=== PATIENT | male | born 1945 | race Caucasian/White ===

== ENCOUNTER 2018-12-19 19:23 | Emergency (ER) | payer MEDICARE, SELFPAY ==
[2018-12-19 19:36] VITALS: BP 125/77; PULSE 83; RESP 18; TEMP 36.7; O2SAT 98; BMI 23.0
--- NOTE | 2018-12-19 19:48 | ED_ITS ---
HPI - Nausea/Vomiting/Diarrhea <MARISEL Baltazar - Last Filed: 12/19/18 21:21> General Chief complaint: GI Bleed Stated complaint: DIARRHEA Time Seen by Provider: 12/19/18 19:28 Source: patient Mode of arrival: ambulatory Limitations: no limitations History of Present Illness HPI Narrative: 73-year-old male with a history of alcohol use and smoking (quit 6 months ago), presents emergency department complaining of intermittent diarrhea for the past 6 months that has turned black in color the past 3 weeks. He is in [place] being evaluated for his back and his knees talked him into coming. Denies aggravating or alleviating symptoms of his diarrhea. He states he has not taken anything for it, he has not seen a provider for as but the time he thinks he should see someone the diarrhea resolves. He denies any abdominal pain, chest pain, shortness of breath, nausea, appetite changes, fevers, chills, dysuria, difficulty urinating, or flank pain. MD complaint: diarrhea Onset (ago): minute(s) Description of Diarrhea: other (black) Associated Abdominal Pain: No Related Data Home Medications Medication Instructions Recorded Confirmed ibuprofen 600 mg PO TID PRN #0 09/05/17 multivitamin [Multiple Vitamins] 1 tab PO QDAY #0 09/05/17 Previous Rx's Medication Instructions Recorded hydromorphone 2 mg PO Q4HP PRN #40 09/16/17 hydroxyzine pamoate 25 mg PO Q4HP PRN #20 cap 09/16/17 Allergies Allergy/AdvReac Type Severity Reaction Status Date / Time No Known Allergies Allergy Uncoded 09/14/17 12:51 Review of Systems <MARISEL Baltazar - Last Filed: 12/19/18 21:21> Review of Systems REVIEW OF SYSTEMS: GENERAL: Denies fever, chills, malaise, or wt. loss. HENT: No head trauma, sore throat, or dysphagia. EYES: No loss of vision, double vision, eye pain, or irritation. CARDIOVASCULAR: No chest pain, palpitations, or orthopnea. RESPIRATORY: No shortness of breath or cough. GASTROINTESTINAL: Complains of diarrhea, see HPI GENITOURINARY: No flank pain, urinary incontinence, hesitancy, frequency, or dysuria. [No vaginal discharge or dyspareunia. Denies concerns for STIs] MUSCULOSKELETAL: No pain, weakness, or trauma. INTEGUMENTARY: No rash, lesions, or pruritus. NEURO: No numbness, tingling, memory loss, confusion, or headaches. PSYCH: No behavior or mood changes. PFSH <MARISEL Baltazar - Last Filed: 12/19/18 21:21> Medical History Chronic back pain (Chronic Unknown) Hearing loss (Chronic Unknown) Family History (Updated 12/22/17 @ 16:24 by Farzana Jain LPN) Father Heart disease Mother Cancer Social History Smoking Status: Former smoker Family History Father Heart disease Mother Cancer Social History Smoking Status: Former smoker Exam <MARISEL Baltazar - Last Filed: 12/19/18 21:21> Initial Vital Signs Initial Vital Signs: Vital Signs Temperature 98.1 F 12/19/18 19:36 Pulse Rate 83 12/19/18 19:36 Respiratory Rate 18 12/19/18 19:36 Blood Pressure 125/77 12/19/18 19:36 Pulse Oximetry 98 12/19/18 19:36 PHYSICAL EXAMINATION: GENERAL: Well groomed, alert, and cooperative. Answers questions promptly and appropriately. Vital signs noted. HENT: Normocephalic, atraumatic. Hearing intact. Oral mucosa is pink and moist. Voice is hoarse due to smoking history. EYES: Conjunctiva pink, sclera white, no periorbital swelling. CARDIOVASCULAR: S1 and S2 sounds normal. Regular rate and rhythm, no murmurs. RESPIRATORY: Normal respiratory rate, trachea midline, airway patent. No stridor, nasal flaring or accessory muscle use. Lungs are clear in all gonzalez without wheeze, rhonchi, or crackles. GASTROINTESTINAL: Bowel sounds normoactive. Abdomen is soft and very slight tenderness to deep palpation to right upper quadrant. No organomegaly, no palpable masses. RECTAL: Guaiac was negative for occult blood. No hemorrhoids or masses palpated. Stool was visualized by nursing, they state was brown and black. GENITALURINARY: No flank tenderness. MUSCULOSKELETAL: Normal gait and coordination. Equal tone and mass bilaterally. Patient states he has chronic back pain, there is tenderness when his lower back is palpated. Patient able to ambulate without assistance. EXTREMITIES: CMS intact, no pedal edema. SKIN: Warm, dry, soft, appropriate color for ethnicity. No lesions, rashes, or wounds. NEURO: Alert and Oriented X 3. Good coordination. No ataxia, or sensory deficits, or cognitive issues. PSYCH: Appropriate affect and mood. <Darling Munoz DO - Last Filed: 12/20/18 01:30> Initial Vital Signs Initial Vital Signs: Vital Signs Temperature 98.1 F 12/19/18 19:36 Pulse Rate 83 12/19/18 19:36 Respiratory Rate 18 12/19/18 19:36 Blood Pressure 125/77 12/19/18 19:36 Pulse Oximetry 98 12/19/18 19:36 Course <MARISEL Baltazar - Last Filed: 12/19/18 21:21> Course Narrative: CT was ordered under elevated lipase due to slight right upper quadrant abdominal pain as well as chronic diarrhea, and significant risk factors for masses (age, strong history of smoking and history of alcohol abuse) Orders Ordered: ED Orders 12/19/18 20:00 Amylase Stat Complete Blood Count AUTO DIFF Stat Comprehensive Metabolic Panel Stat Lipase Stat 12/19/18 20:32 CT abdomen pelvis w con Stat 12/19/18 21:08 GI Panel (Film Array) Stat Discontinued Medications Sodium Chloride (Normal Saline 0.9%) 1,000 mls @ 150 mls/hr IV CONT GATO Last Infusion: 12/19/18 23:16 Dose: 0 mls/hr Admin: 12/19/18 20:16 Dose: 150 mls/hr Consultations Consultation #1: Patient staffed with Dr. Munoz. Vital Signs - 8 hr 12/19/18 19:36 12/19/18 21:00 12/19/18 21:25 Temperature 98.1 F Pulse Rate 83 78 84 Respiratory Rate 18 16 Blood Pressure 125/77 Blood Pressure [Left Arm] 141/71 H 162/73 H Pulse Oximetry 98 99 95 12/19/18 23:16 Temperature Pulse Rate 90 Respiratory Rate 16 Blood Pressure 132/68 Blood Pressure [Left Arm] Pulse Oximetry 98 <Darling Munoz DO - Last Filed: 12/20/18 01:30> Orders Ordered: ED Orders 12/19/18 20:00 Amylase Stat Complete Blood Count AUTO DIFF Stat Comprehensive Metabolic Panel Stat Lipase Stat 12/19/18 20:32 CT abdomen pelvis w con Stat 12/19/18 21:08 GI Panel (Film Array) Stat Discontinued Medications Sodium Chloride (Normal Saline 0.9%) 1,000 mls @ 150 mls/hr IV CONT GATO Last Infusion: 12/19/18 23:16 Dose: 0 mls/hr Admin: 12/19/18 20:16 Dose: 150 mls/hr Vital Signs - 8 hr 12/19/18 19:36 12/19/18 21:00 12/19/18 21:25 Temperature 98.1 F Pulse Rate 83 78 84 Respiratory Rate 18 16 Blood Pressure 125/77 Blood Pressure [Left Arm] 141/71 H 162/73 H Pulse Oximetry 98 99 95 12/19/18 23:16 Temperature Pulse Rate 90 Respiratory Rate 16 Blood Pressure 132/68 Blood Pressure [Left Arm] Pulse Oximetry 98 MDM - Nausea/Vomiting/Diarrhea <MARISEL Baltazar - Last Filed: 12/19/18 21:21> Medical Records Attestation: I reviewed the patient's medical records. Lab Data Attestation: I reviewed the patient's lab results. Result diagrams: 12/19/18 20:00 12/19/18 20:00 Lab Results 12/19/18 12/19/18 12/19/18 Range/Units 20:00 20:00 20:00 WBC 12.2 H (4.5-11.0) X10^3/uL RBC 4.08 L (4.5-5.9) X10^6/uL Hgb 12.6 L (13.5-17.5) g/dL Hct 37.6 L (41-53) % MCV 92.0 (80-100) fL MCH 30.8 (26-34) PG MCHC 33.5 (30-36) % RDW 13.3 (11.6-14.8) % Plt Count 326 (150-400) X10^3/uL Neut % (Auto) 58.9 (50-75) % Lymph % (Auto) 16.1 L (25-40) % [place] % (Auto) 7.6 (3-14) % Eos % (Auto) 16.6 H (2-4) % Baso % (Auto) 0.8 (0-2) % Neut # (Auto) 7200 H (2020-5937) /uL Lymph # (Auto) 2000 (6362-3336) /uL [place] # (Auto) 900 (0-900) /uL Eos # (Auto) 2000 H (0-450) /uL Baso # (Auto) 100 (0-100) /uL Sodium 137 (137-145) mmol/L Potassium 4.2 (3.4-5.1) mmol/L Chloride 100 (98-107) mmol/L Carbon Dioxide 26 (22-32) mmol/L BUN 7 L (9-20) mg/dL Creatinine 0.60 L (0.66-1.25) mg/dL Estimated GFR > 60.0 (>60) mL/min BUN/Creatinine Ratio 11.7 (6-22) Glucose 95 (80-110) mg/dL Calcium 9.2 (8.4-10.2) mg/dL Total Bilirubin 0.3 (0.2-1.3) mg/dL AST 19 (17-59) IU/L ALT 14 L (21-72) IU/L Alkaline Phosphatase 82 (38-126) U/L Total Protein 7.3 (6.3-8.2) g/dL Albumin 4.0 (3.5-5.0) g/dL Globulin 3.3 (1.7-4.1) g/dL Albumin/Globulin Ratio 1.2 (1.0-2.8) Amylase 137 H (30-110) U/L Lipase 548 H (23-300) U/L Stl C. cayetanensis PCR (Not Detect) Stool Rotavirus (PCR) (Not Detect) Stool Adenovirus (PCR) (Not Detect) Stool Astrovirus (PCR) (Not Detect) Stool Cryptosporidium PCR (Not Detect) Stl E.coli Shiga Tox PCR (Not Detect) St Sh/Enteroin Ecoli PCR (Not Detect) Stool E coli O157 PCR Stl Enterotoxigenic E PCR (Not Detect) Stool EPEC (PCR) (Not Detect) Stl E. histolytica PCR (Not Detect) Stool Giardia Lamblia PCR (Not Detect) Stl P. shigelloides PCR (Not Detect) St Y.enterocolitica PCR (Not Detect) Stool Vibrio (PCR) (Not Detect) Stl Vibrio cholerae PCR (Not Detect) Stl Enteroaggr Ecoli PCR (Not Detect) Stl Norovirus GI/GII PCR (Not Detect) Campylobacter (PCR) (Not Detect) C. difficile Tox (PCR) (Not Detect) Salmonella (PCR) (Not Detect) 12/19/18 Range/Units 21:08 WBC (4.5-11.0) X10^3/uL RBC (4.5-5.9) X10^6/uL Hgb (13.5-17.5) g/dL Hct (41-53) % MCV (80-100) fL MCH (26-34) PG MCHC (30-36) % RDW (11.6-14.8) % Plt Count (150-400) X10^3/uL Neut % (Auto) (50-75) % Lymph % (Auto) (25-40) % [place] % (Auto) (3-14) % Eos % (Auto) (2-4) % Baso % (Auto) (0-2) % Neut # (Auto) (2725-0466) /uL Lymph # (Auto) (8117-3457) /uL [place] # (Auto) (0-900) /uL Eos # (Auto) (0-450) /uL Baso # (Auto) (0-100) /uL Sodium (137-145) mmol/L Potassium (3.4-5.1) mmol/L Chloride (98-107) mmol/L Carbon Dioxide (22-32) mmol/L BUN (9-20) mg/dL Creatinine (0.66-1.25) mg/dL Estimated GFR (>60) mL/min BUN/Creatinine Ratio (6-22) Glucose (80-110) mg/dL Calcium (8.4-10.2) mg/dL Total Bilirubin (0.2-1.3) mg/dL AST (17-59) IU/L ALT (21-72) IU/L Alkaline Phosphatase (38-126) U/L Total Protein (6.3-8.2) g/dL Albumin (3.5-5.0) g/dL Globulin (1.7-4.1) g/dL Albumin/Globulin Ratio (1.0-2.8) Amylase (30-110) U/L Lipase (23-300) U/L Stl C. cayetanensis PCR Not detected (Not Detect) Stool Rotavirus (PCR) Not detected (Not Detect) Stool Adenovirus (PCR) Not detected (Not Detect) Stool Astrovirus (PCR) Not detected (Not Detect) Stool Cryptosporidium PCR Not detected (Not Detect) Stl E.coli Shiga Tox PCR Not detected (Not Detect) St Sh/Enteroin Ecoli PCR Not detected (Not Detect) Stool E coli O157 PCR Not Reportable Stl Enterotoxigenic E PCR Not detected (Not Detect) Stool EPEC (PCR) Not detected (Not Detect) Stl E. histolytica PCR Not detected (Not Detect) Stool Giardia Lamblia PCR Not detected (Not Detect) Stl P. shigelloides PCR Not detected (Not Detect) St Y.enterocolitica PCR Not detected (Not Detect) Stool Vibrio (PCR) Not detected (Not Detect) Stl Vibrio cholerae PCR Not detected (Not Detect) Stl Enteroaggr Ecoli PCR Not detected (Not Detect) Stl Norovirus GI/GII PCR Not detected (Not Detect) Campylobacter (PCR) Not detected (Not Detect) C. difficile Tox (PCR) Not detected (Not Detect) Salmonella (PCR) Not detected (Not Detect) Urine Dip Bedside Urine Glucose Negative Bedside Urine Bilirubin - Negative Bedside Urine Ketone - Negative Urine Specific [place] 1.015 Bedside Urine Occult Blood - Negative Bedside Urine pH 6.5 Bedside Urine Protein - Negative Bedside Urine Urobilinogen - Negative Bedside Urine Nitrite - Negative Bedside Urine Leukocytes - Negative Esterase MDM Narrative Medical decision making narrative: Concern for pancreatitis due to elevated lipase and elevated amylase. Low concern for GI bleed due to negative guaiac, visualized brown stool, no complaints of progressive worsening (however remains on the differential due to new onset anemia and complaints of darker stool). Bacterial such as C diff could also be contributing to diarrhea so stool studies were obtained. Additionally, patient will need further follow-up for colonoscopy as inflammatory bowel disease (less likely due lack of abdominal pain and cramping, lack of mucus and bright red blood in stool) and IBS may also be contributing or causing patient's symptoms. Patient is at high risk for malignancy due to past smoking and alcohol use, therefore CT was obtained. <Darling Munoz, DO - Last Filed: 12/20/18 01:30> Lab Data Attestation: I reviewed the patient's lab results. Lab Results 12/19/18 12/19/18 12/19/18 Range/Units 20:00 20:00 20:00 WBC 12.2 H (4.5-11.0) X10^3/uL RBC 4.08 L (4.5-5.9) X10^6/uL Hgb 12.6 L (13.5-17.5) g/dL Hct 37.6 L (41-53) % MCV 92.0 (80-100) fL MCH 30.8 (26-34) PG MCHC 33.5 (30-36) % RDW 13.3 (11.6-14.8) % Plt Count 326 (150-400) X10^3/uL Neut % (Auto) 58.9 (50-75) % Lymph % (Auto) 16.1 L (25-40) % [place] % (Auto) 7.6 (3-14) % Eos % (Auto) 16.6 H (2-4) % Baso % (Auto) 0.8 (0-2) % Neut # (Auto) 7200 H (8821-4386) /uL Lymph # (Auto) 2000 (2698-1428) /uL [place] # (Auto) 900 (0-900) /uL Eos # (Auto) 2000 H (0-450) /uL Baso # (Auto) 100 (0-100) /uL Sodium 137 (137-145) mmol/L Potassium 4.2 (3.4-5.1) mmol/L Chloride 100 (98-107) mmol/L Carbon Dioxide 26 (22-32) mmol/L BUN 7 L (9-20) mg/dL Creatinine 0.60 L (0.66-1.25) mg/dL Estimated GFR > 60.0 (>60) mL/min BUN/Creatinine Ratio 11.7 (6-22) Glucose 95 (80-110) mg/dL Calcium 9.2 (8.4-10.2) mg/dL Total Bilirubin 0.3 (0.2-1.3) mg/dL AST 19 (17-59) IU/L ALT 14 L (21-72) IU/L Alkaline Phosphatase 82 (38-126) U/L Total Protein 7.3 (6.3-8.2) g/dL Albumin 4.0 (3.5-5.0) g/dL Globulin 3.3 (1.7-4.1) g/dL Albumin/Globulin Ratio 1.2 (1.0-2.8) Amylase 137 H (30-110) U/L Lipase 548 H (23-300) U/L Stl C. cayetanensis PCR (Not Detect) Stool Rotavirus (PCR) (Not Detect) Stool Adenovirus (PCR) (Not Detect) Stool Astrovirus (PCR) (Not Detect) Stool Cryptosporidium PCR (Not Detect) Stl E.coli Shiga Tox PCR (Not Detect) St Sh/Enteroin Ecoli PCR (Not Detect) Stool E coli O157 PCR Stl Enterotoxigenic E PCR (Not Detect) Stool EPEC (PCR) (Not Detect) Stl E. histolytica PCR (Not Detect) Stool Giardia Lamblia PCR (Not Detect) Stl P. shigelloides PCR (Not Detect) St Y.enterocolitica PCR (Not Detect) Stool Vibrio (PCR) (Not Detect) Stl Vibrio cholerae PCR (Not Detect) Stl Enteroaggr Ecoli PCR (Not Detect) Stl Norovirus GI/GII PCR (Not Detect) Campylobacter (PCR) (Not Detect) C. difficile Tox (PCR) (Not Detect) Salmonella (PCR) (Not Detect) 12/19/18 Range/Units 21:08 WBC (4.5-11.0) X10^3/uL RBC (4.5-5.9) X10^6/uL Hgb (13.5-17.5) g/dL Hct (41-53) % MCV (80-100) fL MCH (26-34) PG MCHC (30-36) % RDW (11.6-14.8) % Plt Count (150-400) X10^3/uL Neut % (Auto) (50-75) % Lymph % (Auto) (25-40) % [place] % (Auto) (3-14) % Eos % (Auto) (2-4) % Baso % (Auto) (0-2) % Neut # (Auto) (1953-3624) /uL Lymph # (Auto) (2573-7711) /uL [place] # (Auto) (0-900) /uL Eos # (Auto) (0-450) /uL Baso # (Auto) (0-100) /uL Sodium (137-145) mmol/L Potassium (3.4-5.1) mmol/L Chloride (98-107) mmol/L Carbon Dioxide (22-32) mmol/L BUN (9-20) mg/dL Creatinine (0.66-1.25) mg/dL Estimated GFR (>60) mL/min BUN/Creatinine Ratio (6-22) Glucose (80-110) mg/dL Calcium (8.4-10.2) mg/dL Total Bilirubin (0.2-1.3) mg/dL AST (17-59) IU/L ALT (21-72) IU/L Alkaline Phosphatase (38-126) U/L Total Protein (6.3-8.2) g/dL Albumin (3.5-5.0) g/dL Globulin (1.7-4.1) g/dL Albumin/Globulin Ratio (1.0-2.8) Amylase (30-110) U/L Lipase (23-300) U/L Stl C. cayetanensis PCR Not detected (Not Detect) Stool Rotavirus (PCR) Not detected (Not Detect) Stool Adenovirus (PCR) Not detected (Not Detect) Stool Astrovirus (PCR) Not detected (Not Detect) Stool Cryptosporidium PCR Not detected (Not Detect) Stl E.coli Shiga Tox PCR Not detected (Not Detect) St Sh/Enteroin Ecoli PCR Not detected (Not Detect) Stool E coli O157 PCR Not Reportable Stl Enterotoxigenic E PCR Not detected (Not Detect) Stool EPEC (PCR) Not detected (Not Detect) Stl E. histolytica PCR Not detected (Not Detect) Stool Giardia Lamblia PCR Not detected (Not Detect) Stl P. shigelloides PCR Not detected (Not Detect) St Y.enterocolitica PCR Not detected (Not Detect) Stool Vibrio (PCR) Not detected (Not Detect) Stl Vibrio cholerae PCR Not detected (Not Detect) Stl Enteroaggr Ecoli PCR Not detected (Not Detect) Stl Norovirus GI/GII PCR Not detected (Not Detect) Campylobacter (PCR) Not detected (Not Detect) C. difficile Tox (PCR) Not detected (Not Detect) Salmonella (PCR) Not detected (Not Detect) Urine Dip Bedside Urine Glucose Negative Bedside Urine Bilirubin - Negative Bedside Urine Ketone - Negative Urine Specific [place] 1.015 Bedside Urine Occult Blood - Negative Bedside Urine pH 6.5 Bedside Urine Protein - Negative Bedside Urine Urobilinogen - Negative Bedside Urine Nitrite - Negative Bedside Urine Leukocytes - Negative Esterase Imaging Data CT scan - abdomen: Radiologist's impression: Talat Stevenson 73 M [address] [place] [address] CT Scan Report Signed Patient: Talat Stevenson MMR#: [id number] : 7Acct:[id number] Age/Sex: 73 / MDate of Service: 12/19/18 Loc: ED Accession Number: [id number] Procedure: CT abdomen pelvis w con Ordering Provider: Brittany Elder PROCEDURE: CT ABDOMEN PELVIS W CON INDICATIONS: R-sided abd px, anemia, stools changes, high risk for CA TECHNIQUE: After the administration of intravenous contrast, 5 mm thick sections acquired from the diaphragm to the symphysis. 5 mm coronal and sagittal reformats were acquired. For radiation dose reduction, the following was used: automated exposure control, adjustment of mA and/or kV according to patient size. COMPARISON: None. FINDINGS: Image quality: Excellent. ABDOMEN: Lung bases: Lung bases are clear. Heart size is normal. Solid organs: Liver is normal in size and enhancement. Gallbladder is unremarkable. Biliary system is non dilated. Pancreas enhances normally. Spleen is normal in size and enhancement. No adrenal nodules. Kidneys demonstrate normal size and enhancement, without hydronephrosis. Peritoneum and bowel: There is a heterogeneous, irregular mass eccentrically located within the mid sigmoid colon measuring approximately 6.3 x 4.6 cm in transverse dimension with a few surrounding prominent lymph nodes. No evidence for bowel obstruction proximally. Remainder of the visualized bowel loops demonstrate normal wall thickness and caliber. No free fluid or air. Nodes and vessels: There are numerous scattered prominent mesenteric and retroperitoneal lymph nodes, most pronounced in the right pericaval region. Periportal adenopathy is noted. The largest is seen on image 29, series 2 measuring up to 1.7 cm in maximum short axis dimension. Additional prominent lymph nodes surrounding the sigmoid colon as well as the upper right pelvis as noted by a prominent 1.0 cm node seen on image 45, series 2. Aorta and inferior vena cava are normal in size. Miscellaneous: No ventral hernias. PELVIS: Genitourinary: Bladder wall thickness is normal. Miscellaneous: No inguinal hernias or adenopathy. Bones: Status post posterior spinal fusion of L4-S1 and right hemilaminectomies L5. Age indeterminate but probably acute to subacute compression fracture deformity involving the L1 vertebral body with approximately 40% loss of the anterior vertebral body height. There is mild retropulsion of the posterior margin of the vertebral body resulting in minimal spinal canal stenosis. No definite vertebral body lesion identified at L1. No other suspicious findings identified in the osseous structures. IMPRESSION: 1. Large, heterogeneous mass in the mid sigmoid colon measuring approximately 6.3 x 4.6 cm in size without evidence for obstruction. Findings are worrisome for malignancy. There are adjacent prominent pericolonic lymph nodes as well as numerous prominent retroperitoneal, pericaval nodes. There is adenopathy in the periportal region. Findings are suspicious for metastatic disease. Recommend further evaluation by gastroenterology/surgical consultation. 2. Age indeterminate, but likely acute to subacute compression fracture of the L1 vertebral body. A pathologic fracture not excluded although no suspicious osseous lesion identified in the L1 vertebral body or elsewhere. 3. Other chronic findings as above. Findings were discussed with Dr. Munoz of the emergency department at 2200 hrs. Dictated by: Grant Cisneros M.D. on 12/19/2018 at 21:43 Approved by: Grant Cisneros M.D. on 12/19/2018 at 22:06 MDM Narrative Medical decision making narrative: Patient was signed out to myself by nurse practitioner Jael, CT shows a large mass concerning for colon cancer along with multiple lymph nodes. Guaiac of stool was negative but with patient's description of melanotic stools and slowly decreasing hemoglobin I suspect that he is having a very slow GI bleed secondary to mass. His other labs white count, hemoglobin is 12 down from 15 in September 2017 and 17 in August of 2017. Lipase is slightly elevated at 555 for an amylase of 137, appropriate. Patien t's stool studies are negative. Patient does not wish to spend the night in the hospital and prefers to follow up outpatient in the next week. We discussed the serious nature of his findings and prolonged delay will make his care and course likely more difficult. He is accompanied by his niece. I spoke with Dr. Crawford with General surgery he did offer overnight stay for colonoscopy and surgery but patient prefers not to. He will call in the morning to set up an appointment. Also given Oncology. Was encouraged to return if he has any worsening symptoms or has difficulty with follow-up, patient expressed understanding and given referal for both. Discharge Plan Departure Patient Disposition: Home Clinical Impression: Mass of colon, Diarrhea Discharge Date/Time: 12/19/18 23:17 Interventions: ED Discharge Assessment Last Done: 12/19/18 23:16 Instructions: DI for Colorectal Cancer Activity Restrictions/Additional Instructions: Your imaging is concerning for colon cancer. Call Dr. Crawford office tomorrow morning to set up follow-up for evaluation and surgery as needed. Call the oncology office for follow-up as well. Call tomorrow. Let them know you have a colon mass concerning for colon cancer found in the ER. Continue home medications as prescribed. Return to the emergency department for lightheadedness, passing out, new abdominal pain, persistent vomiting, worsening black or bloody stools, chest pain, shortness of breath or other new or concerning symptoms. Prescriptions: No Action multivitamin [Multiple Vitamins] 1 EACH tablet 1 tab PO QDAY Qty: 0 RF: 0 ibuprofen 200 MG tablet 600 mg PO TID PRNQty: 0 RF: 0 hydroxyzine pamoate 25 MG capsule 25 mg PO Q4HP PRNQty: 20 RF: 0 hydromorphone 2 MG tablet 2 mg PO Q4HP PRNQty: 40 RF: 0 Referrals: Efren Crawford MD [Physician] - Mumtaz Jacobsen MD [Physician] - ED Cosign/Signout <MARISEL Baltazar - Last Filed: 12/19/18 21:21> Cosign ED Attending Cosignature Attestation: Report was given and patient was signed out to Dr. Munoz. Sign Out Provider Sign Out Attestation: Report was given and patient was signed out to Dr. Munoz at [id number].
[2018-12-19 20:11] LABS: Add Manual Diff / Slide Review NO; Basophils Absolute Auto 100 /uL (0-100); Basophils Percent Auto 0.8 % (0-2); Eosinophils Absolute Auto 2000 /uL (0-450); Eosinophils Percent Auto 16.6 % (2-4); Hematocrit 37.6 % (41-53); Hemoglobin 12.6 g/dL (13.5-17.5); Lymphocytes Absolute Auto 2000 /uL (1100-4500); Lymphocytes Percent Auto 16.1 % (25-40); Mean Corpuscular HGB Conc 33.5 % (30-36); Mean Corpuscular Hemoglobin 30.8 PG (26-34); Monocytes Absolute Auto 900 /uL (0-900); Monocytes Percent Auto 7.6 % (3-14); Neutrophils Absolute Auto 7200 /uL (1500-7000); Neutrophils Percent Auto 58.9 % (50-75); Platelet Count 326 X10^3/uL (150-400); Red Blood Cell Count 4.08 X10^6/uL (4.5-5.9); Red Cell Distribution Width 13.3 % (11.6-14.8); White Blood Cell Count 12.2 X10^3/uL (4.5-11.0)
[2018-12-19] MEDS: SODIUM CHLORIDE 0.9% 1,000 ML 150 ML IV (20:16)
[2018-12-19 20:24] LABS: Alanine Aminotransferase 14 IU/L (21-72); Albumin Globulin Ratio 1.2 (1.0-2.8); Alkaline Phosphatase 82 U/L (38-126); Aspartate Aminotransferase 19 IU/L (17-59); BUN Creatinine Ratio 11.7 (6-22); Bilirubin Total 0.3 mg/dL (0.2-1.3); Blood Urea Nitrogen 7 mg/dL (9-20); Calcium 9.2 mg/dL (8.4-10.2); Carbon Dioxide 26 mmol/L (22-32); Chloride 100 mmol/L (98-107); Estimated Glomerular Filt Rate > 60.0 mL/min (>60); Globulin 3.3 g/dL (1.7-4.1); Glucose 95 mg/dL (80-110); HEMOLYSIS < 15 (0-50); Lipase 548 U/L (23-300); Potassium 4.2 mmol/L (3.4-5.1); Sodium 137 mmol/L (137-145); Total Protein 7.3 g/dL (6.3-8.2)
--- NOTE | 2018-12-19 20:32 | DI.CT.S_ITS ---
PROCEDURE: CT ABDOMEN PELVIS W CON INDICATIONS: R-sided abd px, anemia, stools changes, high risk for CA TECHNIQUE: After the administration of intravenous contrast, 5 mm thick sections acquired from the diaphragm to the symphysis. 5 mm coronal and sagittal reformats were acquired. For radiation dose reduction, the following was used: automated exposure control, adjustment of mA and/or kV according to patient size. COMPARISON: None. FINDINGS: Image quality: Excellent. ABDOMEN: Lung bases: Lung bases are clear. Heart size is normal. Solid organs: Liver is normal in size and enhancement. Gallbladder is unremarkable. Biliary system is non dilated. Pancreas enhances normally. Spleen is normal in size and enhancement. No adrenal nodules. Kidneys demonstrate normal size and enhancement, without hydronephrosis. Peritoneum and bowel: There is a heterogeneous, irregular mass eccentrically located within the mid sigmoid colon measuring approximately 6.3 x 4.6 cm in transverse dimension with a few surrounding prominent lymph nodes. No evidence for bowel obstruction proximally. Remainder of the visualized bowel loops demonstrate normal wall thickness and caliber. No free fluid or air. Nodes and vessels: There are numerous scattered prominent mesenteric and retroperitoneal lymph nodes, most pronounced in the right pericaval region. Periportal adenopathy is noted. The largest is seen on image 29, series 2 measuring up to 1.7 cm in maximum short axis dimension. Additional prominent lymph nodes surrounding the sigmoid colon as well as the upper right pelvis as noted by a prominent 1.0 cm node seen on image 45, series 2. Aorta and inferior vena cava are normal in size. Miscellaneous: No ventral hernias. PELVIS: Genitourinary: Bladder wall thickness is normal. Miscellaneous: No inguinal hernias or adenopathy. Bones: Status post posterior spinal fusion of L4-S1 and right hemilaminectomies L5. Age indeterminate but probably acute to subacute compression fracture deformity involving the L1 vertebral body with approximately 40% loss of the anterior vertebral body height. There is mild retropulsion of the posterior margin of the vertebral body resulting in minimal spinal canal stenosis. No definite vertebral body lesion identified at L1. No other suspicious findings identified in the osseous structures. IMPRESSION: 1. Large, heterogeneous mass in the mid sigmoid colon measuring approximately 6.3 x 4.6 cm in size without evidence for obstruction. Findings are worrisome for malignancy. There are adjacent prominent pericolonic lymph nodes as well as numerous prominent retroperitoneal, pericaval nodes. There is adenopathy in the periportal region. Findings are suspicious for metastatic disease. Recommend further evaluation by gastroenterology/surgical consultation. 2. Age indeterminate, but likely acute to subacute compression fracture of the L1 vertebral body. A pathologic fracture not excluded although no suspicious osseous lesion identified in the L1 vertebral body or elsewhere. 3. Other chronic findings as above. Findings were discussed with Dr. Munoz of the emergency department at 2200 hrs. Dictated by: Grant Cisneros M.D. on 12/19/2018 at 21:43 Approved by: Grant Cisneros M.D. on 12/19/2018 at 22:06
[2018-12-19 21:00] VITALS: BP 141/71; PULSE 78; O2SAT 99
[2018-12-19 21:16] LABS: Amylase 137 U/L (30-110)
[2018-12-19 21:25] VITALS: BP 162/73; PULSE 84; RESP 16; O2SAT 95
[2018-12-19 23:16] VITALS: BP 132/68; PULSE 90; RESP 16; O2SAT 98
[2018-12-19 23:24] LABS: Adenovirus F 40/41 Not Detected (Not Detect); Astrovirus Not Detected (Not Detect); Campylobacter Not Detected (Not Detect); Clostridium difficile toxin AB Not Detected (Not Detect); Cryptosporidium Not Detected (Not Detect); Cyclospora cayetanensis Not Detected (Not Detect); Entamoeba histolytica Not Detected (Not Detect); Enteroaggregative E.coli Not Detected (Not Detect); Enteropathogenic E.coli Not Detected (Not Detect); Enterotoxigenic E.coli It/st Not Detected (Not Detect); Giardia lamblia Not Detected (Not Detect); Norovirus GI/GII Not Detected (Not Detect); Plesiomonsa shigelloides Not Detected (Not Detect); Rotavirus A Not Detected (Not Detect); Salmonella Not Detected (Not Detect); Shiga-like toxin-prod E.coli Not Detected (Not Detect); Shigella/Enteroinvasive E.coli Not Detected (Not Detect); Vibrio Not Detected (Not Detect); Vibrio cholerae Not Detected (Not Detect); Yersinia enterocolitica Not Detected (Not Detect)
== END 2018-12-19 23:17 | disposition home or self-care (01) ==
PROVIDERS: Nurse Practitioner; Emergency Provider Emergency Medicine
DX: K63.89 Other specified diseases of intestine (principal); R19.7 Diarrhea, unspecified
CPT/HCPCS: 36591; 74177; 80053; 81003; 82150; 83690; 85025; 87507; 96360; 96361; 99283; 99284; Q9967

== ENCOUNTER 2018-12-26 06:48 | Day surgery (SDC) | payer MEDICARE, SELFPAY ==
[2018-12-26] VITALS (7 sets, daily range): BP systolic 119–142; BP diastolic 73–80; PULSE 74–84; RESP 12–16; TEMP 36.6–36.8; O2SAT 93–98; BMI 21.9
--- NOTE | 2018-12-26 | PATH_ITS ---
[facility] Accession Number: [id number] . 01 Material submitted: . body - MASS AT 35 CM BIOPSIES . 01 Diagnosis: Colon Mass at 35 cm, Biopsies: Invasive adenocarcinoma, moderately differentiated. . IMMUNOHISTOCHEMISTRY TESTING FOR MISMATCH REPAIR PROTEINS: . MLH1: Intact nuclear expression. MSH2: Intact nuclear expression. MSH6: Intact nuclear expression. PMS2: Intact nuclear expression. Background nonneoplastic tissue/internal control with intact nuclear expression. . INTERPRETATION: No loss of nuclear expression of MMR proteins: low probability of microsatellite instability-high (MSI-H)* . * There are exceptions to the above IHC interpretations. These results should not be considered in isolation, and clinical correlation with genetic counseling is recommended to assess the need for germline testing. MRV/12/29/2018 . 01 Comment: As part of routine quality and reliability engineer, Dr. Dhillon has reviewed this case and agrees with the diagnosis of invasive adenocarcinoma. The finding of invasive adenocarcinoma was reported to Dr. Scruggs via his RN Lynne by Dr. Danie Martinez on 12/28/2018 at 2:45 p.m. . 01 Electronically signed: . Danie Martinez MD, PhD, Pathologist NPI- [id number] . 01 Gross description: . MASS AT 35 CM BIOPSIES: Received in formalin are multiple fragment(s) of martinez, soft tissue measuring 0.1 x 0.1 x 0.1 cm to 0.3 x 0.2 x 0.2 cm which is entirely submitted and submitted entirely in 1 cassette(s) /DMC /[facility] . 01 Microscopic: . Immunohistochemical stains for DNA mismatch repair proteins are performed (each with an appropriately positive control). The carcinoma cells show intact nuclear expression of MLH1, PMS2, MSH2 and MSH6 proteins. . * This test was developed and its performance characteristics determined by [facility]. It has not been cleared or approved by the U.S. Food and Drug Administration. The FDA has determined that such clearance or approval is not necessary. This test is used for clinical purposes. It should not be regarded as investigational or for research. . 01 Pathologist provided ICD-10: C18.9 . 01 CPT . 241415, F91689, M47116 Performed at: 01 [facility] [address] [place] [address], [place], [place] [id number] MD Fran Dhillon MD Phone: [phone]
[2018-12-26] MEDS: SODIUM CHLORIDE 0.9% 1,000 ML 200 ML IV (07:30)
--- NOTE | 2018-12-26 07:48 | PM.PREOP ---
Pre-operative Note Interval Note History & Physical reviewed/Exam performed by Physician: Yes Changes to H&P: No ASA Class (for procedural sedation): I
[2018-12-26] MEDS: ONDANSETRON 4 MG/2 ML INJ IV (07:56)
[2018-12-26] MEDS: fentaNYL 250 MCG/5 ML INJ IV (07:57)
[2018-12-26] MEDS: MIDAZOLAM 5 MG/5 ML VIAL IV (07:58)
--- NOTE | 2018-12-26 08:24 | PM.OP.ENDO ---
Operative Date/Time/Diagnoses Date of procedure: 12/26/18 Time of procedure: 08:24 Pre-op diagnosis: Abnormal CT with mass in the sigmoid colon Post-op diagnosis: same (Near obstructing mass found at 35 cm from the anal verge) Procedure & Clinicians Study performed: Colonoscopy abandoned. Flexible sigmoidoscopy with biopsy and Berenice ink injection Same procedure as scheduled: No (Switched to flexible sigmoidoscopy) Indications: Abnormal CT scan Surgeon: Piyush Taylor Procedure Notes SCOAP/Timeout: Performed Procedure in detail: The patient was placed in left lateral decubitus position underwent IV sedation directed by the surgeon consisting of fentanyl and Versed. Anal cyst opening was tight and I applied topical anesthetic. Prostate is enlarged. No masses felt. The scope was inserted advanced through the rectum into the sigmoid colon. At about 35 cm I reached a mass which I could not get around due to the narrow opening adjacent to it. I tried multiple times and the same result occurred. Therefore I abandoned the procedure and took a deep biopsies of the mass. Coming distal I began to inject ink into the wall of the colon. After I made 2 injections I backed out a little further noted a polyp that would need To be included in any resection. Therefore I injected ink distal to it is well. the scope was then slowly withdrawn and retroflexed in the rectum. No other lesions were seen. I was unable to evaluate the colon proximal to the mass. Scope withdrawal time: Not applicable Sedation minutes: 21 Findings: possible cancer Specimen(s): other (Biopsies) Complications: none Recommendations: Other recommendation (CT scan chest abdomen and pelvis rule out metastatic disease) Follow up: weeks (1) Disposition: PACU
--- NOTE | 2018-12-26 08:37 | SUR.PHASEI ---
unable to edit time - 0800 vital sign are actually 0830
== END 2018-12-26 09:30 | disposition home or self-care (01) ==
PROVIDERS: Visit Provider Specialist
PROC: 0DJD8ZZ Inspection of Lower Intestinal Tract, Via Natural or Artificial Opening Endoscopic (ICD-10-PCS; CPT 45378; principal; 2018-12-26 07:45)
DX: C18.9 Malignant neoplasm of colon, unspecified (principal)
CPT/HCPCS: 45335; 88305; 88341; 88342; 99152; J2250; J2405; J3010

== ENCOUNTER → 2019-01-02 09:51 | Outpatient (CLI) | payer MEDICARE, SELFPAY ==
--- NOTE | 2019-01-02 09:55 | DI.CT.S_ITS ---
PROCEDURE: CT CHEST W CON INDICATIONS: Cancerous mass sigmoid colon. Rule out mets TECHNIQUE: After the administration of intravenous contrast, 5 mm thick sections acquired from the pulmonary apices to the posterior costophrenic angles. 1 mm axial lung, 5 mm thick coronal and sagittal reformats and 7 mm axial MIP were acquired. For radiation dose reduction, the following was used: automated exposure control, adjustment of mA and/or kV according to patient size. COMPARISON: [facility], CT, CT ABDOMEN PELVIS W CON, 12/19/2018, 21:13. [facility], CR, XR LUMBAR SPINE 2 OR 3 VIEWS, 09/27/2017, 15:23. [facility], CR, L-SPINE 2-3 VIEWS, 09/13/2017, 8:34. FINDINGS: Image quality: Excellent. Lungs and pleura: A 3 mm pulmonary nodule is present at the posterior right upper lobe (series 3, image 86). No other pulmonary nodules. No acute airspace opacities. No pleural effusion or pneumothorax. Mediastinum: Heart size is normal. No pericardial effusion. No mediastinal or hilar adenopathy by size criteria. Thoracic aorta and central pulmonary arteries are normal in size. Scattered atheromatous calcifications are present within the aortic arch. Esophagus is normal in caliber. No hiatal hernia. Bones and chest wall: A severe compression deformity is present at L1 with approximately 63% vertebral body height loss. Vertebral body height is otherwise preserved. No axillary or supraclavicular adenopathy by size criteria. Thyroid gland is unremarkable. Abdomen: Visualized upper abdominal solid organs appear normal. Upper abdominal bowel loops are normal in caliber. IMPRESSION: 1. 3 mm pulmonary nodule. In a high risk patient, [address] is recommended. 2. Severe L1 compression deformity, unchanged from the CT dated 12/19/18. This was not present on the study dated 09/27/17. Pathologic fracture cannot be excluded. If further characterization is warranted, MRI of this region with and without contrast is recommended. Fleischner Society criteria for SOLID lung nodule followup. Nodule size (mm)Low-risk patientHigh-risk patient?4No follow-up neededFollow-up at 12 mo; if no change, no further follow-up>2-7Bgzyxs-pg CT at 12 mo; if no change, no further follow-up needed.Initial follow-up CT at 6-12 mo, then 18-24 mo if no change. >6-8Initial follow-up CT at 6-12 mo, then 18-24 mo if no change. Initial follow-up CT at 3-6 mo, then 9-12 mo and 24 mo if no change. >8Follow-up CT at 3, 9, 24 mo. Or PET and/or biopsy.Same as for low-risk pts. Fleischner Society criteria for SUB-SOLID lung nodule followup. Solitary pure ground-glass nodules5 mm or lessNo followup needed. >5 mm3 mo follow-up CT to confirm persistence. Then annual CT for 3 years. Part-solid nodules3 mo follow-up CT to confirm persistence. If persistent with solid component <5 mm, annual CT for at least 3 years. If solid component is 5 mm or more, biopsy or surgical resection. Consider PET-CT for lesions > 10 mm. Multiple sub-solid nodulesPure ground glass nodules [address] at 2 and 4 years. Pure ground glass nodules >5 mm without dominant lesion. [address] to confirm persistence, then annual followup CT for at least 3 years. Dominant nodule(s) with part-solid or solid component. [address] to confirm persistence. If persistent, consider biopsy or surgical resection, rudolph if lesions have >5 mm solid component. Dictated by: Calli Pederson M.D. on 01/02/2019 at 13:33 Approved by: Calli Pederson M.D. on 01/02/2019 at 13:38
== END ==
PROVIDERS: Visit Provider Specialist
DX: C18.7 Malignant neoplasm of sigmoid colon (principal); M43.9 Deforming dorsopathy, unspecified
CPT/HCPCS: 71260; Q9967

== ENCOUNTER 2019-01-10 07:39 | Inpatient (IN) | payer MEDICARE, SELFPAY ==
[2019-01-08 14:44] VITALS: BMI 21.9
[2019-01-10] VITALS (21 sets, daily range): BP systolic 107–159; BP diastolic 59–92; PULSE 75–99; RESP 10–18; TEMP 35.8–37.5; O2SAT 94–100; BMI 21.9
--- NOTE | 2019-01-10 | PATH_ITS ---
[facility] Accession Number: [id number] . 01 Material submitted: . colon - SIGMOID COLON . 02 Diagnosis: Sigmoid Colon, Sigmoid Colectomy: Invasive adenocarcinoma. Please CAP Summary Cancer Data below. . SURGICAL PATHOLOGY CANCER CASE SUMMARY COLON AND RECTUM: . Procedure: Sigmoid colectomy. Tumor site: Sigmoid colon. Tumor size: Greatest dimension: 5.5 cm. Macroscopic tumor perforation: Present. Histologic type: Adenocarcinoma. Histologic grade: G2: moderately differentiated. Tumor extension: Tumor invades the visceral peritoneum, and is adherent to ureter, per operative report. Please see comment. . Margins: Margins are uninvolved by invasive carcinoma and dysplasia. Proximal margin: Uninvolved by invasive carcinoma. Distal margin: Uninvolved by invasive carcinoma. Treatment effect: No known presurgical therapy. Lymphovascular invasion: Not identified. Perineural invasion: Not identified. Tumor deposits: Present: Specified number of deposits: One. . Regional lymph nodes: Number of lymph nodes involved: Zero. Number of lymph nodes examined: 13. . Pathologic stage classification (AJCC 8th Edition) Primary tumor: pT4a (please see comment). Regional lymph nodes: pN0. . Ancillary studies: Performed on previous biopsy ([id number]): No loss of expression of mismatch repair proteins expression MLH1, MSH2, MSH6 or PMS2. MR/01/12/2019 . 02 Comment: The operative report indicates that a portion of tumor adherent to the ureter was left behind, consistent with R2 category (macroscopic residual tumor). . 02 Electronically signed: . Marla Corral MD, Pathologist NPI- [id number] . 01 Gross description: . Received in formalin, labeled with the patient's name and sigmoid colon, is a 23 cm in length segment of colon which is opened at one end and stapled at the opposite end with a diameter ranging from 3.0 to 5.5 cm. There is a moderate amount of pericolonic fat. A large mass is palpated within the colon approximately 6.5 cm from the stapled margin and 11.5 cm from the opened margin. The mass is eroded through and partially protruding from the wall. 3.0 cm from the open margin there is a firm nodule within the pericolonic fat which is red-brown and measures 2.8 x 2.5 x 0.9 cm. The resection margins are inked blue and the protruding mass and serosa surrounding the mass are inked black. The specimen is opened to reveal a 5.5 x 5.3 x 5.2 cm fungating ulcerated mass occupying the entire lumen. The mass is located 5.8 cm from the stapled margin and 10.5 cm from the opened margin. The borders of the mass are raised. On sectioning, the mass has a heterogeneous firm yellow lobulated to soft yellow fleshy cut surface. No other masses or lesions are identified. Also received separate in the container are three pieces of martinez-brown mucosa ranging from 1.2 x 1.1 x 0.8 cm to 4.0 x 0.8 x 0.5 cm. Eleven lymph node candidates are identified ranging from 0.3 x 0.2 x 0.2 cm to 1.3 x 0.8 x 0.7 cm. Bench Mover sections are submitted as follows: A1 - stapled resection margin; A2 - open resection margin; A3 - firm portion of mass with mucosa; A4 - superficial ulcerated portion of mass; A5 - soft fleshy portion of mass; A6-A7 - mass invading through serosa; A8 - mass with interface between firm and soft areas; A9 - mass with adjacent normal mucosa; A10 - normal mucosa; A11 - rental representative sections from separate pieces of mucosa; A12 - nodule within pericolonic fat; A13 - three intact lymph node candidates; A14 - one lymph node candidate trisected; A15 - three intact lymph node candidates; A16 - two bisected lymph node candidates, one differentially inked; A17 - two bisected lymph node candidates, one differentially inked; A18-A20 - additional sections of pericolonic fat. (GUERDA:[id number]) . /MRV . 02 Pathologist provided ICD-10: C18.9 . 02 CPT . 865760 Performed at: 01 [facility] [address] [place] [address], [place], [place] [id number] MD Fran Dhillon MD Phone: [phone] Performed at: [facility] [address] [place], [place] [id number] MD Marla Corral MD Phone: [phone]
[2019-01-10] MEDS: LACTATED RINGERS 1,000 ML 100 ML IV (08:25)
--- NOTE | 2019-01-10 08:25 | PM.PREOP ---
Pre-operative Note Interval Note History & Physical reviewed/Exam performed by Physician: Yes Changes to H&P: No H&P completed within 30 days and has changed as indicated here:: see recent office visit for history and physical
[2019-01-10] MEDS: PIPERACILLIN-TAZO 3.375 GM/50 ML FROZ.PIGGY IV ×3 (08:50→22:35)
[2019-01-10] MEDS: LACTATED RINGERS 1,000 ML 42 ML IV ×2 (09:15→12:53)
--- NOTE | 2019-01-10 09:39 | SUR.OPER ---
Lithotomy on padded OR bed. [place] Pad Positioner under torso. Head on pillow, arms padded and tucked at sides. Legs secured in padded yellow fins stirrups.
[2019-01-10] MEDS: BUPIVACAINE 0.5% (PF) VIAL 30 ML INJ (10:11)
--- NOTE | 2019-01-10 10:12 | SUR.OPER ---
DENTURES IN LABELED CONTAINER TO PACU WITH PATIENT
--- NOTE | 2019-01-10 14:05 | SUR.PHASEI ---
pt arrived with out oral airway then Dr. Carranza placed an oral airway in pt's mouth. pt able to breathe better. And O2 sat maintaining o2 sat at 100% . pt remains asleep vital signs stable . Lungs are clear .
--- NOTE | 2019-01-10 14:35 | PM.OP.1 ---
Operative Date/Time/Diagnoses Date of procedure: 01/10/19 Time of procedure: 13:29 Pre-op diagnosis: Colon cancer involving the sigmoid colon with a near obstructing lesion Post-op diagnosis: same (With growth through the wall of the colon and in the periureteral tissue left ureter.) Procedure & Clinicians Procedure: Sigmoid colectomy with EEA end-to-end anastomosis. Laparoscopic Same procedure as scheduled: Yes Indications: Near obstructing colon lesion Surgeon: Piyush Taylor Marine Engineering Teacher: Nader Norris Anesthesia Type: General Operative Notes Findings: Very large tumor which had grown through the wall of the colon in the region of the ureter. Closure Type: primary Specimen(s): other (Sigmoid colon) Applied: catheter (Issa) Estimated Blood Loss (mL): 200 Blood products transfused: none Procedure in detail: Patient is placed supine on the operating room table in it to went general endotracheal anesthesia. He was placed in low lithotomy and a Issa catheter was placed. This required placement of a coude 16 Gabonese in order to cannulate the bladder. He was prepped and draped in the usual fashion. Incision was made be beneath the umbilicus and carried down under direct vision into the peritoneal cavity. Stay sutures of 0 Vicryl were placed in the fascia. An Patty cannula was inserted in the abdomen is insufflated. Additional ports were placed in the upper abdomen the right abdomen and the left lower quadrant. The descending and sigmoid colon were mobilized to the level of the splenic flexure. The flexure was actually attached to the spleen proper by adhesions which had to be sharply divided. Once I had mobilized the descending colon the adhesions into the pelvis were difficult to evaluate in a decided open the patient. Vertical midline incision was made from below the umbilicus to the suprapubic area. The other ports were removed. Exposure was gained. The tumor was huge and occupied a large segment of sigmoid colon. Using sharp dissection I a mobilize the sigmoid medially but the mesentery was foreshortened by tumor. It appeared to have grown through the wall. We identified the ureter above the tumor and traced it and it was in close proximity to where the tumor had grown through the wall. Rather than injure the ureter I chose to divide the attachments leaving a small amount of tumor behind since clearly this operation was not going to be curative and sacrificing a ureter and thus the kidney did not seem appropriate. We then scored the mesentery divided the colon proximally and dissected distally along the mesentery taking great care to avoid the ureter on either side. We reached a point well distal to the tumor and brought the dissection up to the colon wall. Using a TA linear stapler we stapled across the distal portion of the colon and transected above it. The staple line appeared to be adequate. We then brought the proximal divided colon down and it easily reached into the pelvis without any tension whatsoever. A bowel clamp was placed across the proximal colon and the and removed. Using sizers we chose a 31 EEA. It fit without any problem whatsoever. The anvil was inserted into the cut end and a pursestring of 2 0 Prolene was used around the edge to snug the colon against the anvil stem. The EEA was then inserted into the rectum after dilating it. It came up to the suture line and the spike was brought through the colon wall and removed. The stem was attached to the distal portion of the EEA which was closed under direct visualization. A was then fired and the device removed per business operations consultant instructions. The donuts were complete. There was a large amount of gas and stool in the proximal colon and this actually leaked out into the floor. There had been a small amount of spillage just prior to firing the EEA where the spike had come up through the wall of the colon. This was not preventable. Because of this I copiously irrigated the pelvis and decided to keep the patient on antibiotics postoperatively. Air was blown into the area of the anastomosis with the bowel clamped above it. The anastomosis was under water and there was no evidence of air leak. After irrigating the pelvis and assuring there was no bleeding the fascia was closed with a running 0 PDS suture with occasional interrupted 0 Vicryl sutures. The subcu was irrigated the skin closed with chanell. Dressing was applied the patient tolerated the procedure well. He was awakened extubated and taken recovery area in good condition. Complications: none Condition: stable Disposition: PACU Plan for aftercare: Admission. Continue IV antibiotics.
--- NOTE | 2019-01-10 15:50 | PC.NURSE ---
Addendum entered by Livia Ba R.N. 01/10/19 22:49: Pt's bed alarm sounds and this advertising copywriter attends quickly. Pt sitting at side of bed at bottom of bed with gown off. Attempting to pull out IV. Pt is confused and states needs to go to bathroom. Reoriented to situation and care. Pt cooperative and returns independently to bed. Able to save iv and coban wrapped around site. FACILITY REHAB DIRECTOR now with pt assisting pt to commode. Addendum entered by Livia Ba R.N. 01/10/19 20:14: BL calf scd's in place. Addendum entered by Livia Ba R.N. 01/10/19 20:11: Pt requests assistance getting up to toilet. Bedside commode used. Pt up with assistance x 2. Pt is unsteady on feet. Denies dizziness. Requires verbal cueing to mobilize. Approximately one teaspoon johanna blood in commode upon pt's standing for return to bed. Cleansed pt's skin and applied mesh panty and pad for any further episodes. Encouraged abdominal splinting with pillow and elevation of knees was done for pt in bed to promote comfort. Trial of room air 95% with sleep. Pt's sister leaves for the evening. Bed alarm in place. Addendum entered by Livia Ba R.N. 01/10/19 19:24: Mostly sleeping with 02 sats on 2L per NC 100% per continuous monitor. Rouses easily to reposition in bed at staff's request. Pt requests assistance up to commode to have a bowel movement. Pt states pain, pretty high and was given toradol as ordered. Cautioned by PACKER DRIED BEEF re pt's response to narcotics. Pt was very somnulent per PACU and required oral airway following administration of dilaudid. Issa to gravity with dark yellow urine with sediment. Ice chips provided. Pillow to splint abdomen provided. Original Note: Pt to room 204 from PACU sleeping, but rouses to voice. 02 2L nc sats 98%. Pt denies pain. Bulky abdominal dressing to abdomen is dry and intact. Issa to gravity and is draining clear, yellow urine. Pt's sister now at the bedside.
[2019-01-10] MEDS: LACTATED RINGERS 1,000 ML 125 ML IV (16:50)
[2019-01-10] MEDS: KETOROLAC 30 MG/ML VIAL IV (19:14)
[2019-01-10] MEDS: GABAPENTIN 300 MG CAPSULE PO (19:20)
--- NOTE | 2019-01-10 23:53 | PC.NURSE ---
Addendum entered by Ava Laughlin R.N. 01/11/19 07:24: 0650 Dr Crawford contacted earlier and informed of 150cc UOP. Reviewed most recent lab and VS. Informed of 300cc + blood out earlier and this morning DEWATERING FILTERING SUPERVISOR just reported patient again covered in blood with blood/clots pooling on bed linens. Order received to transfuse 2 units of blood with recheck of h&h 1 hour after completed. Also order received to transfer to ICU. Patient transferred to ICU after report given to Carmen OVEREDGE SEWER. Addendum entered by Ava Laughlin R.N. 01/11/19 03:38: Found again lying in bloody incontinent pad/linens. Up to BSC and passed additional 300cc dark red blood with multiple clots noted. BP 106/63 with HR of 93. Very pale but skin is warm and dry. Denies dizziness, lightheadedness or headache. No SOB. Is weak/unsteady on feet. Addendum entered by Ava Laughlin R.N. 01/11/19 02:08: Dr Crawford informed of UOP of only 100cc in past 4 hours. Bolus currently infusing. Also informed that hgb was 9.9. No new orders. Addendum entered by Ava Laughlin R.N. 01/11/19 01:45: When patient checked on at 0100 was found sitting up in bed and basketball size pool of dark red liquid on pad beneath him. Gotten up to BSC and had additional 250cc dark red, gel like liquid. VS 98.4-95-16 92/46 with RA sat of 97%. Denies any increase in abdominal pain. No additional drainage noted on dressing. Dr Crawford informed and new orders received. Patient moved to room 207 for closer monitoring. Original Note: Patient is drowsy and mostly oriented; did not know month, day, day of week. Is [place] and does not have hearing aids. Breath sounds diminished but CTA with RA sat of 95%. HRR. Denies nausea. BT present; abdomen is soft. Is passing small amounts dark blood via rectum. Bulky dressing to abdomen is intact with shadow drainage noted and outlined. Indwelling catheter is patent; urine clear bethany. Able to turn self in bed and can be impulsive and not remembering to call staff for assistance. States pain is currently 3/10 but tolerable. Has bilateral SCD's on. Gotten up to BSC with walker and 1 assist and is weak in bilateral LE. Fall risk score is high and bed alarm is acctivated.
[2019-01-11] VITALS (31 sets, daily range): BP systolic 92–219; BP diastolic 46–74; PULSE 86–99; RESP 12–23; TEMP 36.6–37.5; O2SAT 94–97
[2019-01-11] MEDS: LACTATED RINGERS 1,000 ML 125 ML IV (01:19)
[2019-01-11] MEDS: SODIUM CHLORIDE 0.9% 500 ML 1000 ML IV (01:45)
[2019-01-11 01:55] LABS: Add Manual Diff / Slide Review NO; Basophils Absolute Auto 0 /uL (0-100); Eosinophils Absolute Auto 0 /uL (0-450); Hematocrit 29.9 % (41-53); Hemoglobin 9.9 g/dL (13.5-17.5); Lymphocytes Absolute Auto 700 /uL (1100-4500); Lymphocytes Percent Auto 3.3 % (25-40); Mean Corpuscular HGB Conc 33.2 % (30-36); Mean Corpuscular Hemoglobin 30.4 PG (26-34); Mean Corpuscular Volume 91.4 fL (80-100); Monocytes Absolute Auto 1100 /uL (0-900); Monocytes Percent Auto 4.8 % (3-14); Neutrophils Absolute Auto 20400 /uL (1500-7000); Neutrophils Percent Auto 91.9 % (50-75); Platelet Count 351 X10^3/uL (150-400); Red Blood Cell Count 3.26 X10^6/uL (4.5-5.9); White Blood Cell Count 22.2 X10^3/uL (4.5-11.0)
[2019-01-11] MEDS: PIPERACILLIN-TAZO 3.375 GM/50 ML FROZ.PIGGY IV ×4 (04:18→21:30)
[2019-01-11 05:50] LABS: Add Manual Diff / Slide Review NO; Basophils Absolute Auto 0 /uL (0-100); Basophils Percent Auto 0.1 % (0-2); Eosinophils Absolute Auto 0 /uL (0-450); Hemoglobin 8.1 g/dL (13.5-17.5); Lymphocytes Absolute Auto 1200 /uL (1100-4500); Lymphocytes Percent Auto 6.8 % (25-40); Mean Corpuscular HGB Conc 33.4 % (30-36); Mean Corpuscular Hemoglobin 30.2 PG (26-34); Mean Corpuscular Volume 90.4 fL (80-100); Monocytes Absolute Auto 1200 /uL (0-900); Monocytes Percent Auto 6.6 % (3-14); Neutrophils Absolute Auto 15300 /uL (1500-7000); Neutrophils Percent Auto 86.5 % (50-75); Platelet Count 320 X10^3/uL (150-400); Red Blood Cell Count 2.68 X10^6/uL (4.5-5.9); Red Cell Distribution Width 13.1 % (11.6-14.8); White Blood Cell Count 17.7 X10^3/uL (4.5-11.0)
[2019-01-11 05:57] LABS: Hematocrit 24.2 % (41-53)
[2019-01-11 05:59] LABS: Alanine Aminotransferase 15 IU/L (21-72); Albumin 2.5 g/dL (3.5-5.0); Alkaline Phosphatase 43 U/L (38-126); Aspartate Aminotransferase 15 IU/L (17-59); BUN Creatinine Ratio 24.3 (6-22); Bilirubin Total 0.4 mg/dL (0.2-1.3); Blood Urea Nitrogen 17 mg/dL (9-20); Calcium 8.1 mg/dL (8.4-10.2); Carbon Dioxide 28 mmol/L (22-32); Chloride 101 mmol/L (98-107); Estimated Glomerular Filt Rate > 60.0 mL/min (>60); Globulin 2.5 g/dL (1.7-4.1); Glucose 142 mg/dL (80-110); HEMOLYSIS < 15 (0-50); Sodium 136 mmol/L (137-145)
--- NOTE | 2019-01-11 07:59 | P.PN_ITS ---
Subjective Date Patient Seen: 01/11/19 Time Patient Seen: 07:56 Interval history: Patient is less than 1 day post low anterior resection of a colorectal carcinoma. Throughout the night he has been having red rectal bleeding at 1 point became hypotensive to systolic pressure of 90. His been oliguric. He has received fluid boluses through the night. His hemoglobin this morning is 8 and he is still passing red stools. Therefore I am transfusing the patient in transferring him to intensive care. I have explained to the patient that he may need exploration. He understands. I am also checking his coagulation studies because he does have a history of alcoholism and his prothrombin time may be elevated. Exam Vital Signs (past 8 hours): - 01/11/19 01:30 01/11/19 02:17 01/11/19 03:46 Temperature 98.4 F 98.1 F Pulse Rate 95 H 93 H 93 H Respiratory Rate 18 18 Blood Pressure 92/46 L 110/56 L 106/66 Pulse Oximetry 97 94 01/11/19 04:56 01/11/19 06:25 01/11/19 07:05 Temperature 98.7 F Pulse Rate 88 88 Respiratory Rate Blood Pressure 105/55 L 110/64 Pulse Oximetry 01/11/19 07:06 01/11/19 07:25 Temperature 98.7 F 98.4 F Pulse Rate 91 H 96 H Respiratory Rate 14 20 Blood Pressure 93/52 L 101/58 L Pulse Oximetry Oxygen Delivery Method Room Air Oxygen Flow Rate 0 Narrative Exam Narrative: Patient is alert and oriented with only moderate incisional pain. Lungs are clear. Heart regular rhythm. Abdomen mildly distended. Patient has a pad with fresh blood and clotted blood which he is passing per rectum. Objective Labs Result Diagrams: 01/11/19 05:35 01/11/19 05:35 Labs: Laboratory Results - last 24 hr 01/11/19 01/11/19 01/11/19 01:45 01:45 05:35 WBC 22.2 H 17.7 H RBC 3.26 L 2.68 L Hgb 9.9 L 8.1 L Hct 29.9 L 24.2 L MCV 91.4 90.4 MCH 30.4 30.2 MCHC 33.2 33.4 RDW 13.0 13.1 Plt Count 351 320 Neut % (Auto) 91.9 H 86.5 H Lymph % (Auto) 3.3 L 6.8 L [place] % (Auto) 4.8 6.6 Eos % (Auto) 0.0 L 0.0 L Baso % (Auto) 0.0 0.1 Neut # (Auto) 29160 H 39858 H Lymph # (Auto) 700 L 1200 [place] # (Auto) 1100 H 1200 H Eos # (Auto) 0 0 Baso # (Auto) 0 0 Sodium Potassium Chloride Carbon Dioxide BUN Creatinine Estimated GFR BUN/Creatinine Ratio Glucose Calcium Total Bilirubin AST ALT Alkaline Phosphatase Total Protein Albumin Globulin Albumin/Globulin Ratio Blood Type O Positive Antibody Screen Negative Crossmatch See Detail 01/11/19 05:35 WBC RBC Hgb Hct MCV MCH MCHC RDW Plt Count Neut % (Auto) Lymph % (Auto) [place] % (Auto) Eos % (Auto) Baso % (Auto) Neut # (Auto) Lymph # (Auto) [place] # (Auto) Eos # (Auto) Baso # (Auto) Sodium 136 L Potassium 5.0 Chloride 101 Carbon Dioxide 28 BUN 17 Creatinine 0.70 Estimated GFR > 60.0 BUN/Creatinine Ratio 24.3 H Glucose 142 H Calcium 8.1 L Total Bilirubin 0.4 AST 15 L ALT 15 L Alkaline Phosphatase 43 Total Protein 5.0 L Albumin 2.5 L Globulin 2.5 Albumin/Globulin Ratio 1.0 Blood Type Antibody Screen Crossmatch Assessment & Plan Assessment & Plan narrative: Patient very likely has bleeding from his colorectal anastomosis. This is been significant through the night. He is at [facility] I am awaiting his coagulation studies. If needed he will receive fresh frozen plasma. I have explained to the patient that he may need abdominal exploration take-down or re-suturing of the anastomosis. He understands. He is hemodynamically stable at this point. Quality VTE Deep Vein Thrombosis/Pulmonary Embolism Present on Admission: No
--- NOTE | 2019-01-11 08:13 | PC.NURSE ---
Addendum entered by Chen Engle R.N. 01/11/19 12:30: pt noted to have some confusion r/t situation - sister at bedside Addendum entered by Chen Engle R.N. 01/11/19 10:36: full bedbath completed and bed mcnulty changed out with 150 mls of blood from rectum- 2nd unit of pbc given and awaiting ffp to thaw in lab- pt intermittently confused about course of events Addendum entered by Chen Engle R.N. 01/11/19 08:44: another approx 500 cc blood loss from rectum- few clots noted coag labs pending Original Note: pt noted to be slightly confused although answered most questions approriately- he thought he has a poop bag- presently receiving 2 units PRBC for increased rectal bleeding- he is unaware of himself passing this - stat coags ordered and md x 2 visiting (paul BRAND/TRINA)
[2019-01-11 08:46] LABS: INR 1.2 (0.9-1.3); Prothrombin Time 14.2 SECONDS (10.1-12.7)
[2019-01-11 08:49] LABS: PTT Partial Thromboplastin Tim 30 SECONDS (26.4-36.2)
--- NOTE | 2019-01-11 09:24 | CM.DANOTE ---
DCP: Case received, EMR reviewed and met with patient. Introduced self and role. Was able to receive some baseline information regarding living situation from patient, as well as from sister, Nelly. DCP assessment completed with information currently availabe. Patient is a 73 year old male who admitted yesterday morning to the care of the hospitalist team. PCP: MARISEL Phillip. Payer: confirmed Medicare. Patient came to the hospital for a surgical procedure. He had a signoid colectomy laparoscopic procedure. Patient has history of colon cancer, and he had a tumor removed. Met briefly with patient, alert. He stated that he lives in apartment. He has two sisters, Nelly, and another sister named Jami. Nelly, his sister, stated that Fatimah is more involved in his affairs. Her phone number is: [phone]. Nelly stated that patient used to live at a facility in [place]. He also has a niece named Jie. Nelly stated, he has lived at [facility] for about a month. Left Susan a message to call this medical case manager back. P: DCP to follow closely. Will see how he progresses here in hospital. Gloria Rogers RN/Field Care Advocate
[2019-01-11] MEDS: PHYTONADIONE (VIT K1) 10 MG in DEXTROSE 5 % IN WATER 50 ML 102 ML IV (10:07)
[2019-01-11] MEDS: LACTATED RINGERS 1,000 ML 150 ML IV ×2 (10:17→20:09)
[2019-01-11] MEDS: MORPHINE 4 MG/ML INJ IV ×2 (10:17→17:36)
[2019-01-11 12:32] LABS: Hematocrit 24.8 % (41-53); Hemoglobin 8.5 g/dL (13.5-17.5)
--- NOTE | 2019-01-11 14:13 | P.PN_ITS ---
Subjective Date Patient Seen: 01/11/19 Time Patient Seen: 14:08 Interval history: Patient has been in the intensive care unit for the past 6 hours and his rectal bleeding seems to be subsiding. Since noon he has had 1 stool approximately 60 cc of blood. This is much reduced in volume now. After receiving 2 units of packed cells earlier this morning his hemoglobin did not significantly change. It went from 8.1-8.3. His vital signs have improved significantly with systolic blood pressure in the 130-150 range and normal diastolic pressures. Heart rate in the 90s. Patient is not complaining of significant pain other than incisional pain. Exam Vital Signs (past 8 hours): - 01/11/19 06:25 01/11/19 07:05 01/11/19 07:06 Temperature 98.7 F 98.7 F Pulse Rate 88 91 H Respiratory Rate 14 Blood Pressure 110/64 93/52 L 01/11/19 07:25 01/11/19 08:49 01/11/19 08:54 Temperature 98.4 F 98.2 F 98.2 F Pulse Rate 96 H 91 H 91 H Respiratory Rate 20 13 14 Blood Pressure 101/58 L 119/65 119/65 01/11/19 09:04 01/11/19 10:32 01/11/19 11:20 Temperature 98.2 F 98.5 F 99.5 F Pulse Rate 90 86 92 H Respiratory Rate 15 16 17 Blood Pressure 127/58 L 115/63 115/63 01/11/19 11:36 01/11/19 12:21 01/11/19 12:33 Temperature 97.8 F Pulse Rate 88 93 H 88 Respiratory Rate 17 23 21 Blood Pressure 161/74 H 161/74 H 134/66 01/11/19 12:41 01/11/19 12:58 01/11/19 13:13 Temperature 99.5 F 99.5 F 98.2 F Pulse Rate 90 90 89 Respiratory Rate 15 12 13 Blood Pressure 127/71 127/71 139/63 01/11/19 13:16 Temperature 98.2 F Pulse Rate 90 Respiratory Rate 14 Blood Pressure 139/63 Oxygen Delivery Method Room Air Oxygen Flow Rate 0 Narrative Exam Narrative: Patient is alert and oriented. Abdomen is not distended. Continuing maroon-colored stools. Objective Labs Result Diagrams: 01/11/19 12:22 01/11/19 05:35 Labs: Laboratory Results - last 24 hr 01/11/19 01/11/19 01/11/19 01:45 01:45 05:35 WBC 22.2 H 17.7 H RBC 3.26 L 2.68 L Hgb 9.9 L 8.1 L Hct 29.9 L 24.2 L MCV 91.4 90.4 MCH 30.4 30.2 MCHC 33.2 33.4 RDW 13.0 13.1 Plt Count 351 320 Neut % (Auto) 91.9 H 86.5 H Lymph % (Auto) 3.3 L 6.8 L [place] % (Auto) 4.8 6.6 Eos % (Auto) 0.0 L 0.0 L Baso % (Auto) 0.0 0.1 Neut # (Auto) 70266 H 48070 H Lymph # (Auto) 700 L 1200 [place] # (Auto) 1100 H 1200 H Eos # (Auto) 0 0 Baso # (Auto) 0 0 PT INR APTT Sodium Potassium Chloride Carbon Dioxide BUN Creatinine Estimated GFR BUN/Creatinine Ratio Glucose Calcium Total Bilirubin AST ALT Alkaline Phosphatase Total Protein Albumin Globulin Albumin/Globulin Ratio Nasal Screen MRSA (PCR) Blood Type O Positive Antibody Screen Negative Crossmatch See Detail 01/11/19 01/11/19 01/11/19 05:35 08:10 10:30 WBC RBC Hgb Hct MCV MCH MCHC RDW Plt Count Neut % (Auto) Lymph % (Auto) [place] % (Auto) Eos % (Auto) Baso % (Auto) Neut # (Auto) Lymph # (Auto) [place] # (Auto) Eos # (Auto) Baso # (Auto) PT 14.2 H INR 1.2 APTT 30 Sodium 136 L Potassium 5.0 Chloride 101 Carbon Dioxide 28 BUN 17 Creatinine 0.70 Estimated GFR > 60.0 BUN/Creatinine Ratio 24.3 H Glucose 142 H Calcium 8.1 L Total Bilirubin 0.4 AST 15 L ALT 15 L Alkaline Phosphatase 43 Total Protein 5.0 L Albumin 2.5 L Globulin 2.5 Albumin/Globulin Ratio 1.0 Nasal Screen MRSA (PCR) Negative for mrsa Blood Type Antibody Screen Crossmatch 01/11/19 12:22 WBC RBC Hgb 8.5 L Hct 24.8 L MCV MCH MCHC RDW Plt Count Neut % (Auto) Lymph % (Auto) [place] % (Auto) Eos % (Auto) Baso % (Auto) Neut # (Auto) Lymph # (Auto) [place] # (Auto) Eos # (Auto) Baso # (Auto) PT INR APTT Sodium Potassium Chloride Carbon Dioxide BUN Creatinine Estimated GFR BUN/Creatinine Ratio Glucose Calcium Total Bilirubin AST ALT Alkaline Phosphatase Total Protein Albumin Globulin Albumin/Globulin Ratio Nasal Screen MRSA (PCR) Blood Type Antibody Screen Crossmatch Assessment & Plan Assessment & Plan narrative: Apparent anastomotic bleeding seems to be subsidi ng. He is receiving his 3rd unit of packed cells now. I have considered endoscopic and or open surgical repair of anastomotic bleeding. However these episodes generally are self correcting. This appears to be the case now. We will recheck a hemoglobin after this 3rd unit. The patient remains stable. Quality VTE Deep Vein Thrombosis/Pulmonary Embolism Present on Admission: No
[2019-01-11 14:32] LABS: Hematocrit 24.1 % (41-53); Hemoglobin 8.2 g/dL (13.5-17.5)
[2019-01-11] MEDS: PANTOPRAZOLE 40 MG VIAL IV (16:22)
[2019-01-11 19:14] LABS: Hematocrit 26.5 % (41-53); Hemoglobin 9.1 g/dL (13.5-17.5)
--- NOTE | 2019-01-11 19:32 | PC.NURSE ---
1924 - Dr. Crawford updated on new H&H results. No new orders at this time.
[2019-01-12] VITALS (8 sets, daily range): BP systolic 114–143; BP diastolic 41–98; PULSE 82–90; RESP 14–20; TEMP 36.5–37.5; O2SAT 92–98
--- NOTE | 2019-01-12 00:32 | PC.NURSE ---
Alarm sounding, pt found sitting up at side of bed attempting to get OOB and pulling at cords and IV tubing. Confused and impulsive. When asked he does not remember where he was going or what he was trying to do. Reoriented and redirected easily. Knows he is in the hospital in [place] and had surgery. Brief dry without any noted bleeding from rectum. Issa to gravity patent. C/O mild pain to abd, denies need for medication at this time. VSS, Tele SR 80's-90's. Bed alarm verified active, call light in reach. Will monitor closely.
[2019-01-12] MEDS: PIPERACILLIN-TAZO 3.375 GM/50 ML FROZ.PIGGY IV ×4 (02:55→23:19)
[2019-01-12] MEDS: MORPHINE 4 MG/ML INJ IV (02:55)
[2019-01-12] MEDS: LACTATED RINGERS 1,000 ML 150 ML IV ×2 (03:52→18:45)
--- NOTE | 2019-01-12 08:04 | PM.PN.1 ---
Subjective Date Patient Seen: 01/12/19 Time Patient Seen: 08:04 Interval history: Second postop day for Mr. Stevenson following sigmoid resection. Through the night the patient has had no further rectal bleeding. He actually passed a normal color stool. Vital signs are stable. Heart rate 75 blood pressure 120-130 systolic. Mild to moderate incisional pain. Exam Vital Signs (past 8 hours): - 01/12/19 03:08 Temperature 98.8 F Pulse Rate 90 Respiratory Rate 14 Blood Pressure 127/69 Oxygen Delivery Method Room Air Oxygen Flow Rate 0 Narrative Exam Narrative: Patient is alert but not fully oriented. Heart rate 75 blood pressure 120 over 70 Abdomen mildly distended Incision healing nicely with no signs of infection Patient has clear urine No more rectal bleeding Objective Labs Result Diagrams: 01/11/19 19:00 01/11/19 05:35 Labs: Laboratory Results - last 24 hr 01/11/19 01/11/19 01/11/19 01:45 08:10 10:30 Hgb Hct PT 14.2 H INR 1.2 APTT 30 Nasal Screen MRSA (PCR) Negative for mrsa Blood Type O Positive Antibody Screen Negative Crossmatch See Detail 01/11/19 01/11/19 01/11/19 12:22 14:28 19:00 Hgb 8.5 L 8.2 L 9.1 L Hct 24.8 L 24.1 L 26.5 L PT INR APTT Nasal Screen MRSA (PCR) Blood Type Antibody Screen Crossmatch Assessment & Plan Assessment & Plan narrative: Anastomotic bleeding appears to have stopped. I still do not have his morning hemoglobin. Last night after 4 units it was 9.1. Patient appears to have stabilized. I will allow clear liquid diet. I will have physical therapy evaluate him for mobilization. Of course he is not receiving Lovenox but we will continue with SCDs for DVT prophylaxis. Quality VTE Deep Vein Thrombosis/Pulmonary Embolism Present on Admission: No
[2019-01-12 08:32] LABS: Add Manual Diff / Slide Review NO; Basophils Absolute Auto 100 /uL (0-100); Basophils Percent Auto 0.7 % (0-2); Eosinophils Absolute Auto 100 /uL (0-450); Hematocrit 24.9 % (41-53); Hemoglobin 8.7 g/dL (13.5-17.5); Lymphocytes Absolute Auto 2000 /uL (1100-4500); Lymphocytes Percent Auto 17.6 % (25-40); Mean Corpuscular Hemoglobin 30.4 PG (26-34); Mean Corpuscular Volume 86.8 fL (80-100); Monocytes Absolute Auto 1000 /uL (0-900); Monocytes Percent Auto 9.3 % (3-14); Neutrophils Absolute Auto 8100 /uL (1500-7000); Neutrophils Percent Auto 71.4 % (50-75); Platelet Count 217 X10^3/uL (150-400); Red Blood Cell Count 2.87 X10^6/uL (4.5-5.9); White Blood Cell Count 11.3 X10^3/uL (4.5-11.0)
[2019-01-12] MEDS: GABAPENTIN 300 MG CAPSULE PO (08:33)
[2019-01-12] MEDS: PANTOPRAZOLE 40 MG VIAL IV ×2 (08:33→22:39)
[2019-01-12] MEDS: buPROPion XL 150 MG TAB PO (08:33)
[2019-01-12] MEDS: DEXTROSE 5%-0.45NS W/KCL 20MEQ 1,000 ML 84 MEQ IV (08:33)
[2019-01-12 08:43] LABS: BUN Creatinine Ratio 18.3 (6-22); Blood Urea Nitrogen 11 mg/dL (9-20); Calcium 7.8 mg/dL (8.4-10.2); Carbon Dioxide 31 mmol/L (22-32); Chloride 102 mmol/L (98-107); Estimated Glomerular Filt Rate > 60.0 mL/min (>60); Glucose 94 mg/dL (80-110); HEMOLYSIS < 15 (0-50); Potassium 4.2 mmol/L (3.4-5.1); Sodium 136 mmol/L (137-145)
--- NOTE | 2019-01-12 10:30 | PT.IIE ---
Current Diagnoses Malignant neoplasm of colon, unspecified (01/10/19) Surgery Performed Operation Date: 01/10/19 08:45 Actual Procedures p Laparoscopic sigmoid colon resection-ATTEMPTED, CONVERTED TO OPEN(Not Applicable) - Piyush Taylor MD Operation Date: 01/11/19 11:15 <No data on this case meets the specified criteria> Surgical History (Last Reviewed 12/22/18 @ 20:56 by Piyush Taylor MD) History of back surgery (Chronic) Medical History (Last Reviewed 12/22/18 @ 20:56 by Piyush Taylor MD) Chronic back pain (Chronic Unknown) Hearing loss (Chronic Unknown) Physical Therapy Inpatient Evaluation/Re-Eval M1 PT/OT-IP Prior Functional Status Start: 01/12/19 12:49 Freq: NEEDED Status: Active Protocol: Document 01/12/19 10:30 AB (Rec: 01/12/19 13:05 AB [id number]) Medical Review Prior Functional Status Medical History Reviewed Yes Communication able to make needs known Mobility and Gait pt stated that he is modified independent with all mobilities and ambulation using a quad cane but uses a FWW for long distance ambulation Social History Household Members none Living Arrangements Apartment/Condo Number of Floors (Floors) One Floor Number of Stairs To Enter/Railing? no steps to enter Home Environment Standard Height Toilet Walk in Shower Tub/Shower Home Equipment Front Wheel Walker Quad Cane Shower Seat with Backrest Hand Held Shower Grab Bars Near Toilet Grab Bars In Shower Additional Social History Comment pt stated that his sisters and brothers checks on him. M2 PT-IP Current Condition Start: 01/12/19 12:49 Freq: NEEDED Status: Active Protocol: Document 01/12/19 10:30 AB (Rec: 01/12/19 13:05 AB [id number]) Physical Therapy Current Condition Current Condition Evaluation Date 01/12/19 Treatment Diagnosis colon CA s/p sigmoid colectomy ; difficulty in walking Onset Date 01/10/19 Precautions Abdominal Surgery Precautions Log Roll Lifting Restrictions Gait Belt above Incisional Area M3 PT-IP Subjective Start: 01/12/19 12:49 Freq: NEEDED Status: Active Protocol: Document 01/12/19 10:30 AB (Rec: 01/12/19 13:05 AB [id number]) Subjective Physical Therapy Visit Type Type Initial Evaluation Visit Start Time 10:30 Visit Stop Time 11:24 Total Visit Minutes 54 Number of FRUIT OR NUT FARMER Visits 0 Physical Therapy Visit Comments Patient Comments pt agreeable to do PT Therapy Pain Assessment Pain When Pain Assessed At Rest Pain Present Pain Present Pain Reported Location abdomen Intensity 4 Scale Used Numeric (1 - 10) Pain Management Techniques Re-positioning Timing of Activity with Medications M4 PT-IP Mobility and Gait Start: 01/12/19 12:49 Freq: NEEDED Status: Active Protocol: Document 01/12/19 10:30 AB (Rec: 01/12/19 13:05 AB [id number]) PT-Bed Mobility Assessment Rolling Level of Assist Standby Assistance Supine to Sit Supine to Sit Minimal Assistance PT-Transfer Assessment Sit to and From Stand Sit to and from Stand Minimal Assistance Equipment Transfer Assistive Device Gait Belt Front Wheeled Walker Orthotic/Prosthetic Devices or Brace: No Transfers Transfer Destination Chair Transfer Technique pt ambulated using FWW Transfer Ability Level of Assist Moderate Assistance Comments Mobility Comments pt completed rolling L<>R using bed rail min A while NAC assisted pt with hygiene care and brief management. pt completed supine to sit min A and cues. pt completed sit to stand min A. pt agreed to ambulation. after ambulation, pt sat on chair. assisted with positioning. call light and table placed within reach. Gait Assessment Gait Gait Assistance Required: Moderate Assistance Distance (Feet) 40 Able to Maintain Weight Bearing Status Yes During Gait Assistive Devices Assistive Device Gait Belt Front Wheeled Walker Orthotic/Prosthetic Devices or Brace: No Gait Deviations General Gait Pattern Antalgic Decreased Stride Length Decreased Feet Clearance Step-to Gait Wide Based Gait Factors Limiting Gait Function Factors Limiting Gait Function Decreased Activity Tolerance Decreased Sensation Decreased Strength Limited Range of Motion Pain Poor Balance Poor Safety Awareness PT-Balance Assessment Sitting Balance and Reactions Static Sitting Balance Ability Good Dynamic Sitting Balance Ability Good Standing Balance and Reactions Static Standing Balance Ability Fair Dynamic Standing Balance Ability Poor Device Used FWW M5 PT-IP Objective Assessments Start: 01/12/19 12:49 Freq: NEEDED Status: Active Protocol: Document 01/12/19 10:30 AB (Rec: 01/12/19 13:05 AB [id number]) Orientation Orientation/Cognition Level of Alertness Alert Orientation Name Place Situation Language Function Ability No Deficits Noted Hard of Hearing Safety Awareness Decreased Safety Awareness Memory Description Short Term Impaired Gross Range of Motion Lower Extremity ROM Assessment Within Functional Limits Strength Lower Extremity Strength Assessment Within Functional Limits Sensation Assessment Sensation Light Touch Impaired Sensation Description Numbness Muscle Tone Muscle Tone WNL No M6 PT-IP Treatment Start: 01/12/19 12:49 Freq: NEEDED Status: Active Protocol: Document 01/12/19 10:30 AB (Rec: 01/12/19 13:05 AB [id number]) Physical Therapy Treatment Education Education Provided Precautions Safety M7 PT-IP Assessment and Plan Start: 01/12/19 12:49 Freq: NEEDED Status: Active Protocol: Document 01/12/19 10:30 AB (Rec: 01/12/19 13:05 AB [id number]) PT Summary Assessment and Plan Potential Rehabilitation Potential Good Status of Condition at Evaluation Evolving Summary Impairments Pain ROM Strength Balance Coordination Sensation Tone Cognition Bed Mobility Transfers Gait Activity Tolerance Assessment Summary pt requiring min to mod A with mobility. presents with decrease activity tolerance and unsteady gait. d/c plan depending on progress but will need assistance when pt gets home. At this time, pt will require SNF rehab to improve strength and mobility. Goals Bed Mobility Goal Standby Assistance Transfer Goal Standby Assistance Cane Front Wheeled Walker Gait Goal Standby Assistance Cane Front Wheel Walker Gait Distance 200 Days to Meet Goals 10 Frequency of Treatment Frequency Of Treatment Once a Day Treatment Plan Physical Therapy Treatment Plan Bed Mobility Training Transfer Training Gait Training Therapeutic Exercise Balance Retraining Post Op Education Discharge Planning Hot or Cold Pack Neuromuscular Re-ed Coordination Retraining Manual Therapy Other Recommendations and Next Treatment ambulation Focus Recommendations To Nursing Amount of Assist Needed 1 Person Assist Discharge Recommendations PT Discharge Recommendations Home with Assistance Home Health SNF Rehab Other Discharge Recommendations depending on progress: SNF vs home with assist and homehealth services
--- NOTE | 2019-01-12 14:21 | PC.NURSE ---
Received in bed, somnolent but arousable. VSS. Monitor shows SR, no ectopy noted. Spo2 >/=90% on RA. Lung sounds slightly diminished bilat. bases, but otherwise CTA. Encouraging C&DB, and instructed re: IS use. IVF D5.45NS with 20mEq Kcl infusing at ordered rate per L FA PIV. Surgical site vertical staple line CDI. Other abdominal surgical sites CDI, no s/s infection. Issa catheter intact and secure to DD. UO as noted on I/O. Continues to pass maroon-colored stools (x2 this shift). See lab results for H&H. OOB to chair and brief ambulate per PT. Tolerating minimal clear liquid diet. Discussed plan of care with pt. and family. Continue to emphasize importance of IS and mobility.
[2019-01-12 15:18] LABS: Hemoglobin 8.8 g/dL (13.5-17.5); Mean Corpuscular HGB Conc 33.9 % (30-36); Mean Corpuscular Hemoglobin 29.8 PG (26-34); Mean Corpuscular Volume 88.1 fL (80-100); Platelet Count 218 X10^3/uL (150-400); Red Blood Cell Count 2.95 X10^6/uL (4.5-5.9); Red Cell Distribution Width 14.7 % (11.6-14.8); White Blood Cell Count 13.3 X10^3/uL (4.5-11.0)
--- NOTE | 2019-01-12 16:02 | DIET.PN ---
Dietary Note Assessment: Dietary consult request r/t S/P colon resection for colon cancer. He has had mild weight loss of 2-6 lbs per pt report. HT: 181.6cm WT: 72.1kg UBW: 73.6kg BMI: 21.9 Diet: Clear Liquid Labs: Na: 136 Cr: 0.6 Ca: 7.8 MNA: 10 (at risk malnutrition) Waylon: 19 Nutrition Diagnosis: Non-severe chronic malnutrition r/t physiological causes increasing nutrient needs due to illness/diagnosis, alteration in GI tract structure aeb reports energy intake <75% EER > 1mo, BMI < 23 (over 65 yo), hx of colon cancer, S/P colon resection. Interventions: 1. Provided information on high calorie/high protein nutrition therapy. Handouts included. 2. Discussed importance of low-moderate fiber increasing gradually over the next 6 weeks. Materials provided. 3. ONS ensure surgery as diet advances. Monitoring/Evaluations: Weight, Diet advance/tolerance, PO intake, associated labs.
--- NOTE | 2019-01-12 17:33 | PT.IPTN ---
Current Diagnoses Malignant neoplasm of colon, unspecified (01/10/19) Surgery Performed Operation Date: 01/10/19 08:45 Actual Procedures p Laparoscopic sigmoid colon resection-ATTEMPTED, CONVERTED TO OPEN(Not Applicable) - Piyush Taylor MD Operation Date: 01/11/19 11:15 <No data on this case meets the specified criteria> Physical Therapy Treatment Note M2 PT-IP Current Condition Start: 01/12/19 12:49 Freq: NEEDED Status: Active Protocol: Document 01/12/19 10:30 AB (Rec: 01/12/19 13:05 AB [id number]) Physical Therapy Current Condition Current Condition Evaluation Date 01/12/19 Treatment Diagnosis colon CA s/p sigmoid colectomy ; difficulty in walking Onset Date 01/10/19 Precautions Abdominal Surgery Precautions Log Roll Lifting Restrictions Gait Belt above Incisional Area M3 PT-IP Subjective Start: 01/12/19 12:49 Freq: NEEDED Status: Active Protocol: Document 01/12/19 17:24 AB (Rec: 01/12/19 17:32 AB [id number]) Subjective Physical Therapy Visit Type Type Administrative Note Notes PT eval order received this morning and informed nurse that pt has an activity order for bedrest but may get up to BSC. Nurse zayra stated that he is going to change it to activity as tolerated. Nurse stated prior to eval that pt is doing well and has not had bloody stool. checked again this afternoon and talked to the nurse Shelton regarding change in activity order. Nurse Shelton stated that they will not change the activity order due to pt is actively bleeding and has bloody stools. will f/u tomorrow.
[2019-01-12 19:17] LABS: Hematocrit 24.8 % (41-53); Hemoglobin 8.3 g/dL (13.5-17.5); Prothrombin Time 11.3 SECONDS (10.1-12.7)
[2019-01-12 19:20] LABS: PTT Partial Thromboplastin Tim 29 SECONDS (26.4-36.2)
--- NOTE | 2019-01-12 19:43 | PC.NURSE ---
Addendum entered by Rebeka Ramsey R.N. 01/12/19 23:46: Pt recovered in room by landing support specialist AND released to primary RN at 22:35. Pt drowsy. Pt reports feeling sore in mid abd. O2 sats drift down to 88% on room air then return to 92% while sleeping. O2 at 1 liter added. Original Note: kasandra note Pt drowsy but rouses easily. Pt tolerated clear liquid diet. Pt assisted up to BSC for BM. Pt partially incontinent. Diaper full and leaking red blood down pt's leg when he stands. Additional 150 ml johanna blood in BSC. Pt slightly dizzy when standing for cleaning. After returning to bed, B/P 120/72 with HR 96. Called and spoke to Dr. Crawford. Orders received. Dr. Crawford coming in to hospital. Called Pt's sister Hyun to report updates and she will be coming to hospital.
--- NOTE | 2019-01-12 19:46 | PM.PN.1 ---
Subjective Date Patient Seen: 01/12/19 Time Patient Seen: 19:46 Interval history: 73-year-old white male 2 days post sigmoid resection with a circular EEA anastomosis has had persistent rectal bleeding since surgery. Yesterday I gave him 4 units of packed cells. Last night the patient had stopped bleeding. He had no further bleeding until early this afternoon when I was called about 1:00 a.m. with another episode of bright red rectal bleeding. Hemoglobin was checked then and was 8.7 slightly reduced from 9.1 this morning. Patient had no further bleeding until about an hour ago when the nurses called me reporting a massive ?? amount of fresh red rectal bleeding. Patient's hemoglobin now is 8.3 protime PTT INR all normal. Patient is stable with minimal complaints. Exam Vital Signs (past 8 hours): - 01/12/19 16:00 Temperature 97.7 F Pulse Rate 83 Respiratory Rate 20 Blood Pressure 137/98 H Pulse Oximetry 95 Oxygen Delivery Method Room Air Oxygen Flow Rate 0 Narrative Exam Narrative: Blood pressure 127/74 heart rate 93 patient is alert and oriented. Patient has red rectal bleeding at this time. Abdomen only minimally distended. Incision is dry. Patient has bright red rectal bleeding. Objective Labs Result Diagrams: 01/12/19 18:45 01/12/19 08:25 Labs: Laboratory Results - last 24 hr 01/12/19 01/12/19 01/12/19 08:25 08:25 15:12 WBC 11.3 H 13.3 H RBC 2.87 L 2.95 L Hgb 8.7 L 8.8 L Hct 24.9 L 26.0 L MCV 86.8 D 88.1 MCH 30.4 29.8 MCHC 35.0 33.9 RDW 15.0 H 14.7 Plt Count 217 218 Neut % (Auto) 71.4 Lymph % (Auto) 17.6 L [place] % (Auto) 9.3 Eos % (Auto) 1.0 L Baso % (Auto) 0.7 Neut # (Auto) 8100 H Lymph # (Auto) 2000 [place] # (Auto) 1000 H Eos # (Auto) 100 Baso # (Auto) 100 PT INR APTT Sodium 136 L Potassium 4.2 Chloride 102 Carbon Dioxide 31 BUN 11 Creatinine 0.60 L Estimated GFR > 60.0 BUN/Creatinine Ratio 18.3 Glucose 94 Calcium 7.8 L 01/12/19 01/12/19 18:45 18:45 WBC RBC Hgb 8.3 L Hct 24.8 L MCV MCH MCHC RDW Plt Count Neut % (Auto) Lymph % (Auto) [place] % (Auto) Eos % (Auto) Baso % (Auto) Neut # (Auto) Lymph # (Auto) [place] # (Auto) Eos # (Auto) Baso # (Auto) PT 11.3 INR 1.0 APTT 29 Sodium Potassium Chloride Carbon Dioxide BUN Creatinine Estimated GFR BUN/Creatinine Ratio Glucose Calcium Assessment & Plan Assessment & Plan narrative: Patient has ongoing and recurrence red rectal bleeding following a colon anastomosis. Yesterday I gave the patient 4 pt of packed cells. He also received 2 units of fresh frozen plasma and some vitamin K. his coagulation studies have been normal throughout the postoperative period. The patient has recurrence of anastomotic bleeding. I have explained the problem to the patient and his family. My plan is to take him to the operating room given a general anesthetic passed the colonoscope up to the level of the anastomosis observe or try to observe the source of bleeding and make an attempt to cauterize it. I think this will be fraught with difficulty because of the large amount of blood and irrigant present to be able to effectively cauterize anything that is bleeding this massively. It could be the anastomosis is not complete and there is a free edge bleeding. Following colonoscopically attempt at correcting this bleeding if I feel this is not effective I will perform a laparotomy open the anastomosis and hand suture it. I have explained to the patient his family that the patient could require a temporary colostomy. I do not think that is likely. Patient is ready for surgery now. Quality VTE Deep Vein Thrombosis/Pulmonary Embolism Present on Admission: No
--- NOTE | 2019-01-12 19:53 | P.PN_ITS ---
Subjective Date Patient Seen: 01/12/19 Time Patient Seen: 19:46 Interval history: 73-year-old white male 2 days post sigmoid resection with a circular EEA anastomosis has had persistent rectal bleeding since surgery. Yesterday I gave him 4 units of packed cells. Last night the patient had stopped bleeding. He had no further bleeding until early this afternoon when I was called about 1:00 a.m. with another episode of bright red rectal bleeding. Hemoglobin was checked then and was 8.7 slightly reduced from 9.1 this morning. Patient had no further bleeding until about an hour ago when the nurses called me reporting a massive ?? amount of fresh red rectal bleeding. Patient's hemog lobin now is 8.3 protime PTT INR all normal. Patient is stable with minimal complaints. Exam Vital Signs (past 8 hours): - 01/12/19 16:00 Temperature 97.7 F Pulse Rate 83 Respiratory Rate 20 Blood Pressure 137/98 H Pulse Oximetry 95 Oxygen Delivery Method Room Air Oxygen Flow Rate 0 Narrative Exam Narrative: Blood pressure 127/74 heart rate 93 patient is alert and oriented. Patient has red rectal bleeding at this time. Abdomen only minimally distended. Incision is dry. Patient has bright red rectal bleeding. Objective Labs Result Diagrams: 01/12/19 18:45 01/12/19 08:25 Labs: Laboratory Results - last 24 hr 01/12/19 01/12/19 01/12/19 08:25 08:25 15:12 WBC 11.3 H 13.3 H RBC 2.87 L 2.95 L Hgb 8.7 L 8.8 L Hct 24.9 L 26.0 L MCV 86.8 D 88.1 MCH 30.4 29.8 MCHC 35.0 33.9 RDW 15.0 H 14.7 Plt Count 217 218 Neut % (Auto) 71.4 Lymph % (Auto) 17.6 L [place] % (Auto) 9.3 Eos % (Auto) 1.0 L Baso % (Auto) 0.7 Neut # (Auto) 8100 H Lymph # (Auto) 2000 [place] # (Auto) 1000 H Eos # (Auto) 100 Baso # (Auto) 100 PT INR APTT Sodium 136 L Potassium 4.2 Chloride 102 Carbon Dioxide 31 BUN 11 Creatinine 0.60 L Estimated GFR > 60.0 BUN/Creatinine Ratio 18.3 Glucose 94 Calcium 7.8 L 01/12/19 01/12/19 18:45 18:45 WBC RBC Hgb 8.3 L Hct 24.8 L MCV MCH MCHC RDW Plt Count Neut % (Auto) Lymph % (Auto) [place] % (Auto) Eos % (Auto) Baso % (Auto) Neut # (Auto) Lymph # (Auto) [place] # (Auto) Eos # (Auto) Baso # (Auto) PT 11.3 INR 1.0 APTT 29 Sodium Potassium Chloride Carbon Dioxide BUN Creatinine Estimated GFR BUN/Creatinine Ratio Glucose Calcium Assessment & Plan Assessment & Plan narrative: Patient has ongoing and recurrence red rectal bleed ing following a colon anastomosis. Yesterday I gave the patient 4 pt of packed cells. He also received 2 units of fresh frozen plasma and some vitamin K. his coagulation studies have been normal throughout the postoperative period. The patient has recurrence of anastomotic bleeding. I have explained the problem to the patient and his family. My plan is to take him to the operating room given a general anesthetic passed the colonoscope up to the level of the anastomosis observe or try to observe the source of bleeding and make an attempt to cauterize it. I think this will be fraught with difficulty because of the large amount of blood and irrigant present to be able to effectively cauterize anything that is bleeding this massively. It could be the anastomosis is not complete and there is a free edge bleeding. Following colonoscopically attempt at correcting this bleeding if I feel this is not effective I will perform a laparotomy open the anastomosis and hand suture it. I have explained to the patient his family that the patient could require a temporary colostomy. I do not think that is likely. Patient is ready for surgery now. Quality VTE Deep Vein Thrombosis/Pulmonary Embolism Present on Admission: No
--- NOTE | 2019-01-12 21:34 | SUR.OPER ---
Lateral on hospital bed, head on pillow, bottom leg straight, upper leg bent forward. Upper arm supported by pillow. Side rails anterior up for safety.
--- NOTE | 2019-01-12 22:10 | PM.OP.ENDO ---
Operative Date/Time/Diagnoses Date of procedure: 01/12/19 Time of procedure: 22:10 Pre-op diagnosis: Anastomotic bleeding Post-op diagnosis: same Procedure & Clinicians Study performed: Colonoscopy to the splenic flexure and circumferential cauterization of anastomosis at 20 cm Same procedure as scheduled: Yes Indications: Persistent anastomotic bleeding Procedure Notes SCOAP/Timeout: Was done Procedure in detail: The patient was properly identified during surgical pause given propofol drip by the anesthesiologist for conscious sedation and mac anesthesia. The flexible fiberoptic colonoscope was inserted transanally to the area of a recent anastomosis at 20 cm in the left colon there was fresh blood on the lateral aspect of the anastomosis but no discernible active bleeding there was clot around all of the anastomosis the colonoscope was passed up to the splenic flexure where there was obviously no bleeding source but there was backwash of blood up to about 40 cm. The entire left colon was irrigated clear. The anastomosis was then very carefully inspected with copious irrigation searching for bleeding source. There was considerable heaped up necrotic tissue within the circular anastomosis and on the left lateral side there was fresh blood. Utilizing an electric cautery snare passed down the colonoscope I circumferentially cauterized the anastomosis taking great care so as to not risk perforation. This was done by touch spot cautery at low level of current but it did circumferentially cauterize the anastomosis. Final irrigation showed no fresh blood on the anastomotic ring. Careful inspection of the more distal colon and rectum showed no source of bleeding or blood. The procedure was well tolerated. Scope withdrawal time: 30 Sedation minutes: 45 Impression: Anastomotic bleeding was controlled with circumferential cautery Disposition: ICU
--- NOTE | 2019-01-12 22:38 | SUR.PHASEI ---
Patient taken directly from or to ICU. VS stable. Report to Lindy.
[2019-01-13] VITALS (14 sets, daily range): BP systolic 117–153; BP diastolic 52–84; PULSE 70–90; RESP 13–18; TEMP 36.4–37.7; O2SAT 86–100
[2019-01-13] MEDS: MORPHINE 4 MG/ML INJ IV (00:23)
[2019-01-13] MEDS: PIPERACILLIN-TAZO 3.375 GM/50 ML FROZ.PIGGY IV ×4 (04:27→21:30)
[2019-01-13 08:48] LABS: Add Manual Diff / Slide Review NO; Basophils Absolute Auto 100 /uL (0-100); Basophils Percent Auto 0.7 % (0-2); Eosinophils Absolute Auto 200 /uL (0-450); Eosinophils Percent Auto 1.7 % (2-4); Hematocrit 29.6 % (41-53); Hemoglobin 10.4 g/dL (13.5-17.5); Lymphocytes Absolute Auto 1300 /uL (1100-4500); Lymphocytes Percent Auto 9.6 % (25-40); Mean Corpuscular HGB Conc 34.9 % (30-36); Mean Corpuscular Hemoglobin 30.9 PG (26-34); Mean Corpuscular Volume 88.4 fL (80-100); Monocytes Absolute Auto 900 /uL (0-900); Monocytes Percent Auto 6.3 % (3-14); Neutrophils Absolute Auto 11100 /uL (1500-7000); Neutrophils Percent Auto 81.7 % (50-75); Platelet Count 215 X10^3/uL (150-400); Red Blood Cell Count 3.36 X10^6/uL (4.5-5.9); Red Cell Distribution Width 14.6 % (11.6-14.8); White Blood Cell Count 13.6 X10^3/uL (4.5-11.0)
--- NOTE | 2019-01-13 09:02 | PM.PN.1 ---
Subjective Date Patient Seen: 01/13/19 Time Patient Seen: 09:02 Interval history: Patient's 12 hours post colonoscopic cauterization of colo colonic anastomosis for recurrent anastomotic bleeding. Through the night the patient has been stable this morning had 1 liquid brown stool with a scant amount of blood there in. Vital signs are stable he is alert and oriented with minimal pain. Exam Vital Signs (past 8 hours): - 01/13/19 01:47 01/13/19 01:48 01/13/19 01:59 Temperature 97.8 F 97.8 F 97.8 F Pulse Rate 82 81 79 Respiratory Rate 18 16 18 Blood Pressure 126/52 L 126/52 L 126/52 L Pulse Oximetry 100 01/13/19 02:22 01/13/19 04:25 01/13/19 04:26 Temperature 97.9 F 98.9 F 99.8 F H Pulse Rate 82 78 84 Respiratory Rate 16 18 13 Blood Pressure 131/53 L 150/84 H 150/84 H Pulse Oximetry 100 01/13/19 08:00 Temperature 97.6 F Pulse Rate 79 Respiratory Rate 16 Blood Pressure 153/75 H Pulse Oximetry 99 Oxygen Delivery Method Nasal Cannula Oxygen Flow Rate 1 Narrative Exam Narrative: Systolic blood pressure 120 heart rate in the 70s. Patient is alert and oriented. Abdomen very mildly distended wounds are healing without sign of infection. Objective Labs Result Diagrams: 01/13/19 08:40 01/12/19 08:25 Labs: Laboratory Results - last 24 hr 01/11/19 01/12/19 01/12/19 01:45 08:25 15:12 WBC 13.3 H RBC 2.95 L Hgb 8.8 L Hct 26.0 L MCV 88.1 MCH 29.8 MCHC 33.9 RDW 14.7 Plt Count 218 Neut % (Auto) Lymph % (Auto) [place] % (Auto) Eos % (Auto) Baso % (Auto) Neut # (Auto) Lymph # (Auto) [place] # (Auto) Eos # (Auto) Baso # (Auto) PT INR APTT Sodium 136 L Potassium 4.2 Chloride 102 Carbon Dioxide 31 BUN 11 Creatinine 0.60 L Estimated GFR > 60.0 BUN/Creatinine Ratio 18.3 Glucose 94 Calcium 7.8 L Blood Type O Positive Antibody Screen Negative Crossmatch See Detail 01/12/19 01/12/19 01/13/19 18:45 18:45 08:40 WBC 13.6 H RBC 3.36 L Hgb 8.3 L 10.4 L Hct 24.8 L 29.6 L MCV 88.4 MCH 30.9 MCHC 34.9 RDW 14.6 Plt Count 215 Neut % (Auto) 81.7 H Lymph % (Auto) 9.6 L [place] % (Auto) 6.3 Eos % (Auto) 1.7 L Baso % (Auto) 0.7 Neut # (Auto) 34721 H Lymph # (Auto) 1300 [place] # (Auto) 900 Eos # (Auto) 200 Baso # (Auto) 100 PT 11.3 INR 1.0 APTT 29 Sodium Potassium Chloride Carbon Dioxide BUN Creatinine Estimated GFR BUN/Creatinine Ratio Glucose Calcium Blood Type Antibody Screen Crossmatch Assessment & Plan Assessment & Plan narrative: It would appear the patient has stopped bleeding again following colonoscopic cauterization of his anastomosis. He had a brown stool this morning. Hemoglobin this morning is 10 0.5 hematocrit 30. I will start the patient on a full liquid diet get him out of bed with physical therapy. Follow him for any clinical signs of bleeding and follow his hemoglobins. Quality VTE Deep Vein Thrombosis/Pulmonary Embolism Present on Admission: No
[2019-01-13] MEDS: DEXTROSE 5%-0.45NS W/KCL 20MEQ 1,000 ML 84 MEQ IV ×2 (09:15→20:29)
[2019-01-13] MEDS: ACETAMINOPHEN 325 MG TABLET 650 MG PO ×2 (09:19→20:34)
[2019-01-13] MEDS: PANTOPRAZOLE 40 MG VIAL IV ×2 (09:20→20:28)
--- NOTE | 2019-01-13 11:55 | PT.IPTN ---
Current Diagnoses Malignant neoplasm of colon, unspecified (01/10/19) Surgery Performed Operation Date: 01/10/19 08:45 Actual Procedures p Laparoscopic sigmoid colon resection-ATTEMPTED, CONVERTED TO OPEN(Not Applicable) - Piyush Taylor MD Operation Date: 01/11/19 11:15 <No data on this case meets the specified criteria> Operation Date: 01/12/19 20:45 Actual Procedures p Exploratory Laparotomy GEN - Efren Crawford MD s Colonoscopy - Efren Crawford MD Physical Therapy Treatment Note M2 PT-IP Current Condition Start: 01/12/19 12:49 Freq: NEEDED Status: Active Protocol: Document 01/12/19 10:30 AB (Rec: 01/12/19 13:05 AB [id number]) Physical Therapy Current Condition Current Condition Evaluation Date 01/12/19 Treatment Diagnosis colon CA s/p sigmoid colectomy ; difficulty in walking Onset Date 01/10/19 Precautions Abdominal Surgery Precautions Log Roll Lifting Restrictions Gait Belt above Incisional Area M3 PT-IP Subjective Start: 01/12/19 12:49 Freq: NEEDED Status: Active Protocol: Document 01/13/19 11:55 AB (Rec: 01/13/19 15:09 AB [id number]) Subjective Physical Therapy Visit Type Type Treatment Note Visit Start Time 11:55 Visit Stop Time 12:33 Total Visit Minutes 38 Notes talked to nurse Max regarding activity order of bedrest. nurse Max changed activity order to ambulate as tolerated . Number of ENGINEERING TECHNOLOGIST Visits 0 Physical Therapy Visit Comments Patient Comments pt agreed to get up but seemed to have more confusion today. M4 PT-IP Mobility and Gait Start: 01/12/19 12:49 Freq: NEEDED Status: Active Protocol: Document 01/13/19 11:55 AB (Rec: 01/13/19 15:09 AB [id number]) PT-Bed Mobility Assessment Rolling Level of Assist Minimal Assistance 1 Person Assistance Supine to Sit Supine to Sit Maximum Assistance 1 Person Assistance PT-Transfer Assessment Sit to and From Stand Sit to and from Stand Minimal Assistance Equipment Transfer Assistive Device Gait Belt Front Wheeled Walker Transfers Transfer Destination Chair Transfer Technique Stand Step Pivot Transfer Ability Level of Assist Minimal Assistance Moderate Assistance 1 Person Assistance Use of Upper Extremities Comments Mobility Comments pt completed rolling to the L min A and cues and use of bed rail. NAC assisted with brief change. pt completed log roll bed mobility max A and max cues. pt was able to sit on EOB SBA. completed sit to stand min A and cues and stand step transfer bed to chair using FWW min to mod A and cues. pt refused to do ambulation but agreed to stay up on chair. positioned pt on chair. call light and table placed within reach. informed nurse regarding a chair alarm . pt seemed to have more confusion today and does not know that he is in the hospital and reason why in the hospital. PT-Balance Assessment Sitting Balance and Reactions Static Sitting Balance Ability Good Dynamic Sitting Balance Ability Good Standing Balance and Reactions Static Standing Balance Ability Fair Dynamic Standing Balance Ability Poor Device Used FWW M5 PT-IP Objective Assessments Start: 01/12/19 12:49 Freq: NEEDED Status: Active Protocol: Document 01/12/19 10:30 AB (Rec: 01/12/19 13:05 AB [id number]) Orientation Orientation/Cognition Level of Alertness Alert Orientation Name Place Situation Language Function Ability No Deficits Noted Hard of Hearing Safety Awareness Decreased Safety Awareness Memory Description Short Term Impaired Gross Range of Motion Lower Extremity ROM Assessment Within Functional Limits Strength Lower Extremity Strength Assessment Within Functional Limits Sensation Assessment Sensation Light Touch Impaired Sensation Description Numbness Muscle Tone Muscle Tone WNL No M6 PT-IP Treatment Start: 01/12/19 12:49 Freq: NEEDED Status: Active Protocol: Document 01/13/19 11:55 AB (Rec: 01/13/19 15:09 AB [id number]) Physical Therapy Treatment Education Education Provided Precautions Safety M7 PT-IP Assessment and Plan Start: 01/12/19 12:49 Freq: NEEDED Status: Active Protocol: Document 01/13/19 11:55 AB (Rec: 01/13/19 15:09 AB [id number]) PT Summary Assessment and Plan Summary Impairments Pain ROM Strength Balance Coordination Sensation Tone Cognition Bed Mobility Transfers Gait Activity Tolerance Progress Towards Goals Slow Progress due to Medical Issues Slow Progress due to Activity Tolerance Assessment Summary Pt underwent cauterization of anastomotic bleeding last night. assessed mobility due to recent surgery and noted no significant change in functional status and PT re- eval is not indicated. pt to continue working on the same functional goal when PT eval was completed. d/c plan depending on progress. pt seemed to have more confusion today affecting mobility. will continue to assess but will require SNF rehab at this time. Goals Bed Mobility Goal Standby Assistance Transfer Goal Standby Assistance Cane Front Wheeled Walker Gait Goal Standby Assistance Cane Front Wheel Walker Gait Distance 200 Days to Meet Goals 10 Frequency of Treatment Frequency Of Treatment Once a Day Treatment Plan Physical Therapy Treatment Plan Bed Mobility Training Transfer Training Gait Training Therapeutic Exercise Balance Retraining Post Op Education Discharge Planning Hot or Cold Pack Neuromuscular Re-ed Coordination Retraining Manual Therapy Other Recommendations and Next Treatment ambulation Focus Recommendations To Nursing Amount of Assist Needed 1 Person Assist Discharge Recommendations PT Discharge Recommendations SNF Rehab
--- NOTE | 2019-01-13 13:59 | PC.NURSE ---
Received in bed, somnolent but arousable. Oriented to self and place. Intermittent periods of confusion, ? r/t bilat. [place]. VSS. Weaned to RA; maintaining Sp02 >/=90%. Monitor shows SR without ectopy. Continues with loose/liquid dark stools. No johanna blood noted. CBC f/u ordered. Assisted to BSC. IVF D5.45NS infusing per L PIV. IV abx as ordered. Issa secured to down drain, I/O as noted. Acetaminophen p.o. given for abdominal surgical site soreness. Otherwise no c/o pain. Terence and surgical sites C/D/I. Order obtained for anxiolytic 2/2 restlessness reported previous shift, and this a.m. OOB to chair with PT assist. Reviewed and reinforced IS teaching. Discussed plan of care and pt. disposition with pt. and family member.
--- NOTE | 2019-01-13 16:58 | PC.NURSE ---
Addendum entered by Fadia Milan R.N. 01/13/19 20:20: 2020 - Pt resting soundly, short episodes of apnea approximately 15 seconds. Sat decreasing into the mid 80's on RA. Recovers quickly to 95%. Place on 1L NC Monitor. Original Note: 1700 - Pt up to BSC multiple times with inc of small amount of dark liquid stool. Denies nausea. Tolerating full liquid diet. Two persons assist r/t impulsive movements. Reinforced safety, IS and call light use. Call light in reach. Bed alarm on.
[2019-01-13 17:46] LABS: Add Manual Diff / Slide Review NO; Basophils Absolute Auto 100 /uL (0-100); Eosinophils Absolute Auto 500 /uL (0-450); Eosinophils Percent Auto 3.9 % (2-4); Hematocrit 30.4 % (41-53); Hemoglobin 10.5 g/dL (13.5-17.5); Lymphocytes Absolute Auto 1500 /uL (1100-4500); Lymphocytes Percent Auto 11.8 % (25-40); Mean Corpuscular HGB Conc 34.5 % (30-36); Mean Corpuscular Hemoglobin 30.8 PG (26-34); Mean Corpuscular Volume 89.3 fL (80-100); Monocytes Absolute Auto 800 /uL (0-900); Monocytes Percent Auto 6.4 % (3-14); Neutrophils Absolute Auto 9800 /uL (1500-7000); Neutrophils Percent Auto 76.9 % (50-75); Platelet Count 232 X10^3/uL (150-400); Red Cell Distribution Width 14.3 % (11.6-14.8); White Blood Cell Count 12.7 X10^3/uL (4.5-11.0)
[2019-01-14 00:01] VITALS: BP 140/49; PULSE 68; RESP 11; TEMP 36.6; O2SAT 98
[2019-01-14 01:30] VITALS: O2SAT 98
[2019-01-14] MEDS: PIPERACILLIN-TAZO 3.375 GM/50 ML FROZ.PIGGY IV (03:41)
[2019-01-14 04:24] VITALS: BP 157/79; PULSE 72; RESP 11; TEMP 37.2; O2SAT 93
[2019-01-14 07:54] LABS: Add Manual Diff / Slide Review NO; Basophils Absolute Auto 100 /uL (0-100); Basophils Percent Auto 0.5 % (0-2); Eosinophils Absolute Auto 900 /uL (0-450); Eosinophils Percent Auto 5.9 % (2-4); Hematocrit 30.9 % (41-53); Hemoglobin 10.7 g/dL (13.5-17.5); Lymphocytes Absolute Auto 1500 /uL (1100-4500); Lymphocytes Percent Auto 10.5 % (25-40); Mean Corpuscular HGB Conc 34.4 % (30-36); Mean Corpuscular Hemoglobin 30.6 PG (26-34); Mean Corpuscular Volume 88.8 fL (80-100); Monocytes Absolute Auto 900 /uL (0-900); Neutrophils Absolute Auto 11300 /uL (1500-7000); Neutrophils Percent Auto 77.1 % (50-75); Platelet Count 292 X10^3/uL (150-400); Red Blood Cell Count 3.48 X10^6/uL (4.5-5.9); Red Cell Distribution Width 14.4 % (11.6-14.8); White Blood Cell Count 14.6 X10^3/uL (4.5-11.0)
--- NOTE | 2019-01-14 09:10 | PM.PN.1 ---
Subjective Date Patient Seen: 01/14/19 Time Patient Seen: 09:10 Interval history: Patient now 2 days post colonoscopic cauterization of colo colonic anastomosis for bleeding. Patient has had no further bleeding. Hemoglobin is stable at 10 0.5-10.7 this morning patient is passing brown watery stools. There is no gross blood in his stool. He is tolerating his full liquid diet. Up ambulating. Has minimal abdominal pain. Exam Vital Signs (past 8 hours): - 01/14/19 01:30 01/14/19 04:24 Temperature 99.0 F Pulse Rate 72 Respiratory Rate 11 L Blood Pressure 157/79 H Pulse Oximetry 98 93 Oxygen Delivery Method Room Air Oxygen Flow Rate 1 Narrative Exam Narrative: Patient is alert somewhat disoriented not really sure of his condition. Vital signs are stable afebrile Patient is up ambulating. Abdomen is soft minimal distension incisions healing appropriately. There is no further rectal bleeding. Objective Labs Result Diagrams: 01/14/19 07:48 01/12/19 08:25 Labs: Laboratory Results - last 24 hr 01/13/19 01/14/19 17:20 07:48 WBC 12.7 H 14.6 H RBC 3.40 L 3.48 L Hgb 10.5 L 10.7 L Hct 30.4 L 30.9 L MCV 89.3 88.8 MCH 30.8 30.6 MCHC 34.5 34.4 RDW 14.3 14.4 Plt Count 232 292 Neut % (Auto) 76.9 H 77.1 H Lymph % (Auto) 11.8 L 10.5 L [place] % (Auto) 6.4 6.0 Eos % (Auto) 3.9 5.9 H Baso % (Auto) 1.0 0.5 Neut # (Auto) 9800 H 10383 H Lymph # (Auto) 1500 1500 [place] # (Auto) 800 900 Eos # (Auto) 500 H 900 H Baso # (Auto) 100 100 Assessment & Plan Assessment & Plan narrative: Patient appears to have stabilized following cauterization of his anastomosis. His hemoglobin is stable. This morning is hemoglobin is 10.7. I will advance his diet to mechanical soft i. I will stop his IV antibiotics. Removed the urinary catheter. Stopping telemetry and stopping intensive care. Quality VTE Deep Vein Thrombosis/Pulmonary Embolism Present on Admission: No
--- NOTE | 2019-01-14 09:14 | P.PN_ITS ---
Subjective Date Patient Seen: 01/14/19 Time Patient Seen: 09:10 Interval history: Patient now 2 days post colonoscopic cauterization of colo colonic anastomosis for bleeding. Patient has had no further bleeding. Hemoglobin is stable at 10 0.5-10.7 this morning patient is passing brown watery stools. There is no gross blood in his stool. He is tolerating his full liquid diet. Up ambulating. Has minimal abdominal pain. Exam Vital Signs (past 8 hours): - 01/14/19 01:30 01/14/19 04:24 Temperature 99.0 F Pulse Rate 72 Respiratory Rate 11 L Blood Pressure 157/79 H Pulse Oximetry 98 93 Oxygen Delivery Method Room Air Oxygen Flow Rate 1 Narrative Exam Narrative: Patient is alert somewhat disoriented not really sure of his condition. Vital signs are stable afebrile Patient is up ambulating. Abdomen is soft minimal distension incisions healing appropriately. There is no further rectal bleeding. Objective Labs Result Diagrams: 01/14/19 07:48 01/12/19 08:25 Labs: Laboratory Results - last 24 hr 01/13/19 01/14/19 17:20 07:48 WBC 12.7 H 14.6 H RBC 3.40 L 3.48 L Hgb 10.5 L 10.7 L Hct 30.4 L 30.9 L MCV 89.3 88.8 MCH 30.8 30.6 MCHC 34.5 34.4 RDW 14.3 14.4 Plt Count 232 292 Neut % (Auto) 76.9 H 77.1 H Lymph % (Auto) 11.8 L 10.5 L [place] % (Auto) 6.4 6.0 Eos % (Auto) 3.9 5.9 H Baso % (Auto) 1.0 0.5 Neut # (Auto) 9800 H 78975 H Lymph # (Auto) 1500 1500 [place] # (Auto) 800 900 Eos # (Auto) 500 H 900 H Baso # (Auto) 100 100 Assessment & Plan Assessment & Plan narrative: Patient appears to have stabilized following cauterization of his anastomosis. His hemoglobin is stable. This morning is hemoglobin is 10.7. I will advance his diet to mechanical soft i. I will stop his IV antibiotics. Removed the urinary catheter. Stopping telemetry and stopping intensive care. Quality VTE Deep Vein Thrombosis/Pulmonary Embolism Present on Admission: No
[2019-01-14] MEDS: OXYCODONE/ACETAMINOPHEN 5/325 TABLET 1 TAB PO ×3 (09:40→19:30)
--- NOTE | 2019-01-14 09:43 | PT.IPTN ---
Current Diagnoses Malignant neoplasm of colon, unspecified (01/10/19) Surgery Performed Operation Date: 01/10/19 08:45 Actual Procedures p Laparoscopic sigmoid colon resection-ATTEMPTED, CONVERTED TO OPEN(Not Applicable) - Piyush Taylor MD Operation Date: 01/11/19 11:15 <No data on this case meets the specified criteria> Operation Date: 01/12/19 20:45 Actual Procedures p Exploratory Laparotomy GEN - Efren Crawford MD s Colonoscopy - Efren Crawford MD Physical Therapy Treatment Note M2 PT-IP Current Condition Start: 01/12/19 12:49 Freq: NEEDED Status: Active Protocol: Document 01/12/19 10:30 AB (Rec: 01/12/19 13:05 AB [id number]) Physical Therapy Current Condition Current Condition Evaluation Date 01/12/19 Treatment Diagnosis colon CA s/p sigmoid colectomy ; difficulty in walking Onset Date 01/10/19 Precautions Abdominal Surgery Precautions Log Roll Lifting Restrictions Gait Belt above Incisional Area M3 PT-IP Subjective Start: 01/12/19 12:49 Freq: NEEDED Status: Active Protocol: Document 01/14/19 09:25 NFW (Rec: 01/14/19 09:43 NFW [id number]) Subjective Physical Therapy Visit Type Type Treatment Note Visit Start Time 08:50 Visit Stop Time 09:20 Total Visit Minutes 30 Notes Talked with nursing, patient doing much better today. Has been up to commode a couple of times already. Number of DRESS DRAPER Visits 0 Physical Therapy Visit Comments Patient Comments Patient pleasant. Goes by the name Seferino. Minimal confusion noted today. Therapy Pain Assessment Pain When Pain Assessed After Treatment Pain Present Pain Present Denied Pain M4 PT-IP Mobility and Gait Start: 01/12/19 12:49 Freq: NEEDED Status: Active Protocol: Document 01/14/19 09:25 NFW (Rec: 01/14/19 09:43 NFW [id number]) PT-Bed Mobility Assessment Rolling Level of Assist Standby Assistance 1 Person Assistance Supine to Sit Supine to Sit Standby Assistance 1 Person Assistance Sit to Supine Sit to Supine Standby Assistance 1 Person Assistance Scooting Scooting to Edge of Bed Standby Assistance Scooting Up and Down in Bed Standby Assistance PT-Transfer Assessment Sit to and From Stand Sit to and from Stand Standby Assistance 1 Person Assistance Equipment Transfer Assistive Device Gait Belt Front Wheeled Walker Orthotic/Prosthetic Devices or Brace: No Transfers Transfer Destination Bed Chair Toilet Transfer Technique Stand Step Pivot Transfer Ability Level of Assist Contact Guard Assistance 1 Person Assistance Comments Mobility Comments Patient rolled to each side initially using side rails then asked to do again without rails and did well. SBA only needed today. Followed instructions well with transitional activities between sitting and standing. Gait Assessment Gait Gait Assistance Required: Contact Guard Assist 1 Person Assist Distance (Feet) 180 Able to Maintain Weight Bearing Status Yes During Gait Assistive Devices Assistive Device Gait Belt Front Wheeled Walker Orthotic/Prosthetic Devices or Brace: No Gait Deviations General Gait Pattern Decreased Stride Length Decreased Feet Clearance Flexed Trunk Wide Based Gait Factors Limiting Gait Function Factors Limiting Gait Function Decreased Activity Tolerance Decreased Sensation Decreased Strength Limited Range of Motion Pain Poor Balance Poor Safety Awareness Comments Gait Comments Cuing for upright posture and for decrease leaning onto FWW. Improved tolerance with walking. PT-Balance Assessment Sitting Balance and Reactions Static Sitting Balance Ability Good Dynamic Sitting Balance Ability Good Standing Balance and Reactions Static Standing Balance Ability Good Dynamic Standing Balance Ability Fair Device Used with & without FWW Balance Tests Single Limb Standing unable Comments Other Balance Tests/Deviations/Treatment Dynamic standing activies : without support including side to side wt shifting, UE overhead alternate and mauricio, marches x 10, mini squats x5 M5 PT-IP Objective Assessments Start: 01/12/19 12:49 Freq: NEEDED Status: Active Protocol: Document 01/12/19 10:30 AB (Rec: 01/12/19 13:05 AB [id number]) Orientation Orientation/Cognition Level of Alertness Alert Orientation Name Place Situation Language Function Ability No Deficits Noted Hard of Hearing Safety Awareness Decreased Safety Awareness Memory Description Short Term Impaired Gross Range of Motion Lower Extremity ROM Assessment Within Functional Limits Strength Lower Extremity Strength Assessment Within Functional Limits Sensation Assessment Sensation Light Touch Impaired Sensation Description Numbness Muscle Tone Muscle Tone WNL No M6 PT-IP Treatment Start: 01/12/19 12:49 Freq: NEEDED Status: Active Protocol: Document 01/14/19 09:25 NFW (Rec: 01/14/19 09:43 NFW [id number]) Physical Therapy Treatment Exercises Knee ROM Measurement Knee flexion and extension while sitting. Sitting august M7 PT-IP Assessment and Plan Start: 01/12/19 12:49 Freq: NEEDED Status: Active Protocol: Document 01/14/19 09:25 NFW (Rec: 01/14/19 09:43 NFW [id number]) PT Summary Assessment and Plan Summary Impairments Pain ROM Strength Balance Coordination Sensation Tone Cognition Bed Mobility Transfers Gait Activity Tolerance Progress Towards Goals Progressing Toward Goals Assessment Summary Patient doing much better today, following instructions well and able to increase activity level. SNF rehab still recommended. Treatment Plan Physical Therapy Treatment Plan Bed Mobility Training Transfer Training Gait Training Therapeutic Exercise Balance Retraining Post Op Education Discharge Planning Hot or Cold Pack Neuromuscular Re-ed Coordination Retraining Manual Therapy Other Recommendations and Next Treatment ambulation Focus Recommendations To Nursing Amount of Assist Needed 1 Person Assist Discharge Recommendations PT Discharge Recommendations SNF Rehab
[2019-01-14 10:10] VITALS: O2SAT 94
[2019-01-14] MEDS: PANTOPRAZOLE 40 MG VIAL IV ×2 (11:25→20:01)
--- NOTE | 2019-01-14 12:16 | PC.NURSE ---
pt doing well this am- able to advance diet to soft as well as removal of camargo cath and he has voided post removal - having freq liquid mucoid stool brownish black in color but in commode and incont- percocet given for c/o incisional pain. he ambulated with pt and staff to bathroom - saline locked at this time
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
[2019-01-14 15:57] VITALS: BP 142/76; PULSE 79; RESP 20; TEMP 37; O2SAT 97
--- NOTE | 2019-01-14 19:47 | PC.NURSE ---
1930 - Pt awakened from a short nap. is it daytime or nighttime? Reoriented. SBA to bathroom to void. Set up in chair with a snack. Pt c/o pain to abd, requesting to take one pain pill. Percocet provided as ordered. Call light in reach. Chair alarm on.
[2019-01-15] VITALS: BP 142/76; PULSE 79; RESP 16; TEMP 36.5; O2SAT 98
[2019-01-15] MEDS: OXYCODONE/ACETAMINOPHEN 5/325 TABLET 1 TAB PO ×5 (01:49→23:21)
[2019-01-15 08:00] VITALS: BP 119/55; PULSE 85; RESP 16; TEMP 37; O2SAT 97
[2019-01-15] MEDS: PANTOPRAZOLE 40 MG VIAL IV ×2 (08:52→21:30)
--- NOTE | 2019-01-15 09:48 | PT-IP ANOTE ---
Pt currently working with OT in shower, will check back later.
--- NOTE | 2019-01-15 11:25 | OT.IP.EVAL ---
Current Diagnoses Malignant neoplasm of colon, unspecified (01/10/19) Surgery Performed Operation Date: 01/10/19 08:45 Actual Procedures p Laparoscopic sigmoid colon resection-ATTEMPTED, CONVERTED TO OPEN(Not Applicable) - Piyush Taylor MD Operation Date: 01/11/19 11:15 <No data on this case meets the specified criteria> Operation Date: 01/12/19 20:45 Actual Procedures p Exploratory Laparotomy GEN - Efren Crawford MD s Colonoscopy - Efren Crawford MD Past Medical History (Last Reviewed 12/22/18 @ 20:56 by Piyush Taylor MD) Chronic back pain (Chronic Unknown) Hearing loss (Chronic Unknown) Surgical History (Last Reviewed 12/22/18 @ 20:56 by Piyush Taylor MD) History of back surgery (Chronic) Occupational Therapy Inpatient Evaluation/Re-Eval M1 PT/OT-IP Prior Functional Status Start: 01/15/19 10:55 Freq: NEEDED Status: Active Protocol: Document 01/15/19 10:55 [facility] (Rec: 01/15/19 11:25 [facility] [id number]) Medical Review Prior Functional Status Medical History Reviewed Yes Communication able to make needs known Mobility and Gait pt stated that he is modified independent with all mobilities and ambulation using a quad cane but uses a FWW for long distance ambulation Activities of Daily Living and IADL's Pt states able to do all ADL's , has meals at [facility], niece assist with all finances and paperwork needs. Social History Household Members none Living Arrangements Apartment/Condo Number of Floors (Floors) One Floor Number of Stairs To Enter/Railing? no steps to enter Home Environment Standard Height Toilet Walk in Shower Tub/Shower Home Equipment Front Wheel Walker Quad Cane Shower Seat with Backrest Hand Held Shower Grab Bars Near Toilet Grab Bars In Shower Additional Social History Comment pt stated that his sisters and brothers checks on him. M2 OT-IP Current Condition Start: 01/15/19 10:55 Freq: Status: Active Protocol: Document 01/15/19 10:55 [facility] (Rec: 01/15/19 11:25 [facility] [id number]) Occupational Therapy Current Condition Current Condition Evaluation Date 01/15/19 Treatment Diagnosis S/p colorectal carcinoma resection, weakness Diagnosis Onset Date 01/10/19 Post Operative Precautions Abdominal Surgery Precautions Log Roll Lifting Restrictions Gait Belt above Incisional Area M3 OT- IP Subjective and Pain Start: 01/15/19 10:55 Freq: Status: Active Protocol: Document 01/15/19 10:55 [facility] (Rec: 01/15/19 11:25 [facility] [id number]) OT- Subjective Occupational Therapy Visit Type Type Initial Evaluation Visit Start Time 08:42 Visit Stop Time 09:10 Total Visit Minutes 65 Notes Pt seen after breakfast for showering from [id number] Occupational Therapy Visit Comments Patient Comments Pt agreeable to do therapy and completed cognitive assessment and wanting to shower after eating breakfast. Patient/Caregiver Goals Pt wanting to go to skilled rehab to get stronger and more steady on his feet. OT Pain Assessment Pain When Pain Assessed During Mobility Pain Present Pain Present Pain Reported Location abdomen Intensity 4 Scale Used Numeric (1 - 10) Management Techniques Timing of Activity with Medications M4 OT- IP ADL's Start: 01/15/19 10:55 Freq: Status: Active Protocol: Document 01/15/19 10:55 [facility] (Rec: 01/15/19 11:25 [facility] [id number]) OT [id number] General Evaluation Self-Feeding Ability Independent OT ADL-Grooming Comments OT Grooming Comments Pt declined this session. OT ADL-Dressing General Eval Upper Body Dressing Ability Standby Assistance Lower Body Dressing Ability Moderate Assistance Areas Needing Assistance Underpants/Brief Socks Comments OT Dressing Comments Pt not wanting to try use of automotive tire worker or socks aid to increase ease for lower body dressing needs due to recent colon surgery, therefore needing MAX A to carla socks , pt able to cross his legs to doff socks and managed to get breif on. CGA to stand for balance while pt able to pull up brief over his hips. OT ADL-Toileting Comments OT Toileting Comments Pt incontinent of urine and needing brief changed this morning prior to shower. OT ADL-Bathing Bathing Type Bathing Type Shower General Evaluation Bathing Ability Minimal Assistance Areas Needing Assistance Wash/Dry Back Devices Bathing Equipment Hand Held Shower Sprayer Shower Chair without Arms Grab Bars Comments OT Bathing Comments Pt when standing heavy use of grab bars and CGA assist for balance when pt not holding to grab bars to shower. Suggested to pt to sit to be able to wash his legs safely. M5 OT- IP IADL's Start: 01/15/19 10:55 Freq: Status: Active Protocol: Document 01/15/19 10:55 [facility] (Rec: 01/15/19 11:25 [facility] [id number]) OT-Instrumental Activities of Daily Living Money Management Money Management Caregiver Provides Assistance Meal Preparation Meal Preparation Caregiver Provides Assist Policy Writer Sales Policy Writer Sales Caregiver Provides Assist M6 OT- IP Functional Cognition Start: 01/15/19 10:55 Freq: Status: Active Protocol: Document 01/15/19 10:55 [facility] (Rec: 01/15/19 11:25 [facility] [id number]) Cognitive Factors Limiting Selfcare Function Cognitive Ability Level of Alertness Alert Patient Orientation Name Date Year Day of Week Place Situation Attention Span Ability Capable of Focused Attention Capable of Sustained Attention Ability to Follow Commands Able to Follow One Step Commands Memory Description Short Term Impaired Safety Awareness Underestimates Need for Assistance Problem Solving Ability Unable to Identify Errors Needs Assist to Identify Solutions Executive Function Ability Unable to Organize Plans Unable to Remember Details Cognitive Tests SLUMS Pt scored 20/30 which borderlines from mild neurocognitive to dementia. Pt having most problems with short term memory -able to recall 12 animals in one minute, unable to recall any of of 5 objects that pt suppose to try to remember, not able to comprehend how to draw an X on a triangle, and able to get 3/4 answers correct after paragraph read. Pt is very hard of hearing and may also influenced his score. Cognitive Comments Cognitive Assessment Comments Pt needing increased time to process information, needing directs repeated multiple times, and also has decreased initiation. OT- Vision and Hearing OT- Hearing Assessment OT- Hearing Assessment Hearing Impaired OT- Vision Assessment Visual Acuity Glasses For Reading Visual Attentiveness WFL Occular Pursuits WFL Vision Assessment Comments Pt very hard of hearing and states aware that he needs hearing aids and states, I am still trying to get the [facility] for [facility] in [facility] to get them. M7 OT- IP Mobility and Balance Start: 01/15/19 10:55 Freq: Status: Active Protocol: Document 01/15/19 10:55 [facility] (Rec: 01/15/19 11:25 [facility] [id number]) OT-Transfer Assessment Sit to and From Stand Sit to and from Stand Standby Assistance Minimal Assistance Transfers Transfer Ability Standby Assistance Contact Guard Assistance Technique Transfer Destination Chair Shower Stall Devices Transfer Assistive Devices Gait Belt Front Wheeled Walker Comments Mobility Comments Pt heavily relies on grab bars and surfaces to come to stand and if not able to use grab bar or surface would require CHICHI to stand. OT- Gait Assessment Gait Gait Assistance Required: Standby Assistance Contact Guard Assist Comments Gait Ability Comments Pt able to walk from his room to shower room with SBA to CGA for balance. OT- Balance Assessment Sitting Balance and Reactions Static Sitting Balance Ability Normal Dynamic Sitting Balance Ability Good Standing Balance and Reactions Static Standing Balance Ability Fair Comments Other Balance Tests/Deviations/Treatment Pt states has vertigo when his : eyes are close when washing his hair while standing and needing CHICHI from therapist for balance in addition to use of grab bar. Suggested best to use shower chair form safety when washing his hair especially if having to close his eyes. M8 OT- IP Objective Assessments Start: 01/15/19 10:55 Freq: Status: Active Protocol: Document 01/15/19 10:55 [facility] (Rec: 01/15/19 11:25 [facility] [id number]) OT Gross Range of Motion Upper Extremity Range of Motion Assessment Within Functional Limits OT-Muscle Tone Assessment Muscle Tone WNL Yes M9 OT- IP Assessment and Plan Start: 01/15/19 10:55 Freq: Status: Active Protocol: Document 01/15/19 10:55 [facility] (Rec: 01/15/19 11:25 [facility] [id number]) OT Summary Assessment and Plan Potential Rehabilitation Potential Good Analytic Complexity at Evaluation Low Summary OT Impairments Pain Strength Balance Functional Cognition Functional Mobility Dressing Toileting Bathing Toilet Transfers Shower Transfers Progress Towards Goals Progressing Toward Goals Assessment Summary Pt low complexity and main barriers are weakness, decreased balance, endurance, and now needing assist for ADl 's and functional mobility. Pt will benefit from short skilled rehab to help get pt back to prior level of independence. Goals Grooming Goal Independent Dressing Goal Standby Assistance Wine Master Sock Aid Toileting Goal Standby Assistance Bathing Goal Standby Assistance Toilet Transfer Goal Standby Assistance Shower Transfer Goal Standby Assistance Days to Meet Goals 2 Frequency of Treatment Frequency Of Treatment Once a Day Treatment Plan OT Treatment Plan ADL Training Functional Cognition Training Functional Mobility Patient/Family Education Discharge Planning Other Treatment Recommendations and Next Practice lower body dressing Treatment Focus with adaptive equipment, stand at sink for grooming. Discharge Recommendations OT Discharge Recommendations SNF Rehab
--- NOTE | 2019-01-15 12:24 | PC.NURSE ---
Am shift Pt A/o x2 Reports ABD pain much improved. Tolerating diet without nausea. Flatus + BM this shift without blood. Pt is SBA with FWW to ambulate to BR and up in torres with PT. Strength improved from this RNs assessment 24 hrs prior. Mentation continues to improve, only noted with slight delay after waking, while Pt was being reoriented, thats right I am not in [place] now, I am in [place]. ABD incision chanell, well approximated with no warmth or drainage noted. Pt is eager to get further mobility with SNF PT. Updated on POC. Percocet given for moderate pain, with good effect.
--- NOTE | 2019-01-15 12:24 | CM.DPC ---
Addendum entered by Gloria Rogers R.N. 01/15/19 15:53: Called Lyssa at [facility] to update her that no orders as of yet. She will plan on tomorrow at 11:00 pickle water pump operator, if surgeon deems him appropriate for discharge. Updated Cal, ICU nurse. Addendum entered by Gloria Rogers R.N. 01/15/19 14:50: Have not yet seen Dr. Scruggs. Ekta, building and grounds supervisor in care management attempted to reach him as well regarding discharge, and found out that he is still in surgery. Message is left for him that patient could go to [facility] today, pending MD evaluation of patient. Continuing to update Lyssa at [facility]. Will attempt for 1600, and let her know if patient is evaluated by then. Addendum entered by Gloria Rogers R.N. 01/15/19 12:47: Checked in with [facility]. [place] stated that Dr. Scruggs may be in surgery, has not been in office. Original Note: DCP Cont: Met briefly with patient, sister, Hyun, who is at bedside. She started working on POA paperwork. Confirmed with medical records that she and patient need to complete form, but not sign yet until they arrive to notarize. Instructed patient's sister that items need to be completed on form, as patient will also have to fill out his portion. Have been waiting for surgeon to see patient, to see if he can be discharged today. Confirmed with Lyssa at [facility] that they will accept patient and can pick him up at 1430. Spoke to Lyssa at [facility], and let her know that Dr. Scruggs has not yet been in to see patient. The plan is to update her by 1330, if surgeon has not yet arrived. May call over at office to see when he will be in to see patient. Patient was resting in bed, alert. He had worked with P.T. prior. O.T. had done a cognitive eval on him, Joseph, and he scored 20 out of 30. Patient has no official diagnosis of dementia noted, but has had some short term memory loss noted while here in hospital. P: DCP to continue to follow closely, and will await visit from surgeon. Patient can go to [facility] today as long as Dr. Mulcahey deems him medically stable. Gloria Rogers RN/Nutrition Services Worker
[2019-01-15 15:46] VITALS: BP 134/69; PULSE 77; RESP 16; TEMP 36.8; O2SAT 97
--- NOTE | 2019-01-15 17:47 | PM.PNPO.1 ---
Subjective Date Patient Seen: 01/15/19 Time Patient Seen: 17:47 Interval history: Patient is feeling well. Tolerating the diet. Exam Vital Signs (past 8 hours): - 01/15/19 15:46 Temperature 98.3 F Pulse Rate 77 Respiratory Rate 16 Blood Pressure 134/69 Pulse Oximetry 97 Oxygen Delivery Method Room Air Oxygen Flow Rate 0 Narrative Exam Narrative: Lungs fairly good effort. Abdomen is scaphoid soft nontender. Bruising around the incision but the incision is intact. No cellulitis. Objective Labs Result Diagrams: 01/14/19 07:48 01/12/19 08:25 Labs: Laboratory Results - last 24 hr 01/11/19 01:45 Crossmatch See Detail Assessment & Plan Post-op Postoperative Procedures Operation Date: 01/10/19 08:45 Actual Procedures Side Surgeon laparoscopic-assisted colectomy Not Applicable Piyush Taylor MD Operation Date: 01/11/19 11:15 <No data on this case meets the specified criteria> Operation Date: 01/12/19 20:45 Actual Procedures Side Surgeon Colonoscopy Efren Crawford MD Postoperative status: doing well Postoperative status narrative: Patient had acute blood loss anemia presumptively from oozing from his internal staple line of his colon. This was treated initially with brought products in observation and then the patient underwent a scope and cauterization of the anastomotic area utilizing colonoscope to access the anastomosis. Quality VTE Deep Vein Thrombosis/Pulmonary Embolism Present on Admission: No
[2019-01-15 23:34] VITALS: BP 142/76; PULSE 77; RESP 17; TEMP 36.6; O2SAT 95
[2019-01-16] MEDS: OXYCODONE/ACETAMINOPHEN 5/325 TABLET 1 TAB PO (05:16)
--- NOTE | 2019-01-16 06:39 | PC.NURSE ---
NOC Shift: Stable through shift w/affective pain control w/prn po meds. OOB to urinate w/one PA FWW continues to have unsteady gait when standing. VSS. Plan to D/C to [facility] this AM at 11:00.
--- NOTE | 2019-01-16 09:43 | P.DS_ITS ---
History of Present Illness Date Patient Seen: 01/16/19 Time Patient Seen: 09:39 Chief complaint: [id number] Narrative: The patient is a gentleman admitted after an attempted outpatient bowel prep with oral antibiotics for colon resection for sigmoid colon cancer. He had be able to near obstructing lesion. Discharge Providers Date of admission: 01/10/19 07:39 Discharge Date: 01/16/19 Primary care physician: MARISEL Phillip Consults: 01/10/19 15:49 Consult to Discharge Planning Routine Comment: 01/10/19 16:32 Consult to Dietitian, Adult Routine Comment: Reason For Exam: post op colon cancer 01/12/19 08:03 Consult to Physical Therapy Evaluate & Treat Comment: Physician Instructions: Evaluate and Treat 01/14/19 12:52 Consult to Occupational Therapy Evaluate & Treat Comment: COGNITIVE EVAL WELL Physician Instructions: Evaluate and treat Discharge provider: Piyush Taylor MD Summary Discharge Diagnosis: Colon cancer with growth through the wall of the colon and metastatic disease to the lymph nodes. Abnormal CT scan of the lung with possible metastatic disease. Lesions too small to characterize. Postoperative acute intestinal blood loss anemia secondary to bleeding from his anastomosis requiring transfusion, flexible sigmoidoscopy with cauterization of the internal anastomotic staple area. Hospital Course: The patient underwent colon resection. Was a difficult operat ion and there was growth of come tumor through the colon wall and attached the tissues adjacent to the ureter. A very small amount of tumor had to be left lest we sacrificed the ureter and potentially deal with loss of his left kidney. The night of the operation the patient began to have bleeding which was not present at operation completion. This is bleeding from the rectum. It was presumed to be the bleeding from the anastomosis. Patient was given blood products and his nonsteroidal anti-inflammatory agents and DVT chemical prophylaxis was stopped. His bleeding slowed but then recurred any underwent scoping. On flexible sigmoidoscopy there was no active bleeder seen but the suture line was cauterized internally and the patient did not have further bleeding. His diet was gradually advanced to a general diet which he tolerated well. He was discharged with a hematocrit of 30 which had been stable to follow up in the office for staple removal. Status at Discharge Cognitive/behavioral status at discharge: oriented Functional status at discharge: uses cane/walker Overall status at discharge: patient is progressing back to baseline Exam Vital Signs (past 8 hours): Oxygen Delivery Method Room Air Oxygen Flow Rate 0 Narrative Exam Narrative: Operative no apparent distress. Lungs are clear. Abdomen is soft nontender without mass. Objective Labs Result Diagrams: 01/14/19 07:48 01/12/19 08:25 Discharge Plan Discharge Plan Patient Disposition: SNF Transfer to: [facility] Transportation: Wheelchair I certify the postop hospital long term care is medically necessary on a continuing basis for any conditions for which he/ she received care during this hospitalization.: Yes The receiving facility has agreed to accept transfer and provide medical treatment.: Yes Discharge Med Rec/Prescriptions Prescriptions: New oxycodone-acetaminophen [Percocet] 5-325 mg tablet 1 tab PO Q4-6H PRN (Reason: painful procedure) Qty: 14 RF: 0 pantoprazole 40 mg tablet,delayed release (DR/EC) 40 mg PO DAILY Qty: 20 RF: 0 gabapentin 300 mg capsule 300 mg PO BID Qty: 20 RF: 0 Continued disabled parking Qty: 1 RF: 0 krill oil 500 mg capsule 1,000 mg PO DAILY RF: 0 cyanocobalamin (vitamin B-12) 1,000 mcg capsule 1,000 mcg PO DAILY RF: 0 bupropion HCl 150 mg tablet extended release 24 hr 150 mg PO QAM Qty: 30 RF: 1 Discontinued loperamide [Imodium A-D] 2 mg tablet 2 mg PO Q2-4H PRN (Reason: Pain (Scale Score 4-6)) RF: 0 gabapentin 100 mg capsule 100 mg PO BEDTIME Qty: 30 RF: 1 acetaminophen 325 mg capsule 650 mg PO QID PRN (Reason: Breakthrough Pain, Mild) RF: 0 Follow up/Referrals: Dolores Landaverde ARNP [Primary Care Provider] - Piyush Taylor MD [Physician] - 01/23/19 4:00 pm Discharge Health Status Brief summary of current health status: Markedly improved postop. Very weak however and presently getting assistance with ambulation using a cane. Multidrug resistant organism: No MDRO MDRO Verified by culture: No Precautions: [place] Provider Discharge Instructions Diet: Regular Food texture: Regular Activity: No lifting over 10 lb or straining for the next 5 weeks. May shower. No dressing needed on wound. Skin/Wound/Dressing Care Dressing: Wound may be left open to air. Special Rehabilitation Services Reason for rehabilitation: Post-operative therapy Rehab type: Physical therapy and Occupational therapy Restrictions to mobility: Generalized weakness Visit Report/Discharge Packet Visit Report Forms: Stroke Signs & Symptoms Discharge Data Primary Care Provider: Dolores Landaverde Attending Provider: Piyush Taylor Admit Date/Time: 01/10/19 07:39 Quality VTE Deep Vein Thrombosis/Pulmonary Embolism Present on Admission: No
--- NOTE | 2019-01-16 10:19 | OT.IP.TRT ---
Current Diagnoses Malignant neoplasm of colon, unspecified (01/10/19) Surgery Performed Operation Date: 01/10/19 08:45 Actual Procedures p Laparoscopic sigmoid colon resection-ATTEMPTED, CONVERTED TO OPEN(Not Applicable) - Piyush Taylor MD Operation Date: 01/11/19 11:15 <No data on this case meets the specified criteria> Operation Date: 01/12/19 20:45 Actual Procedures p Exploratory Laparotomy GEN - Efren Crawford MD s Colonoscopy - Efren Crawford MD Occupational Therapy Treatment Note M2 OT-IP Current Condition Start: 01/15/19 10:55 Freq: Status: Active Protocol: Document 01/15/19 10:55 [facility] (Rec: 01/15/19 11:25 [facility] [id number]) Occupational Therapy Current Condition Current Condition Evaluation Date 01/15/19 Treatment Diagnosis S/p colorectal carcinoma resection, weakness Diagnosis Onset Date 01/10/19 Post Operative Precautions Abdominal Surgery Precautions Log Roll Lifting Restrictions Gait Belt above Incisional Area M3 OT- IP Subjective and Pain Start: 01/15/19 10:55 Freq: Status: Active Protocol: Document 01/16/19 10:05 [facility] (Rec: 01/16/19 10:18 [facility] [id number]) OT- Subjective Occupational Therapy Visit Type Type Treatment Note Visit Start Time 09:30 Visit Stop Time 09:54 Total Visit Minutes 24 Occupational Therapy Visit Comments Patient Comments Pt agreeable to get up to brush his teeth and use the bathroom. Patient/Caregiver Goals To go to skilled rehab and get stronger before going home. OT Pain Assessment Pain When Pain Assessed At Rest Pain Present Pain Present Denied Pain M4 OT- IP ADL's Start: 01/15/19 10:55 Freq: Status: Active Protocol: Document 01/16/19 10:05 [facility] (Rec: 01/16/19 10:18 [facility] [id number]) OT ADL-Grooming General Evaluation Grooming Ability Standby Assistance Areas Needing Assistance Retrieving/Set-up of Grooming Items Comments OT Grooming Comments Set-up and assist to take off tab from toothpaste. SBA with FWW and able to stand without use of support from the counter or FWW today. OT ADL-Oral Care General Eval Oral Care Ability Independent OT ADL-Dressing General Eval Lower Body Dressing Ability Standby Assistance Areas Needing Assistance Underpants/Brief Comments OT Dressing Comments Pt able to stand with FWW and pull down and up brief while urinating while standing in front of the toilet. OT ADL-Toileting General Evaluation Toileting Ability Independent Comments OT Toileting Comments Pt able to tell that he needed to urinate today. M5 OT- IP IADL's Start: 01/15/19 10:55 Freq: Status: Active Protocol: Document 01/15/19 10:55 [facility] (Rec: 01/15/19 11:25 [facility] [id number]) OT-Instrumental Activities of Daily Living Money Management Money Management Caregiver Provides Assistance Meal Preparation Meal Preparation Caregiver Provides Assist Boilermaker [employer] Boilerm[employer] Caregiver Provides Assist M6 OT- IP Functional Cognition Start: 01/15/19 10:55 Freq: Status: Active Protocol: Document 01/16/19 10:05 [facility] (Rec: 01/16/19 10:18 [facility] [id number]) Cognitive Factors Limiting Selfcare Function Cognitive Ability Level of Alertness Alert Patient Orientation Name Date Year Day of Week Place Situation Attention Span Ability Capable of Focused Attention Capable of Sustained Attention Ability to Follow Commands Able to Follow One Step Commands Memory Description Short Term Impaired Safety Awareness Underestimates Need for Assistance Problem Solving Ability Unable to Identify Errors Needs Assist to Identify Solutions Executive Function Ability Unable to Organize Plans Unable to Remember Details Cognitive Comments Cognitive Assessment Comments Pt able to recall working with therapist but not able to remember that he showered yesterday. Pt following commands better today and better with intiation for needs as well. OT- Vision and Hearing OT- Hearing Assessment OT- Hearing Assessment Hearing Impaired M7 OT- IP Mobility and Balance Start: 01/15/19 10:55 Freq: Status: Active Protocol: Document 01/16/19 10:05 [facility] (Rec: 01/16/19 10:18 [facility] [id number]) OT- Bed Mobility Assessment Rolling Type of Rolling Roll to Left Supine to Sit Supine to Sit Assist Standby Assistance Sit to Supine Sit to Supine Assist Standby Assistance Scooting Scooting to Edge of Bed Standby Assistance OT-Transfer Assessment Sit to and From Stand Sit to and from Stand Standby Assistance Contact Guard Assistance Transfers Transfer Ability Standby Assistance Contact Guard Assistance Technique Transfer Destination Bed Chair Devices Transfer Assistive Devices Gait Belt Small Based Quad Cane Front Wheeled Walker Comments Mobility Comments Trial of small based quad cane to take a few step and noted pt unsteady and best at this time to continue to use FWW. OT- Gait Assessment Comments Gait Ability Comments Mostly SBA with FWW for level surfaces, occasional CGA when turning and stepping over threshold due to decreased dynamic balance. OT- Balance Assessment Sitting Balance and Reactions Static Sitting Balance Ability Normal Dynamic Sitting Balance Ability Good Standing Balance and Reactions Static Standing Balance Ability Good Comments Other Balance Tests/Deviations/Treatment Pt get off balanced during : turns and uneven surfaces, and when having eyes closed. Emphasized to pt to let skilled rehab therapist know that he would like to work on his dynamic balance and vertigo issues M8 OT- IP Objective Assessments Start: 01/15/19 10:55 Freq: Status: Active Protocol: Document 01/15/19 10:55 [facility] (Rec: 01/15/19 11:25 [facility] [id number]) OT Gross Range of Motion Upper Extremity Range of Motion Assessment Within Functional Limits OT-Muscle Tone Assessment Muscle Tone WNL Yes M9 OT- IP Assessment and Plan Start: 01/15/19 10:55 Freq: Status: Active Protocol: Document 01/16/19 10:05 [facility] (Rec: 01/16/19 10:18 [facility] [id number]) OT Summary Assessment and Plan Potential Rehabilitation Potential Good Analytic Complexity at Evaluation Low Summary OT Impairments Strength Balance Functional Cognition Functional Mobility Dressing Bathing Shower Transfers Progress Towards Goals Progressing Toward Goals Assessment Summary Pt more steady on his feet today and not relying on use of counters and other objects to assist with balance. Pt still needing use of FWW versus small based quad cane as still unsteady for uneven surfaces. Pt still having short term memory deficits and needing vc completion of tasks at times. Pt will benefit from skilled rehab prior to going home. Pt is very pleasant and cooperative. Goals Days to Meet Goals 1 Frequency of Treatment Frequency Of Treatment Once a Day Discharge Recommendations OT Discharge Recommendations SNF Rehab
--- NOTE | 2019-01-16 10:21 | PC.NURSE ---
Addendum entered by Chen Engle R.N. 01/16/19 11:22: pt able to be transferred at 1130-community [facility], report called to aakash and all questions answered to her satisfaction- telephone call to sisterjuancarlos to update - message left and pt discharged at this time Original Note: pt preparing for discahrge to [facility] at approx 2pm - possibly sooner - family updated and iv access removed - denied need for pain rx at [facility] - tolerating diet well
--- NOTE | 2019-01-16 10:41 | CM.DPC ---
DCP Cont: Had noted that Dr. Scruggs had written discharge orders for yesterday for home. Plan is for [facility]. Chen in ICU had paged him, and this case repairer had left a message at the surgical clinic, that patient is to go to [facility] today, and would need a discharge summary, as well as signed meds, and order for discharge for today. Dr. Scruggs had signed med orders, prescriptions, and discharge summary complete. Had updated Lyssa at [facility], and faxed PASSR, med list signed, prescriptions, and discharge summary to her. Original cook pickled meat time was 1400, but since orders are in, patient will be picked up at 11:30. Chen, RUBBER GOODS CUTTER FINISHER is aware, gave her number to give report. Patient is aware, and he signed updated IMM. White board at main nurses station was updated. P: Patient will be going to [facility] today, cook pickled meat time is 11:30. Gloria Rogers, RN/Electrical Linesworker
--- NOTE | 2019-01-16 11:15 | PT.IPTN ---
Current Diagnoses Malignant neoplasm of colon, unspecified (01/10/19) Surgery Performed Operation Date: 01/10/19 08:45 Actual Procedures p Laparoscopic sigmoid colon resection-ATTEMPTED, CONVERTED TO OPEN(Not Applicable) - Piyush Taylor MD Operation Date: 01/11/19 11:15 <No data on this case meets the specified criteria> Operation Date: 01/12/19 20:45 Actual Procedures p Exploratory Laparotomy GEN - Efren Crawford MD s Colonoscopy - Efren Crawford MD Physical Therapy Treatment Note M2 PT-IP Current Condition Start: 01/12/19 12:49 Freq: NEEDED Status: Active Protocol: Document 01/12/19 10:30 [facility] (Rec: 01/12/19 13:05 [facility] [id number]) Physical Therapy Current Condition Current Condition Evaluation Date 01/12/19 Treatment Diagnosis colon CA s/p sigmoid colectomy ; difficulty in walking Onset Date 01/10/19 Precautions Abdominal Surgery Precautions Log Roll Lifting Restrictions Gait Belt above Incisional Area M3 PT-IP Subjective Start: 01/12/19 12:49 Freq: NEEDED Status: Active Protocol: Document 01/16/19 10:50 [facility] (Rec: 01/16/19 11:15 [facility] [id number]) Subjective Physical Therapy Visit Type Type Treatment Note Visit Start Time 10:50 Visit Stop Time 11:05 Total Visit Minutes 15 Number of FOOD STOREROOM CLERK Visits 1 Physical Therapy Visit Comments Patient Comments Pt willing to get up to ambulate. Therapy Pain Assessment Pain When Pain Assessed During Mobility Pain Present Pain Present Denied Pain M4 PT-IP Mobility and Gait Start: 01/12/19 12:49 Freq: NEEDED Status: Active Protocol: Document 01/16/19 10:50 [facility] (Rec: 01/16/19 11:15 [facility] [id number]) PT-Bed Mobility Assessment Rolling Level of Assist Standby Assistance 1 Person Assistance Supine to Sit Supine to Sit Standby Assistance 1 Person Assistance Scooting Scooting to Edge of Bed Standby Assistance PT-Transfer Assessment Sit to and From Stand Sit to and from Stand Standby Assistance 1 Person Assistance Equipment Transfer Assistive Device Gait Belt Front Wheeled Walker Orthotic/Prosthetic Devices or Brace: No Transfers Transfer Destination Chair Transfer Technique Stand Step Pivot Transfer Ability Level of Assist Standby Assistance Comments Mobility Comments Pt completed bed mobility and sit<>stand SBA. Gait Assessment Gait Gait Assistance Required: Contact Guard Assist 1 Person Assist Distance (Feet) 160 Able to Maintain Weight Bearing Status Yes During Gait Assistive Devices Assistive Device Gait Belt Front Wheeled Walker Orthotic/Prosthetic Devices or Brace: No Gait Deviations General Gait Pattern Decreased Stride Length Decreased Feet Clearance Flexed Trunk Wide Based Gait Factors Limiting Gait Function Factors Limiting Gait Function Decreased Activity Tolerance Decreased Sensation Decreased Strength Limited Range of Motion Pain Poor Balance Poor Safety Awareness M5 PT-IP Objective Assessments Start: 01/12/19 12:49 Freq: NEEDED Status: Active Protocol: Document 01/12/19 10:30 [facility] (Rec: 01/12/19 13:05 [facility] [id number]) Orientation Orientation/Cognition Level of Alertness Alert Orientation Name Place Situation Language Function Ability No Deficits Noted Hard of Hearing Safety Awareness Decreased Safety Awareness Memory Description Short Term Impaired Gross Range of Motion Lower Extremity ROM Assessment Within Functional Limits Strength Lower Extremity Strength Assessment Within Functional Limits Sensation Assessment Sensation Light Touch Impaired Sensation Description Numbness Muscle Tone Muscle Tone WNL No M6 PT-IP Treatment Start: 01/12/19 12:49 Freq: NEEDED Status: Active Protocol: Document 01/16/19 10:50 [facility] (Rec: 01/16/19 11:15 [facility] [id number]) Physical Therapy Treatment Exercises Exercises Quad Sets Seated Knee Flexion/Extension M7 PT-IP Assessment and Plan Start: 01/12/19 12:49 Freq: NEEDED Status: Active Protocol: Document 01/16/19 10:50 [facility] (Rec: 01/16/19 11:15 [facility] [id number]) PT Summary Assessment and Plan Summary Impairments Pain ROM Strength Balance Coordination Sensation Tone Cognition Bed Mobility Transfers Gait Activity Tolerance Progress Towards Goals Progressing Toward Goals Assessment Summary Pt continues to improve with gait quality but continues to require cues while turning around with FWW to keep LLE inside walker. Goals Bed Mobility Goal Standby Assistance Transfer Goal Standby Assistance Cane Front Wheeled Walker Gait Goal Standby Assistance Cane Front Wheel Walker Gait Distance 200 Days to Meet Goals 10 Frequency of Treatment Frequency Of Treatment Once a Day Treatment Plan Physical Therapy Treatment Plan Bed Mobility Training Transfer Training Gait Training Therapeutic Exercise Balance Retraining Post Op Education Discharge Planning Hot or Cold Pack Neuromuscular Re-ed Coordination Retraining Manual Therapy Recommendations To Nursing Amount of Assist Needed 1 Person Assist Discharge Recommendations PT Discharge Recommendations SNF Rehab
== END 2019-01-16 11:21 | DRG 329 ==
LOC: AC 01-11 01:47 → ICU 01-11 06:57
PROVIDERS: Surgery; Admitting Provider Specialist; PCP Nurse Practitioner; Visit Provider Specialist
PROC: 0DTE0ZZ Resection of Large Intestine, Open Approach (ICD-10-PCS; principal; 2019-01-10 08:45)
PROC: 0W3P8ZZ Control Bleeding in Gastrointestinal Tract, Via Natural or Artificial Opening Endoscopic (ICD-10-PCS; CPT 49000; principal; 2019-01-12 20:45)
PROC: 0DJD8ZZ Inspection of Lower Intestinal Tract, Via Natural or Artificial Opening Endoscopic (ICD-10-PCS; CPT 45378; 2019-01-12 20:45)
DX: C18.7 Malignant neoplasm of sigmoid colon (principal); K55.041 Focal (segmental) acute infarction of large intestine; K91.840 Postprocedural hemorrhage of a digestive system organ or structure following a digestive system procedure; D62 Acute posthemorrhagic anemia; C78.00 Secondary malignant neoplasm of unspecified lung; C78.6 Secondary malignant neoplasm of retroperitoneum and peritoneum; N99.0 Postprocedural (acute) (chronic) kidney failure
CPT/HCPCS: 36415; 36430; 44204; 80048; 80053; 85014; 85018; 85025; 85027; 85610; 85730; 86850; 86900; 86901; 86927; 87797; 88309; 97116; 97162; 97165; 97530; 97535; P9016; C9113; J0330; J1100; J1170; J1885; J2250; J2270; J2405; J2543; J2704; J3010; J3430

== ENCOUNTER 2019-02-06 06:38 | Day surgery (SDC) | payer MEDICARE, SELFPAY ==
[2019-01-10 08:47] VITALS: BMI 21.9
[2019-02-06] VITALS (8 sets, daily range): BP systolic 117–133; BP diastolic 69–79; PULSE 61–82; RESP 9–16; TEMP 36.2–36.7; O2SAT 95–98; BMI 26.6
--- NOTE | 2019-02-06 | DI.RAD.S_ITS ---
PROCEDURE: XR CHEST 1V INDICATIONS: POST PORT PLACEMENT TECHNIQUE: One view of the chest was acquired. COMPARISON: None. FINDINGS: Surgical changes and devices: Port-A-Cath placed from a left-sided approach, crossing the midline with a curvature at its distal aspect potentially extending into the azygos arch.. Lungs and pleura: Lungs are clear. No pleural effusions or pneumothorax. Mediastinum: Mediastinal contours appear normal. Heart size is normal. Bones and chest wall: No suspicious bony lesions. Overlying soft tissues appear unremarkable. IMPRESSION: No pneumothorax after Port-A-Cath placement from left-sided approach. As discussed the curvature of the far distal tip is such that the catheter may actually enter the azygos arch and extending posteriorly. Lateral view of the chest may be warranted given this appearance. Dictated by: Al Echols M.D. on 02/06/2019 at 9:16 Approved by: Al Echols M.D. on 02/06/2019 at 9:17
[2019-02-06] MEDS: LACTATED RINGERS 1,000 ML 42 ML IV (07:28)
--- NOTE | 2019-02-06 07:44 | PM.PREOP ---
Pre-operative Note Interval Note History & Physical reviewed/Exam performed by Physician: Yes Changes to H&P: No H&P completed within 30 days and has changed as indicated here:: see office note for H&P
[2019-02-06] MEDS: CEFAZOLIN 2 GM/100 ML FROZ.PIGGY IV (08:00)
--- NOTE | 2019-02-06 08:13 | SUR.OPER ---
Supine on padded OR bed, head on gel donut, towel roll placed between shoulders, arms padded and tucked at sides, legs uncrossed, safety belt at thigh, tape over blanket over lower legs .
[2019-02-06] MEDS: LIDOCAINE 1% 20 ML INJ (08:19)
[2019-02-06] MEDS: HEPARIN 5,000 UNIT, SODIUM CHLORIDE 0.9% 50 ML IV (08:20)
--- NOTE | 2019-02-06 09:03 | SUR.PHASEI ---
Pt arrived, easily arousable, chest xray obtained, cleared by Dr. Taylor. Pt denied pain, denied nausea, dressing remained C/D/I.
--- NOTE | 2019-02-06 09:05 | PM.OP.1 ---
Operative Date/Time/Diagnoses Date of procedure: 02/06/19 Time of procedure: 09:00 Pre-op diagnosis: Colon cancer T4 N0 lesion Post-op diagnosis: same (Same) Procedure & Clinicians Procedure: Placement of left subclavian Port-A-Cath Same procedure as scheduled: Yes Surgeon: Piyush Taylor Click Yes if Unassisted: Yes Anesthesia Type: MAC +/- Operative Notes Findings: Tip in the SVC. No evidence of pneumothorax. Closure Type: primary Specimen(s): none sent Prosthetic devices, grafts, tissues, transplants, or devices: Low-profile Port-A-Cath Estimated Blood Loss (mL): 5 Blood products transfused: none Procedure in detail: Patient was placed supine on the operating room table and underwent monitored anesthesia care. He was prepped and draped in the usual fashion. Local anesthetic was infiltrated a field block fashion beneath the left clavicle. The patient was placed in Trendelenburg and a transverse incision made pocket was created and the catheter was put together placed in the pocket and taper 2 propria at length. Dilator and introducer were passed over the guidewire and the dilator and guidewire removed leaving the introducer in place. The catheter was passed through the introducer which was peeled away leaving the tip in an unusual angle in the SVC. With some manipulation I was able to get the catheter to straighten. Says the subcu was closed with 3 0 Vicryl. The skin was closed a running 4 0 Vicryl subcuticular stitch and Steri-Strips. The port was secured to the chest wall with interrupted 2 0 silk prior to closure. The catheter was also aspirated and flushed with heparinized saline without difficulty. Complications: none Post-operative Condition: stable Disposition: PACU Plan for aftercare: Follow-up in office
--- NOTE | 2019-02-06 09:32 | SUR.PHASEII ---
Sister brought in, d/c instructions discussed with both. both voiced an understanding.
--- NOTE | 2019-02-06 09:57 | SUR.PHASEII ---
Dressed pt, sister unable to get meds due to long wait, is going to come back and get meds, pt ready to go, left in stable condition, dressing remained C/D/I.
== END 2019-02-06 09:50 | disposition home or self-care (01) ==
PROVIDERS: PCP Nurse Practitioner; Visit Provider Specialist
PROC: (CPT 36561; principal; 2019-02-06 07:45)
DX: C18.9 Malignant neoplasm of colon, unspecified (principal); D64.9 Anemia, unspecified; Z45.2 Encounter for adjustment and management of vascular access device
CPT/HCPCS: 36561; 71045; 76000; C1788; J0690; J1644; J2250; J2704; J3010

== ENCOUNTER 2019-03-01 06:39 | Day surgery (SDC) | payer MEDICARE, SELFPAY ==
[2019-01-10 08:47] VITALS: BMI 21.9
--- NOTE | 2019-02-20 10:23 | ONC.MSW ---
Description: Pre-visit navigation coordination t/c Activity: [facility] called with an urgent referral for this patient, newly diagnosed colon cancer. [employer] called his sister, Hyun Tucker, and discussed [facility]NER/Navigation services, as well as our intent to schedule him as soon as possible. Hyun Tucker agreed to schedule him with Dr. Bruno tomorrow at 1:20pm for initial consult visit. She expressed that they have been having the need for social work assistance for some time now, and would like to focus on some of their immediate needs once in clinic. Will plan to meet with them prior to their provider visit.
[2019-03-01] VITALS (10 sets, daily range): BP systolic 99–124; BP diastolic 62–77; PULSE 64–77; RESP 9–20; TEMP 36.2–36.6; O2SAT 94–99; BMI 21.7
--- NOTE | 2019-03-01 | PATH_ITS ---
[facility] Accession Number: [id number] . 01 Material submitted: . PART A: cecum - CECAL POLYP BIOPSY X2 PART B: colon - COLON POLYP BIOPSY AT 25 CM . 02 Diagnosis: A. Cecum, Polyp x2, Biopsies: Tubular adenoma. Sessile serrated adenoma. . B. Colon, Polyp at 25 cm, Biopsy: Fragments of tubular adenoma and sessile serrated adenoma. [facility] 03/02/2019 1012 Local . 02 Electronically signed: . Marla Corral MD, Pathologist NPI- [id number] . 01 Gross description: . Part A: CECAL POLYP BIOPSY X2: Received in formalin are multiple fragment(s) of martinez, soft tissue measuring 0.1 x 0.1 x 0.1 cm to 0.6 x 0.6 x 0.5 cm which is entirely submitted and submitted entirely in 1 cassette(s) Part B: COLON POLYP BIOPSY AT 25 CM: Received in formalin are 4 fragment(s) of martinez, soft tissue measuring 0.1 x 0.1 x 0.1 cm to 0.3 x 0.2 x 0.2 cm which is entirely submitted and submitted entirely in 1 cassette(s) /[facility] 03/01/2019 2020 Local . 02 Pathologist provided ICD-10: D12.0, D12.6 . 02 CPT . 461196, [id number] Performed at: 01 [facility] [address], [place], [place] [id number] MD Fran Dhillon MD Phone: [phone] Performed at: 02 [facility] [address] , [place], [place] [id number] MD Marla Corral MD Phone: [phone]
[2019-03-01] MEDS: SODIUM CHLORIDE 0.9% 1,000 ML 200 ML IV (07:36)
--- NOTE | 2019-03-01 08:05 | PM.HP.1 ---
History of Present Illness History of Present Illness Date Patient Seen: 03/01/19 Time Patient Seen: 08:00 Chief complaint: [id number] Narrative: Patient is a gentleman who had a colon resection for obstructing lesion. He is brought for colonoscopy to evaluate the remainder is: Patient History Medical History Anemia (Acute) Chronic back pain (Chronic Unknown) Fractures (Resolved) Hearing loss (Chronic Unknown) Hx of flexible sigmoidoscopy (Acute ~01/2019) Surgical History Anesthesia (Resolved) History of back surgery (Chronic ~2016) S/P laparoscopic colectomy (Acute 01/10/19) Family History (Updated 02/12/19 @ 22:48 by Desiree Menon) Father Heart disease Mother Cancer Congestive heart failure Sister Hypertension Cancer Brother Heart disease Rheumatic fever Brother No problems noted. Social History household members: none occupational status: employed Smoking Status: Former smoker alcohol intake: former Family & Social History Family History Father Heart disease Mother Cancer Congestive heart failure Sister Hypertension Cancer Brother Heart disease Rheumatic fever Brother No problems noted. Social History: household members none Tobacco & Substance use: Smoking Status Former smoker alcohol intake former alcohol intake frequency other Substance Use Type does not use Meds Home Medications and Allergies Home Medications Medication Instructions Recorded Confirmed Type cyanocobalamin (vitamin B-12) 1,000 mcg PO DAILY 01/05/19 03/01/19 History 1,000 mcg capsule disabled parking #1 each 01/05/19 03/01/19 Rx krill oil 500 mg capsule 1,000 mg PO DAILY cap 01/05/19 03/01/19 History gabapentin 300 mg PO BID #20 cap 01/16/19 03/01/19 Rx Iron (ferrous sulfate) 325 mg DAILY 02/21/19 03/01/19 History ondansetron 4 mg PO Q6H PRN #30 ea 02/22/19 03/01/19 Rx lidocaine-prilocaine See Rx Instructions .ROUTE 02/26/19 03/01/19 Rx .COMPLEX PRN #30 g Allergies Allergy/AdvReac Type Severity Reaction Status Date / Time Opioids - Morphine Analogues AdvReac Severe delerium Verified 03/01/19 07:14 Review of Systems Review of Systems ROS Unobtainable: All systems reviewed & are unremarkable except as noted in HPI and below Exam Vital Signs (past 8 hours): - 03/01/19 07:20 Temperature 97.5 F L Pulse Rate 74 Respiratory Rate 15 Blood Pressure 112/65 Pulse Oximetry 99 Oxygen Delivery Method Room Air Narrative Exam Narrative: Pleasant cooperative patient no apparent distress. Lungs are clear to auscultation. No rales or rhonchi. Heart regular rate and rhythm no murmur gallop. Abdomen is soft nontender without mass. No obvious hernias. Patient is alert and oriented x3. Assessment & Plan Assessment & Plan narrative: The patient for a screening colonoscopy. I have discussed the procedure with them. Risks of bleeding, perforation which would necessitate major operation, failure to find remove all lesions, the potential tattoo were all discussed. All questions were answered. They wished to proceed.
--- NOTE | 2019-03-01 08:07 | PM.PREOP ---
Pre-operative Note Interval Note History & Physical reviewed/Exam performed by Physician: Yes Changes to H&P: No ASA Class (for procedural sedation): II
[2019-03-01] MEDS: MIDAZOLAM 5 MG/5 ML VIAL IV (08:09)
[2019-03-01] MEDS: fentaNYL 250 MCG/5 ML INJ IV (08:10)
--- NOTE | 2019-03-01 08:32 | PM.OP.ENDO ---
Operative Date/Time/Diagnoses Date of procedure: 03/01/19 Time of procedure: 08:32 Pre-op diagnosis: Colon cancer Post-op diagnosis: same (Diverticulosis and polyps) Procedure & Clinicians Study performed: Colonoscopy with cold biopsy and hot snare polypectomy Same procedure as scheduled: Yes Indications: Determine if there are any additional lesions to the colon cancer recently resected Surgeon: Piyush Taylor Procedure Notes SCOAP/Timeout: Performed Procedure in detail: The patient was placed in the left lateral decubitus position and underwent IV sedation directed by the surgeon consisting of fentanyl and Versed. Digital exam was remarkable for mildly enlarged prostate. The scope was inserted and advanced through the rectum into the sigmoid, descending, transverse, and ascending colon. Occasional diverticula were seen. The cecum was reached identified by the ileocecal valve and the appendiceal opening. A small polyp was seen in the cecum and biopsied and completely removed. An additional flat polyp was snared and removed. It was located not far from the hepatic flexure in the transverse colon. The scope was gradually brought out. One other Polyp was found at 25 cm from the anal verge just above the anastomosis. Was biopsied and removed. The anastomosis was located about 20 cm. It was intact with some mild granulation tissue. There was some visible chanell.. The scope ultimately was retroflexed in the rectum. The appearance was normal. The scope was removed and the patient tolerated the procedure well. Prep was adequate. Scope withdrawal time: 8.5 minutes Sedation minutes: 22 Findings: diverticulosis and polyp Specimen(s): other (Polyps) Complications: none Post-procedure Recommendations: Colonscopy in 1 year Follow up: as needed Disposition: PACU
--- NOTE | 2019-03-01 09:40 | SUR.PHASEII ---
Pt's port-a-cath discontinued per policy; hands cleaned, gloves applied, port flushed with 10 ml of NS followed by 5 ml of heparin (100 units/ml), port clamped with positive pressure, dressing removed, needle removed, gauze and tape dressing applied, needle discarded in sharps container. Pt tolerated procedure well. Preparing to be discharged to home at this time.
== END 2019-03-01 09:50 | disposition home or self-care (01) ==
PROVIDERS: PCP Nurse Practitioner; Visit Provider Specialist
PROC: 0DJD8ZZ Inspection of Lower Intestinal Tract, Via Natural or Artificial Opening Endoscopic (ICD-10-PCS; CPT 45378; principal; 2019-03-01 07:45)
DX: C18.9 Malignant neoplasm of colon, unspecified (principal); K57.30 Diverticulosis of large intestine without perforation or abscess without bleeding; D12.0 Benign neoplasm of cecum; D12.6 Benign neoplasm of colon, unspecified
CPT/HCPCS: 45385; 45380; 99152; J1642; J2250; J3010

== ENCOUNTER → 2019-07-27 10:34 | Outpatient (CLI) | payer MEDICARE, SELFPAY ==
[2019-01-10 08:47] VITALS: BMI 21.9
--- NOTE | 2019-07-27 | DI.MRI.S_ITS ---
PROCEDURE: MR LUMBAR SPINE WO/W CON INDICATIONS: Low back pain TECHNIQUE: Noncontrast sagittal T1 spin echo and T2 fast spin echo, sagittal STIR, axial T1 and T2 fast spin echo through the lumbar spine. In cases with scoliosis, additional coronal T2 fast spin echo may be performed. After the administration of contrast, sagittal and axial T1 spin echo with fat saturation through the lumbar spine. Metal suppression techniques were used. COMPARISON: [facility], CR, L-SPINE 2-3 VIEWS, 09/13/2017, 8:34. [facility], CT, CT ABDOMEN PELVIS W CON, 12/19/2018, 21:13. FINDINGS: Image quality: There is susceptibility artifact associated with the metallic hardware. Alignment and curvature: Minimal retrolisthesis is seen at the L2-L4 and L5-S1 levels. Marrow: Marrow is of normal overall signal. No acute vertebral body compression fractures. There is a stable L1 anterior wedge deformity seen, with 60% loss of height anteriorly. No suspicious marrow enhancement. Spinal cord: Conus medullaris terminates at the L1 level. Visualized spinal cord demonstrates normal signal, without suspicious enhancement. Paraspinous soft tissues: No paravertebral masses or abnormal enhancement. Postoperative changes are seen, with bilateral pedicle screws at the L4, L5, and S1 levels. Vertical fixation rods are seen. Disc spacers are seen at L4-L5 and L5-S1. There is associated susceptibility artifact. There has been removal of portions of the posterior elements. T12-L1: Mild loss of disc height is seen. Loss of disc signal is seen. Mild generalized disc bulge is seen. No neural foraminal or central canal narrowing can be seen. L1-L2: Mild loss of disc height is seen. Loss of disc signal is seen. Mild generalized disc bulge is seen. Mild facet joint hypertrophy is seen. There is at least moderate bilateral neural foraminal narrowing seen. No central canal narrowing is seen. L2-L3: Mild loss of disc height is seen. Loss of disc signal is seen. Mild to moderate disc bulge is seen. Mild facet joint hypertrophy is seen. Moderate bilateral neural foraminal narrowing is seen, left worse than right. Moderate central canal narrowing is seen. L3-L4: Mild loss of disc height is seen. Loss of disc signal is seen. Moderate generalized disc bulge is seen. Ertf-uh-njwbacgo facet hypertrophy is seen. Moderate to severe bilateral neural frontal narrowing is seen. A mild degree of compression can be seen exiting L3 nerve roots. Moderate central canal narrowing is seen. L4-L5: Moderate loss of disc height is seen. Loss of disc signal is seen. Moderate disc bulge is seen, which is eccentric to the right side. There is at least moderate left-sided and moderate to severe right-sided neural foraminal narrowing seen. There is a mild degree of compression seen upon the exiting nerve roots. No central canal narrowing is seen. L5-S1: The disc height is well-preserved. Loss of disc signal is seen at this level. Moderate disc bulge is seen, with a central/left disc protrusion present. There is moderate to severe bilateral neural foraminal narrowing seen, right worse than left. There is a degree of compression seen upon the exiting nerve roots. No significant central canal narrowing is seen. IMPRESSION: Unremarkable L4-S1 postoperative change. Moderate to severe bilateral neural foraminal narrowing is seen at L3-L4 and L5-S1, with moderate to severe right-sided neural foraminal narrowing at L4-L5. There is associated compression seen upon the exiting nerve roots. No abnormal enhancement is seen. Stable L1 anterior wedge deformity. Dictated by: John Billings M.D. on 07/27/2019 at 14:18 Approved by: John Billings M.D. on 07/27/2019 at 14:26
== END ==
PROVIDERS: PCP Nurse Practitioner; Referring Provider Internal Medicine; Visit Provider Internal Medicine
DX: M54.5 Low back pain (principal); C18.7 Malignant neoplasm of sigmoid colon; M48.061 Spinal stenosis, lumbar region without neurogenic claudication; M48.07 Spinal stenosis, lumbosacral region
CPT/HCPCS: 72158; A9579

== ENCOUNTER → 2019-10-02 10:41 | Outpatient (CLI) | payer MEDICARE, SELFPAY ==
[2019-01-10 08:47] VITALS: BMI 21.9
[2019-10-02 13:14] LABS: Occult Blood 1 Negative (Negative)
[2019-10-02 13:47] LABS: Clostridium Difficile Tox PCR Negative for C. diff
== END ==
PROVIDERS: PCP Internal Medicine; Referring Provider Internal Medicine; Visit Provider Internal Medicine
DX: R19.7 Diarrhea, unspecified (principal)
CPT/HCPCS: 82270; 87045; 87177; 87493; 87899

== ENCOUNTER → 2022-03-16 10:05 | Outpatient (CLI) | payer MEDICARE, SELFPAY ==
[2019-01-10 08:47] VITALS: BMI 21.9
--- NOTE | 2022-03-16 10:11 | DI.CT.S_ITS ---
PROCEDURE: CT CHEST ABD PEL W CON INDICATIONS: COLON CANCER/DIARRHEA TECHNIQUE: After the administration of oral and intravenous contrast, axial sections acquired from the supraclavicular neck to the pubic symphysis. Coronal and sagittal reformats were performed. For radiation dose reduction, the following was used: automated exposure control, adjustment of mA and/or kV according to patient size. COMPARISON:[facility], CT, CT CHEST W CON, 01/02/2019, 10:31. FINDINGS: Image quality: Excellent. CHEST: Lower Neck: No enlarged lymph nodes. Thyroid: Within normal limits. Axillae: No enlarged lymph nodes. Chest Wall: Unremarkable. Lungs and Airways: There are small lung nodules, unchanged since 01/02/2019, likely benign. Nodule 1: 3 mm; posterior right upper lobe; series 3, image 83, stable. Nodule 2: 2 mm; right upper lobe posterior medial; series 3, image 114, stable. A calcified nodule is seen in the posterior right upper (series 3 image 135), likely an old granuloma. Pleura: No pneumothorax or pleural effusions. Heart: Heart size is normal. No pericardial effusion. Mild coronary artery calcification Thoracic Vessels: The aorta and pulmonary arteries demonstrate normal size. Mediastinum and Wilma: Mildly enlarged enlarged lymph nodes are present. For example, there is a precarinal lymph node measuring 1.2 x 1.6 cm. There is a 1.3 cm AP window lymph node. A 1.0 x 2.1 cm subcarinal lymph node is identified. Esophagus: No wall thickening. Small hiatal hernia. There is mild concentric thickening of the distal esophagus. ABDOMEN: Liver: Normal size. Mild hepatic steatosis. Gallbladder: Unremarkable. Biliary ducts: Unremarkable. Pancreas: Unremarkable. Spleen: Unremarkable. Adrenal Glands: Unremarkable. Kidneys and Ureters: Unremarkable. Stomach and Bowel: There are postsurgical changes in sigmoid colon with surgical anastomosis. Stomach and small bowel loops are normal in caliber. Fluid-filled mildly distended colon loops are noted. There is mild thickening in cecum and terminal ileum. Peritoneum: No abnormal intraperitoneal fluid. No free air. Ventral Wall: No hernia. Abdominal Nodes: No retroperitoneal or mesenteric adenopathy by size criteria. Vessels: Aorta and inferior vena cava are normal in size. PELVIS: Pelvic Organs: Prostate is enlarged Bladder: Unremarkable. Pelvic Nodes: There is a 1.3 cm soft tissue nodule anterior to the right psoas muscle, either a mildly enlarged right external iliac lymph node or a peritoneal nodule. Miscellaneous: No inguinal hernias are seen. Bones: Chronic severe compression fracture of L1. Degenerative and postsurgical changes in lumbar spine IMPRESSION: 1. Postsurgical changes in sigmoid colon. There is mild thickening of cecum and terminal ileum. Colon loops are mildly distended and filled with fluid. Etiology is uncertain. An infectious or inflammatory causes [place]. Recommend clinical correlation and imaging follow-up as needed. 2. A 1.3 cm soft tissue nodule in the right side of the pelvis, either a mildly enlarged external iliac lymph node or a peritoneal nodule. Recommend correlation with tumor marker and close imaging follow-up. 3. Mildly enlarged mediastinal and hilar lymph nodes, indeterminate. 4. Small right lung nodules are stable since 2019, likely benign. 5. Chronic severe L1 compression fracture Dictated by: Sharita Brasher M.D. on 03/16/2022 at 15:08 Approved by: Sharita Brasher M.D. on 03/16/2022 at 15:53
[2022-03-16 10:39] LABS: Add Manual Diff / Slide Review NO; Basophils Absolute Auto 0 /uL (0-100); Basophils Percent Auto 0.5 % (0-2); Eosinophils Absolute Auto 1100 /uL (0-450); Eosinophils Percent Auto 12.3 % (2-4); Hematocrit 42.1 % (41-53); Hemoglobin 14.2 g/dL (13.5-17.5); Lymphocytes Absolute Auto 1600 /uL (1100-4500); Lymphocytes Percent Auto 17.8 % (25-40); Mean Corpuscular HGB Conc 33.8 % (30-36); Mean Corpuscular Volume 97.5 fL (80-100); Monocytes Absolute Auto 800 /uL (0-900); Monocytes Percent Auto 8.6 % (3-14); Neutrophils Absolute Auto 5500 /uL (1500-7000); Neutrophils Percent Auto 60.8 % (50-75); Platelet Count 237 X10^3/uL (150-400); Red Blood Cell Count 4.32 X10^6/uL (4.5-5.9); Red Cell Distribution Width 13.9 % (11.6-14.8); White Blood Cell Count 9.1 X10^3/uL (4.5-11.0)
[2022-03-16 10:52] LABS: Alanine Aminotransferase 23 IU/L (<50); Albumin 4.1 g/dL (3.5-5.0); Albumin Globulin Ratio 1.3 (1.0-2.8); Alkaline Phosphatase 50 U/L (38-126); Aspartate Aminotransferase 23 IU/L (17-59); BUN Creatinine Ratio 21.9 (6-22); Bilirubin Total 0.4 mg/dL (0.2-1.3); Blood Urea Nitrogen 16 mg/dL (9-20); Calcium 8.9 mg/dL (8.4-10.2); Carbon Dioxide 33 mmol/L (22-32); Chloride 99 mmol/L (98-107); Estimated Glomerular Filt Rate > 60 mL/min (>60); Globulin 3.2 g/dL (1.7-4.1); Glucose 100 mg/dL (80-110); HEMOLYSIS < 15 (0-50); Potassium 4.3 mmol/L (3.4-5.1); Sodium 141 mmol/L (137-145); Total Protein 7.3 g/dL (6.3-8.2)
== END ==
PROVIDERS: PCP Internal Medicine; Referring Provider Physician Assistant; Visit Provider Physician Assistant
DX: C18.8 Malignant neoplasm of overlapping sites of colon (principal); R91.8 Other nonspecific abnormal finding of lung field; R19.7 Diarrhea, unspecified; M51.36 Other intervertebral disc degeneration, lumbar region; I25.10 Atherosclerotic heart disease of native coronary artery without angina pectoris; R59.0 Localized enlarged lymph nodes; K44.9 Diaphragmatic hernia without obstruction or gangrene; M79.89 Other specified soft tissue disorders; M48.56XA Collapsed vertebra, not elsewhere classified, lumbar region, initial encounter for fracture; K76.0 Fatty (change of) liver, not elsewhere classified; Z98.0 Intestinal bypass and anastomosis status
CPT/HCPCS: 36415; 71260; 74177; 80053; 85025; Q9967

== ENCOUNTER → 2022-06-08 13:18 | Outpatient (CLI) | payer MEDICARE, SELFPAY ==
[2019-01-10 08:47] VITALS: BMI 21.9
--- NOTE | 2022-06-08 | DI.CT.S_ITS ---
PROCEDURE: CT CHEST ABD PEL W CON INDICATIONS: malignant neoplasm of colon TECHNIQUE: After the administration of oral and intravenous contrast, axial sections acquired from the supraclavicular neck to the pubic symphysis. Coronal and sagittal reformats were performed. For radiation dose reduction, the following was used: automated exposure control, adjustment of mA and/or kV according to patient size. COMPARISON: [facility], CT, CT CHEST W CON, 01/02/2019, 10:31. [facility], CT, CT ABDOMEN PELVIS W CON, 12/19/2018, 21:13. [facility], CT, CT CHEST ABD PEL W CON, 03/16/2022, 12:04. FINDINGS: Image quality: Excellent. CHEST: Lower Neck: No enlarged lymph nodes. Thyroid: Is unremarkable Axillae: No enlarged lymph nodes. Chest Wall: Unremarkable. Lungs and Airways: There is mild centrilobular emphysema with an apical predominance. A 4 mm pulmonary nodule in the posterior right upper lobe is unchanged from January 02, 2019. No new pulmonary nodules. Pleura: No pneumothorax or pleural effusions. Heart: Heart size is normal. No pericardial effusion. Thoracic Vessels: The aorta and pulmonary arteries demonstrate normal size. Scattered atheromatous calcifications are present within the aortic arch. Mediastinum and Wilma: There is a borderline enlarged subcarinal and pretracheal lymph node, which are unchanged when compared with the CT dated March 16, 2021. No hilar adenopathy. Esophagus: No wall thickening. No hiatal hernia. ABDOMEN: Liver: The liver is mildly hypodense suggesting fatty infiltration. Gallbladder: Unremarkable. Biliary ducts: Unremarkable. Pancreas: Unremarkable. Spleen: Unremarkable. Adrenal Glands: Unremarkable. Kidneys and Ureters: Unremarkable. Stomach and Bowel: Stomach, small bowel loops, and colon are unremarkable. Anastomotic suture is present in the sigmoid colon. Peritoneum: No abnormal intraperitoneal fluid. No free air. Ventral Wall: No hernia. Abdominal Nodes: No retroperitoneal or mesenteric adenopathy by size criteria. A 1.0 cm in diameter right lower quadrant mesenteric node is redemonstrated and appears unchanged from the study dated December 19, 2018. Vessels: Aorta and inferior vena cava are normal in size. There are scattered atheromatous calcifications throughout the aorta and iliac arteries bilaterally. PELVIS: Pelvic Organs: Unremarkable. Bladder: Unremarkable. Pelvic Nodes: No enlarged lymph nodes. Miscellaneous: No inguinal hernias are seen. Bones: Unremarkable. Stable L1 compression deformity is redemonstrated. IMPRESSION: 1. No findings to suggest tumor recurrence or new metastasis. 2. Stable borderline enlarged mediastinal nodes and right lower quadrant mesenteric node. 3. Hepatic steatosis. Dictated by: Calli Pederson M.D. on 06/08/2022 at 15:11 Approved by: Calli Pederson M.D. on 06/08/2022 at 15:20
[2022-06-08 14:12] LABS: Estimated Glomerular Filt Rate > 60 mL/min (>60)
== END ==
PROVIDERS: Family Medicine; Referring Provider Internal Medicine Hematology & Oncology; Visit Provider Internal Medicine Hematology & Oncology
DX: C18.8 Malignant neoplasm of overlapping sites of colon (principal); R19.7 Diarrhea, unspecified; M51.36 Other intervertebral disc degeneration, lumbar region; K76.0 Fatty (change of) liver, not elsewhere classified
CPT/HCPCS: 36415; 71260; 74177; 82565; Q9967

== ENCOUNTER → 2022-07-10 12:59 | Outpatient (CLI) | payer MEDICARE, SELFPAY ==
[2019-01-10 08:47] VITALS: BMI 21.9
--- NOTE | 2022-07-10 | DI.MRI.S_ITS ---
PROCEDURE: MR LUMBAR SPINE WO CON INDICATIONS: Spinal stenosis, lumbar region TECHNIQUE: Noncontrast sagittal T1 spin echo and T2 fast echo, sagittal STIR, and T2 fast spin echo through the lumbar spine. In cases with scoliosis, additional coronal T2 fast spin echo may be performed. COMPARISON: [facility], MR, MR LUMBAR SPINE WO/W CON, 07/27/2019, 11:23. FINDINGS: Image quality: Excellent. Alignment and Curvature: Posterior fusion is present from L4 through S1. There is trace retrolisthesis of L1 on L2, L2 on L3, L3 on L4, unchanged. Bone Marrow: Marrow is of normal overall signal. Reactive endplate changes are present at L3-4. No acute vertebral body compression fractures. Old compression deformity at L1 is noted. Spinal Cord: Conus medullaris terminates at the L1-2 level. Visualized cord demonstrates normal signal and size. Paraspinous Soft Tissues: No paravertebral masses. Foci of increased T2 signal are present within the kidneys most suggestive of simple cysts. Discs: Overall multilevel moderate disc desiccation is present. L1-L2: Mild disc bulge without spinal stenosis. Moderate bilateral foraminal narrowing, right greater than left with facet and ligamentum flavum hypertrophy. Overall, no interval change. L2-L3: Mild disc bulge with moderate spinal stenosis. Moderate bilateral foraminal narrowing, left greater than right with facet and ligamentum flavum hypertrophy. No interval change. L3-L4: Mild disc bulge with moderate spinal stenosis, minimally progressive. Moderate to severe bilateral foraminal narrowing with facet and ligamentum flavum hypertrophy. No interval change. Minimal epidural lipomatosis. L4-L5: Postsurgical changes are present. Mild disc bulge without spinal stenosis. Moderate to severe bilateral foraminal narrowing, right greater than left with facet hypertrophy. No interval change. L5-S1: Mild disc bulge without spinal stenosis. Moderate to severe bilateral foraminal narrowing, right greater than left without interval change. Facet and ligamentum flavum hypertrophy. IMPRESSION: Posterior L4 through S1 fusion stable compared to prior exam. Multilevel disc bulges, spinal stenosis and foraminal narrowing demonstrating stability versus very small areas of interval progression as above. Dictated by: Kylee Kaiser M.D. on 07/12/2022 at 15:03 Approved by: Kylee Kaiser M.D. on 07/12/2022 at 15:13
== END ==
PROVIDERS: Referring Provider Physical Medicine & Rehabilitation; Visit Provider Physical Medicine & Rehabilitation
DX: M48.062 Spinal stenosis, lumbar region with neurogenic claudication (principal); M48.07 Spinal stenosis, lumbosacral region; M51.36 Other intervertebral disc degeneration, lumbar region; M51.37 Other intervertebral disc degeneration, lumbosacral region; Z98.1 Arthrodesis status
CPT/HCPCS: 72148

== ENCOUNTER → 2022-09-09 13:04 | Outpatient (CLI) | payer MEDICARE, SELFPAY ==
[2019-01-10 08:47] VITALS: BMI 21.9
[2022-09-09 13:46] LABS: Hematocrit 42.6 % (41-53); Hemoglobin 14.2 g/dL (13.5-17.5); Mean Corpuscular HGB Conc 33.3 % (30-36); Mean Corpuscular Hemoglobin 32.7 PG (26-34); Mean Corpuscular Volume 97.9 fL (80-100); Platelet Count 288 X10^3/uL (150-400); Red Blood Cell Count 4.35 X10^6/uL (4.5-5.9); Red Cell Distribution Width 12.7 % (11.6-14.8)
[2022-09-09 13:47] LABS: Add Manual Diff / Slide Review YES
[2022-09-09 14:11] LABS: Neutrophils Absolute Manual 5130 /uL (3000-5900); Total Cells Counted 100
[2022-09-09 14:12] LABS: RBC Morphology Normal Morphology
[2022-09-09 14:45] LABS: BUN Creatinine Ratio 14.7 (6-22); Blood Urea Nitrogen 10 mg/dL (9-20); Calcium 8.9 mg/dL (8.4-10.2); Carbon Dioxide 33 mmol/L (22-32); Chloride 100 mmol/L (98-107); Estimated Glomerular Filt Rate > 60 mL/min (>60); Glucose 83 mg/dL (80-110); HEMOLYSIS < 15 (0-50); Potassium 4.4 mmol/L (3.4-5.1); Sodium 138 mmol/L (137-145)
== END ==
PROVIDERS: Referring Provider Orthopaedic Surgery Orthopaedic Surgery of the Spine; Visit Provider Orthopaedic Surgery Orthopaedic Surgery of the Spine
DX: Z01.818 Encounter for other preprocedural examination (principal); R73.9 Hyperglycemia, unspecified; Z01.812 Encounter for preprocedural laboratory examination
CPT/HCPCS: 36415; 80048; 83036; 85007; 85025; 93005

== ENCOUNTER 2022-10-06 09:24 | Inpatient (IN) | payer MEDICARE, SELFPAY ==
[2019-01-10 08:47] VITALS: BMI 21.9
[2022-09-28 13:52] VITALS: BMI 23.8
[2022-10-06] VITALS (13 sets, daily range): BP systolic 122–157; BP diastolic 64–78; PULSE 59–76; RESP 12–20; TEMP 36.1–37; O2SAT 91–97; BMI 23.8
--- NOTE | 2022-10-06 | DI.RAD.S_ITS ---
PROCEDURE: XR LUMBAR SPINE 2-3V INDICATIONS: L3-S1 TLIF TECHNIQUE: 3 intraoperative low resolution fluoroscopic spot films were obtained COMPARISON: [facility], , L-SPINE 2-3 VIEWS, 09/13/2017, 8:34. FINDINGS: Low resolution intraoperative fluoroscopic spot films show L3-4, L4-5 and L5-S1 interbody fusion with associated posterior eva and screw instrumentation in good position IMPRESSION: Fluoroscopic guidance Approved by: Davis Caro M.D. on 10/06/2022 at 17:48
[2022-10-06 10:39] LABS: COVID19 -Nasal RAPID Negative (Negative)
[2022-10-06] MEDS: ACETAMINOPHEN 325 MG TABLET 975 MG PO (11:05)
[2022-10-06] MEDS: GABAPENTIN 300 MG CAPSULE PO (11:06)
[2022-10-06] MEDS: LACTATED RINGERS 1,000 ML 42 ML IV ×2 (11:07→15:00)
--- NOTE | 2022-10-06 12:22 | PM.PREOP ---
Pre-operative Note COVID-19 COVID-19 status: Negative Result date/Date tested (Pos, Neg/Pending): 10/05/22 Criteria for continued procedure: Expected advancement of disease process, Possibility delay results in more complex future surgery or treatment, Increased loss of function, Continuing or worsening of significant or severe pain, Deterioration of the patient's condition or overall health and Delay expected to result in less-positive ultimate med/surg outcome Interval Note History & Physical reviewed/Exam performed by Physician: Yes Changes to H&P: No
[2022-10-06] MEDS: CEFAZOLIN 2 GM/100 ML PREMIX 100 ML IV ×2 (13:15→21:16)
--- NOTE | 2022-10-06 13:40 | SUR.OPER ---
Prone on spine table, head in foam head support, padded chest and pelvic supports, gel pad at knees, lower legs supported by pillows; nipples, genitalia and toes free of pressure, arms secured on foam padded arm boards at <90 degrees abduction. Tape over blanket at thigh secured to table.
[2022-10-06] MEDS: BUPIVACAINE 0.25% (PF) 60 ML, EPINEPHrine 0.3 MG INJ (13:53)
[2022-10-06] MEDS: BUPIVACAINE LIPOSOME 266 MG/20 ML VIAL INJ (15:55)
--- NOTE | 2022-10-06 16:21 | P.OP_ITS ---
Operative Date/Time/Diagnoses Date of procedure: 10/06/22 Time of procedure: 12:30 Pre-op diagnosis: 1. L3-4 spinal stenosis 2. History of L4-S1 fusion with hardware loosening Post-op diagnosis: same Procedure & Clinicians Procedure: 1. L3-4 posterolateral and posterior interbody fusion 2. L3-4 posterior interbody cage placement 3. L4-5, L5-S1 posterior non-segmental instrumentation removal 4. L4-5, L5-S1 revision laminectomy with exploration of fusion 5. L3-4, L4-5, L5-S1 posterior segmental instrumentation with pedicle screw placement 6. L5-S1 posterolatearl fusion 7. [place] of bone marrow from iliac crest through a separate incision 8. Utilization of microsurgical technique and operating microscope Same procedure as scheduled: Yes Indications: Patient has been having chronic back pain and worsening lumbar radiculopathy. Patient has a history of prior lumbar fusion with progressively worsening back pain leg pain weakness. Patient failed multiple conservative management with worsening pain weakness and numbness in his lower extremity. Patient has been having difficulty performing activity of daily living. After discussing risks benefits of treatment options, patient elected proceed with surgery. Surgeon: Elie Morin Contact Worker Lithography: Ophelia Choi Click Yes if Unassisted: No Anesthesia Type: General Operative Notes Closure Type: primary Specimen(s): none sent Prosthetic devices, grafts, tissues, transplants, or devices: Globus CREO MIS screws, Rise cages Applied: catheter Estimated Blood Loss (mL): 150 Blood products transfused: none Procedure in detail: Patient was seen in the preoperative area. Risks and benefits of the surgery was discussed with the patient. Informed consent was obtained from the patient and placed in the chart. Surgical site was marked. Patient was taken to the operative room. General anesthesia was administered. Prophylactic antibiotic was given to the patient less than 30 min before the incision was made. Patient was placed into a prone position on the Tj table. Patient's back was then prepped and draped in the sterile fashion. Time-out was performed at this time. Using patient's previous scar incision was made over the L3-4 L4-5 L5-S1 interva l on the right side. Fascia was incised in line with skin incision. Patient's previously placed hardware over the L4-5, L5-S1 level was identified by dissecting down to the level the hardware using a Bovie and a Hidalgo. The locking caps which was removed using Nuvasiv screwdriver. The locking eva was then removed from the tulips of the pedicle screws using a Anson. The pedicle screws were then removed using the screwdriver. 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 The Globus and MARS retractors was then placed into the wound and docked onto the L3 lamina using C-arm guidance. Using microsurgical technique and operating microscope a laminectomy facetectomy was performed by removing the L3 lamina and the L3-4 facet. The disc space at L3-4 level was identified next. And a total diskectomy was performed at L3-4 level. The endplates were decorticated using a rasp and shaver. The total diskectomy and decortication was performed at L3-4 level in order to to accomplish a L3-4 fusion. The local bone from the laminectomy and facetectomy was saved for local bone grafting. After the total diskectomy and decortication was completed, Trifecta bone graft material was combined with local bone that was harvested earlier along with DBM bone graft. At this time, a separate skin is incision was made over the iliac crest. A Jamshidi needle was inserted into the iliac crest through a separate skin incision. 5 cc of bone marrow aspiration was obtained through the separate skin incision using a Jamshidi needle from the iliac crest. The bone marrow aspiration was combined with local bone and the Trifecta bone grafting material. The bone grafting material was placed into the L3-4 interbody space along with a expandable cage. The cage was expanded to its maximum height using the torque limiting screwdriver. At this time a mirror image incision was made on the left side. The fascia was incised in line with the skin incision. Patient's previously placed hardware on the right side was then removed in the same fashion as it was on the left side. The hardware was also found to be loose indicating pseudoarthrosis. The fusion mass on the right side was exposed by performing a right-sided hemilaminectomy at L4-5 L5-S1 level. The hemilaminectomy was performed using the Kerrison rongeur to undercut the lamina at L4-5 L5-S1 as well removing additional epi dural scar tissue for purpose of decompressing the epidural space. The fusion mass was explored and was found have visible motion indicating pseudoarthrosis at L5-S1 level. The fusion at L4-5 is solid without motion. Globus MARS retractor was inserted and docked onto the L3-4 L5-S1 posterolateral gutter. Using the power drill, posterior-lateral decortication was performed at L3-4 L5-S1 level until bleeding cortical bone was identified. The remaining bone grafting material was placed into the L3-4 L5-S1 posterior lateral gutter he order to accomplish posterolateral fusion at the L3-4 L5-S1 level. Using the double C-arm technique, pedicle screws were placed into the L3, L4-L5 and S1 pedicles bilaterally. This was done by placing the Jamshidi needle into the pedicles, then placing the guidewires over the Jamshidi needle, and finally placing the cannulated screws over the guidewires bilaterally. After the pedicle screws were placed, 2 titanium rods was locked into the heads of the pedicle screws using locking caps and torque limiting screwdriver. Pedicle screws were increased in diameter by 1 mm at S1 pedicle screws bilaterally due to the previously lose purchase. All new pedicle screws has good purchase. After all the hardware was placed, and confirmed with AP and lateral C-arm imaging, the wound was then irrigated with sterile normal saline and packed with Ray-Britney gauze for 3 min to accomplish hemostasis. After the gauze was removed the deep fascia was closed with #1 Vicryl suture. The subcutaneous layer was closed with 2-0 Vicryl. The skin was closed with skin chanell. Patient tolerated the procedure well. There were no complications. Neuro monitoring was performed throughout the procedure which was stable throughout the procedure. The Operation could not have been safely performed without compromising the technical result or length of the procedure, without the assistance of a skilled certified physician's assistant. The certified physician's assistant was medically necessary for proper positioning, retraction and manipulation of instruments, proper exposure, surgical preparation, and manipulation of tissue. Complications: none Post-operative Condition: stable Disposition: PACU Plan for aftercare: Admit to inpatient hospital
[2022-10-06] MEDS: OXYCODONE IR 5 MG TABLET PO (16:44)
[2022-10-06] MEDS: hydrOXYzine 50 MG/ML INJ 25 MG IM (16:44)
[2022-10-06] MEDS: ACETAMINOPHEN 325 MG TABLET 650 MG PO (17:55)
[2022-10-06] MEDS: HYDROMORPHONE 2 MG TABLET PO (17:55)
[2022-10-07 01:03] VITALS: BP 161/85; PULSE 76; RESP 17; O2SAT 95
[2022-10-07] MEDS: ACETAMINOPHEN 325 MG TABLET 650 MG PO ×3 (03:05→17:23)
[2022-10-07] MEDS: HYDROMORPHONE 2 MG TABLET PO ×3 (03:05→22:11)
[2022-10-07] MEDS: CEFAZOLIN 2 GM/100 ML PREMIX 100 ML IV (04:55)
[2022-10-07] MEDS: HYDROMORPHONE 0.5 MG INJ IV (05:16)
[2022-10-07 05:25] VITALS: BP 144/60; PULSE 71; RESP 16; TEMP 36.4; O2SAT 96
[2022-10-07] MEDS: hydrOXYzine pamoate 25 MG CAPSULE PO (06:02)
[2022-10-07 06:46] LABS: Hematocrit 40.3 % (41-53); Hemoglobin 13.8 g/dL (13.5-17.5)
--- NOTE | 2022-10-07 07:24 | P.PN_ITS ---
Subjective Subjective Date Patient Seen: 10/07/22 Time Patient Seen: 07:24 Interval history: Pt lying in bed, c/o left shoulder pain, mild to moderate back pain, denies lower extremity pain. Has not been OOB yet; 'I don't think I'm quite ready for that.' Exam Vital Signs (past 8 hours): - 10/07/22 01:03 10/07/22 05:25 Temperature 97.6 F Pulse Rate 76 71 Respiratory Rate 17 16 Blood Pressure 161/85 H 144/60 H Pulse Oximetry 95 96 Oxygen Delivery Method Nasal Cannula Oxygen Flow Rate 2 Narrative Exam Narrative: 5/5 strength in hip flexors, quadriceps, hamstrings, DF, PF, EHL on right. 5/5 in hip flexors, quadriceps, hamstrings; 4/5 in DF, PF, EHL on left. Sensation to light touch intact throughout BLE. Calves soft, compressible, nontender and without palpable cords or masses. Intraop dressing CDI, but there is old bloody drainage at bone marrow aspiration site. Objective Labs 10/07/22 05:50 Labs: Laboratory Results - last 24 hr 10/06/22 10/07/22 10:24 05:50 Hgb 13.8 Hct 40.3 L SARS-CoV-2 (PCR) Negative PFSH Medical History (Updated 10/04/19 @ 10:07 by Derek Bruno MD) Anemia Chronic back pain (Unknown) Fractures Hearing loss (Unknown) Hx of flexible sigmoidoscopy (~01/2019) Surgical History (Updated 09/28/22 @ 14:09 by Brittany Petersen RN) Anesthesia H/O vasectomy History of back surgery (~2016) History of colonoscopy History of removal of Port-a-Cath Hx of neck surgery (~2020) S/P laparoscopic colectomy (01/10/19) Family History Father Heart disease Mother Cancer Congestive heart failure Sister Hypertension Cancer Brother Heart disease Rheumatic fever Brother No problems noted. Social History household members: none occupational status: employed Smoking Status: Former smoker alcohol intake: current Assessment & Plan Post-op Assessment and plan (1) S/P lumbar fusion: Assessment and Plan narrative: Issa catheter out today, work w/ PT. Hopeful discharge home tomorrow if he m akes good progress w/ PT today. Postoperative Procedures: Procedures Operation Date: 10/06/22 11:45 Actual Procedure Side Surgeon p L3-4 TLIF, L3-S1 PSF w. instrumentation Elie Morin MD Postoperative day: 1
[2022-10-07 08:20] VITALS: BP 118/67; PULSE 67; RESP 16; TEMP 36.6; O2SAT 92
[2022-10-07] MEDS: GABAPENTIN 300 MG CAPSULE 600 MG PO ×3 (08:28→21:18)
[2022-10-07] MEDS: CYANOCOBALAMIN (VITAMIN B-12) 500 MCG TABLET 1000 MCG PO (08:29)
[2022-10-07] MEDS: CHOLECALCIFEROL (VITAMIN D3) 1,000 UNIT TABLET 1000 UNIT PO (08:29)
[2022-10-07] MEDS: DOCUSATE 100 MG CAPSULE PO ×2 (08:29→21:18)
[2022-10-07] MEDS: MULTIVITAMIN 1 TABLET 1 TAB PO (08:29)
--- NOTE | 2022-10-07 09:07 | CM.DANOTE ---
Initial DCP Assessment Note Pt is a 77 yo male, resident at [facility] in [place], now POD#[address] Morin PCP: [facility] Payer: [employer] Reviewed chart, met w/patient to introduce self and review DCP. Patient has been living half time in [place] and half time at [facility], says he will likely not due that this year r/t recovery from this back surgery Patient uses a w/c in his room and a 4ww when he leaves his room. Patient does not drive Patient plans to discharge back to [facility], transport via their van, and has arranged neighbors/[facility] residents to assist him throughout his recovery. In addition, patient's sister will be checking in on him Patient has been to a SNF in the past, can't remember the name, says he hadn't organized any help and so needed to DC to SNF Therapy eval pending. Patient with balance issues at OF and often using a w/c vs 4ww [place] base. Patient may inevitably need SNF. CM team will plan to follow closely COREY Grijalva Discharge Planning/Care Management CM Discharge Assessment Start: 10/07/22 09:03 Freq: Status: Active Protocol: Document 10/07/22 09:03 BLESSING (Rec: 10/07/22 09:07 BLESSING [id number]) Discharge Planning Assessment Assigned Teletype Or [place]pe Keyboard Operator COREY Carrasquillo DPOA/Assigned Designee Name sister Medley Contact Information [phone] Advance Directives? Yes Advance Directives on File Yes History Provided By Patient,Medical Record Prior Living Arrangements Senior Care Facility Comment [facility] Household Members none Type of transporation used prior to Relies on Others admit Independent with ADL's Yes: Says uses w/c in room to scoot around and 4ww out of room Is patient alert and oriented? Yes: [facility] Needs Assistance With Meal Prep,Home Chores / Shopping Comment TBD. Therapy eval pending Transportation Arrangement TBD
--- NOTE | 2022-10-07 11:30 | PT.IIE ---
Current Diagnoses Other spondylosis with radiculopathy, lumbar region (10/06/22) Spinal stenosis, lumbar region with neurogenic claudication (10/06/22) Arthrodesis status (10/06/22) Surgery Performed Operation Date: 10/06/22 11:45 Actual Procedures p L3-4 TLIF, L3-S1 PSF w. kristen - Elie Morin MD Surgical History (Last Updated 09/28/22 @ 14:08 by Brittany Petersen RN) Anesthesia H/O vasectomy History of back surgery (~2016) History of colonoscopy History of removal of Port-a-Cath Hx of neck surgery (~2020) S/P laparoscopic colectomy (01/10/19) Medical History (Last Reviewed 03/01/19 @ 08:06 by Piyush Taylor MD) Anemia Chronic back pain (Unknown) Fractures Hearing loss (Unknown) Hx of flexible sigmoidoscopy (~01/2019) Physical Therapy Inpatient Evaluation/Re-Eval M1 PT/OT-IP Prior Functional Status Start: 10/07/22 13:49 Freq: NEEDED Status: Active Protocol: Document 10/07/22 11:30 AB (Rec: 10/07/22 14:03 AB [email or web address]) Medical Review Prior Functional Status Medical History Reviewed Yes Communication able to make needs known but with confusion Mobility and Gait pt stated that he is modified independent with all moblities and ambulation using 4WW but stated that he uses his w/c inside his apartment for convenience since he does not want to do much sit to stand/ getting up and just wheels himself around his apartment on his w/c Social History Household Members none Living Arrangements Snf Facility Number of Stairs To Enter/Railing? pt lives at [facility] No steps to enter Home Environment Walk in Shower Home Equipment Front Wheel Walker,Four Wheel Walker,Manual Wheelchair, Shower Seat without Backrest, Hand Held Shower,Grab Bars Near Toilet,Grab Bars In Shower Additional Social History Comment pt stated that here are staff that he can call for assistance M2 PT-IP Current Condition Start: 10/07/22 13:49 Freq: NEEDED Status: Active Protocol: Document 10/07/22 11:30 AB (Rec: 10/07/22 14:03 AB [email or web address]) Physical Therapy Current Condition Current Condition Evaluation Date 10/07/22 Treatment Diagnosis s/p L3-4 fusion, L3-S1 instrum ; difficulty in walking Onset Date 10/06/22 M3 PT-IP Subjective Start: 10/07/22 13:49 Freq: NEEDED Status: Active Protocol: Document 10/07/22 11:30 AB (Rec: 10/07/22 14:03 AB [id number]) Subjective Physical Therapy Visit Type Type Initial Evaluation Visit Start Time 11:30 Visit Stop Time 12:10 Total Visit Minutes 40 Number of POLISHER AND SANDER Visits 0 Physical Therapy Visit Comments Patient Comments agreeable to do PT; initially stated that he cannot get up Therapy Pain Assessment Pain When Pain Assessed At Rest Pain Present Pain Present Pain Reported Location Bilateral Leg Scale Used pain scale not stated Pain Management Techniques Distraction,Modification of Treatment,Re-positioning M4 PT-IP Mobility and Gait Start: 10/07/22 13:49 Freq: NEEDED Status: Active Protocol: Document 10/07/22 11:30 AB (Rec: 10/07/22 14:03 [id number]) PT-Bed Mobility Assessment Rolling Type of Rolling Log Rolling Level of Assist Maximal Assistance Supine to Sit Supine to Sit Maximum Assistance PT-Transfer Assessment Sit to and From Stand Sit to and from Stand Maximum Assistance,1 Person Assistance,Use of Upper Extremities Equipment Transfer Assistive Device Gait Belt,Front Wheeled Walker Orthotic/Prosthetic Devices or Brace: No Transfers Transfer Destination Chair Transfer Technique ambulated Transfer Ability Level of Assist Maximum Assistance,1 Person Assistance,Use of Upper Extremities Comments Mobility Comments educated pt on back precautions. pt initially stated that he cannot get up. encouraged to move and agreed. completed log roll supine to sit x 2 attempts max A and max cues. used bed rail to assist. able to sit on EOB CGA. completed sit to stand max A and max cues. slight L knee buckling and required cues and assist for stability. ambulated to the chair max A and cues using FWW. continues to require assist for LLE stability. 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 positioned on the chair. set up for lunch. call light and table placed within reach. Gait Assessment Gait Gait Assistance Required: Maximum Assistance,1 Person Assist Distance (Feet) 15 Able to Maintain Weight Bearing Status Yes During Gait Assistive Devices Assistive Device Gait Belt,Front Wheeled Walker Orthotic/Prosthetic Devices or Brace: No Gait Deviations General Gait Pattern Decreased Stride Length, Decreased Feet Clearance,Step- to Gait Factors Limiting Gait Function Factors Limiting Gait Function Decreased Activity Tolerance, Decreased Strength,Difficulty Following Directions,Limited Range of Motion,Pain,Poor Balance,Poor Safety Awareness PT-Balance Assessment Sitting Balance and Reactions Static Sitting Balance Ability Good Dynamic Sitting Balance Ability Good Standing Balance and Reactions Static Standing Balance Ability Fair Dynamic Standing Balance Ability Poor Device Used FWW M5 PT-IP Objective Assessments Start: 10/07/22 13:49 Freq: NEEDED Status: Active Protocol: Document 10/07/22 11:30 AB (Rec: 10/07/22 14:03 AB [email or web address]) Orientation Orientation/Cognition Level of Alertness Alert Orientation Name,Place,Situation Language Function Ability Hard of Hearing Safety Awareness Decreased Safety Awareness Memory Description Short Term Impaired Comments with confusion Gross Range of Motion Lower Extremity ROM Assessment Within Functional Limits Strength Lower Extremity Strength Assessment Left Impaired Hip 3+/5 Knee 3+/5 Sensation Assessment Sensation Gross Sensation Right LE Impaired,Left LE Impaired Sensation Description Numbness Comments Sensation Comments 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 Muscle Tone Muscle Tone WNL Yes M6 PT-IP Treatment Start: 10/07/22 13:49 Freq: NEEDED Status: Active Protocol: Document 10/07/22 11:30 AB (Rec: 10/07/22 14:03 AB [email or web address]) Physical Therapy Treatment Education Education Provided Precautions,Weight Bearing Status,Post-Op Packet,Safety M7 PT-IP Assessment and Plan Start: 10/07/22 13:49 Freq: NEEDED Status: Active Protocol: Document 10/07/22 11:30 AB ([facility]07[facility]22 [facility] Summary Assessment and Plan Potential Rehabilitation Potential Fair Status of Condition at Evaluation Evolving Summary Impairments Pain,Strength,Balance, Coordination,Sensation,Tone, Cognition,Bed Mobility, Transfers,Gait,Activity Tolerance Assessment Summary pt requiring max A and max cues with all tasks. noted slight L knee buckling and with unsteady gait requiring max A for ambulation using FWW . pt also has decrease safety awareness affecting mobility and ability to follow instructions. pt will require SNF rehab to improve mobility and independence. will continue to assess progress. Goals Bed Mobility Goal Minimal Assistance Transfer Goal Minimal Assistance,Front Wheeled Walker Gait Goal Minimal Assistance,Front Wheel Walker Gait Distance 100 Other Goals improve bed mobility , transfers and ambulation ~ 150 ft using FWW SBA Days to Meet Goals 10 Frequency of Treatment Frequency Of Treatment Twice a Day Treatment Plan Physical Therapy Treatment Plan Bed Mobility Training,Transfer Training,Gait Training, Therapeutic Exercise,Balance Retraining,Post Op Education, Discharge Planning,Hot or Cold Pack,Neuromuscular Re-ed, Coordination Retraining,Manual Therapy Precautions Lumbar Precautions Log Roll,No Twisting,Limit Bending,Lifting Restriction of 10 lbs,Gait Belt above Incisional Area Recommendations To Nursing Amount of Assist Needed 1 Person Assist Discharge Recommendations PT Discharge Recommendations SNF Rehab Transportation Needs at Discharge Wheelchair/Cabulance
--- NOTE | 2022-10-07 15:10 | PT.IPTN ---
Current Diagnoses Other spondylosis with radiculopathy, lumbar region (10/06/22) Spinal stenosis, lumbar region with neurogenic claudication (10/06/22) Arthrodesis status (10/06/22) Surgery Performed Operation Date: 10/06/22 11:45 Actual Procedures p L3-4 TLIF, L3-S1 PSF w. instrumentation - Elie Morin MD Physical Therapy Treatment Note M2 PT-IP Current Condition Start: 10/07/22 13:49 Freq: NEEDED Status: Active Protocol: Document 10/07/22 11:30 AB (Rec: 10/07/22 14:03 AB [id number]) Physical Therapy Current Condition Current Condition Evaluation Date 10/07/22 Treatment Diagnosis s/p L3-4 fusion, L3-S1 instrum ; difficulty in walking Onset Date 10/06/22 M3 PT-IP Subjective Start: 10/07/22 13:49 Freq: NEEDED Status: Active Protocol: Document 10/07/22 14:47 KS (Rec: 10/07/22 15:40 KS [id number]) Subjective Physical Therapy Visit Type Type Treatment Note Visit Start Time 14:47 Visit Stop Time 15:10 Total Visit Minutes 23 Number of LICENSED CLUB MANAGER Visits 1 Physical Therapy Visit Comments Patient Comments Agreeable to ambulate Therapy Pain Assessment Pain When Pain Assessed At Rest Pain Present Pain Present Pain Reported Location Bilateral Leg Scale Used not quantified Pain Management Techniques Distraction,Modification of Treatment,Re-positioning M4 PT-IP Mobility and Gait Start: 10/07/22 13:49 Freq: NEEDED Status: Active Protocol: Document 10/07/22 14:47 KS (Rec: 10/07/22 15:40 KS [id number]) PT-Transfer Assessment Sit to and From Stand Sit to and from Stand Moderate Assistance,1 Person Assistance,Use of Upper Extremities Equipment Transfer Assistive Device Gait Belt,Front Wheeled Walker Orthotic/Prosthetic Devices or Brace: No Transfers Transfer Destination Chair Transfer Technique ambulated Transfer Ability Level of Assist Moderate Assistance,1 Person Assistance,Use of Upper Extremities Comments Mobility Comments Pt in chair upon arrival and does not wish to go back to bed. Able to recall 1/3 precautions (no bending). Mod A for sit<>stand w/ cues for hand placement. Pt ambulated ~ 40 ft w/ FWW, denied dizziness but became more tremulous w/ increased distance, no buckling or LOB. Cues for FWW mgmt and upright posture. Good use of BUE for slow descent when sitting. Left in chair as requested w/ all needs in reach. Gait Assessment Gait Gait Assistance Required: Minimum Assistance,1 Person Assist Distance (Feet) 40 Able to Maintain Weight Bearing Status Yes During Gait Assistive Devices Assistive Device Gait Belt,Front Wheeled Walker Orthotic/Prosthetic Devices or Brace: No Gait Deviations General Gait Pattern Decreased Stride Length, Decreased Feet Clearance,Step- to Gait Factors Limiting Gait Function Factors Limiting Gait Function Decreased Activity Tolerance, Decreased Strength,Difficulty Following Directions,Limited Range of Motion,Pain,Poor Balance,Poor Safety Awareness Comments Gait Comments See mobility for details. Stair Climbing Assessment Comments Stair Climbing Comments No assessed, no stairs. PT-Balance Assessment Sitting Balance and Reactions Static Sitting Balance Ability Good Dynamic Sitting Balance Ability Good Standing Balance and Reactions Static Standing Balance Ability Fair Dynamic Standing Balance Ability Fair Device Used FWW M5 PT-IP Objective Assessments Start: 10/07/22 13:49 Freq: NEEDED Status: Active Protocol: Document 10/07/22 11:30 AB (Rec: 10/07/22 14:03 AB [id number]) Orientation Orientation/Cognition Level of Alertness Alert Orientation Name,Place,Situation Language Function Ability Hard of Hearing Safety Awareness Decreased Safety Awareness Memory Description Short Term Impaired Comments with confusion Gross Range of Motion Lower Extremity ROM Assessment Within Functional Limits Strength Lower Extremity Strength Assessment Left Impaired Hip 3+/5 Knee 3+/5 Sensation Assessment Sensation Gross Sensation Right LE Impaired,Left LE Impaired Sensation Description Numbness Comments Sensation Comments 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 Muscle Tone Muscle Tone WNL Yes M6 PT-IP Treatment Start: 10/07/22 13:49 Freq: NEEDED Status: Active Protocol: Document 10/07/22 14:47 KS (Rec: 10/07/22 15:40 KS [id number]) Physical Therapy Treatment Education Education Provided Precautions,Weight Bearing Status,Post-Op Packet,Safety M7 PT-IP Assessment and Plan Start: 10/07/22 13:49 Freq: NEEDED Status: Active Protocol: Document 10/07/22 14:47 KS (Rec: 10/07/22 15:40 KS [id number]) PT Summary Assessment and Plan Potential Rehabilitation Potential Fair Summary Impairments Pain,Strength,Balance, Coordination,Sensation,Tone, Cognition,Bed Mobility, Transfers,Gait,Activity Tolerance Progress Towards Goals Slow Progress due to Activity Tolerance Assessment Summary Pt required Mod A for sit<> stand and Min A for 40 ft ambulation this PM. Verbal cues for FWW mgmt and upright posture when ambulating. Pt became increasingly more shaky as gait distance increased, but had no LOB or knee buckling. Will continue to asssess progress, but at this time he may benefit from SNF to improve safe functional mobility and activity tolerance. Goals Bed Mobility Goal Minimal Assistance Transfer Goal Minimal Assistance,Front Wheeled Walker Gait Goal Minimal Assistance,Front Wheel Walker Gait Distance 100 Other Goals improve bed mobility , transfers and ambulation ~ 150 ft using FWW SBA Days to Meet Goals 10 Frequency of Treatment Frequency Of Treatment Twice a Day Treatment Plan Physical Therapy Treatment Plan Bed Mobility Training,Transfer Training,Gait Training, Therapeutic Exercise,Balance Retraining,Post Op Education, Discharge Planning,Hot or Cold Pack,Neuromuscular Re-ed, Coordination Retraining,Manual Therapy Precautions Lumbar Precautions Log Roll,No Twisting,Limit Bending,Lifting Restriction of 10 lbs,Gait Belt above Incisional Area Recommendations To Nursing Amount of Assist Needed 1 Person Assist Discharge Recommendations PT Discharge Recommendations SNF Rehab Transportation Needs at Discharge Wheelchair/Cabulance
--- NOTE | 2022-10-07 15:27 | OT.IP.EVAL ---
Current Diagnoses Other spondylosis with radiculopathy, lumbar region (10/06/22) Spinal stenosis, lumbar region with neurogenic claudication (10/06/22) Arthrodesis status (10/06/22) Surgery Performed Operation Date: 10/06/22 11:45 Actual Procedures p L3-4 TLIF, L3-S1 PSF w. instrumentation - Elie Morin MD Past Medical History (Last Reviewed 03/01/19 @ 08:06 by Piyush Taylor MD) Anemia Chronic back pain (Unknown) Fractures Hearing loss (Unknown) Hx of flexible sigmoidoscopy (~01/2019) Surgical History (Last Updated 09/28/22 @ 14:08 by Brittany Petersen RN) Anesthesia H/O vasectomy History of back surgery (~2016) History of colonoscopy History of removal of Port-a-Cath Hx of neck surgery (~2020) S/P laparoscopic colectomy (01/10/19) Occupational Therapy Inpatient Evaluation/Re-Eval M1 PT/OT-IP Prior Functional Status Start: 10/07/22 16:37 Freq: NEEDED Status: Active Protocol: Document 10/07/22 15:27 [facility] (Rec: 10/07/22 16:54 [facility] [id number]) Medical Review Prior Functional Status Medical History Reviewed Yes Communication able to make needs known but with confusion Mobility and Gait pt stated that he is modified independent with all mobilities and ambulation using 4WW but stated that he uses his w/c inside his apartment for convenience since he does not want to do much sit to stand/ getting up and just wheels himself around his apartment on his w/c Activities of Daily Living and IADL's Pt states able to do his ADL's on his own, do his own meds, and bills. Social History Household Members none Living Arrangements Long-Term Facility Number of Stairs To Enter/Railing? pt lives at [facility] No steps to enter Home Environment Walk in Shower Home Equipment Front Wheel Walker,Four Wheel Walker,Manual Wheelchair, Shower Seat without Backrest, Hand Held Shower,Grab Bars Near Toilet,Grab Bars In Shower Additional Social History Comment pt stated that here are staff that he can call for assistance M2 OT-IP Current Condition Start: 10/07/22 16:37 Freq: Status: Active Protocol: Document 10/07/22 15:27 [facility] (Rec: 10/07/22 16:54 [facility] [id number]) Occupational Therapy Current Condition Current Condition Evaluation Date 10/07/22 Treatment Diagnosis S/p L3-4 TLIF, L3-S1 PSF with inst. Post Operative Precautions Lumbar Precautions Log Roll,No Twisting,Limit Bending,Lifting Restriction of 10 lbs,Gait Belt above Incisional Area M3 OT- IP Subjective and Pain Start: 10/07/22 16:37 Freq: Status: Active Protocol: Document 10/07/22 15:27 [facility] (Rec: 10/07/22 16:54 [facility] [id number]) OT- Subjective Occupational Therapy Visit Type Type Initial Evaluation Visit Start Time 15:27 Visit Stop Time 15:48 Total Visit Minutes 21 Occupational Therapy Visit Comments Patient Comments Pt agreed to get back to bed and pt's sister in the room during OT eval. Patient/Caregiver Goals Pt wanting to go home but then agreeing with OT and his sister that it would be best to go to skilled rehab prior to going home. OT Pain Assessment Pain When Pain Assessed During Mobility Pain Present Pain Present Pain Reported M4 OT- IP ADL's Start: 10/07/22 16:37 Freq: Status: Active Protocol: Document 10/07/22 15:27 [facility] (Rec: 10/07/22 16:54 [facility] [id number]) OT [id number] Comments OT Self-Feeding Comments NOt at meal time. OT ADL-Grooming Comments OT Grooming Comments Not performed, pt just wanting to get back to bed. OT ADL-Oral Care Comments Oral Care Comments Not performed. OT ADL-Dressing General Eval Lower Body Dressing Ability Maximum Assistance Comments OT Dressing Comments Pt able to practice use of crime scene investigator and sock aid and will benefit from more practice as pt taking more time to process information. OT ADL-Toileting Comments OT Toileting Comments Pt not having to go at this time. OT ADL-Bathing Comments OT Bathing Comments To try showering tomorrow if pt willing. M5 OT- IP IADL's Start: 10/07/22 16:37 Freq: Status: Active Protocol: Document 10/07/22 15:27 [facility] (Rec: 10/07/22 16:54 [facility] [id number]) OT-Instrumental Activities of Daily Living Deficits IADL Deficits Identified Deficits Home Safety Awareness Awareness of Need for Assistance at Home Decreased Awareness Home Safety Comments Pt at times feels that he will be fine at home and then remembers that he is not moving well and in the past has fallen off his bed. Pt is a little slow to recall and answer questions and would be best that pt gets help for all needs at this time. M6 OT- IP Functional Cognition Start: 10/07/22 16:37 Freq: Status: Active Protocol: Document 10/07/22 15:27 [facility] (Rec: 10/07/22 16:54 [facility] [id number]) Cognitive Factors Limiting Selfcare Function Cognitive Ability Level of Alertness Alert Patient Orientation Name,Place,Situation Attention Span Ability Capable of Focused Attention, Capable of Sustained Attention Ability to Follow Commands Able to Follow One Step Commands with Increased Time, Able to Follow One Step Commands with Repetition Memory Description Short Term Impaired Safety Awareness Decreased Ability to Apply Precautions Cognitive Comments Cognitive Assessment Comments Pt a bit groggy and slow to follow directions which may be due to sx or pain medications . Pt prior states completely independent with all his needs besides shopping. In Jan 2019, pt in the hospital for s/p colorectal carcinoma scored 20/30 on the SLUMS with DRIVER HELPER on 01/15/19- having most trouble with items of memory needs on the SLUMS. Pt needing safety cues for log rolling and will benefit from continued practice of his back precautions for ADl and mobility needs. Pt is very pleasant and cooperative. OT- Vision and Hearing OT- Vision Assessment Visual Acuity Glasses For Reading M7 OT- IP Mobility and Balance Start: 10/07/22 16:37 Freq: Status: Active Protocol: Document 10/07/22 15:27 [facility] (Rec: 10/07/22 16:54 [facility] [id number]) OT- Bed Mobility Assessment Sit to Supine Sit to Supine Assist Moderate Assistance OT-Transfer Assessment Sit to and From Stand Sit to and from Stand Moderate Assistance Transfers Transfer Ability Minimal Assistance,Moderate Assistance Technique Transfer Destination Bed,Chair Transfer Technique Stand Step Pivot Devices Transfer Assistive Devices Gait Belt,Front Wheeled Walker Comments Mobility Comments MOD A to stand to the FWW and MIN//MOD for transfer to the bed and MODA to assist to get his legs into the bed. OT- Balance Assessment Sitting Balance and Reactions Static Sitting Balance Ability Good Dynamic Sitting Balance Ability Good Standing Balance and Reactions Static Standing Balance Ability Fair Dynamic Standing Balance Ability Fair M9 OT- IP Assessment and Plan Start: 10/07/22 16:37 Freq: Status: Active Protocol: Document 10/07/22 15:27 [facility] (Rec: 10/07/22 16:54 [facility] [id number]) OT Summary Assessment and Plan Potential Rehabilitation Potential Good Analytic Complexity at Evaluation Low Summary OT Impairments Pain,Balance,Functional Cognition,Functional Mobility, Grooming,Dressing,Toileting, Bathing,Toilet Transfers, Shower Transfers,Activity Tolerance Progress Towards Goals Progressing Toward Goals,Slow Progress due to Cognition Assessment Summary Pt low complexity and main barriers are needing assist for mobility needs, and cues to best follow his back precautions especially during ADL and log rolling needs. At this time pt would benefit from skilled rehab for continued carryover and training of his back precautions as at this time having difficulty to recall and incorporate with his needs . Goals Grooming Goal Independent Dressing Goal Independent Toileting Goal Independent Bathing Goal Standby Assistance Toilet Transfer Goal Independent Shower Transfer Goal Standby Assistance Days to Meet Goals 20 Frequency of Treatment Frequency Of Treatment Once a Day Treatment Plan OT Treatment Plan ADL Training,Functional Cognition Training,Functional Mobility,Patient/Family Education,Discharge Planning Other Treatment Recommendations and Next shower Treatment Focus Discharge Recommendations OT Discharge Recommendations SNF Rehab
[2022-10-07 18:15] VITALS: BP 116/52; PULSE 64; RESP 16; O2SAT 94
[2022-10-07] MEDS: SENNOSIDES 8.6 MG TABLET 17.2 MG PO (21:18)
[2022-10-07 22:17] VITALS: BP 134/63; PULSE 71; RESP 17; TEMP 36.1; O2SAT 93
[2022-10-08 06:29] VITALS: BP 156/70; PULSE 80; RESP 18; TEMP 37.5; O2SAT 93
[2022-10-08] MEDS: OXYCODONE IR 5 MG TABLET PO ×4 (06:33→20:26)
[2022-10-08] MEDS: ACETAMINOPHEN 325 MG TABLET 650 MG PO (06:34)
--- NOTE | 2022-10-08 06:53 | P.DS_ITS ---
History of Present Illness History of Present Illness Date Patient Seen: 10/08/22 Time Patient Seen: 06:53 Chief complaint: INPT Narrative: Operative Date/Time/Diagnoses Date of procedure: 10/06/22 Time of procedure: 12:30 Pre-op diagnosis: 1. L3-4 spinal stenosis 2. History of L4-S1 fusion with hardware loosening Post-op diagnosis: same Procedure & Clinicians Procedure: 1. L3-4 posterolateral and posterior interbody fusion 2. L3-4 posterior interbody cage placement 3. L4-5, L5-S1 posterior non-segmental instrumentation removal 4. L4-5, L5-S1 revision laminectomy with exploration of fusion 5. L3-4, L4-5, L5-S1 posterior segmental instrumentation with pedicle screw placement 6. L5-S1 posterolatearl fusion 7. [place] of bone marrow from iliac crest through a separate incision 8. Utilization of microsurgical technique and operating microscope Same procedure as scheduled: Yes Indications: Patient has been having chronic back pain and worsening lumbar radiculopathy.? Patient has a history of prior lumbar fusion with progressively worsening back pain leg pain weakness. Patient failed multiple conservative management with worsening pain weakness and numbness in his lower extremity.? Patient has been having difficulty performing activity of daily living.? After discussing risks benefits of treatment options, patient elected proceed with surgery. Surgeon: Elie Morin Audio Visual Project Manager: Ophelia Choi Click Yes if Unassisted: No Anesthesia Type: General Operative Notes Closure Type: primary Specimen(s): none sent Prosthetic devices, grafts, tissues, transplants, or devices: Globus CREO MIS screws, Rise cages Applied: catheter Estimated Blood Loss (mL): 150 Blood products transfused: none Discharge Providers Provider Date of admission: 10/06/22 09:24 Discharge Date: 10/09/22 Primary care physician: Antonia Leigh MD Consults: 10/06/22 17:18 Consult to Occupational Therapy Evaluate & Treat Comment: Physician Instructions: Evaluate and treat Consult to Physical Therapy Evaluate & Treat Comment: Physician Instructions: Evaluate and Treat Discharge provider: Ophelia Choi PA-C Summary Hospital Course Discharge Diagnosis: L3-4 spinal stenosis, History of L4-S1 fusion with hardware loosening; s/p lumbar fusion Hospital Course: Mr Stevenson's hospital course was remarkable for difficulty with pain control and need for help with ambulation and transfers. On the morning of POD# 2 he was complaining of BLE pain, L>R. He has no help at home and was accepting that he would need shelter at discharge. He was eating and voiding without difficulty. Exam Vital Signs (past 8 hours): - 10/08/22 06:29 Temperature 99.5 F Pulse Rate 80 Respiratory Rate 18 Blood Pressure 156/70 H Pulse Oximetry 93 Oxygen Delivery Method Room Air Oxygen Flow Rate 2 Narrative Exam Narrative: 4/5 strength in hip flexors, quadriceps, hamstrings; 5/5 DF, PF, EHL bilaterally. Sensation to light touch intact in BLE, though he does have neuropathy on the right. Calves soft, compressible, nontender and without palpable cords or masses. Dressing placed intraoperatively is CDI. Objective Labs 10/07/22 05:50 PFSH Medical History (Updated 10/04/19 @ 10:07 by Derek Bruno MD) Anemia Chronic back pain (Unknown) Fractures Hearing loss (Unknown) Hx of flexible sigmoidoscopy (~01/2019) Surgical History (Updated 09/28/22 @ 14:09 by Brittany Petersen RN) Anesthesia H/O vasectomy History of back surgery (~2016) History of colonoscopy History of removal of Port-a-Cath Hx of neck surgery (~2020) S/P laparoscopic colectomy (01/10/19) Family History Father Heart disease Mother Cancer Congestive heart failure Sister Hypertension Cancer Brother Heart disease Rheumatic fever Brother No problems noted. Social History household members: none occupational status: employed Smoking Status: Former smoker alcohol intake: current Discharge Assessment & Plan Assessment and Plan Assessment: L3-4 spinal stenosis, History of L4-S1 fusion with hardware loosening; s/p lumbar fusion Plan of Treatment: D/c to SNF, likely 10/09/2022 per medicare guidelines, but will depend upon facility availability. Will change from hydromorphone to oxycodone in anticipation of discharge. Dexamethasone started to help w/ leg pain; will rx medrol pack at discharge. F/u in office in 2 weeks as scheduled. Discharge Plan Discharge Plan Patient Disposition: SNF Discharge orders & Medications Prescriptions: New acetaminophen 325 mg Tablet 650 mg PO Q6H PRN (Reason: Fever/Mild Pain (1-3)) Qty: 240 0RF docusate sodium 100 mg Capsule 100 mg PO BID PRN (Reason: constipation) Qty: 60 1RF hydroxyzine pamoate 25 mg Capsule 25 mg PO Q4HR PRN (Reason: muscle spasm) Qty: 120 0RF oxycodone 5 mg Tablet 5 mg PO Q3H PRN (Reason: Pain, Moderate (4-6)) Qty: 60 0RF methylprednisolone [Medrol (Isaias)] 4 mg tablets,dose pack See Rx Instructions .ROUTE .COMPLEX Qty: 21 0RF Rx Instructions: orally per package directions Continued (DME) disabled parking Qty: 1 0RF Rx Instructions: I certify that patient has a condition which qualifies him for disabled parking privileges. cyanocobalamin (vitamin B-12) 1,000 mcg capsule 1,000 mcg PO DAILY multivitamin Tablet 1 tab PO DAILY cholecalciferol (vitamin D3) [Vitamin D3] 25 mcg (1,000 unit) Tablet 25 mcg PO DAILY turmeric 400 mg Capsule 400 mg PO DAILY gabapentin 300 mg capsule 600 mg PO TID Rx Instructions: Stop after 10 days --- 06/25/19 PT STATES HE TAKES 4-5 TAB PER NIGHT WITH TYLENOL. aspirin 325 mg Tablet 650 mg PO BID Follow up/Referrals: Elie Morin MD [Physician] - As previously scheduled (Follow up w/ Dr Morin on 10/19/2022 @ 2:00 pm at [facility] office in [place].) Antonia Leigh MD [Primary Care Provider] - Diet/Activity/Treatments Diet: Diet as Tolerated Activity: No deep bending or twisting at the waist. No lifting more than 10 pounds. Cold/Heat Therapy: Heating pad to low back as needed for pain. Skin/Wound/Dressing Care Report to your healthcare provider any signs of infection, such as:: chills, fever, night sweats, unusual drainage and unusual redness Dressing: May shower; keep dressing as dry as possible. If dressing becomes wet or dirty inside, may remove and replace with clean, dry gauze. No bathing or otherwise soaking incisions. Do not apply any creams, lotions, or ointments to incisions. Visit Report/Discharge Packet Instructions: DI for Prescription Opioid Use, DI for Transforaminal Lumbar Interbody Fusion Stand Alone Forms: Patient Portal/API, Surgery Discharge Discharge Data Primary Care Provider: Antonia Leigh
--- NOTE | 2022-10-08 08:45 | PT.IPTN ---
Current Diagnoses Other spondylosis with radiculopathy, lumbar region (10/06/22) Spinal stenosis, lumbar region with neurogenic claudication (10/06/22) Arthrodesis status (10/06/22) Surgery Performed Operation Date: 10/06/22 11:45 Actual Procedures p L3-4 TLIF, L3-S1 PSF w. instrumentation - Elie Morin MD Physical Therapy Treatment Note M2 PT-IP Current Condition Start: 10/07/22 13:49 Freq: NEEDED Status: Active Protocol: Document 10/07/22 11:30 AB (Rec: 10/07/22 14:03 AB [id number]) Physical Therapy Current Condition Current Condition Evaluation Date 10/07/22 Treatment Diagnosis s/p L3-4 fusion, L3-S1 instrum ; difficulty in walking Onset Date 10/06/22 M3 PT-IP Subjective Start: 10/07/22 13:49 Freq: NEEDED Status: Active Protocol: Document 10/08/22 09:17 TS (Rec: 10/08/22 09:35 TS [id number]) Subjective Physical Therapy Visit Type Type Treatment Note Visit Start Time 08:45 Visit Stop Time 09:10 Total Visit Minutes 25 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 Therapy Pain Assessment Pain When Pain Assessed At Rest Pain Present Pain Present Pain Reported Location Bilateral Leg Scale Used not quantified Pain Management Techniques Distraction,Modification of Treatment,Re-positioning M4 PT-IP Mobility and Gait Start: 10/07/22 13:49 Freq: NEEDED Status: Active Protocol: Document 10/08/22 09:17 TS (Rec: 10/08/22 09:35 TS [id number]) PT-Bed Mobility Assessment Rolling Type of Rolling Log Rolling Level of Assist Standby Assistance,Minimal Assistance Supine to Sit Supine to Sit Standby Assistance,Minimal Assistance Sit to Supine Sit to Supine Standby Assistance Scooting Scooting to Edge of Bed Standby Assistance Scooting Up and Down in Bed Standby Assistance PT-Transfer Assessment Sit to and From Stand Sit to and from Stand Standby Assistance Equipment Transfer Assistive Device Gait Belt,Front Wheeled Walker Orthotic/Prosthetic Devices or Brace: No Transfers Transfer Destination Chair Transfer Technique Stand Step Pivot Transfer Ability Level of Assist Standby Assistance Comments Mobility Comments Pt found resting in bed, agreeable to PT session. Logroll x1 Trina, provided cues for LUE handrail assist. Supine to sit Trina for uprighting trunk, provided cues for BUE support. Sit to stand x1 SBA with BUE on FWW, no posterior leaning. Ambulated to toilet ~10' close SBA, some swaying in FWW. Ambulated in hallway ~125' SBA with emerging step thru gait, continues with some swaying/ unsteadiness in FWW. Sit to supine to SBA, provided cues for coming down on L shoulder and rotating hip and shoulders together. Supine to sit SBA, provided cues for BUE support to upright trunk. Stand step pivot transfer to chair SBA, demosntrated good eccentric control sitting in chair. Pt was left in chair with call light earby and breakfast, RN notified. Gait Assessment Gait Gait Assistance Required: Standby Assistance,1 Person Assist Distance (Feet) 135 Able to Maintain Weight Bearing Status Yes During Gait Assistive Devices Assistive Device Gait Belt,Front Wheeled Walker Orthotic/Prosthetic Devices or Brace: No Gait Deviations General Gait Pattern Decreased Stride Length, Decreased Feet Clearance,Step- to Gait Factors Limiting Gait Function Factors Limiting Gait Function Decreased Activity Tolerance, Decreased Strength,Limited Range of Motion,Pain,Poor Balance,Poor Safety Awareness Comments Gait Comments See mobility for details. Stair Climbing Assessment Comments Stair Climbing Comments No assessed, no stairs. PT-Balance Assessment Sitting Balance and Reactions Static Sitting Balance Ability Good Dynamic Sitting Balance Ability Good Standing Balance and Reactions Static Standing Balance Ability Good Dynamic Standing Balance Ability Fair Device Used FWW M5 PT-IP Objective Assessments Start: 10/07/22 13:49 Freq: NEEDED Status: Active Protocol: Document 10/07/22 11:30 AB (Rec: 10/07/22 14:03 AB [id number]) Orientation Orientation/Cognition Level of Alertness Alert Orientation Name,Place,Situation Language Function Ability Hard of Hearing Safety Awareness Decreased Safety Awareness Memory Description Short Term Impaired Comments with confusion Gross Range of Motion Lower Extremity ROM Assessment Within Functional Limits Strength Lower Extremity Strength Assessment Left Impaired Hip 3+/5 Knee 3+/5 Sensation Assessment Sensation Gross Sensation Right LE Impaired,Left LE Impaired Sensation Description Numbness Comments Sensation Comments 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 Muscle Tone Muscle Tone WNL Yes M6 PT-IP Treatment Start: 10/07/22 13:49 Freq: NEEDED Status: Active Protocol: Document 10/08/22 09:17 TS (Rec: 10/08/22 09:35 TS [id number]) Physical Therapy Treatment Education Education Provided Precautions,Weight Bearing Status,Post-Op Packet,Safety M7 PT-IP Assessment and Plan Start: 10/07/22 13:49 Freq: NEEDED Status: Active Protocol: Document 10/08/22 09:17 TS (Rec: 10/08/22 09:35 TS [id number]) PT Summary Assessment and Plan Potential Rehabilitation Potential Good Status of Condition at Evaluation Evolving Summary Impairments Pain,Strength,Balance, Coordination,Sensation,Tone, Cognition,Bed Mobility, Transfers,Gait,Activity Tolerance Progress Towards Goals Slow Progress due to Activity Tolerance Assessment Summary Pt recalled 1/3 precautions this session, no bending. Pt progressed mobility to Trina- SBA this session with logroll, supine to sit and sit to supine, he improves in his mobility when provided cues. Pt progressed his ambulation distance to ~135' this session SBA, demosntrated some swaying/unsteadiness in FWW, no buckling or LOB. Pt is below baseline and requires max cueing for safe bed mobility, PT continues to recommend SNF to improve bed mobility, transfers and gait. Goals Bed Mobility Goal Minimal Assistance Transfer Goal Minimal Assistance,Front Wheeled Walker Gait Goal Minimal Assistance,Front Wheel Walker Gait Distance 100 Other Goals improve bed mobility , transfers and ambulation ~ 150 ft using FWW SBA Days to Meet Goals 10 Frequency of Treatment Frequency Of Treatment Twice a Day Treatment Plan Physical Therapy Treatment Plan Bed Mobility Training,Transfer Training,Gait Training, Therapeutic Exercise,Balance Retraining,Post Op Education, Discharge Planning,Hot or Cold Pack,Neuromuscular Re-ed, Coordination Retraining,Manual Therapy Other Recommendations and Next Treatment ambulation Focus Precautions Lumbar Precautions Log Roll,No Twisting,Limit Bending,Lifting Restriction of 10 lbs,Gait Belt above Incisional Area Recommendations To Nursing Amount of Assist Needed 1 Person Assist Discharge Recommendations PT Discharge Recommendations SNF Rehab Transportation Needs at Discharge Wheelchair/Cabulance
[2022-10-08] MEDS: MULTIVITAMIN 1 TABLET 1 TAB PO (09:48)
[2022-10-08] MEDS: DOCUSATE 100 MG CAPSULE PO ×2 (09:48→20:26)
[2022-10-08] MEDS: GABAPENTIN 300 MG CAPSULE 600 MG PO ×3 (09:49→20:26)
[2022-10-08] MEDS: CYANOCOBALAMIN (VITAMIN B-12) 500 MCG TABLET 1000 MCG PO (09:49)
[2022-10-08] MEDS: CHOLECALCIFEROL (VITAMIN D3) 1,000 UNIT TABLET 1000 UNIT PO (09:49)
--- NOTE | 2022-10-08 11:20 | CM.DPNOTE ---
DCP Note PT recommending SNF and patient agrees; requests [facility] be contacted Patient's MCR benefit for SNF will be activated tomorrow 5..23. GISEL Kim, kindly agreed to send this referral. Awaiting feedback from Suzanna at [facility] PASRR completed JW
[2022-10-08 12:00] VITALS: BP 104/48; PULSE 77; RESP 18; O2SAT 92
[2022-10-08] MEDS: dexAMETHasone 4 MG TABLET PO ×3 (12:15→23:04)
--- NOTE | 2022-10-08 14:03 | CM.DPNOTE ---
DCP Note [facility] accepts for admission tomorrow. PASRR completed. DC ppk, med list and DC Summary already completed by Ortho SACHIN Choi. Transport arranged for 1100 p/u. COVID needs to be updated. Patient's MCR benefit activates tomorrow for SNF stay JW
--- NOTE | 2022-10-08 14:36 | PT-IP ANOTE ---
Pt refusing treatment this afternoon, he is tired and wants to sleep.
--- NOTE | 2022-10-08 15:07 | OT.IP.TRT ---
Current Diagnoses Other spondylosis with radiculopathy, lumbar region (10/06/22) Spinal stenosis, lumbar region with neurogenic claudication (10/06/22) Arthrodesis status (10/06/22) Surgery Performed Operation Date: 10/06/22 11:45 Actual Procedures p L3-4 TLIF, L3-S1 PSF w. kristen - Elie Morin MD Occupational Therapy Treatment Note M2 OT-IP Current Condition Start: 10/07/22 16:37 Freq: Status: Active Protocol: Document 10/07/22 15:27 [facility] (Rec: 10/07/22 16:54 [facility] [id number]) Occupational Therapy Current Condition Current Condition Evaluation Date 10/07/22 Treatment Diagnosis S/p L3-4 TLIF, L3-S1 PSF with inst. Post Operative Precautions Lumbar Precautions Log Roll,No Twisting,Limit Bending,Lifting Restriction of 10 lbs,Gait Belt above Incisional Area M3 OT- IP Subjective and Pain Start: 10/07/22 16:37 Freq: Status: Active Protocol: Document 10/08/22 14:55 [facility] (Rec: 10/08/22 16:03 [facility] [id number]) OT- Subjective Occupational Therapy Visit Type Type Treatment Note Visit Start Time 14:55 Visit Stop Time 15:07 Total Visit Minutes 12 Occupational Therapy Visit Comments Patient Comments Pt wanting to use the toilet. Patient/Caregiver Goals TO get better. OT Pain Assessment Pain When Pain Assessed At Rest Pain Present Pain Present Denied Pain M4 OT- IP ADL's Start: 10/07/22 16:37 Freq: Status: Active Protocol: Document 10/08/22 14:55 [facility] (Rec: 10/08/22 16:03 [facility] [id number]) OT ADL-Toileting General Evaluation Toileting Ability Standby Assistance Comments OT Toileting Comments Pt able to stand over the toilet with the FWW to urinate in the toilet. OT ADL-Bathing Comments OT Bathing Comments Not performed. M6 OT- IP Functional Cognition Start: 10/07/22 16:37 Freq: Status: Active Protocol: Document 10/08/22 14:55 [facility] (Rec: 10/08/22 16:03 [facility] [id number]) Cognitive Factors Limiting Selfcare Function Cognitive Ability Level of Alertness Alert Patient Orientation Name,Place,Situation Attention Span Ability Capable of Focused Attention, Capable of Sustained Attention Ability to Follow Commands Able to Follow One Step Commands with Increased Time, Able to Follow One Step Commands with Repetition Memory Description Short Term Impaired Safety Awareness Decreased Ability to Apply Precautions Cognitive Comments Cognitive Assessment Comments Pt practicing log rolling as therapist noticed pt was sitting on the edge of the bed . Pt was well aware not to get up but just wanting to practice on his own. Pt realizing that he is still a little unsteady on his feet especially when backing up with the FWW. Pt able to recall better to push up with at least one hand on the FWW before standing up . M7 OT- IP Mobility and Balance Start: 10/07/22 16:37 Freq: Status: Active Protocol: Document 10/08/22 14:55 [facility] (Rec: 10/08/22 16:03 [facility] [id number]) OT- Bed Mobility Assessment Supine to Sit Supine to Sit Assist Standby Assistance OT-Transfer Assessment Sit to and From Stand Sit to and from Stand Minimal Assistance Transfers Transfer Ability Contact Guard Assistance Technique Transfer Destination Bed,Chair Transfer Technique Stand Step Pivot Devices Transfer Assistive Devices Gait Belt,Front Wheeled Walker Comments Mobility Comments Pt improving with his mobility however still a little unsteady on his feet especially during turns. Pt needing CGA to [place] at this time. OT- Balance Assessment Sitting Balance and Reactions Static Sitting Balance Ability Good Dynamic Sitting Balance Ability Good Standing Balance and Reactions Static Standing Balance Ability Good Dynamic Standing Balance Ability Fair M9 OT- IP Assessment and Plan Start: 10/07/22 16:37 Freq: Status: Active Protocol: Document 10/08/22 14:55 [facility] (Rec: 10/08/22 16:03 [facility] [id number]) OT Summary Assessment and Plan Potential Rehabilitation Potential Good Analytic Complexity at Evaluation Low Summary OT Impairments Pain,Balance,Functional Cognition,Functional Mobility, Grooming,Dressing,Toileting, Bathing,Toilet Transfers, Shower Transfers,Activity Tolerance Progress Towards Goals Progressing Toward Goals Assessment Summary Pt much improved with safety awareness and ability to incorporate his back precautions during ADl and mobility needs. Pt will continue to benefit from a short rehab stay to continue to practice his back precautions for ADl and mobility needs, in addition to work in increasing his balance. Goals Grooming Goal Independent Dressing Goal Independent Toileting Goal Independent Bathing Goal Independent Toilet Transfer Goal Independent Shower Transfer Goal Independent Days to Meet Goals 15 Frequency of Treatment Frequency Of Treatment Once a Day Treatment Plan OT Treatment Plan ADL Training,Functional Cognition Training,Functional Mobility,Patient/Family Education,Discharge Planning Discharge Recommendations OT Discharge Recommendations SNF Rehab
[2022-10-08 15:56] LABS: COVID19 -Nasal RAPID Negative (Negative)
[2022-10-08 18:00] VITALS: BP 113/64; PULSE 86; RESP 18; TEMP 36.8; O2SAT 93
[2022-10-08] MEDS: SENNOSIDES 8.6 MG TABLET 17.2 MG PO (20:27)
[2022-10-08] MEDS: SODIUM CHLORIDE 0.9% FLUSH 10 ML IV (21:18)
[2022-10-08 23:10] VITALS: BP 118/59; PULSE 73; RESP 17; TEMP 36.6; O2SAT 93
[2022-10-09] MEDS: dexAMETHasone 4 MG TABLET PO (05:43)
[2022-10-09 06:16] VITALS: BP 149/70; PULSE 76; RESP 18; O2SAT 96
[2022-10-09] MEDS: CHOLECALCIFEROL (VITAMIN D3) 1,000 UNIT TABLET 1000 UNIT PO (08:39)
[2022-10-09] MEDS: GABAPENTIN 300 MG CAPSULE 600 MG PO (08:39)
[2022-10-09] MEDS: MULTIVITAMIN 1 TABLET 1 TAB PO (08:39)
[2022-10-09] MEDS: DOCUSATE 100 MG CAPSULE PO (08:39)
[2022-10-09] MEDS: SODIUM CHLORIDE 0.9% FLUSH 10 ML IV (08:40)
--- NOTE | 2022-10-09 08:40 | PT.IPTN ---
Current Diagnoses Other spondylosis with radiculopathy, lumbar region (10/06/22) Spinal stenosis, lumbar region with neurogenic claudication (10/06/22) Arthrodesis status (10/06/22) Surgery Performed Operation Date: 10/06/22 11:45 Actual Procedures p L3-4 TLIF, L3-S1 PSF w. kristen - Elie Morin MD Physical Therapy Treatment Note M2 PT-IP Current Condition Start: 10/07/22 13:49 Freq: NEEDED Status: Active Protocol: Document 10/07/22 11:30 AB (Rec: 10/07/22 14:03 AB [id number]) Physical Therapy Current Condition Current Condition Evaluation Date 10/07/22 Treatment Diagnosis s/p L3-4 fusion, L3-S1 instrum ; difficulty in walking Onset Date 10/06/22 M3 PT-IP Subjective Start: 10/07/22 13:49 Freq: NEEDED Status: Active Protocol: Document 10/09/22 09:00 TS (Rec: 10/09/22 09:13 TS [id number]) Subjective Physical Therapy Visit Type Type Treatment Note Visit Start Time 08:40 Visit Stop Time 08:55 Total Visit Minutes 15 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 Therapy Pain Assessment Pain When Pain Assessed At Rest Pain Present Pain Present Pain Reported M4 PT-IP Mobility and Gait Start: 10/07/22 13:49 Freq: NEEDED Status: Active Protocol: Document 10/09/22 09:00 TS (Rec: 10/09/22 09:13 TS [id number]) PT-Bed Mobility Assessment Sit to Supine Sit to Supine Standby Assistance Scooting Scooting Up and Down in Bed Standby Assistance PT-Transfer Assessment Sit to and From Stand Sit to and from Stand Contact Guard Assistance Equipment Transfer Assistive Device Gait Belt,Front Wheeled Walker Orthotic/Prosthetic Devices or Brace: No Comments Mobility Comments Pt found resting in chair, agreeable to PT session. Sit to stand x1 from chair CGA, pt braces back of legs heavily against chair to come into standing position. He ambulated ~200' in hallway SBA with emerging step thru gait, reported some fatigue in RLE required back to bed for rest. Sit to supine SBA, demonstrated good carryover of logroll sequencing. Scooted to HOB with increased effort SBA, cues for pushing through elbows and heels. Pt was left in bed with call light nearby, bed alarm on. Gait Assessment Gait Gait Assistance Required: Standby Assistance,1 Person Assist Distance (Feet) 200 Able to Maintain Weight Bearing Status Yes During Gait Assistive Devices Assistive Device Gait Belt,Front Wheeled Walker Orthotic/Prosthetic Devices or Brace: No Factors Limiting Gait Function Factors Limiting Gait Function Decreased Activity Tolerance, Decreased Strength,Limited Range of Motion,Pain,Poor Balance,Poor Safety Awareness Comments Gait Comments See mobility for details. Stair Climbing Assessment Comments Stair Climbing Comments No assessed, no stairs. PT-Balance Assessment Sitting Balance and Reactions Static Sitting Balance Ability Good Dynamic Sitting Balance Ability Good Standing Balance and Reactions Static Standing Balance Ability Good Dynamic Standing Balance Ability Fair Device Used FWW M5 PT-IP Objective Assessments Start: 10/07/22 13:49 Freq: NEEDED Status: Active Protocol: Document 10/07/22 11:30 AB (Rec: 10/07/22 14:03 AB [id number]) Orientation Orientation/Cognition Level of Alertness Alert Orientation Name,Place,Situation Language Function Ability Hard of Hearing Safety Awareness Decreased Safety Awareness Memory Description Short Term Impaired Comments with confusion Gross Range of Motion Lower Extremity ROM Assessment Within Functional Limits Strength Lower Extremity Strength Assessment Left Impaired Hip 3+/5 Knee 3+/5 Sensation Assessment Sensation Gross Sensation Right LE Impaired,Left LE Impaired Sensation Description Numbness Comments Sensation Comments 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 M7 PT-IP Assessment and Plan Start: 10/07/22 13:49 Freq: NEEDED Status: Active Protocol: Document 10/09/22 09:00 TS (Rec: 10/09/22 09:13 [id number]) PT Summary Assessment and Plan Potential Rehabilitation Potential Good Status of Condition at Evaluation Evolving Summary Impairments Pain,Strength,Balance, Coordination,Sensation,Tone, Cognition,Bed Mobility, Transfers,Gait,Activity Tolerance Progress Towards Goals Slow Progress due to Activity Tolerance Assessment Summary Pt continues to have decreased activity tolerance with ambulation due to pain and LE weakness, he required back to bed after ~100' of gait. He performed sit to stand CGA bracing the back of his legs heavily against chair to stand and maintain initial balance in standing. PT continues to recommend SNF to progress bed mobility, transfers and activity tolerance with gait. Goals Bed Mobility Goal Minimal Assistance Transfer Goal Minimal Assistance,Front Wheeled Walker Gait Goal Minimal Assistance,Front Wheel Walker Gait Distance 100 Other Goals improve bed mobility , transfers and ambulation ~ 150 ft using FWW SBA Days to Meet Goals 10 Frequency of Treatment Frequency Of Treatment Twice a Day Treatment Plan Physical Therapy Treatment Plan Bed Mobility Training,Transfer Training,Gait Training, Therapeutic Exercise,Balance Retraining,Post Op Education, Discharge Planning,Hot or Cold Pack,Neuromuscular Re-ed, Coordination Retraining,Manual Therapy Other Recommendations and Next Treatment ambulation Focus Precautions Lumbar Precautions Log Roll,No Twisting,Limit Bending,Lifting Restriction of 10 lbs,Gait Belt above Incisional Area Recommendations To Nursing Amount of Assist Needed 1 Person Assist Discharge Recommendations PT Discharge Recommendations SNF Rehab Transportation Needs at Discharge Wheelchair/Cabulance
[2022-10-09] MEDS: CYANOCOBALAMIN (VITAMIN B-12) 500 MCG TABLET 1000 MCG PO (08:42)
[2022-10-09 09:00] VITALS: BP 146/68; PULSE 75; RESP 17; TEMP 36.2; O2SAT 93
--- NOTE | 2022-10-09 13:48 | CM.DPNOTE ---
DC Note Discharge to [facility] via w/c today, patient agreeable to plan Faxed completed and signed DC ppk and PASRR to J, doing [facility] admissions today Transport arranged for grape picker at 1100. RN Joelle agreed to call in nurse report. COVID PCR updated JW
== END 2022-10-09 11:00 | DRG 454 ==
PROVIDERS: Admitting Provider Orthopaedic Surgery Orthopaedic Surgery of the Spine; PCP Internal Medicine; Referring Provider Orthopaedic Surgery Orthopaedic Surgery of the Spine; Visit Provider Orthopaedic Surgery Orthopaedic Surgery of the Spine
PROC: 0SG00AJ Fusion of Lumbar Vertebral Joint with Interbody Fusion Device, Posterior Approach, Anterior Column, Open Approach (ICD-10-PCS; principal; 2022-10-06 11:45)
DX: M48.061 Spinal stenosis, lumbar region without neurogenic claudication (principal); M96.0 Pseudarthrosis after fusion or arthrodesis; M47.26 Other spondylosis with radiculopathy, lumbar region; F17.210 Nicotine dependence, cigarettes, uncomplicated; Z20.822 Contact with and (suspected) exposure to COVID-19; Z98.1 Arthrodesis status
CPT/HCPCS: 36415; 72100; 76000; 85014; 85018; 87635; 97116; 97162; 97165; 97530; C1776; C9803; C9290; J0171; J0690; J1100; J1170; J2405; J2704; J3010; J3410

== ENCOUNTER → 2022-12-14 13:20 | Outpatient (CLI) | payer MEDICARE, SELFPAY ==
[2022-10-06 17:31] VITALS: BMI 23.8
--- NOTE | 2022-12-14 | DI.CT.S_ITS ---
PROCEDURE: CT CHEST ABD PEL W CON INDICATIONS: Malignant neoplasm of overlapping sites of colon TECHNIQUE: After the administration of oral and intravenous contrast, axial sections acquired from the supraclavicular neck to the pubic symphysis. Coronal and sagittal reformats were performed. For radiation dose reduction, the following was used: automated exposure control, adjustment of mA and/or kV according to patient size. COMPARISON: [facility], CT, CT CHEST ABD PEL W CON, 06/08/2022, 14:08. FINDINGS: Image quality: Good Lungs and pleura: Emphysematous changes. No airspace disease or pleural effusion. Scattered scarring/atelectasis. No new or enlarging pulmonary nodule. Tiny granulomas and micro nodules are present. Mediastinum, heart, and esophagus: Tiny hiatal hernia. There are prominent mediastinal lymph nodes that appears stable from prior imaging, for example precarinal node measures 1.3 centimeters in short axis. Lipomatous hypertrophy of the interatrial septum. There are coronary calcifications. Chest wall and thyroid: Unremarkable Solid organs: Liver is unremarkable. Gallbladder is unremarkable. Prominent pancreatic duct and biliary tree at the pancreatic head, similar to prior. No splenomegaly. No adrenal nodules. No hydronephrosis. Small renal cysts are present. Vessels and lymph nodes: Stable mildly enlarged portal caval and porsha hepatis nodes. No retroperitoneal adenopathy by size criteria. No abdominal aortic aneurysm. There are atherosclerotic calcifications. Bowel and peritoneum: No evidence of small bowel obstruction. No pathologic ascites or abscess. Rectosigmoid suture line. Above average fecal loading. Body wall: Unremarkable Pelvis: Bladder is unremarkable. Prostate is not well evaluated on CT. Bones: No acute or suspicious osseous finding. Lumbosacral fusion hardware. Similar height loss of L1. IMPRESSION: No new or enlarging disease identified. Borderline and mildly enlarged nonspecific mediastinal and upper abdominal lymph nodes are again seen compared to prior imaging, attention on follow-up. Other stable and incidental findings above. Dictated by: Jong Zapata M.D. on 12/14/2022 at 15:47 Approved by: Jong Zapata M.D. on 12/14/2022 at 15:55
[2022-12-14 13:53] LABS: Estimated Glomerular Filt Rate > 60 mL/min (>60)
== END ==
PROVIDERS: Radiology Diagnostic Radiology; PCP Internal Medicine; Referring Provider Specialist; Visit Provider Specialist
DX: C18.8 Malignant neoplasm of overlapping sites of colon (principal); R19.7 Diarrhea, unspecified; M54.9 Dorsalgia, unspecified; M51.36 Other intervertebral disc degeneration, lumbar region; R59.0 Localized enlarged lymph nodes; Z98.1 Arthrodesis status
CPT/HCPCS: 36415; 71260; 74177; 82565; Q9967

== ENCOUNTER 2023-02-18 13:37 | Inpatient (IN) | payer MEDICARE, SELFPAY ==
[2022-10-06 17:31] VITALS: BMI 23.8
[2023-02-18] VITALS (23 sets, daily range): BP systolic 85–168; BP diastolic 47–79; PULSE 52–92; RESP 10–24; TEMP 36.4–36.7; O2SAT 85–99; BMI 23.7
[2023-02-18] MEDS: PANTOPRAZOLE 40 MG VIAL 80 MG IV (13:59)
[2023-02-18 14:04] LABS: Add Manual Diff / Slide Review NO; Basophils Absolute Auto 100 /uL (0-100); Basophils Percent Auto 0.7 % (0-2); Eosinophils Absolute Auto 800 /uL (0-450); Eosinophils Percent Auto 7.1 % (2-4); Hematocrit 35.6 % (41-53); Hemoglobin 12.1 g/dL (13.5-17.5); Lymphocytes Absolute Auto 2400 /uL (1100-4500); Mean Corpuscular Hemoglobin 32.1 PG (26-34); Mean Corpuscular Volume 94.6 fL (80-100); Monocytes Absolute Auto 800 /uL (0-900); Monocytes Percent Auto 7.2 % (3-14); Neutrophils Absolute Auto 7300 /uL (1500-7000); Platelet Count 289 X10^3/uL (150-400); Red Blood Cell Count 3.76 X10^6/uL (4.5-5.9); Red Cell Distribution Width 13.5 % (11.6-14.8); White Blood Cell Count 11.4 X10^3/uL (4.5-11.0)
[2023-02-18 14:09] LABS: INR 1.1 (0.9-1.3); Prothrombin Time 12.3 SECONDS (10.1-12.7)
[2023-02-18 14:11] LABS: PTT Partial Thromboplastin Tim 34 SECONDS (26-36)
[2023-02-18 14:13] LABS: Alanine Aminotransferase 27 IU/L (<50); Albumin Globulin Ratio 1.4 (1.0-2.8); Alkaline Phosphatase 50 U/L (38-126); Aspartate Aminotransferase 29 IU/L (17-59); BUN Creatinine Ratio 40.3 (6-22); Bilirubin Total 0.6 mg/dL (0.2-1.3); Blood Urea Nitrogen 25 mg/dL (9-20); Calcium 9.2 mg/dL (8.4-10.2); Carbon Dioxide 28 mmol/L (22-32); Chloride 96 mmol/L (98-107); Estimated Glomerular Filt Rate > 60 mL/min (>60); Globulin 2.8 g/dL (1.7-4.1); Glucose 90 mg/dL (80-110); HEMOLYSIS < 15 (0-50); Potassium 4.3 mmol/L (3.4-5.1); Sodium 132 mmol/L (137-145); Total Protein 6.8 g/dL (6.3-8.2)
--- NOTE | 2023-02-18 15:06 | ED.GIBLEED ---
HPI - GI Bleed General Chief complaint: GI Bleed Stated complaint: sent by for dark stool Time Seen by Provider: 02/18/23 15:06 Source: patient Mode of arrival: Ambulatory History of Present Illness HPI Narrative: 77-year-old male. Not on anticoagulation. Does drink alcohol. Not on anti inflammatories. Does have a distant history of colon cancer. Has had a colon resection. His last colonoscopy was a couple years ago and he told that everything was okay. He does not remember having an upper endoscopy. He is here for evaluation of having dark-colored stools for the past couple days. He denies any blood in his urine. No vomiting. He does have some mild abdominal tenderness. He contacted his primary doctor and was told to come to the emergency department for further evaluation. Related Data Home Medications Medication Instructions Recorded Confirmed cyanocobalamin (vitamin B-12) 1,000 mcg PO DAILY 01/05/19 10/06/22 1,000 mcg capsule cholecalciferol (vitamin D3) 25 25 mcg PO DAILY 08/13/21 10/06/22 mcg (1,000 unit) tablet (Vitamin D3) gabapentin 300 mg capsule 600 mg PO TID pain 08/13/21 10/06/22 multivitamin 1 tab PO DAILY 08/13/21 10/06/22 turmeric 400 mg capsule 400 mg PO DAILY 08/13/21 10/06/22 aspirin 325 mg tablet 650 mg PO BID 09/28/22 10/06/22 Previous Rx's Medication Instructions Recorded disabled parking #1 ea 01/05/19 acetaminophen 325 mg tablet 650 mg PO Q6H PRN Fever/Mild Pain 10/08/22 (1-3) #240 tabs docusate sodium 100 mg capsule 100 mg PO BID PRN constipation #60 10/08/22 caps hydroxyzine pamoate 25 mg capsule 25 mg PO Q4HR PRN muscle spasm 10/08/22 #120 caps methylprednisolone 4 mg tablets in See Rx Instructions PO .COMPLEX 10/08/22 a dose pack (Medrol (Isaias)) #21 ea oxycodone 5 mg tablet 5 mg PO Q3H PRN Pain, Moderate 10/08/22 (4-6) #60 tabs Allergies Allergy/AdvReac Type Severity Reaction Status Date / Time Opioids - Morphine Analogues AdvReac Severe delerium Verified 02/18/23 13:46 Review of Systems Gastrointestinal Gastrointestinal: Reports system reviewed and no additional complaints, except as documented Genitourinary Genitourinary: Reports system reviewed and no additional complaints, except as documented Musculoskeletal Musculoskeletal: Reports system reviewed and no additional complaints, except as documented Integumentary/Breasts Skin/Breast: Reports system reviewed and no additional complaints, except as documented Hematologic/Lymphatic On Anticoagulants: No Patient History Medical History Anemia Chronic back pain (Unknown) Fractures Hearing loss (Unknown) Hx of flexible sigmoidoscopy (~01/2019) Surgical History (Updated 09/28/22 @ 14:09 by Brittany Petersen RN) Anesthesia H/O vasectomy History of back surgery (~2016) History of colonoscopy History of removal of Port-a-Cath Hx of neck surgery (~2020) S/P laparoscopic colectomy (01/10/19) Family History Father Heart disease Mother Cancer Congestive heart failure Sister Hypertension Cancer Brother Heart disease Rheumatic fever Brother No problems noted. Social History household members: none occupational status: employed Smoking Status: Former smoker alcohol intake: current Smoking Status: Former smoker alcohol intake frequency: 3 or more drinks per day Substance Use Type: does not use Exam Initial Vital Signs Initial Vital Signs: Vital Signs Temperature 97.8 F 02/18/23 13:42 Pulse Rate 82 02/18/23 13:42 Respiratory Rate 18 02/18/23 13:42 Blood Pressure 168/79 H 02/18/23 13:42 Pulse Oximetry 97 02/18/23 13:42 Oxygen Delivery Method Room Air 02/18/23 13:42 Const General: cooperative, comfortable and diaphoretic HENMT Head: normal to inspection and normocephalic Resp Effort & Inspection: normal respiratory effort Auscultation: clear to auscultation bilaterally Cardio Rate: regular rate Rhythm: regular rhythm GI Inspection: normal to inspection and non-distended Palpation: soft Other: Is having distinct melena Neuro General: patient alert and moves all extremities Extrem General: capillary refill normal Scores GCS [place] coma scale eye opening: Spontaneous [place] coma scale verbal response: Orientated [place] coma scale motor response: Obey commands Christian coma scale total score: 15 Course Orders Ordered: ED Orders 02/18/23 13:47 EKG-12 Lead Stat 02/18/23 13:51 Complete Blood Count AUTO DIFF Stat Comprehensive Metabolic Panel Stat PTT Partial Thromboplastin Billy Stat Prothrombin Time INR Stat Type and Screen Stat 02/18/23 15:59 Hemoglobin and Hematocrit Stat 02/18/23 16:14 EKG-12 Lead Stat Sodium Chloride (Normal Saline 0.9%) 1,000 mls @ 125 mls/hr IV CONT GATO Last Admin: 02/18/23 16:28 Dose: 125 mls/hr Documented By: MARU Ondansetron HCl (Ondansetron 4 Mg/2 Ml Inj) 4 mg IV NOW PRN PRN Reason: Nausea And Vomiting Discontinued Medications Pantoprazole Sodium (Pantoprazole 40 Mg Vial) 80 mg IV NOW ONE Stop: 02/18/23 13:47 Last Admin: 02/18/23 13:59 Dose: 80 mg Documented By: CLIF Vital Signs Vital signs: Vital Signs - 8 hr 02/18/23 13:42 02/18/23 14:52 02/18/23 14:53 Temperature 97.8 F Pulse Rate 82 Respiratory Rate 18 Blood Pressure 168/79 H 161/73 H Pulse Oximetry 97 98 Oxygen Delivery Method Room Air 02/18/23 14:53 02/18/23 15:00 02/18/23 15:00 Temperature Pulse Rate 83 81 Respiratory Rate 13 Blood Pressure 139/71 Pulse Oximetry 98 97 Oxygen Delivery Method 02/18/23 15:33 02/18/23 16:00 02/18/23 16:10 Temperature Pulse Rate 88 92 H Respiratory Rate 19 Blood Pressure 117/56 L Pulse Oximetry 85 L 99 Oxygen Delivery Method 02/18/23 16:10 02/18/23 16:24 02/18/23 16:24 Temperature Pulse Rate 52 L 70 Respiratory Rate 24 13 Blood Pressure 108/59 L Pulse Oximetry 97 93 Oxygen Delivery Method 02/18/23 16:25 02/18/23 16:25 02/18/23 16:26 Temperature Pulse Rate 67 Respiratory Rate 10 L Blood Pressure 108/58 L 104/55 L Pulse Oximetry 92 Oxygen Delivery Method 02/18/23 16:26 02/18/23 16:30 02/18/23 16:30 Temperature Pulse Rate 70 68 Respiratory Rate 13 11 L Blood Pressure 105/55 L Pulse Oximetry 91 92 Oxygen Delivery Method 02/18/23 16:40 02/18/23 16:40 Temperature Pulse Rate 71 Respiratory Rate 19 Blood Pressure 114/58 L Pulse Oximetry 89 L Oxygen Delivery Method MDM - GI Bleed Lab Data Attestation: I reviewed the patient's lab results. 02/18/23 15:59 02/18/23 13:51 Labs: Lab Results 02/18/23 02/18/23 02/18/23 Range/Units 13:51 13:51 13:51 WBC 11.4 H (4.5-11.0) X10^3/uL RBC 3.76 L (4.5-5.9) X10^6/uL Hgb 12.1 L (13.5-17.5) g/dL Hct 35.6 L (41-53) % MCV 94.6 (80-100) fL MCH 32.1 (26-34) PG MCHC 34.0 (30-36) % RDW 13.5 (11.6-14.8) % Plt Count 289 (150-400) X10^3/uL Neut % (Auto) 64.0 (50-75) % Lymph % (Auto) 21.0 L (25-40) % [place] % (Auto) 7.2 (3-14) % Eos % (Auto) 7.1 H (2-4) % Baso % (Auto) 0.7 (0-2) % Neut # (Auto) 7300 H (1204-2237) /uL Lymph # (Auto) 2400 (9747-6113) /uL [place] # (Auto) 800 (0-900) /uL Eos # (Auto) 800 H (0-450) /uL Baso # (Auto) 100 (0-100) /uL PT 12.3 (10.1-12.7) SECONDS INR 1.1 (0.9-1.3) APTT 34 (26-36) SECONDS Sodium 132 L (137-145) mmol/L Potassium 4.3 (3.4-5.1) mmol/L Chloride 96 L (98-107) mmol/L Carbon Dioxide 28 (22-32) mmol/L BUN 25 H (9-20) mg/dL Creatinine 0.62 L (0.66-1.25) mg/dL Estimated GFR > 60 (>60) mL/min BUN/Creatinine Ratio 40.3 H (6-22) Glucose 90 (80-110) mg/dL Calcium 9.2 (8.4-10.2) mg/dL Total Bilirubin 0.6 (0.2-1.3) mg/dL AST 29 (17-59) IU/L ALT 27 (<50) IU/L Alkaline Phosphatase 50 (38-126) U/L Total Protein 6.8 (6.3-8.2) g/dL Albumin 4.0 (3.5-5.0) g/dL Globulin 2.8 (1.7-4.1) g/dL Albumin/Globulin Ratio 1.4 (1.0-2.8) Blood Type Antibody Screen 02/18/23 02/18/23 Range/Units 13:51 15:59 WBC (4.5-11.0) X10^3/uL RBC (4.5-5.9) X10^6/uL Hgb 11.3 L (13.5-17.5) g/dL Hct 33.7 L (41-53) % MCV (80-100) fL MCH (26-34) PG MCHC (30-36) % RDW (11.6-14.8) % Plt Count (150-400) X10^3/uL Neut % (Auto) (50-75) % Lymph % (Auto) (25-40) % [place] % (Auto) (3-14) % Eos % (Auto) (2-4) % Baso % (Auto) (0-2) % Neut # (Auto) (6668-7315) /uL Lymph # (Auto) (5707-0805) /uL [place] # (Auto) (0-900) /uL Eos # (Auto) (0-450) /uL Baso # (Auto) (0-100) /uL PT (10.1-12.7) SECONDS INR (0.9-1.3) APTT (26-36) SECONDS Sodium (137-145) mmol/L Potassium (3.4-5.1) mmol/L Chloride (98-107) mmol/L Carbon Dioxide (22-32) mmol/L BUN (9-20) mg/dL Creatinine (0.66-1.25) mg/dL Estimated GFR (>60) mL/min BUN/Creatinine Ratio (6-22) Glucose (80-110) mg/dL Calcium (8.4-10.2) mg/dL Total Bilirubin (0.2-1.3) mg/dL AST (17-59) IU/L ALT (<50) IU/L Alkaline Phosphatase (38-126) U/L Total Protein (6.3-8.2) g/dL Albumin (3.5-5.0) g/dL Globulin (1.7-4.1) g/dL Albumin/Globulin Ratio (1.0-2.8) Blood Type O Positive Antibody Screen Negative Point of Care Testing Stool Occult Blood Positive Urine Dip Bedside Urine Glucose Negative Bedside Urine Bilirubin - Negative Bedside Urine Ketone - Negative Urine Specific Prole 1.015 Bedside Urine Occult Blood - Negative Bedside Urine pH 6.0 Bedside Urine Protein - Negative Bedside Urine Urobilinogen - Negative Bedside Urine Nitrite - Negative Bedside Urine Leukocytes - Negative Esterase ECG Data Interpretation: Sinus rhythm Ventricular rate 86 First-degree AV block MA interval 210 milliseconds Normal QRS Normal QTC No ST T wave changes Repeat EKG Sinus rhythm Ventricular rate of 67 Normal axis Similar in appearance to prior EKG. MDM Narrative Medical decision making narrative: Patient is having obvious melena and did have episode here in the ER. He was not tachycardic nor hypotensive upon arrival. Repeat H&H does show a slight drop. After having an episode of melena here in the ER the patient became diaphoretic and somewhat unresponsive. I was called to the room. He responded to me. He stated that he just felt very lightheaded. There was no seizure-like activity. On the monitor he did have a heart rate in the 40s however palpating his pulse it was more irregular. I was unable to specifically catch the rhythm has that resolved quickly on its own. Some concern that he potentially had an episode of a tachy arrhythmia. Has no history of atrial fibrillation. Because of his drop in H&H, distinct melena here in the ER and this potential syncopal/tachy arrhythmia episode I do feel patient would benefit from admission to the hospital. Discussed the case with Dr. Rosa on-call for Internal Medicine who will admit. I also discussed the case with Dr. Shahid on-call for General surgery who agreed to see patient after admission. Discuss the need for admission with the patient. He expressed understanding and agreement with plan. Discharge Plan Departure Patient Disposition: Home Clinical Impression: GI bleed
[2023-02-18 16:04] LABS: Hematocrit 33.7 % (41-53); Hemoglobin 11.3 g/dL (13.5-17.5)
[2023-02-18] MEDS: SODIUM CHLORIDE 0.9% 1,000 ML 125 ML IV (16:28)
--- NOTE | 2023-02-18 16:34 | PC.NURSE ---
1507 Pt used call leal to ask for assistance getting back into bed after ambulating to the bathroom. Pt stated that he was feeling a little woozy and then laid down on his side in bed. Pt's eyes were open, he was trembling and minimal moaning responses to questions. Pt was diaphoretic and pale and bradycardic. Vitals obtained. EKG called and MD immediately called to bedside. After approximately 1 minute, pt able to answer questions in full sentences.
--- NOTE | 2023-02-18 17:01 | DI.CT.S_ITS ---
PROCEDURE: CT ANGIO CHEST PE PROTOCOL INDICATIONS: history of cancer, hypoxic, PE or cancer? TECHNIQUE: After the administration of intravenous contrast, 2 mm thick sections acquired from the pulmonary apices to the posterior costophrenic angles. MIP reformats of the arterial vasculature were utilized. For radiation dose reduction, the following was used: automated exposure control, adjustment of mA and/or kV according to patient size. COMPARISON: [facility], CT, CT CHEST ABD PEL W CON, 12/14/2022, 15:03. FINDINGS: Image quality: Excellent. Pulmonary arteries: Pulmonary arteries are normal in size, and demonstrate no intraluminal filling defects to suggest central pulmonary embolism. Lungs and pleura: Moderate pulmonary emphysema without focal infiltrate or pulmonary nodule Mediastinum: Heart size is normal without pericardial effusion. Mediastinal adenopathy measures up to 1.5 cm, similar to the prior exam Thoracic aorta is normal in caliber and enhancement. Esophagus is normal in caliber, without hiatal hernia. Bones and chest wall: No suspicious bony lesions. Ribs and thoracic spine appear intact throughout. Thyroid gland unremarkable. No axillary or supraclavicular adenopathy. Abdomen: Visualized upper abdominal solid organs appear normal in the early arterial phase of enhancement. IMPRESSION: No evidence of pulmonary embolism, aortic dissection or aneurysm. Stable mediastinal adenopathy. No pulmonary nodule Pulmonary emphysema Approved by: Davis Caro M.D. on 02/18/2023 at 17:29
--- NOTE | 2023-02-18 17:01 | DI.CT.S_ITS ---
PROCEDURE: CT ABDOMEN PELVIS W CON INDICATIONS: history of colon ca and melena, now with melena, cancer? TECHNIQUE: After the administration of intravenous contrast, axial sections acquired from the lung bases to the pubic symphysis. Coronal and sagittal reformats were performed. For radiation dose reduction, the following was used: automated exposure control, adjustment of mA and/or kV according to patient size. COMPARISON: [facility], CT, CT CHEST ABD PEL W CON, 12/14/2022, 15:03. [facility], CT, CT ABDOMEN PELVIS W CON, 12/19/2018, 21:13. FINDINGS: Lower thorax: The lung bases are clear. Heart size normal. No hiatal hernia. Liver: Normal in size and attenuation. No contour deformity present. Biliary system: No calcified cholelithiasis or pericholecystic inflammation. No intra or extrahepatic bile duct dilatation. Pancreas: Unremarkable without mass or inflammation evident. Spleen: Normal in size and density. Adrenals: Normal morphology and density. Reproductive system: Unremarkable as visualized. Urinary system: Normal renal size and attenuation. No renal calculi, hydronephrosis, or solid mass present. Urinary bladder unremarkable. Gastrointestinal system: Suture line noted in the distal colon. Colon is fluid-filled. Small bowel unremarkable. Appendix: No findings to suggest acute appendicitis. Peritoneal spaces: No mesenteric or retroperitoneal adenopathy. No free air. No free fluid. Vasculature: Aortic atherosclerotic vascular calcification noted without evidence of aneurysm. Abdominal wall: Abdominal wall intact without evidence of ventral or inguinal hernias. Musculoskeletal: Normal bone mineralization. Degenerative disc disease and arthropathy noted in lower lumbar spine. Lower lumbar spine interbody fusion with instrumentation. It stable L1 compression fracture IMPRESSION: 1. No acute findings. No evidence of recurrent or residual disease. 2. Partial sigmoidectomy, lower lumbar spine instrumented fusion, dense coronary artery, no retroperitoneal adenopathy. Approved by: Davis Caro M.D. on 02/18/2023 at 17:37
--- NOTE | 2023-02-18 17:03 | PM.HP.1 ---
History of Present Illness History of Present Illness Date Patient Seen: 02/18/23 Time Patient Seen: 17:00 Chief complaint: sent by DR for dark stool Narrative: Mr. Stevenson is a 77M with H colon cancer s/p resection and chemo, with no evidence of recurrence, history of bleeding at anastamosis, smoker, alcohol use, neuropathy who presents to the hospital with black stools. He notes he has had black stools for the last day. No abdominal pain. No vomiting. He bright red blood per rectum. He has a history of colon cancer which was diagnosed after he had melena. He ultimately had a resection and chemo. He says he get scopes and CT scans regularly, perhaps as often as every 6 months. He gets his medical care here and in [place], [place], for which we do not have records. He does take aspirin, but it is not clear how regularly. He says he takes no NSAIDs. He has left leg swelling left > right, but he is not sure how long this has been occurring. He is not sure what his neuropathy is secondary to, perhaps to 5-FU which he has received in the past for his colon cancer. In the ED workup was done, vitals notable for afebrile, 100s-110s/50s-60s, heart rate 70s, O2 sats in the high 80s. Labs reviewed by me and notable for WBC 11.4, hgb 12.1 and repeat then 11.3, plts 289. Na 132, BUN 25, creatinine 0.62. In the ED he had an episode of dizziness and possible syncope. He was ordered for fluids and and protonix and admitted for further treatment. [facility] Medical History (Updated 02/18/23 @ 16:39 by Dawson Hernandez DO) Anemia Chronic back pain (Unknown) Fractures Hearing loss (Unknown) Hx of flexible sigmoidoscopy (~01/2019) Surgical History (Updated 09/28/22 @ 14:09 by Brittany Petersen RN) Anesthesia H/O vasectomy History of back surgery (~2016) History of colonoscopy History of removal of Port-a-Cath Hx of neck surgery (~2020) S/P laparoscopic colectomy (01/10/19) Family History Father Heart disease Mother Cancer Congestive heart failure Sister Hypertension Cancer Brother Heart disease Rheumatic fever Brother No problems noted. Social History household members: none occupational status: employed Smoking Status: Former smoker alcohol intake: current Meds Home Medications and Allergies Home Medications Medication Instructions Recorded Confirmed Type cyanocobalamin (vitamin B-12) 1,000 mcg PO DAILY 01/05/19 10/06/22 History 1,000 mcg capsule disabled parking #1 ea 01/05/19 10/06/22 Rx cholecalciferol (vitamin D3) 25 25 mcg PO DAILY 08/13/21 10/06/22 History mcg (1,000 unit) tablet (Vitamin D3) gabapentin 300 mg capsule 600 mg PO TID pain 08/13/21 10/06/22 History multivitamin 1 tab PO DAILY 08/13/21 10/06/22 History turmeric 400 mg capsule 400 mg PO DAILY 08/13/21 10/06/22 History aspirin 325 mg tablet 650 mg PO BID 09/28/22 10/06/22 History acetaminophen 325 mg tablet 650 mg PO Q6H PRN Fever/Mild Pain 10/08/22 Rx (1-3) #240 tabs docusate sodium 100 mg capsule 100 mg PO BID PRN constipation #60 10/08/22 Rx caps hydroxyzine pamoate 25 mg capsule 25 mg PO Q4HR PRN muscle spasm 10/08/22 Rx #120 caps methylprednisolone 4 mg tablets in See Rx Instructions PO .COMPLEX 10/08/22 Rx a dose pack (Medrol (Isaias)) #21 ea oxycodone 5 mg tablet 5 mg PO Q3H PRN Pain, Moderate 10/08/22 Rx (4-6) #60 tabs Allergies Allergy/AdvReac Type Severity Reaction Status Date / Time Opioids - Morphine Analogues AdvReac Severe delerium Verified 02/18/23 13:46 Review of Systems Review of Systems Narrative: 14 systems reviewed and negative aside from what is noted in HPI Exam Vital Signs (past 8 hours): - 02/18/23 13:42 02/18/23 14:52 02/18/23 14:53 Temperature 97.8 F Pulse Rate 82 Respiratory Rate 18 Blood Pressure 168/79 H 161/73 H Pulse Oximetry 97 98 Oxygen Delivery Method Room Air 02/18/23 14:53 02/18/23 15:00 02/18/23 15:00 Temperature Pulse Rate 83 81 Respiratory Rate 13 Blood Pressure 139/71 Pulse Oximetry 98 97 Oxygen Delivery Method 02/18/23 15:33 02/18/23 16:00 02/18/23 16:10 Temperature Pulse Rate 88 92 H Respiratory Rate 19 Blood Pressure 117/56 L Pulse Oximetry 85 L 99 Oxygen Delivery Method 02/18/23 16:10 02/18/23 16:24 02/18/23 16:24 Temperature Pulse Rate 52 L 70 Respiratory Rate 24 13 Blood Pressure 108/59 L Pulse Oximetry 97 93 Oxygen Delivery Method 02/18/23 16:25 02/18/23 16:25 02/18/23 16:26 Temperature Pulse Rate 67 Respiratory Rate 10 L Blood Pressure 108/58 L 104/55 L Pulse Oximetry 92 Oxygen Delivery Method 02/18/23 16:26 02/18/23 16:30 02/18/23 16:30 Temperature Pulse Rate 70 68 Respiratory Rate 13 11 L Blood Pressure 105/55 L Pulse Oximetry 91 92 Oxygen Delivery Method 02/18/23 16:40 02/18/23 16:40 Temperature Pulse Rate 71 Respiratory Rate 19 Blood Pressure 114/58 L Pulse Oximetry 89 L Oxygen Delivery Method Oxygen Delivery Method Room Air Narrative Exam Narrative: GEN: chronically ill appearing HEENT: temporal wasting CV: regular rate and rhythm, no murmurs PULM: clear bilaterally ABD: soft, nontender, nondistended, no organomegaly EXT: warm and well perfuse, left leg 1-2+ edema NEURO: awake, alert, oriented Objective Labs 02/18/23 15:59 02/18/23 13:51 Labs: Laboratory Results - last 24 hr 02/18/23 02/18/23 02/18/23 13:51 13:51 13:51 WBC 11.4 H RBC 3.76 L Hgb 12.1 L Hct 35.6 L MCV 94.6 MCH 32.1 MCHC 34.0 RDW 13.5 Plt Count 289 Neut % (Auto) 64.0 Lymph % (Auto) 21.[address] [place] % (Auto) 7.2 Eos % (Auto) 7.1 H Baso % (Auto) 0.7 Neut # (Auto) 7300 H Lymph # (Auto) 2400 [place] # (Auto) 800 Eos # (Auto) 800 H Baso # (Auto) 100 PT 12.3 INR 1.1 APTT 34 Sodium 132 L Potassium 4.3 Chloride 96 L Carbon Dioxide 28 BUN 25 H Creatinine 0.62 L Estimated GFR > 60 BUN/Creatinine Ratio 40.3 H Glucose 90 Calcium 9.2 Total Bilirubin 0.6 AST 29 ALT 27 Alkaline Phosphatase 50 Total Protein 6.8 Albumin 4.0 Globulin 2.8 Albumin/Globulin Ratio 1.4 Blood Type Antibody Screen 02/18/23 02/18/23 13:51 15:59 WBC RBC Hgb 11.3 L Hct 33.7 L MCV MCH MCHC RDW Plt Count Neut % (Auto) Lymph % (Auto) [place] % (Auto) Eos % (Auto) Baso % (Auto) Neut # (Auto) Lymph # (Auto) [place] # (Auto) Eos # (Auto) Baso # (Auto) PT INR APTT Sodium Potassium Chloride Carbon Dioxide BUN Creatinine Estimated GFR BUN/Creatinine Ratio Glucose Calcium Total Bilirubin AST ALT Alkaline Phosphatase Total Protein Albumin Globulin Albumin/Globulin Ratio Blood Type O Positive Antibody Screen Negative Assessment & Plan Assessment & Plan narrative: 1. Acute blood loss anemia from GI bleeding -noted to have melena in ED and syncopal symptoms -etiology is possibly upper from asa and etoh vs lower with history of colon cancer -continue to trend hemoglobin -transfuse if continues to bleed or for hgb <7 -PPI BID -plan for consult surgery for scope -hold aspirin 2. Left leg swelling -ordered us to eval for VTE 3. Hypoxemia -etiology unclear, patient states asymptomatic -CT scan to rule out cancer vs PE, and eval for infection 3. History of colon cancer -ordered CT chest and abdomen/pelvis given new symtpoms in patient with history of colon cancer I have discussed plan and obtained history from the patient. I have discussed plan of care with ED physician and bedside nurse. I have reviewed labs imaging. CODE: Full Proxy: Nelly Edwards, sister Quality [facility] - Meds 'Current medications' to include all prescriptions, [id number] products, herbals, cannabis/cannabidiol products, and vitamin/mineral/dietary (nutritional) supplements. I have utilized all available resources to obtain, update, or review the patient?s current medications. [If Yes, STOP here]: Yes
--- NOTE | 2023-02-18 18:03 | DI.US.S_ITS ---
PROCEDURE: US PERIPH VENOUS LOW EXTREM LT INDICATIONS: left leg swelling, DVT? TECHNIQUE: Real-time imaging, as well as color and pulse Doppler interrogation, were performed of the lower extremity deep veins from the inguinal ligament to the popliteal fossa, with documentation of the visualized calf veins. COMPARISON: [facility], CT, CT ANGIO CHEST PE PROTOCOL, 02/18/2023, 17:11. FINDINGS: The common femoral, femoral, popliteal, and the visualized calf veins are normally compressible, and free of intraluminal thrombus. Color and pulse Doppler demonstrate normal phasic intraluminal flow. There is normal augmentation response to distal compression maneuver. IMPRESSION: No findings of lower extremity deep venous thrombosis. Dictated by: John Billings M.D. on 02/18/2023 at 17:43 Approved by: John Billings M.D. on 02/18/2023 at 17:45
[2023-02-18] MEDS: PEG3350/SOD SULF,BICARB,CL/KCL 4,000 ML SOLUTION 4000 ML PO (20:08)
[2023-02-18] MEDS: PANTOPRAZOLE 40 MG VIAL IV (20:09)
[2023-02-18] MEDS: ONDANSETRON 4 MG/2 ML INJ IV (20:09)
[2023-02-18] MEDS: ACETAMINOPHEN 325 MG TABLET 650 MG PO (23:23)
[2023-02-19] VITALS (23 sets, daily range): BP systolic 89–150; BP diastolic 34–74; PULSE 72–87; RESP 13–22; TEMP 36.3–37; O2SAT 90–100; BMI 23.7
--- NOTE | 2023-02-19 | PATH_ITS ---
[facility] Accession Number: [id number] No. of containers..03 Tissue . 01 Material submitted: . PART A: duodenum - DUODENUM PART B: pylorus - PYLORUS PART C: gastrointestinal site - GASTRIC . 01 Diagnosis: A. Duodenum, Biopsy: Duodenal mucosa with foveolar metaplasia, consistent with peptic duodenitis. Negative for features of sprue, dysplasia or malignancy. . B. Stomach, Pylorus, Biopsy: Gastric antral mucosa with focal active inflammation. Negative for Helicobacter organisms by immunohistochemistry. Negative for intestinal metaplasia. Negative for dysplasia or malignancy. . C. Stomach, Biopsies: Gastric body mucosa with features of reactive gastropathy. Negative for Helicobacter organisms by immunohistochemistry. Negative for intestinal metaplasia. Negative for dysplasia or malignancy. . [facility] 02/25/2023 1252 Local . 01 Electronically signed: . Danie Martinez MD, PhD, Pathologist NPI- [id number] . 01 Gross description: . Part A: DUODENUM: Received in formalin is multiple fragment(s) of martinez, soft tissue measuring 0.5 x 0.3 x 0.1 cm in aggregate submitted entirely in 1 cassette(s) Part B: PYLORUS: Received in formalin is 1 fragment(s) of martinez, soft tissue measuring 0.4 x 0.2 x 0.2 cm submitted entirely in 1 cassette(s) Part C: GASTRIC: Received in formalin is 2 fragment(s) of martinez, soft tissue measuring 0.3 x 0.1 x 0.1 cm to 0.2 x 0.1 x 0.1 cm submitted entirely in 1 cassette(s) /AA 02/23/2023 0536 Local . 01 Microscopic: . B. An immunohistochemical stain was performed to evaluate for Helicobacter organisms and is negative. The control stain showed appropriate reactivity. . C. An immunohistochemical stain was performed to evaluate for Helicobacter organisms and is negative. The control stain showed appropriate reactivity. . * This test was developed and its performance characteristics determined by [facility]. It has not been cleared or approved by the U.S. Food and Drug Administration. The FDA has determined that such clearance or approval is not necessary. This test is used for clinical purposes. It should not be regarded as investigational or for research. . 01 Pathologist provided ICD-10: K29.80, K29.70 . 01 CPT . 960862, 438733, 638846, [id number] Specimen Comment: A courtesy copy of this report has been sent to [facility] Performed at: 01 [facility] [address] [place] [address], [place], [place] [id number] MD Fran Dhillon MD Phone: [phone]
[2023-02-19] MEDS: GABAPENTIN 600 MG TABLET PO ×3 (03:42→20:00)
[2023-02-19 04:51] LABS: Add Manual Diff / Slide Review NO; Basophils Absolute Auto 0 /uL (0-100); Basophils Percent Auto 0.5 % (0-2); Eosinophils Absolute Auto 600 /uL (0-450); Eosinophils Percent Auto 6.6 % (2-4); Hematocrit 25.8 % (41-53); Hemoglobin 8.9 g/dL (13.5-17.5); Lymphocytes Absolute Auto 2100 /uL (1100-4500); Lymphocytes Percent Auto 21.7 % (25-40); Mean Corpuscular HGB Conc 34.5 % (30-36); Mean Corpuscular Hemoglobin 32.4 PG (26-34); Mean Corpuscular Volume 93.9 fL (80-100); Monocytes Absolute Auto 900 /uL (0-900); Monocytes Percent Auto 9.1 % (3-14); Neutrophils Absolute Auto 6000 /uL (1500-7000); Neutrophils Percent Auto 62.1 % (50-75); Platelet Count 239 X10^3/uL (150-400); Red Blood Cell Count 2.75 X10^6/uL (4.5-5.9); Red Cell Distribution Width 13.4 % (11.6-14.8); White Blood Cell Count 9.6 X10^3/uL (4.5-11.0)
[2023-02-19 04:59] LABS: BUN Creatinine Ratio 49.3 (6-22); Blood Urea Nitrogen 33 mg/dL (9-20); Calcium 8.3 mg/dL (8.4-10.2); Carbon Dioxide 27 mmol/L (22-32); Chloride 101 mmol/L (98-107); Estimated Glomerular Filt Rate > 60 mL/min (>60); Glucose 95 mg/dL (80-110); HEMOLYSIS < 15 (0-50); Potassium 3.9 mmol/L (3.4-5.1); Sodium 134 mmol/L (137-145)
--- NOTE | 2023-02-19 07:23 | PC.NURSE ---
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 Patient consumed about 2800ml of the Cytooytely prep for colonoscopy. Patient needed a lot of encouragement to drink prep and stopped at 0300. Patient has been NPO since. BMs are dark red liquid. Patient had an episode of lightheadedness last night when up to the chair. BP 85/47 (map 55), HR 79. Patient returned to bed, in trendelenburg, BP 109/54 (map 70). Dr Hudson notified of above, no new orders.
[2023-02-19] MEDS: ACETAMINOPHEN 325 MG TABLET 650 MG PO ×2 (08:02→19:58)
[2023-02-19] MEDS: PANTOPRAZOLE 40 MG VIAL IV ×2 (08:03→20:00)
--- NOTE | 2023-02-19 11:27 | CM.DANOTE ---
DCP: Chart review for case, met with patient at bedside, they agree to case management assessment. Completed DCP assessment based on information available. Patient is a 77 year old admitted for GI bleed. Hx prior colon Ca with chemo and resection. Currently living locally at [facility] assisted living [facility], but still has home in [place]. States sister Nelly lives locally and is a support to him. Plan: Upper/lower endoscopy today. PCP: Antonia Leigh, Payer: Medicare DME: 4WW at bedside DCP: Home to established INTERMEDIATE with either sister or taxi ride. Brigette Moyer RN, CM Discharge Planning/Care Management CM Discharge Assessment Start: 02/19/23 11:22 Freq: Status: Active Protocol: Document 02/19/23 11:22 BQ (Rec: 02/19/23 11:26 BQ [id number]) Discharge Planning Assessment Assigned Cafeteria Supervisor Brigette Moyer RN, CM Advance Directives? Yes: POLST Advance Directives on File Yes History Provided By Patient,Medical Record Has Patient been admitted in last 30 No days? Prior Living Arrangements Apartment/Condo Household Members none Facility Name Admitted From: [facility] [address] Willing to Return to Facility? Yes Independent with ADL's Yes Is patient alert and oriented? Yes Caregiver for Another No Community Services used prior to Transportation admission: DME Already Rented / Owned FWW / Walker Barriers to Discharge No Discharge Plan Home with Home Health Transportation Arrangement States will call a taxi or his sister for ride back to [facility] Referrals Initiated None needed Whiteboard Updated in Patient Room with Yes name and ext. # of Cafeteria Supervisor Review Status In Process Next Review Type Continued Stay Review
--- NOTE | 2023-02-19 13:11 | P.CONS_ITS ---
History of Present Illness Consult details Date Patient Seen: 02/19/23 Time Patient Seen: 13:11 Chief complaint: sent by DR for dark stool Reason for consult: GI bleeding Requesting provider: Gareth Rosa Narrative: 77-year-old male presents to the emergency room with GI bleeding. He reports that he woke up around 4:00 a.m. with severe black diarrhea yesterday. He went to the doctor's office Dr. Leigh is his primary care and she directed him to the emergency room. He came to [facility] thereafter. According to the bedside nurse his blood pressure was in the 70s in the emergency room and at times last night though now he is staying in the 130s. He also is reported to have had 2 syncopal episodes in the emergency room. His hemoglobin was 12 upon presentation and 8.9 this morning. The bedside nurse reports that he is continuing to have bloody bowel movements even at this time. He has been prep ped for colonoscopy starting last night. He reports that he has never had bloody bowel movements before in the past. He does not remember any syncopal episode though believes that this might have happened while he was in the emergency room. He thinks his last colonoscopy was about 6 months ago done here at [facility] (the last colonoscopy noted in the record was from 02/2019). He does have a history of colon cancer and is status post laparoscopic assisted sigmoid resection in 01/[address] Taylor and chemotherapy. His port has subsequently been removed and there is a note in the record that he may have some neuropathy due to 5 FU side effects. He says that he takes 81 mg of as pirin daily but has not taken any for 2 days. He lives independently at [facility] in [place]. Meds Home Medications and Allergies Home Medications Medication Instructions Recorded Confirmed Type disabled parking #1 ea 01/05/19 02/18/23 Rx gabapentin 300 mg capsule 600 mg PO BID pain 08/13/21 02/18/23 History acetaminophen 325 mg tablet 650 mg PO Q6H PRN Fever/Mild Pain 10/08/22 02/18/23 Rx (1-3) #240 tabs Allergies Allergy/AdvReac Type Severity Reaction Status Date / Time Opioids - Morphine Analogues AdvReac Severe delerium Verified 02/18/23 13:46 Exam Vital Signs (past 8 hours): - 02/19/23 07:58 02/19/23 07:50 02/19/23 08:10 Temperature 98.1 F Pulse Rate 82 87 Respiratory Rate 22 16 Blood Pressure 108/49 L 150/74 H Pulse Oximetry 99 96 Oxygen Delivery Method Room Air Oxygen Flow Rate 0 02/19/23 08:12 02/19/23 08:14 02/19/23 08:15 Temperature Pulse Rate 84 86 87 Respiratory Rate 16 18 Blood Pressure 131/61 142/60 H 135/58 L Pulse Oximetry Oxygen Delivery Method Oxygen Flow Rate Oxygen Delivery Method Room Air Oxygen Flow Rate 0 Const General: cooperative, comfortable and No acute distress Nutritional Appearance: cachectic and malnourished Orientation: alert, awake and oriented x3 HENMT Head: normal to inspection Mouth: mucous membranes abnormal (Somewhat dry) Eyes General: appearance normal, both eyes and all related structures Resp Effort & Inspection: normal respiratory effort and able to speak in complete sentences GI Palpation: soft and No tender Other: There are scars from laparoscopic assisted sigmoidectomy no hernia present. Objective Labs 02/19/23 04:35 02/19/23 04:35 Labs: Laboratory Results - last 24 hr 02/18/23 02/18/23 02/18/23 13:51 13:51 13:51 WBC 11.4 H RBC 3.76 L Hgb 12.1 L Hct 35.6 L MCV 94.6 MCH 32.1 MCHC 34.0 RDW 13.5 Plt Count 289 Neut % (Auto) 64.0 Lymph % (Auto) 21.0 L Park % (Auto) 7.2 Eos % (Auto) 7.1 H Baso % (Auto) 0.7 Neut # (Auto) 7300 H Lymph # (Auto) 2400 Park # (Auto) 800 Eos # (Auto) 800 H Baso # (Auto) 100 PT 12.3 INR 1.1 APTT 34 Sodium 132 L Potassium 4.3 Chloride 96 L Carbon Dioxide 28 BUN 25 H Creatinine 0.62 L Estimated GFR > 60 BUN/Creatinine Ratio 40.3 H Glucose 90 Calcium 9.2 Total Bilirubin 0.6 AST 29 ALT 27 Alkaline Phosphatase 50 Total Protein 6.8 Albumin 4.0 Globulin 2.8 Albumin/Globulin Ratio 1.4 Blood Type Antibody Screen 02/18/23 02/18/23 02/19/23 13:51 15:59 04:35 WBC 9.6 RBC 2.75 L Hgb 11.3 L 8.9 L Hct 33.7 L 25.8 L MCV 93.9 MCH 32.4 MCHC 34.5 RDW 13.4 Plt Count 239 Neut % (Auto) 62.1 Lymph % (Auto) 21.7 L Park % (Auto) 9.1 Eos % (Auto) 6.6 H Baso % (Auto) 0.5 Neut # (Auto) 6000 Lymph # (Auto) 2100 Park # (Auto) 900 Eos # (Auto) 600 H Baso # (Auto) 0 PT INR APTT Sodium Potassium Chloride Carbon Dioxide BUN Creatinine Estimated GFR BUN/Creatinine Ratio Glucose Calcium Total Bilirubin AST ALT Alkaline Phosphatase Total Protein Albumin Globulin Albumin/Globulin Ratio Blood Type O Positive Antibody Screen Negative 02/19/23 04:35 WBC RBC Hgb Hct MCV MCH MCHC RDW Plt Count Neut % (Auto) Lymph % (Auto) Park % (Auto) Eos % (Auto) Baso % (Auto) Neut # (Auto) Lymph # (Auto) Park # (Auto) Eos # (Auto) Baso # (Auto) PT INR APTT Sodium 134 L Potassium 3.9 Chloride 101 Carbon Dioxide 27 BUN 33 H Creatinine 0.67 Estimated GFR > 60 BUN/Creatinine Ratio 49.3 H Glucose 95 Calcium 8.3 L Total Bilirubin AST ALT Alkaline Phosphatase Total Protein Albumin Globulin Albumin/Globulin Ratio Blood Type Antibody Screen [facility] Medical History Anemia Chronic back pain (Unknown) Fractures Hearing loss (Unknown) Hx of flexible sigmoidoscopy (~01/2019) Surgical History (Updated 09/28/22 @ 14:09 by Brittany Petersen RN) Anesthesia H/O vasectomy History of back surgery (~2016) History of colonoscopy History of removal of Port-a-Cath Hx of neck surgery (~2020) S/P laparoscopic colectomy (01/10/19) Family History Father Heart disease Mother Cancer Congestive heart failure Sister Hypertension Cancer Brother Heart disease Rheumatic fever Brother No problems noted. Social History household members: none occupational status: employed Tobacco & Substance Use Smoking Status: Former smoker alcohol intake: current Assessment & Plan Assessment and plan (1) GI bleed: Status: Acute Assessment & Plan narrative: 77-year-old male presents with a GI bleed. He is had a significant 2 g drop in his hemoglobin since his presentation had episodes of hypotension and near syncopal episodes. According to the bedside nurse he is still having active ongoing GI bleeding with his colonoscopy prep. I discussed with him the risks benefits and alternatives of proceeding with an EGD and colonoscopy today. He understands the risks include but are not limited to damage to the colon esophagus or stomach requiring surgical intervention in rare cases he is had a number of scopes before and feels strongly that he understands the risks and benefits and would like to proceed today.
[2023-02-19] MEDS: LACTATED RINGERS 1,000 ML 150 ML IV (13:37)
--- NOTE | 2023-02-19 14:51 | PM.PN.1 ---
Subjective Subjective Interval history: 77-year-old male with history of colon cancer status post chemo and resection without recurrence, previous history of bleeding at his anastomotic site, peripheral neuropathy, alcohol use, and ongoing tobacco use who was admitted last night with chief complaint of black stools. He would not been having any abdominal pain nor nausea. He receives regular medical care in [place], [place]. Since his colon cancer, he reported getting regular evaluations inclusive of CTs and endoscopies. He was given a colonoscopy prep overnight. He did have an episode of orthostasis when he got up to the commode, which resolved after sitting back down. He was also noted to have some hypoxia in the emergency department. Additionally, there was concern for left lower extremity swelling and a venous duplex ultrasound was done. Patient denies any abdominal pain. He reports he did not get much sleep overnight. He states at this point he is passing mostly bright red blood, but notes his stool has been fairly clear. No shortness a breath. No chest pain. Exam Vital Signs (past 8 hours): - 02/19/23 07:58 02/19/23 07:50 02/19/23 08:10 Temperature 98.1 F Pulse Rate 82 87 Respiratory Rate 22 16 Blood Pressure 108/49 L 150/74 H Pulse Oximetry 99 96 Oxygen Delivery Method Room Air Oxygen Flow Rate 0 02/19/23 08:12 02/19/23 08:14 02/19/23 08:15 Temperature Pulse Rate 84 86 87 Respiratory Rate 16 18 Blood Pressure 131/61 142/60 H 135/58 L Pulse Oximetry Oxygen Delivery Method Oxygen Flow Rate 02/19/23 13:24 Temperature 98.2 F Pulse Rate 81 Respiratory Rate 16 Blood Pressure 109/62 Pulse Oximetry 98 Oxygen Delivery Method Room Air Oxygen Flow Rate Oxygen Delivery Method Room Air Oxygen Flow Rate 0 Narrative Exam Narrative: GEN: Alert and oriented x 3, NAD HEENT:NC, Face symmetric CHEST: Respiratory excursions symmetric, CTAB CV: RRR, no M/R/G ABD: Soft, NT/ND, BT present in all 4 quadrants, no organomegaly or masses EXTR: warm, well perfused, no C/C/trace to 1+ bilateral ankle edema, no significant asymmetry noted to his lower extremities. SKIN: warm and dry, no rash NEURO: Alert and oriented x 3, nonfocal Objective Labs 02/19/23 04:35 02/19/23 04:35 Labs: Laboratory Results - last 24 hr 02/18/23 02/19/23 02/19/23 15:59 04:35 04:35 WBC 9.6 RBC 2.75 L Hgb 11.3 L 8.9 L Hct 33.7 L 25.8 L MCV 93.9 MCH 32.4 MCHC 34.5 RDW 13.4 Plt Count 239 Neut % (Auto) 62.1 Lymph % (Auto) 21.7 L [place] % (Auto) 9.1 Eos % (Auto) 6.6 H Baso % (Auto) 0.5 Neut # (Auto) 6000 Lymph # (Auto) 2100 [place] # (Auto) 900 Eos # (Auto) 600 H Baso # (Auto) 0 Sodium 134 L Potassium 3.9 Chloride 101 Carbon Dioxide 27 BUN 33 H Creatinine 0.67 Estimated GFR > 60 BUN/Creatinine Ratio 49.3 H Glucose 95 Calcium 8.3 L PFSH Medical History Anemia Chronic back pain (Unknown) Fractures Hearing loss (Unknown) Hx of flexible sigmoidoscopy (~01/2019) Surgical History (Updated 09/28/22 @ 14:09 by Brittany Petersen RN) Anesthesia H/O vasectomy History of back surgery (~2016) History of colonoscopy History of removal of Port-a-Cath Hx of neck surgery (~2020) S/P laparoscopic colectomy (01/10/19) Family History Father Heart disease Mother Cancer Congestive heart failure Sister Hypertension Cancer Brother Heart disease Rheumatic fever Brother No problems noted. Social History household members: none occupational status: employed Smoking Status: Former smoker alcohol intake: current Assessment & Plan Assessment & Plan narrative: 1. GI bleeding, likely upper Patient was admitted overnight and given a colonoscopy prep. Plan is for EGD and colonoscopy later today. Although he had an episode of orthostasis, it was likely secondary to the extensive bowel prep, rather than blood loss related. Await consultation for General surgery. He does tell me he was taking aspirin for his back pain intermittently with Tylenol. He also reportedly drinks alcohol and is a smoker. He does have an elevated BUN and reported black stools, both consistent with an upper GI source. CT scan done overnight which revealed no acute source for bleeding. 2. Acute blood loss anemia Hemoglobin was 13.8 on admission. Down to 11.3 last evening. Today it is down to 8.9. He still remains above the threshold for transfusion. Will continue to monitor. 3. Left lower extremity swelling This appears resolved today. He does have bilateral ankle edema which is equal. Ultrasound was negative for DVT 4. Hypoxia Unclear etiology. Chest CT was negative. Lungs are clear. Today he is stable in room air at 99%. 5. History of colon cancer CT of the chest, abdomen, and pelvis revealed no acute findings. He has chronic mediastinal lymphadenopathy which appears stable. Code status Full Prophylaxis Chemical prophylaxis Contraindicated due to GI bleeding Surrogate decisionmaker: Nelly Edwards, sister Disposition Pending Quality VTE Deep Vein Thrombosis/Pulmonary Embolism Present on Admission: No
--- NOTE | 2023-02-19 16:50 | PM.OP.EC ---
Operative Date/Time/Diagnoses Date of procedure: 02/19/23 Time of procedure: 16:50 Pre-op diagnosis: GI bleeding Post-op diagnosis: same Procedure & Clinicians Study performed: 1. EGD and biopsy 2. Colonoscopy Indications: GI bleeding Surgeon: Isabel Shahid Procedure Notes Procedure in detail: Patient was taken to the endoscopy suite and placed in a left lateral decubitus position. A time-out was performed. With the help of anesthesiologist conscious sedation was induced and monitored throughout the case. A bite block was placed the EGD scope placed advanced into the mouth and advanced to the esophagus without difficulty. The esophagus appeared normal. There was a small hiatal hernia. There were no esophageal varices. The stomach had significant gastritis photographs were obtained and biopsies taken. There were some small irritated areas around the pylorus and some bright red blood when the scope entered into the duodenal that with irrigation was not actively bleeding. The duodenal wall had some nodularity and irritation. Both photographs and biopsies were taken of the duodenum, pylorus and the stomach. A digital rectal exam was performed and there were no masses or strictures. The colonoscope was introduced into the anal canal and advanced through to the cecum. There was a large amount of dark red blood throughout the colon and the bowel prep was inadequate for screening exam. No source of active bleeding was seen. The appendiceal orifice was seen from afar, a photograph was obtained; the scope was advanced most of the way to the cecum. This was not an adequate screening exam but, demonstrated that the colon is not the source of this GI bleeding today, since only dark red blood was seen throughout. Findings: duodenal ulcer Specimen(s): other (1. Duodenum 2. Pylorus 3. Gastric) Complications: none Impression: Likely an upper GI source of bleeding probably a duodenal ulcer perhaps the actual ulcer was not well seen but there certainly was a significant amount of gastritis and significant abnormality in the duodenal wall. Colonoscopy was not adequate for the purpose of screening but there was dark blood throughout the colon all the way to the cecum. Post-procedure Plan for aftercare: He should have a colonoscopy for screening at the appropriate interval. I do not see any evidence in the record of a screening colonoscopy since 1 that was done almost immediately postoperatively. He should be having routine screening after colon cancer and if indeed 2019 was his last colonoscopy, he is due for another. That being said, I think this is more likely an upper GI/duodenal source and would continue treatment as such with Protonix. There was no active bleeding seen on this exam and so I think that we should continue to observe and support until his hemoglobin stabilizes. Please do not hesitate to contact me with any further questions or concerns.
[2023-02-19] MEDS: ALBUTEROL/IPRATROPIUM 3 ML AMPUL INH (17:45)
[2023-02-19 18:22] LABS: Hematocrit 23.2 % (41-53)
--- NOTE | 2023-02-19 18:29 | RT ---
At time of 1824, noting SpO2 100% while on 1L nasal cannula. RT placed pt on room-air. SpO2 maintaining at 95%. Pt tolerating well.
--- NOTE | 2023-02-19 19:07 | PC.NURSE ---
Notified bp systolic down to 80's, pt is feeling weak. He is more pale and feels very weak. H/H had been requested from MD earlier after return from OR. MD Shetty went immed. down to the patients room to examine. IVF NS 1L bolus started. MD is going to order some blood.
[2023-02-19] MEDS: SODIUM CHLORIDE 0.9% 1,000 ML 1000 ML IV (19:50)
[2023-02-20] VITALS (7 sets, daily range): BP systolic 109–134; BP diastolic 50–62; PULSE 69–88; RESP 16–20; TEMP 36.4–36.9; O2SAT 91–98
[2023-02-20] MEDS: ACETAMINOPHEN 325 MG TABLET 650 MG PO (01:28)
[2023-02-20] MEDS: HYDROCODONE/ACET 5/325 TABLET 1 TAB PO ×3 (04:03→17:59)
[2023-02-20] MEDS: GABAPENTIN 600 MG TABLET PO ×5 (05:54→21:20)
--- NOTE | 2023-02-20 08:00 | PM.PN.1 ---
Subjective Subjective Interval history: 77-year-old gentleman with previous colon cancer status post resection/chemo with remission, prior history of bleeding at his anastomotic site, peripheral neuropathy, alcohol use, and tobacco dependence who was admitted 2 days ago with complaints of black stool. EGD and colonoscopy were performed yesterday. There was a large amount of dark red blood throughout the colon. Bowel prep was considered inadequate for a screening exam. No active source of bleeding was seen. Colon was not felt to be the source of bleeding. EGD revealed a small hiatal hernia, no varices. There were small irritated areas around the pylorus and bright red blood when the scope entered the duodenal. There was no active bleeding. Biopsies were taken. Upon his return from his endoscopy, patient was notably more pale. Hemoglobin was repeated and was down. Last evening, he developed hypotension which was treated with a normal saline bolus as well as 1 unit of packed red blood cells. This morning, patient reports he is feeling much better. He denies any dizziness. He is not had any bowel movements. He has not yet been up out of bed. Exam Vital Signs (past 8 hours): - 02/20/23 04:28 Temperature 97.6 F Pulse Rate 88 Respiratory Rate 16 Blood Pressure 109/57 L Pulse Oximetry 94 Fraction of Inspired Oxygen 28 SaO2/FiO2 Ratio 357 Oxygen Delivery Method Nasal Cannula Oxygen Flow Rate 2 Narrative Exam Narrative: GEN: Very pleasant elderly male, Alert and oriented x 3, NAD HEENT:NC, Face symmetric, edentulous, hearing impaired CHEST: Respiratory excursions symmetric, CTAB CV: RRR, no M/R/G ABD: Soft, NT/ND, BT present in all 4 quadrants, no organomegaly or masses EXTR: warm, well perfused, no C/C/trace to 1+ bilateral ankle edema, no significant asymmetry noted to his lower extremities. SKIN: warm and dry, no rash NEURO: Alert and oriented x 3, nonfocal Objective Labs 02/19/23 18:05 02/19/23 04:35 Labs: Laboratory Results - last 24 hr 02/18/23 02/19/23 13:51 18:05 Hgb 8.0 L Hct 23.2 L Blood Type O Positive Antibody Screen Negative Crossmatch See Detail [facility] Medical History Anemia Chronic back pain (Unknown) Fractures Hearing loss (Unknown) Hx of flexible sigmoidoscopy (~01/2019) Surgical History (Updated 09/28/22 @ 14:09 by Brittany Petersen RN) Anesthesia H/O vasectomy History of back surgery (~2016) History of colonoscopy History of removal of Port-a-Cath Hx of neck surgery (~2020) S/P laparoscopic colectomy (01/10/19) Family History Father Heart disease Mother Cancer Congestive heart failure Sister Hypertension Cancer Brother Heart disease Rheumatic fever Brother No problems noted. Social History household members: none occupational status: employed Smoking Status: Former smoker alcohol intake: current Assessment & Plan Assessment & Plan narrative: 1. GI bleeding, likely upper EGD findings as noted above. [place] to be an upper GI bleed, without active bleeding identified at the time of endoscopy. There was some irritation noted around the duodenal. Biopsies are pending. 2. Acute blood loss anemia Hemoglobin was 13.8 on admission and subsequently dropped to 11.3 on the date of admission. Hemoglobin was down to 8.9 yesterday morning and 8.0 last evening. Due to patient being symptomatic from the anemia with hypotension and dizziness, 1 unit of packed red blood cells was given overnight. Hemoglobin is pending at this time. 3. Left lower extremity swelling This appears resolved today.? He does have bilateral ankle edema which is equal.? Ultrasound was negative for DVT 4. Hypoxia, resolved Unclear etiology.? Chest CT was negative.? Lungs are clear.? His O2 sats remain stable on room air. 5. History of colon cancer CT of the chest, abdomen, and pelvis revealed no acute findings.? He has chronic mediastinal lymphadenopathy which appears stable. Due to the poor colonoscopy prep, patient will need follow-up with outpatient Gastroenterology for repeat colonoscopy. Code status Full Prophylaxis Chemical prophylaxis Contraindicated due to GI bleeding Surrogate decisionmaker: Nelly Edwards, sister Disposition Pending; will advance diet today. Will review hemoglobin when resulted. Depending on patient's clinical status, he possibly can discharge later today versus tomorrow. Quality VTE Deep Vein Thrombosis/Pulmonary Embolism Present on Admission: No
[2023-02-20 08:48] LABS: BUN Creatinine Ratio 35.6 (6-22); Blood Urea Nitrogen 21 mg/dL (9-20); Calcium 8.5 mg/dL (8.4-10.2); Carbon Dioxide 25 mmol/L (22-32); Chloride 105 mmol/L (98-107); Estimated Glomerular Filt Rate > 60 mL/min (>60); Glucose 85 mg/dL (80-110); HEMOLYSIS 18 (0-50); Potassium 4.2 mmol/L (3.4-5.1); Sodium 134 mmol/L (137-145)
[2023-02-20] MEDS: PANTOPRAZOLE 40 MG VIAL IV ×2 (09:12→21:20)
[2023-02-20 09:36] LABS: Add Manual Diff / Slide Review NO; Basophils Absolute Auto 200 /uL (0-100); Basophils Percent Auto 1.5 % (0-2); Eosinophils Absolute Auto 700 /uL (0-450); Eosinophils Percent Auto 6.5 % (2-4); Hematocrit 22.9 % (41-53); Hemoglobin 7.9 g/dL (13.5-17.5); Lymphocytes Absolute Auto 2100 /uL (1100-4500); Lymphocytes Percent Auto 19.3 % (25-40); Mean Corpuscular HGB Conc 34.2 % (30-36); Mean Corpuscular Hemoglobin 31.7 PG (26-34); Mean Corpuscular Volume 92.6 fL (80-100); Monocytes Absolute Auto 700 /uL (0-900); Monocytes Percent Auto 6.3 % (3-14); Neutrophils Absolute Auto 7400 /uL (1500-7000); Neutrophils Percent Auto 66.4 % (50-75); Red Blood Cell Count 2.48 X10^6/uL (4.5-5.9); Red Cell Distribution Width 14.1 % (11.6-14.8); White Blood Cell Count 11.1 X10^3/uL (4.5-11.0)
[2023-02-20 09:37] LABS: Platelet Count 136 X10^3/uL (150-400)
--- NOTE | 2023-02-20 18:12 | P.PN_ITS ---
Subjective Subjective Date Patient Seen: 02/20/23 Time Patient Seen: 18:13 Exam Vital Signs (past 8 hours): - 02/20/23 12:00 02/20/23 14:06 Temperature 97.7 F Pulse Rate 82 Respiratory Rate 18 Blood Pressure 134/56 L Pulse Oximetry 91 Oxygen Flow Rate 0 Fraction of Inspired Oxygen 28 SaO2/FiO2 Ratio 357 Oxygen Delivery Method Nasal Cannula Oxygen Flow Rate 0 Objective Labs 02/20/23 08:17 02/20/23 08:17 Labs: Laboratory Results - last 24 hr 02/18/23 02/19/23 02/20/23 13:51 18:05 08:17 WBC 11.1 H RBC 2.48 L Hgb 8.0 L 7.9 L Hct 23.2 L 22.9 L MCV 92.6 MCH 31.7 MCHC 34.2 RDW 14.1 Plt Count 136 L Neut % (Auto) 66.4 Lymph % (Auto) 19.3 L [place] % (Auto) 6.3 Eos % (Auto) 6.5 H Baso % (Auto) 1.5 Neut # (Auto) 7400 H Lymph # (Auto) 2100 [place] # (Auto) 700 Eos # (Auto) 700 H Baso # (Auto) 200 H Sodium Potassium Chloride Carbon Dioxide BUN Creatinine Estimated GFR BUN/Creatinine Ratio Glucose Calcium Blood Type O Positive Antibody Screen Negative Crossmatch See Detail 02/20/23 08:17 WBC RBC Hgb Hct MCV MCH MCHC RDW Plt Count Neut % (Auto) Lymph % (Auto) [place] % (Auto) Eos % (Auto) Baso % (Auto) Neut # (Auto) Lymph # (Auto) [place] # (Auto) Eos # (Auto) Baso # (Auto) Sodium 134 L Potassium 4.2 Chloride 105 Carbon Dioxide 25 BUN 21 H Creatinine 0.59 L Estimated GFR > 60 BUN/Creatinine Ratio 35.6 H Glucose 85 Calcium 8.5 Blood Type Antibody Screen Crossmatch [facility] Medical History Anemia Chronic back pain (Unknown) Fractures Hearing loss (Unknown) Hx of flexible sigmoidoscopy (~01/2019) Surgical History (Updated 09/28/22 @ 14:09 by Brittany Petersen RN) Anesthesia H/O vasectomy History of back surgery (~2016) History of colonoscopy History of removal of Port-a-Cath Hx of neck surgery (~2020) S/P laparoscopic colectomy (01/10/19) Family History Father Heart disease Mother Cancer Congestive heart failure Sister Hypertension Cancer Brother Heart disease Rheumatic fever Brother No problems noted. Social History household members: none occupational status: employed Smoking Status: Former smoker alcohol intake: current Assessment & Plan Post-op Postoperative Procedures: Procedures Operation Date: 02/19/23 14:00 Actual Procedure Side Surgeon p Esophagogastroduodenoscopy Isabel Shahid MD s Colonoscopy Isabel Shahid MD Postoperative day: 1 Postoperative status narrative: Status post EGD. Active bleed seen during the procedure suspect upper/duodenal bleeding. Postoperative plan narrative: Got 1 unit of blood but remains stable today. we will continue to observe. Quality VTE Deep Vein Thrombosis/Pulmonary Embolism Present on Admission: No
[2023-02-21] VITALS (8 sets, daily range): BP systolic 92–116; BP diastolic 41–56; PULSE 72–84; RESP 14–18; TEMP 36.7–36.9; O2SAT 92–97
[2023-02-21] MEDS: GABAPENTIN 600 MG TABLET PO ×4 (06:32→19:14)
[2023-02-21 06:47] LABS: Add Manual Diff / Slide Review NO; Basophils Absolute Auto 0 /uL (0-100); Basophils Percent Auto 0.2 % (0-2); Eosinophils Absolute Auto 900 /uL (0-450); Eosinophils Percent Auto 10.7 % (2-4); Lymphocytes Absolute Auto 1600 /uL (1100-4500); Lymphocytes Percent Auto 20.4 % (25-40); Mean Corpuscular HGB Conc 34.5 % (30-36); Mean Corpuscular Hemoglobin 32.1 PG (26-34); Mean Corpuscular Volume 93.1 fL (80-100); Monocytes Absolute Auto 600 /uL (0-900); Monocytes Percent Auto 7.1 % (3-14); Neutrophils Absolute Auto 5000 /uL (1500-7000); Neutrophils Percent Auto 61.6 % (50-75); Platelet Count 195 X10^3/uL (150-400); Red Blood Cell Count 2.11 X10^6/uL (4.5-5.9); Red Cell Distribution Width 13.7 % (11.6-14.8); White Blood Cell Count 8.1 X10^3/uL (4.5-11.0)
[2023-02-21 06:50] LABS: Hematocrit 19.7 % (41-53); Hemoglobin 6.8 g/dL (13.5-17.5)
[2023-02-21 07:03] LABS: Blood Urea Nitrogen 16 mg/dL (9-20); Calcium 8.4 mg/dL (8.4-10.2); Carbon Dioxide 27 mmol/L (22-32); Chloride 102 mmol/L (98-107); Estimated Glomerular Filt Rate > 60 mL/min (>60); Glucose 84 mg/dL (80-110); HEMOLYSIS < 15 (0-50); Potassium 3.7 mmol/L (3.4-5.1); Sodium 132 mmol/L (137-145)
[2023-02-21] MEDS: PANTOPRAZOLE 40 MG VIAL IV ×2 (08:18→21:25)
[2023-02-21 09:08] LABS: Hematocrit 20.1 % (41-53)
--- NOTE | 2023-02-21 11:00 | PT.IIE ---
Current Diagnoses Gastrointestinal hemorrhage, unspecified (02/18/23) Surgery Performed Operation Date: 02/19/23 14:00 Actual Procedures p Esophagogastroduodenoscopy - Isabel Shahid MD s Colonoscopy - Isabel Shahid MD Surgical History (Last Updated 09/28/22 @ 14:08 by Brittany Petersen RN) Anesthesia H/O vasectomy History of back surgery (~2016) History of colonoscopy History of removal of Port-a-Cath Hx of neck surgery (~2020) S/P laparoscopic colectomy (01/10/19) Medical History (Last Reviewed 02/18/23 @ 17:28 by Dawson Hernandez DO) Anemia Chronic back pain (Unknown) Fractures Hearing loss (Unknown) Hx of flexible sigmoidoscopy (~01/2019) Physical Therapy Inpatient Evaluation/Re-Eval M1 PT/OT-IP Prior Functional Status Start: 02/21/23 08:37 Freq: NEEDED Status: Active Protocol: Document 02/21/23 11:00 AW (Rec: 02/21/23 12:58 AW [id number]) Medical Review Prior Functional Status Medical History Reviewed Yes Communication Pt is able to make needs known . Mobility and Gait Uses a 4WW for all mobility. Endorses decreased activity level over the past few years. Activities of Daily Living and IADL's Independent with dressing, showering, toileting. Does not drive, rather depends on sister, taxi, [employer]. Pt's sister assists with groceries. Pt has meals delivered to his room. He gets assist [facility] cleaning and laundry Social History Household Members none Living Arrangements Apartment/Condo Number of Floors (Floors) One Floor Number of Stairs To Enter/Railing? Level entrance. Home Environment Standard Height Toilet,Walk in Shower Home Equipment Four Wheel Walker,Power Wheelchair/Scooter,Grab Bars Near Toilet,Grab Bars In Shower Employment Status Retired Additional Social History Comment Pt has lived at [place] for ~1 year. 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 He has a local sister who provides assist with transportation and shopping needs. M2 PT-IP Current Condition Start: 02/21/23 08:37 Freq: NEEDED Status: Active Protocol: Document 02/21/23 11:00 AW (Rec: 02/21/23 12:58 AW [id number]) Physical Therapy Current Condition Current Condition Evaluation Date 02/21/23 Treatment Diagnosis GI bleed, impaired mobility, decreased functional capacity Onset Date 02/15/23 M3 PT-IP Subjective Start: 02/21/23 08:37 Freq: NEEDED Status: Active Protocol: Document 02/21/23 11:00 AW (Rec: 02/21/23 12:58 AW [id number]) Subjective Physical Therapy Visit Type Type Initial Evaluation Visit Start Time 10:40 Visit Stop Time 11:00 Total Visit Minutes 20 Notes H&H was 12.1/35.6 on admission . H&H this AM was 6.8/19.7. Per discussion at AM rounds, ok to mobilize pt with caution . No transfusion planned at this time. Physical Therapy Visit Comments Patient Comments Pt states he spent much of the morning up in the chair and just returned to bed not long ago. Feels his energy is quite low. Therapy Pain Assessment Pain When Pain Assessed During Mobility Pain Present Pain Present Pain Reported Location Back Scale Used not quantified Bilateral Leg Scale Used feet - not quantified M4 PT-IP Mobility and Gait Start: 02/21/23 08:37 Freq: NEEDED Status: Active Protocol: Document 02/21/23 11:00 AW (Rec: 02/21/23 12:58 AW [id number]) PT-Bed Mobility Assessment Supine to Sit Supine to Sit Standby Assistance Sit to Supine Sit to Supine Standby Assistance Scooting Scooting to Edge of Bed Standby Assistance PT-Transfer Assessment Sit to and From Stand Sit to and from Stand Contact Guard Assistance,Use of Upper Extremities Equipment Transfer Assistive Device Gait Belt,Front Wheeled Walker Orthotic/Prosthetic Devices or Brace: No Transfers Transfer Destination Bed Transfer Technique sit <> stand Comments Mobility Comments Pt was lying in bed as PT arrived. Supine BP 102/51 HR 83. Pt sat up EOB with SBA and sat with good midline orientation/balance. He stood with CGA and standing BP was 94/38 (MAP 56.7) HR 91. Pt did not tolerate standing >1 minute, looked pale, and was trembling. He returned to supine SBA. RN aware of VS. Gait Assessment Comments Gait Comments Pt took side steps at EOB using FWW but could not progress to functional gait. PT-Balance Assessment Sitting Balance and Reactions Static Sitting Balance Ability Good Dynamic Sitting Balance Ability Good Standing Balance and Reactions Static Standing Balance Ability Fair Dynamic Standing Balance Ability Fair Device Used FWW M5 PT-IP Objective Assessments Start: 02/21/23 08:37 Freq: NEEDED Status: Active Protocol: Document 02/21/23 11:00 AW (Rec: 02/21/23 12:58 AW [id number]) Orientation Orientation/Cognition Level of Alertness Alert Orientation Name,Day of Week,Place, Situation Language Function Ability No Deficits Noted Safety Awareness Understands Safety Issues Memory Description No Deficits Noted Gross Range of Motion Upper Extremity ROM Assessment Within Functional Limits Lower Extremity ROM Assessment Within Functional Limits Strength Lower Extremity Strength Hip flex 4/5, abd 4-/5 Knee ext and flex 4/5 Ankle ankle DF 4/5 Sensation Assessment Sensation Gross Sensation Right LE Impaired,Left LE Impaired Light Touch Impaired Comments Sensation Comments History of peripheral neuropathy M7 PT-IP Assessment and Plan Start: 02/21/23 08:37 Freq: NEEDED Status: Active Protocol: Document 02/21/23 11:00 AW (Rec: 02/21/23 12:58 AW [id number]) PT Summary Assessment and Plan Potential Rehabilitation Potential Good Status of Condition at Evaluation Evolving Summary Impairments Pain,Strength,Balance, Sensation,Bed Mobility, Transfers,Gait,Activity Tolerance Assessment Summary Talat is a 77 yo man seen for PT evaluation while admitted with likely GI bleed. PMH inccludes colon cancer s/p resection and chemotherapy, peripheral neuropathy, and alcohol dependence. Pt lives alone at [facility] in a single level apartment on the ground floor. His mobility has suffered over the past year. He tends to ambulate with a 4WW. he recently acquired a power scooter which he hopes will be helpful for shopping trips. He reports he is currently being served by a home health agency. CLOF: Pt's H&H today is 6.8/19.7. Pt was cleared for mobility but PT proceeded with caution. Pt is symptomatic in terms of poor activity tolerance, pallor, and weakness. He could not progress past edge of bed with PT this morning although he did spend much of the morning in a chair per nursing. PT recommends discharge to [facility] for continued rehab services but pt declines, stating he had a bad experience recently at [facility]. Will continue to work with pt while he is hospitalized. If he returns to [facility], resumed services would be appropriate. Goals Bed Mobility Goal Independent Transfer Goal Independent,Four Wheeled Walker Gait Goal Independent,Four Wheel Walker Gait Distance 75 Days to Meet Goals 10 Frequency of Treatment Frequency Of Treatment Once a Day Treatment Plan Physical Therapy Treatment Plan Bed Mobility Training,Transfer Training,Gait Training, Therapeutic Exercise,Balance Retraining,Discharge Planning, Hot or Cold Pack,Neuromuscular Re-ed Precautions Other Precautions monitor H&H; falls risk Recommendations To Nursing Amount of Assist Needed 1 Person Assist Discharge Recommendations PT Discharge Recommendations SNF Rehab Transportation Needs at Discharge Wheelchair/Cabulance
--- NOTE | 2023-02-21 12:42 | OT.IPNOTE ---
Ot eval and treat order received. Chart reviewed and consulted nursing. Pt requests to hold on OT till tomorrow as he is fatigued and has already been up twice today. Will hold and check back.
[2023-02-21] MEDS: HYDROCODONE/ACET 5/325 TABLET 1 TAB PO ×2 (13:11→21:26)
--- NOTE | 2023-02-21 14:17 | PM.PN.1 ---
Subjective Subjective Interval history: 77-year-old gentleman with previous colon cancer status post resection/chemo with remission, prior history of bleeding at his anastomotic site, peripheral neuropathy, alcohol use, and tobacco dependence who was admitted 2 days ago with complaints of black stool. EGD and colonoscopy were performed now 2 days ago. There was a large amount of dark red blood throughout the colon. Bowel prep was considered inadequate for a screening exam. No active source of bleeding was seen. Colon was not felt to be the source of bleeding. EGD revealed a small hiatal hernia, no varices. There were small irritated areas around the pylorus and bright red blood when the scope entered the duodenal. There was no active bleeding. Biopsies were taken. Overnight, patient continued to have dark stools. Hg was 6.8 this morning, repeat showed 7.0 and will be followed today. He has minimal dizziness, no chest pain or dyspnea today. Exam Vital Signs (past 8 hours): - 02/21/23 08:13 Temperature 98.1 F Pulse Rate 80 Respiratory Rate 16 Blood Pressure 110/41 L Pulse Oximetry 92 Oxygen Flow Rate 0 Fraction of Inspired Oxygen 28 SaO2/FiO2 Ratio 357 Oxygen Delivery Method Room Air Oxygen Flow Rate 0 Narrative Exam Narrative: GEN: Very pleasant elderly male, Alert and oriented x 3, NAD HEENT:NC, Face symmetric, edentulous, hearing impaired CHEST: Respiratory excursions symmetric, CTAB CV: RRR, no M/R/G ABD: Soft, NT/ND, BT present in all 4 quadrants, no organomegaly or masses EXTR: warm, well perfused, no C/C/trace to 1+ bilateral ankle edema, no significant asymmetry noted to his lower extremities. SKIN: warm and dry, no rash NEURO: Alert and oriented x 3, nonfocal Objective Labs 02/21/23 08:50 02/21/23 05:29 Labs: Laboratory Results - last 24 hr 02/21/23 02/21/23 02/21/23 05:29 05:29 08:50 WBC 8.1 RBC 2.11 L Hgb 6.8 L* 7.0 L Hct 19.7 L* 20.1 L* MCV 93.1 MCH 32.1 MCHC 34.5 RDW 13.7 Plt Count 195 Neut % (Auto) 61.6 Lymph % (Auto) 20.4 L [place] % (Auto) 7.1 Eos % (Auto) 10.7 H Baso % (Auto) 0.2 Neut # (Auto) 5000 Lymph # (Auto) 1600 [place] # (Auto) 600 Eos # (Auto) 900 H Baso # (Auto) 0 Sodium 132 L Potassium 3.7 Chloride 102 Carbon Dioxide 27 BUN 16 Creatinine 0.64 L Estimated GFR > 60 BUN/Creatinine Ratio 25.0 H Glucose 84 Calcium 8.4 PFSH Medical History Anemia Chronic back pain (Unknown) Fractures Hearing loss (Unknown) Hx of flexible sigmoidoscopy (~01/2019) Surgical History (Updated 09/28/22 @ 14:09 by Brittany Petersen RN) Anesthesia H/O vasectomy History of back surgery (~2016) History of colonoscopy History of removal of Port-a-Cath Hx of neck surgery (~2020) S/P laparoscopic colectomy (01/10/19) Family History Father Heart disease Mother Cancer Congestive heart failure Sister Hypertension Cancer Brother Heart disease Rheumatic fever Brother No problems noted. Social History household members: none occupational status: employed Smoking Status: Former smoker alcohol intake: current Assessment & Plan Assessment & Plan narrative: 1. GI bleeding, likely upper EGD findings as noted above. [place] to be an upper GI bleed, without active bleeding identified at the time of endoscopy. There was some irritation noted around the duodenal. Biopsies are pending. continue IV PPI BID repeat h/h early this evening to continue trending. if continued bleeding, consider discussion with surgery for possible transfer to center with IR capabilities. 2. Acute blood loss anemia Hemoglobin was 13.8 on admission and subsequently dropped to 11.3 on the date of admission. Hg is further down to 6.8 and then 7.0 on repeat. Minimal symptoms today, will repeat this evening and continue to monitor. If further symptoms develop will transfuse. Otherwise goal Hg >7. 3. Left lower extremity swelling This appears resolved today.? He does have bilateral ankle edema which is equal.? Ultrasound was negative for DVT 4. Hypoxia, resolved Unclear etiology.? Chest CT was negative.? Lungs are clear.? His O2 sats remain stable on room air. May be related to presenting anemia. 5. History of colon cancer CT of the chest, abdomen, and pelvis revealed no acute findings.? He has chronic mediastinal lymphadenopathy which appears stable. Due to the poor colonoscopy prep, patient will need follow-up with outpatient Gastroenterology for repeat colonoscopy. Code status Full, surrogate is patient's sister. Prophylaxis Chemical prophylaxis Contraindicated due to GI bleeding Surrogate decisionmaker: Nelly Edwards, sister Disposition pending stabilization of anemia. Possible transfer, have ordered therapy evaluations given weakness to see if home or SNF if h/h stabilizes. Additional history obtained via discussions with previous hospitalist provider. I have reviewed patient's presenting imaging, labs, and documentation personally. Discussed plan of care with patient and sister. Quality VTE Deep Vein Thrombosis/Pulmonary Embolism Present on Admission: No
--- NOTE | 2023-02-21 15:08 | CM.DPC ---
DCP Cont: Per MD, pt making some improvements but not yet stable for discharge today. Per PT, pt below baseline and feel pt would benefit from SNF at d/c but aware that pt had a bad experience at SNF recently and likely will refuse and would then recommend ongoing HH. SW called all 3 HH agencies that cover [place] and none show pt as currently an active or recent patient in their system. SW met bedside with pt and explained role and he confirms that he refuses SNF at d/c even not willing to try another SNF that he hasn't been to before. Pt confirms he has PT Scott 2x a week at his apt at [facility] and feels they have made good progress and preference is to return to [facility] with ongoing PT and confirms either his sister or nephew will transport him home. SW called [facility] and they confirm they have outpt PT that comes in to provide therapy to residents and this can continue. [facility] is independent living and pt can return any time at d without having to coordinate with [facility] staff. Plan: SW to follow for plan of discharge back to [facility] with ongoing outpt PT in the facility 2x week and family to transport. COREY Lee
[2023-02-21 19:17] LABS: Hematocrit 20.2 % (41-53); Hemoglobin 6.9 g/dL (13.5-17.5)
[2023-02-21] MEDS: SODIUM CHLORIDE 0.9% FLUSH 10 ML IV (21:26)
[2023-02-22] VITALS (13 sets, daily range): BP systolic 100–129; BP diastolic 30–62; PULSE 74–89; RESP 14–21; TEMP 36.7–37.1; O2SAT 91–97
[2023-02-22 05:52] LABS: Add Manual Diff / Slide Review NO; Basophils Absolute Auto 0 /uL (0-100); Basophils Percent Auto 0.6 % (0-2); Eosinophils Absolute Auto 600 /uL (0-450); Eosinophils Percent Auto 8.8 % (2-4); Lymphocytes Absolute Auto 1400 /uL (1100-4500); Lymphocytes Percent Auto 19.4 % (25-40); Mean Corpuscular HGB Conc 34.5 % (30-36); Mean Corpuscular Hemoglobin 32.2 PG (26-34); Mean Corpuscular Volume 93.4 fL (80-100); Monocytes Absolute Auto 600 /uL (0-900); Monocytes Percent Auto 8.4 % (3-14); Neutrophils Absolute Auto 4600 /uL (1500-7000); Neutrophils Percent Auto 62.8 % (50-75); Platelet Count 199 X10^3/uL (150-400); Red Blood Cell Count 2.13 X10^6/uL (4.5-5.9); Red Cell Distribution Width 14.6 % (11.6-14.8); White Blood Cell Count 7.3 X10^3/uL (4.5-11.0)
[2023-02-22 05:59] LABS: Blood Urea Nitrogen 17 mg/dL (9-20); Calcium 8.3 mg/dL (8.4-10.2); Carbon Dioxide 28 mmol/L (22-32); Chloride 102 mmol/L (98-107); Estimated Glomerular Filt Rate > 60 mL/min (>60); Glucose 98 mg/dL (80-110); HEMOLYSIS < 15 (0-50); Magnesium 1.7 mg/dL (1.6-2.3); Potassium 3.8 mmol/L (3.4-5.1); Sodium 134 mmol/L (137-145)
[2023-02-22 06:07] LABS: Hematocrit 19.9 % (41-53); Hemoglobin 6.9 g/dL (13.5-17.5)
--- NOTE | 2023-02-22 06:49 | PC.NURSE ---
Sql Database Administrator Note-Patient has been very sleepy and bit forgetful, but does use call light most of the time. At beginning of shift critical H/H reported to Dr Fisher, 1 unit PRBC ordered and infused with reaction. IV sites did start leaking blood, needing replacement. No melena stools overnight. BP 97/48(70) to 114/48, NSR, 1st degree AVB, very weak, denies dizziness. Reported another critical H/H to Tele-hospitalist in am, no new orders at this time.
[2023-02-22] MEDS: SODIUM CHLORIDE 0.9% FLUSH 10 ML IV ×2 (08:30→20:19)
[2023-02-22] MEDS: GABAPENTIN 600 MG TABLET PO ×3 (08:30→20:19)
[2023-02-22] MEDS: PANTOPRAZOLE 40 MG VIAL IV ×2 (08:30→20:19)
[2023-02-22] MEDS: LIDOCAINE PATCH 1 EACH ADH..PATCH TOP (08:30)
[2023-02-22] MEDS: MAGNESIUM CHLORIDE 64 MG TABLET 128 MG PO (09:40)
--- NOTE | 2023-02-22 10:01 | OT.IPNOTE ---
Pt low HH and to be getting another transfusion, hold OT eval. To check on pt later.
[2023-02-22 11:51] LABS: Hematocrit 23.1 % (41-53)
--- NOTE | 2023-02-22 12:31 | PC.NURSE ---
Addendum entered by Arelis Reveles R.N. 02/22/23 16:22: pt had large coffee ground black stool - provider notified. BP stable. Pt denies dizziness, light headedness. Addendum entered by Arelis Reveles R.N. 02/22/23 13:38: Pt BP remains on the low side, pt asymptomatic and able to ambulate with assistance to chair. SBP remaining >100. In am, RN infused blood within required total timeline, RN explained reason for blood before administering, educated pt on signs and symptoms of a transfusion reaction, and monitored patient throughout infusion. RN reported to provider when blood was finished and reported follow-up lab values to provider. Original Note: Spoke with provider regarding pt hypotension. Pt asymptomatic - denies lightheadedness, dizziness or feeling faint/tunnel vision. RN spoke with provider reporting BPs with low systolics and MAPs <65. Provider ok as long as SBP >90. SBPs have been >90 and mostly >100.
--- NOTE | 2023-02-22 13:41 | PT-IP ANOTE ---
Pt not appropriate for PT today due to low H&H and receiving blood transfusion. Will check back in with pt tomorrow.
--- NOTE | 2023-02-22 13:46 | CM.DPC ---
DCP Continued: HEAD TELLER reviewed EMR. Per provider in rounds, patient is going to get another unit of blood today. May transfer out if continue to not be able to find source of bleeding. HEAD TELLER entered room and introduced self and role. Patient resting in bed and appeared A/Ox4. Patient reports feeling really bad in the morning and only slightly better now. Patient reports they're considering transferring him to a higher level of care. Patient reports if he were to d/c from here the plan remains back to [facility]. Transport with family. Plan: 1) transfer to higher level of care 2) [facility] with in house PT and transport with family. CM team will continue to follow as needed. COREY Hoffmann
--- NOTE | 2023-02-22 13:47 | PM.PN.1 ---
Subjective Subjective Interval history: Patient's hg yesterday was 6.9, gave 1 U PRBC and hg was again 6.9 this AM. Ordered 1U more and now up to 8. He denies any melena overnight. Feeling weak today but no shortness of breath or chest pain. Exam Vital Signs (past 8 hours): - 02/22/23 08:37 02/22/23 08:52 02/22/23 07:17 Temperature 98.8 F 98.4 F 98.0 F Pulse Rate 82 85 78 Respiratory Rate 14 16 20 Blood Pressure 103/34 L 111/36 L 111/36 L Pulse Oximetry 96 Oxygen Delivery Method Oxygen Flow Rate 0 02/22/23 10:10 02/22/23 07:00 02/22/23 07:00 Temperature 98.6 F Pulse Rate 77 Respiratory Rate 20 Blood Pressure 100/46 L Pulse Oximetry 97 Oxygen Delivery Method Room Air Room Air Oxygen Flow Rate 02/22/23 11:00 Temperature 98.2 F Pulse Rate 78 Respiratory Rate 21 Blood Pressure 115/30 L Pulse Oximetry 96 Oxygen Delivery Method Oxygen Flow Rate 0 Fraction of Inspired Oxygen 28 SaO2/FiO2 Ratio 357 Oxygen Delivery Method Room Air Oxygen Flow Rate 0 Narrative Exam Narrative: GEN: Very pleasant elderly male, Alert and oriented x 3, NAD, pale HEENT:NC, Face symmetric, edentulous, hearing impaired CHEST: Respiratory excursions symmetric, CTAB CV: RRR, no M/R/G ABD: Soft, NT/ND, BT present in all 4 quadrants, no organomegaly or masses EXTR: warm, well perfused, no C/C/trace to 1+ bilateral ankle edema, no significant asymmetry noted to his lower extremities. SKIN: warm and dry, no rash NEURO: Alert and oriented x 3, nonfocal Objective Labs 02/22/23 11:40 02/22/23 05:00 Labs: Laboratory Results - last 24 hr 02/21/23 02/21/23 02/22/23 08:50 18:35 05:00 WBC 7.3 RBC 2.13 L Hgb 6.9 L* 6.9 L* Hct 20.2 L* 19.9 L* MCV 93.4 MCH 32.2 MCHC 34.5 RDW 14.6 Plt Count 199 Neut % (Auto) 62.8 Lymph % (Auto) 19.4 L [place] % (Auto) 8.4 Eos % (Auto) 8.8 H Baso % (Auto) 0.6 Neut # (Auto) 4600 Lymph # (Auto) 1400 [place] # (Auto) 600 Eos # (Auto) 600 H Baso # (Auto) 0 Sodium Potassium Chloride Carbon Dioxide BUN Creatinine Estimated GFR BUN/Creatinine Ratio Glucose Calcium Magnesium Blood Type O Positive Antibody Screen Negative Crossmatch See Detail 02/22/23 02/22/23 05:00 11:40 WBC RBC Hgb 8.0 L Hct 23.1 L MCV MCH MCHC RDW Plt Count Neut % (Auto) Lymph % (Auto) [place] % (Auto) Eos % (Auto) Baso % (Auto) Neut # (Auto) Lymph # (Auto) [place] # (Auto) Eos # (Auto) Baso # (Auto) Sodium 134 L Potassium 3.8 Chloride 102 Carbon Dioxide 28 BUN 17 Creatinine 0.63 L Estimated GFR > 60 BUN/Creatinine Ratio 27.0 H Glucose 98 Calcium 8.3 L Magnesium 1.7 Blood Type Antibody Screen Crossmatch [facility] Medical History Anemia Chronic back pain (Unknown) Fractures Hearing loss (Unknown) Hx of flexible sigmoidoscopy (~01/2019) Surgical History (Updated 09/28/22 @ 14:09 by Brittany Petersen RN) Anesthesia H/O vasectomy History of back surgery (~2016) History of colonoscopy History of removal of Port-a-Cath Hx of neck surgery (~2020) S/P laparoscopic colectomy (01/10/19) Family History Father Heart disease Mother Cancer Congestive heart failure Sister Hypertension Cancer Brother Heart disease Rheumatic fever Brother No problems noted. Social History household members: none occupational status: employed Smoking Status: Former smoker alcohol intake: current Assessment & Plan Assessment & Plan narrative: 1. GI bleeding, likely upper EGD findings as noted above. Sawyer to be an upper GI bleed, without active bleeding identified at the time of endoscopy. There was some irritation noted around the duodenal. Biopsies are pending. continue IV PPI BID h/h finally responded to most recent transfusion from 6.9 > 8. Will continue to trend today. Hopefully has stopped downtrending as no melena since yesterday morning. if continued bleeding, consider discussion with surgery for possible transfer to center with IR capabilities, discussed with general surgery and they agree with this plan. Surgery also available for more invasive operation if emergent. 2. Acute blood loss anemia Hemoglobin was 13.8 on admission and subsequently dropped to 11.3 on the date of admission. Yesterday Hg was 6.9, got 1 U PRBC, with no improvement. After 2nd unit improved to 8.0. Now s/p 3 U total since admission. 3. Left lower extremity swelling This appears resolved today.? He does have bilateral ankle edema which is equal.? Ultrasound was negative for DVT 4. Hypoxia, resolved Unclear etiology.? Chest CT was negative.? Lungs are clear.? His O2 sats remain stable on room air. May be related to presenting anemia. 5. History of colon cancer CT of the chest, abdomen, and pelvis revealed no acute findings.? He has chronic mediastinal lymphadenopathy which appears stable. Due to the poor colonoscopy prep, patient will need follow-up with outpatient Gastroenterology for repeat colonoscopy. Code status Full, surrogate is patient's sister. Prophylaxis Chemical prophylaxis Contraindicated due to GI bleeding Surrogate decisionmaker: Nelly Edwards, sister Disposition pending stabilization of anemia. Possible transfer, have ordered therapy evaluations given weakness to see if home or SNF if h/h stabilizes. Additional history obtained via discussions with previous hospitalist provider. I have reviewed patient's presenting imaging, labs, and documentation personally. Discussed plan of care with patient and sister. Quality VTE Deep Vein Thrombosis/Pulmonary Embolism Present on Admission: No
--- NOTE | 2023-02-22 15:24 | OT.IP.EVAL ---
Current Diagnoses Gastrointestinal hemorrhage, unspecified (02/18/23) Surgery Performed Operation Date: 02/19/23 14:00 Actual Procedures p Esophagogastroduodenoscopy - Isabel Shahid MD s Colonoscopy - Isabel Shahid MD Past Medical History (Last Reviewed 02/18/23 @ 17:28 by Dawson Hernandez DO) Anemia Chronic back pain (Unknown) Fractures Hearing loss (Unknown) Hx of flexible sigmoidoscopy (~01/2019) Surgical History (Last Updated 09/28/22 @ 14:08 by Brittany Petersen RN) Anesthesia H/O vasectomy History of back surgery (~2016) History of colonoscopy History of removal of Port-a-Cath Hx of neck surgery (~2020) S/P laparoscopic colectomy (01/10/19) Occupational Therapy Inpatient Evaluation/Re-Eval M1 PT/OT-IP Prior Functional Status Start: 02/21/23 08:37 Freq: NEEDED Status: Active Protocol: Document 02/22/23 14:50 [facility] (Rec: 02/22/23 16:09 [facility] [id number]) Medical Review Prior Functional Status Medical History Reviewed Yes Communication Pt is able to make needs known . Mobility and Gait Uses a 4WW for all mobility. Endorses decreased activity level over the past few years. Pt states lately bought a motorized wc that he uses for longer distances at [employer]. Activities of Daily Living and IADL's Independent with dressing, showering, toileting. Does not drive, rather depends on sister, taxi, [employer] shuttle. Pt's sister assists with groceries. Pt has meals delivered to his room. He gets assist with cleaning and laundry Prior Functional Level (Other details) Pt had recent back sx 10/06/22 and per pt still follow his precautions and use of LB dressing equipment for dressing needs. Social History Household Members none Living Arrangements Apartment/Condo Number of Floors (Floors) One Floor Number of Stairs To Enter/Railing? Level entrance. Home Environment Standard Height Toilet,Walk in Shower Home Equipment Four Wheel Walker,Power Wheelchair/Scooter,Grab Bars Near Toilet,Grab Bars In Shower Employment Status Retired Additional Social History Comment Pt has lived at [facility] for ~1 year. 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 He has a local sister who provides assist with transportation and shopping needs. M2 OT-IP Current Condition Start: 02/22/23 15:48 Freq: Status: Active Protocol: Document 02/22/23 14:50 [facility] (Rec: 02/22/23 16:09 [facility] [id number]) Occupational Therapy Current Condition Current Condition Evaluation Date 02/22/23 Treatment Diagnosis S/p GI bleed, weakness Diagnosis Onset Date 02/18/23 Post Operative Precautions Lumbar Precautions Log Roll,No Twisting,Limit Bending M3 OT- IP Subjective and Pain Start: 02/22/23 15:48 Freq: Status: Active Protocol: Document 02/22/23 14:50 [facility] (Rec: 02/22/23 16:09 [facility] [id number]) OT- Subjective Occupational Therapy Visit Type Type Initial Evaluation Visit Start Time 14:50 Visit Stop Time 15:24 Total Visit Minutes 34 Occupational Therapy Visit Comments Patient Comments Pt initially not wanting to get up as too tired and agreed to get up. Pt given unit blood this morning and HH went up and per nursing okay to get the pt up. OT Pain Assessment Pain When Pain Assessed At Rest Pain Present Pain Present Pain Reported Location Bilateral Leg Intensity 5 Scale Used Numeric (0 - 10) M4 OT- IP ADL's Start: 02/22/23 15:48 Freq: Status: Active Protocol: Document 02/22/23 14:50 [facility] (Rec: 02/22/23 16:09 [facility] [id number]) OT [id number] Comments OT Self-Feeding Comments Not at meal time, not issues anticipated. OT ADL-Grooming General Evaluation Grooming Ability Standby Assistance Areas Needing Assistance Retrieving/Set-up of Grooming Items Comments OT Grooming Comments Pt able to brush his hair while seated. Pt states usually sits for his grooming needs. OT ADL-Oral Care Comments Oral Care Comments Pt not wanting to do at this time. OT ADL-Dressing General Eval Lower Body Dressing Ability Maximum Assistance Areas Needing Assistance Socks Comments OT Dressing Comments Pt states uses a sock aid and accounts payable technician at home to assist. Pt states, It is a balancing act trying to get my pants on while standing. Suggested pt get assist, use of suspenders, or rope clipped to his pants so they do not fall down as he stands. OT ADL-Toileting Comments OT Toileting Comments Pt not having to go at this time. OT ADL-Bathing Comments OT Bathing Comments At this time would be best for pt to get assist for showering needs due to decreased activity tolerance and balance. M5 OT- IP IADL's Start: 02/22/23 15:48 Freq: Status: Active Protocol: Document 02/22/23 14:50 [facility] (Rec: 02/22/23 16:09 [facility] [id number]) OT-Instrumental Activities of Daily Living Deficits IADL Deficits Identified Deficits Home Safety Awareness Awareness of Need for Assistance at Home Good Awareness Home Safety Comments Pt feels that he will be able to care for himself even though he knows he is not at his baseline. Pt states to get his sisters to come and assist him if needed. Medication Management Medication Management Comments Pt states was independent. Money Management Money Management Comments Pt states did prior. Meal Preparation Meal Preparation Caregiver Provides Assist Ice Cream Chef Ice Cream Chef Caregiver Provides Assist Driving Driving Caregiver Provides Assist M6 OT- IP Functional Cognition Start: 02/22/23 15:48 Freq: Status: Active Protocol: Document 02/22/23 14:50 [facility] (Rec: 02/22/23 16:09 [facility] [id number]) Cognitive Factors Limiting Selfcare Function Cognitive Ability Level of Alertness Alert Patient Orientation Name,Place,Situation Attention Span Ability Capable of Focused Attention, Capable of Sustained Attention Ability to Follow Commands Able to Follow One Step Commands Safety Awareness Decreased Ability to Apply Precautions Cognitive Comments Cognitive Assessment Comments Pt needing reminders to follow his back precautions as pt tends to reach back with his left arm versus keeping it forwards while getting to sidelying in the bed. OT- Vision and Hearing OT- Hearing Assessment OT- Hearing Assessment Hearing Impaired,Use of Hearing Aids OT- Vision Assessment Visual Acuity Glasses For Reading Visual Attentiveness WFL Occular Pursuits WFL M7 OT- IP Mobility and Balance Start: 02/22/23 15:48 Freq: Status: Active Protocol: Document 02/22/23 14:50 [facility] (Rec: 02/22/23 16:09 [facility] [id number]) OT- Bed Mobility Assessment Supine to Sit Supine to Sit Assist Standby Assistance Sit to Supine Sit to Supine Assist Minimal Assistance OT-Transfer Assessment Sit to and From Stand Sit to and from Stand Standby Assistance Transfers Transfer Ability Standby Assistance Technique Transfer Destination Bed,Chair Transfer Technique Stand Step Pivot Devices Transfer Assistive Devices Gait Belt,4 Wheeled Walker Comments Mobility Comments 107/47 supine, 122/39 sitting and feeling a little dizzy, and while standing 114/51. Pt increased time to scoot forwards to the edge of the bed. Pt tends to use the back on his legs to assist to stand. Pt having difficulty to get his weight over his feet. close SBA for safety coming to stand and for the transfer to the recliner and back to bed. OT- Balance Assessment Sitting Balance and Reactions Static Sitting Balance Ability Good Dynamic Sitting Balance Ability Fair Standing Balance and Reactions Static Standing Balance Ability Poor Dynamic Standing Balance Ability Poor M8 OT- IP Objective Assessments Start: 02/22/23 15:48 Freq: Status: Active Protocol: Document 02/22/23 14:50 [facility] (Rec: 02/22/23 16:09 [facility] [id number]) OT Gross Range of Motion Upper Extremity Range of Motion Assessment Within Functional Limits OT Strength Upper Extremity Strength Assessment Left Impaired Comments Strength Comments RUE grossly 4/5 and LUE 4-/5 OT-Muscle Tone Assessment Muscle Tone WNL Yes M9 OT- IP Assessment and Plan Start: 02/22/23 15:48 Freq: Status: Active Protocol: Document 02/22/23 14:50 [facility] (Rec: 02/22/23 16:09 [facility] [id number]) OT Summary Assessment and Plan Potential Rehabilitation Potential Good Analytic Complexity at Evaluation Moderate Summary OT Impairments Pain,Strength,Balance, Functional Mobility,Dressing, Toileting,Bathing,Toilet Transfers,Shower Transfers, Activity Tolerance Progress Towards Goals Slow Progress due to Pain,Slow Progress due to Medical Issues,Slow Progress due to Activity Tolerance Assessment Summary Pt mod complexity and main barriers are decreased activity tolerance,balance, and overall strength. Pt having GI bleed and having had transfusion while here in the hospital. Pt has poor balance and high risk for fall due to weakness and that pt has neuropathy. Pt would greatly benefit from skilled rehab however pt adamantly refusing. Otherwise pt will benefit from home with 24/7 assist and home health. Goals Self-Feeding Goal Independent Grooming Goal Independent Dressing Goal Independent Toileting Goal Independent Bathing Goal Independent Toilet Transfer Goal Independent Shower Transfer Goal Independent Days to Meet Goals 10 Frequency of Treatment Frequency Of Treatment Once a Day Treatment Plan OT Treatment Plan ADL Training,Functional Mobility,Patient/Family Education,Discharge Planning Other Treatment Recommendations and Next Use of LB dressing equipment. Treatment Focus Discharge Recommendations OT Discharge Recommendations SNF Rehab - -otherwise as pt refusing SNF Home with / Assist Available,Home Health ,Home vs SNF Transportation Needs at Discharge Private Vehicle,Wheelchair/ Cabulance
--- NOTE | 2023-02-22 15:24 | PC.NURSE ---
Late Entry: Transfusion [id number] ended 02/20 0000, [employer] allowable entry, actual end time 02/19 2341 per 3d designer of container volume 0. Confirmed with Tile Setter Apprentice of Laboratory ServicesSandra.
[2023-02-22 18:22] LABS: Hematocrit 24.4 % (41-53); Hemoglobin 8.4 g/dL (13.5-17.5)
[2023-02-22] MEDS: HYDROCODONE/ACET 5/325 TABLET 1 TAB PO (21:54)
[2023-02-23] VITALS (8 sets, daily range): BP systolic 101–135; BP diastolic 41–71; PULSE 66–77; RESP 16–20; TEMP 35.8–37; O2SAT 93–98
[2023-02-23] MEDS: HYDROCODONE/ACET 5/325 TABLET 1 TAB PO ×3 (02:59→13:40)
[2023-02-23 05:28] LABS: Add Manual Diff / Slide Review NO; Basophils Absolute Auto 0 /uL (0-100); Basophils Percent Auto 0.5 % (0-2); Eosinophils Absolute Auto 800 /uL (0-450); Eosinophils Percent Auto 11.6 % (2-4); Lymphocytes Absolute Auto 1300 /uL (1100-4500); Lymphocytes Percent Auto 19.5 % (25-40); Mean Corpuscular HGB Conc 34.9 % (30-36); Mean Corpuscular Hemoglobin 32.7 PG (26-34); Mean Corpuscular Volume 93.9 fL (80-100); Monocytes Absolute Auto 600 /uL (0-900); Monocytes Percent Auto 8.5 % (3-14); Neutrophils Absolute Auto 4100 /uL (1500-7000); Neutrophils Percent Auto 59.9 % (50-75); Platelet Count 187 X10^3/uL (150-400); Red Blood Cell Count 2.15 X10^6/uL (4.5-5.9); Red Cell Distribution Width 14.1 % (11.6-14.8); White Blood Cell Count 6.8 X10^3/uL (4.5-11.0)
[2023-02-23 05:57] LABS: BUN Creatinine Ratio 21.7 (6-22); Blood Urea Nitrogen 13 mg/dL (9-20); Calcium 8.2 mg/dL (8.4-10.2); Carbon Dioxide 28 mmol/L (22-32); Chloride 98 mmol/L (98-107); Estimated Glomerular Filt Rate > 60 mL/min (>60); Glucose 101 mg/dL (80-110); HEMOLYSIS < 15 (0-50); Magnesium 1.6 mg/dL (1.6-2.3); Potassium 3.8 mmol/L (3.4-5.1); Sodium 131 mmol/L (137-145)
[2023-02-23 06:04] LABS: Hematocrit 20.2 % (41-53)
[2023-02-23] MEDS: GABAPENTIN 600 MG TABLET PO ×3 (09:07→21:30)
[2023-02-23] MEDS: SODIUM CHLORIDE 0.9% FLUSH 10 ML IV ×2 (09:09→21:33)
[2023-02-23] MEDS: LIDOCAINE PATCH 1 EACH ADH..PATCH TOP (09:10)
[2023-02-23] MEDS: PANTOPRAZOLE 40 MG VIAL IV ×2 (09:10→21:32)
--- NOTE | 2023-02-23 09:10 | DI.CT.S_ITS ---
PROCEDURE: CT ANGIO ABDOMEN PELVIS INDICATIONS: continued GI bleeding, eval for source TECHNIQUE: After the administration of intravenous contrast, 2.5 mm thick sections acquired from the diaphragm to the symphysis. 10 mm maximum-intensity projection (MIP) reformats were then acquired. For radiation dose reduction, the following was used: automated exposure control. COMPARISON: [facility], CT, CT ABDOMEN PELVIS W CON, 02/18/2023, 17:11. FINDINGS: Image quality: Excellent. Aorta/mesenteric arteries: The aorta has a normal caliber. There are diffuse atherosclerotic calcifications. The SMA, celiac trunk, both renal arteries, and the MARINO are patent. In the right colon posteriorly there is a 7 x 3 mm hyperdensity which layers posteriorly and has a rounded appearance not typical of active extravasation. There is also layering hyperdensity at the hepatic flexure. A precontrast CT was not initially performed but was subsequently performed 2 hours after the arterial phase CT and demonstrated the same hyperdensities. Pelvic arteries: Both iliac arteries have atherosclerotic calcifications with multifocal stenosis. Right Lung bases: Lung bases are clear. Heart size is normal. Solid organs: Liver: The liver has no mass or intrahepatic biliary ductal dilatation. Biliary: The gallbladder has no gallstones, pericholecystic fluid, gallbladder wall thickening, or surrounding inflammatory change. Pancreas: The pancreas has no mass or ductal dilatation. There is no surrounding inflammation. Spleen: Normal size. There are no masses. Adrenals: No hypertrophy or nodules. Kidneys: No obstructive calculus or hydronephrosis. 1 cm simple cyst in the inferior pole of the right kidney. No solid mass. No cystic mass. Peritoneum and bowel: The distal esophagus and stomach are normal. The small bowel has a normal caliber and appearance. The terminal ileum is normal. The large bowel has several hyperdense foci in the right colon, 1 on series 4, image 120 and 1 on series 4, image 74. It is unclear if these are active extravasation. No precontrast images were performed, however these were also present on a delayed CT which was performed 2 hours after the injection. Anastomotic sutures are present at the rectosigmoid junction. No mass or extravasation at this location. No free air or free fluid. Nodes and vessels: No retroperitoneal or mesenteric adenopathy by size criteria. Aorta and inferior vena cava are normal in size. Atherosclerotic calcifications are seen in the aorta. Miscellaneous: No abdominal wall mass or hernia. PELVIS: Genitourinary: The bladder has no wall thickening or mass. No bladder calcifications. Bones: No suspicious bony lesions. Multilevel degenerative changes. Postoperative changes spanning from L3 through S1. IMPRESSION: No definite extravasation is seen. Areas of hyperdensity in the right colon are present but are also present in a delayed noncontrast study which was performed. Although the noncontrast scan was performed delayed, 2 hours after, the arterial scan instead of before and is therefore less sensitive the persistence after 2 hours suggests lack of active extravasation. These findings were discussed with Dr. Fisher. Recommendations are to perform a nuclear medicine bleeding scan. Dictated by: Jacques Byrd M.D. on 02/23/2023 at 10:09 Approved by: Jacques Byrd M.D. on 02/23/2023 at 13:18
--- NOTE | 2023-02-23 10:07 | OT.IPNOTE ---
Per hospitalist okay for pt to be discharged from OT services due to low HH and looking to be transferred out.
--- NOTE | 2023-02-23 10:10 | PT.IPTN ---
Current Diagnoses Gastrointestinal hemorrhage, unspecified (02/18/23) Surgery Performed Operation Date: 02/19/23 14:00 Actual Procedures p Esophagogastroduodenoscopy - Isabel Shahid MD s Colonoscopy - Isabel Shahid MD Physical Therapy Treatment Note M2 PT-IP Current Condition Start: 02/21/23 08:37 Freq: NEEDED Status: Active Protocol: Document 02/21/23 11:00 AW (Rec: 02/21/23 12:58 AW [id number]) Physical Therapy Current Condition Current Condition Evaluation Date 02/21/23 Treatment Diagnosis GI bleed, impaired mobility, decreased functional capacity Onset Date 02/15/23 M3 PT-IP Subjective Start: 02/21/23 08:37 Freq: NEEDED Status: Active Protocol: Document 02/23/23 10:08 AB (Rec: 02/23/23 10:09 AB [id number]) Subjective Physical Therapy Visit Type Type Administrative Note Notes Per hospitalist during multidisciplinary rounds: pt continues to have GI bleed and low H&H and will be transferred to a high care facility. d/c PT. M7 PT-IP Assessment and Plan Start: 02/21/23 08:37 Freq: NEEDED Status: Active Protocol: Document 02/23/23 10:08 AB (Rec: 02/23/23 10:10 AB [id number]) PT Summary Assessment and Plan Frequency of Treatment Frequency Of Treatment Discharge
[2023-02-23] MEDS: MAGNESIUM CHLORIDE 64 MG TABLET 128 MG PO (11:06)
--- NOTE | 2023-02-23 11:21 | DI.NM.S_ITS ---
PROCEDURE: NM GI BLEEDING RADIOPHARMACEUTICAL: 26.6 mCi Tc-99m in vitro labeled autologous red cells IV. INDICATIONS: localize bleeding for possible IR intervention TECHNIQUE: Following intravenous administration of Tc-99m in vitro labeled autologous red cells, sequential anterior abdominal images were obtained of the abdomen. COMPARISON: [facility], CT, CT ANGIO ABDOMEN PELVIS, 02/23/2023, 9:09. FINDINGS: There is no definite extravasation of labeled red cells in the abdomen or pelvis to suggest active gastrointestinal bleeding. IMPRESSION: No definite evidence of active gastrointestinal hemorrhage identified. Dictated by: Rodney Tamez M.D. on 02/23/2023 at 20:01 Approved by: Rodney Tamez M.D. on 02/23/2023 at 20:07
--- NOTE | 2023-02-23 13:22 | PM.PN.1 ---
Subjective Subjective Interval history: Patient feels a bit better, but overnight with more melena. H/h down from 8.4 to 7 this AM. Surgery recommended IR, Discussed with IR at [facility] whom recommended CTA. CTA without obvious active extravasation and recommended tagged RBC study, now pending. Exam Vital Signs (past 8 hours): - 02/23/23 08:00 02/23/23 09:58 02/23/23 11:30 Temperature 98.6 F 98.6 F 97.7 F Pulse Rate 66 72 73 Respiratory Rate 18 16 16 Blood Pressure 125/56 L 124/55 L 101/41 L Pulse Oximetry 95 95 Oxygen Flow Rate 0 0 Fraction of Inspired Oxygen 28 SaO2/FiO2 Ratio 357 Oxygen Delivery Method Room Air Oxygen Flow Rate 0 Narrative Exam Narrative: GEN: Very pleasant elderly male, Alert and oriented x 3, NAD, pale HEENT:NC, Face symmetric, edentulous, hearing impaired CHEST: Respiratory excursions symmetric, CTAB CV: RRR, no M/R/G ABD: Soft, NT/ND, BT present in all 4 quadrants, no organomegaly or masses EXTR: warm, well perfused, no significant asymmetry noted to his lower extremities. SKIN: warm and dry, no rash NEURO: Alert and oriented x 3, nonfocal Objective Labs 02/23/23 04:59 02/23/23 04:59 Labs: Laboratory Results - last 24 hr 02/21/23 02/22/23 02/23/23 08:50 18:10 04:59 WBC 6.8 RBC 2.15 L Hgb 8.4 L 7.0 L Hct 24.4 L 20.2 L* MCV 93.9 MCH 32.7 MCHC 34.9 RDW 14.1 Plt Count 187 Neut % (Auto) 59.9 Lymph % (Auto) 19.5 L [place] % (Auto) 8.5 Eos % (Auto) 11.6 H Baso % (Auto) 0.5 Neut # (Auto) 4100 Lymph # (Auto) 1300 [place] # (Auto) 600 Eos # (Auto) 800 H Baso # (Auto) 0 Sodium Potassium Chloride Carbon Dioxide BUN Creatinine Estimated GFR BUN/Creatinine Ratio Glucose Calcium Magnesium Blood Type O Positive Antibody Screen Negative Crossmatch See Detail 02/23/23 04:59 WBC RBC Hgb Hct MCV MCH MCHC RDW Plt Count Neut % (Auto) Lymph % (Auto) [place] % (Auto) Eos % (Auto) Baso % (Auto) Neut # (Auto) Lymph # (Auto) [place] # (Auto) Eos # (Auto) Baso # (Auto) Sodium 131 L Potassium 3.8 Chloride 98 Carbon Dioxide 28 BUN 13 Creatinine 0.60 L Estimated GFR > 60 BUN/Creatinine Ratio 21.7 Glucose 101 Calcium 8.2 L Magnesium 1.6 Blood Type Antibody Screen Crossmatch [facility] Medical History Anemia Chronic back pain (Unknown) Fractures Hearing loss (Unknown) Hx of flexible sigmoidoscopy (~01/2019) Surgical History (Updated 09/28/22 @ 14:09 by Brittany Petersen RN) Anesthesia H/O vasectomy History of back surgery (~2016) History of colonoscopy History of removal of Port-a-Cath Hx of neck surgery (~2020) S/P laparoscopic colectomy (01/10/19) Family History Father Heart disease Mother Cancer Congestive heart failure Sister Hypertension Cancer Brother Heart disease Rheumatic fever Brother No problems noted. Social History household members: none occupational status: employed Smoking Status: Former smoker alcohol intake: current Assessment & Plan Assessment & Plan narrative: 1. GI bleeding, likely upper EGD findings as noted above. [place] to be an upper GI bleed, without active bleeding identified at the time of endoscopy. There was some irritation noted around the duodenal. Biopsies are pending. continue IV PPI BID He has continued to have intermittent bleeding, most recently overnight. He is getting his 4th unit of blood today, will assess response to this unit today with another h/h. working with interventional radiologist at [facility] to determine source today. Initial CTA without obvious source. Recommended tagged RBC study which will be later this afternoon. If source is able to be identified may go to [facility] for IR, with possible transfer back. 2. Acute blood loss anemia Hemoglobin was 13.8 on admission and subsequently dropped to 11.3 on the date of admission. Has been as low as 6.9. Was 7.0 this morning and ordered 1U PRBC. Now with 4 U PRBC this admission. 3. Left lower extremity swelling This appears resolved today.? He does have bilateral ankle edema which is equal.? Ultrasound was negative for DVT 4. Hypoxia, resolved Unclear etiology.? Chest CT was negative.? Lungs are clear.? His O2 sats remain stable on room air. May be related to presenting anemia. 5. History of colon cancer CT of the chest, abdomen, and pelvis revealed no acute findings.? He has chronic mediastinal lymphadenopathy which appears stable. Due to the poor colonoscopy prep, patient will need follow-up with outpatient Gastroenterology for repeat colonoscopy. Code status Full, surrogate is patient's sister. Prophylaxis Chemical prophylaxis Contraindicated due to GI bleeding Surrogate decisionmaker: Nelly Edwards, sister Disposition pending stabilization of anemia. Possible transfer, have ordered therapy evaluations given weakness to see if home or SNF if h/h stabilizes. Discussed with interventional radiologist Dr. Briones at [facility] to forumlate the above plan. I have reviewed patient's presenting imaging, labs, and documentation personally. Discussed plan of care with patient. Quality VTE Deep Vein Thrombosis/Pulmonary Embolism Present on Admission: No
--- NOTE | 2023-02-23 13:30 | CM.DPC ---
DCP Cont: Discussed patient during team rounds. Patient continues to have dropping H&H. Plan is to transfer patient to higher level hospital as soon as a bed becomes available. P: DCP to continue to follow. Plan is for transfer to higher level of care. Gloria Roque RN/[facility]
[2023-02-23] MEDS: HYDROCODONE/ACET 10/325 TABLET 1 TAB PO (15:22)
[2023-02-23 19:31] LABS: Hemoglobin 9.1 g/dL (13.5-17.5)
[2023-02-24] VITALS (9 sets, daily range): BP systolic 108–139; BP diastolic 51–70; PULSE 61–78; RESP 15–18; TEMP 36.1–36.6; O2SAT 94–99
[2023-02-24 05:58] LABS: BUN Creatinine Ratio 13.8 (6-22); Blood Urea Nitrogen 8 mg/dL (9-20); Calcium 8.4 mg/dL (8.4-10.2); Carbon Dioxide 31 mmol/L (22-32); Chloride 101 mmol/L (98-107); Estimated Glomerular Filt Rate > 60 mL/min (>60); Glucose 97 mg/dL (80-110); HEMOLYSIS < 15 (0-50); Magnesium 1.9 mg/dL (1.6-2.3); Sodium 134 mmol/L (137-145)
[2023-02-24 06:12] LABS: Hematocrit 24.5 % (41-53); Hemoglobin 8.4 g/dL (13.5-17.5); Mean Corpuscular HGB Conc 34.5 % (30-36); Mean Corpuscular Hemoglobin 32.2 PG (26-34); Mean Corpuscular Volume 93.4 fL (80-100); Platelet Count 223 X10^3/uL (150-400); Red Blood Cell Count 2.62 X10^6/uL (4.5-5.9); Red Cell Distribution Width 14.5 % (11.6-14.8); White Blood Cell Count 7.3 X10^3/uL (4.5-11.0)
[2023-02-24 06:13] LABS: Add Manual Diff / Slide Review YES
[2023-02-24 06:44] LABS: Neutrophils Absolute Manual 4599 /uL (3000-5900); RBC Morphology Normal Morphology; Total Cells Counted 100
[2023-02-24] MEDS: GABAPENTIN 600 MG TABLET PO ×3 (08:26→20:40)
[2023-02-24] MEDS: PANTOPRAZOLE 40 MG VIAL IV ×2 (08:26→20:40)
[2023-02-24] MEDS: SODIUM CHLORIDE 0.9% FLUSH 10 ML IV ×2 (08:27→20:41)
[2023-02-24] MEDS: LIDOCAINE PATCH 1 EACH ADH..PATCH TOP (08:27)
[2023-02-24] MEDS: HYDROCODONE/ACET 10/325 TABLET 1 TAB PO (10:35)
[2023-02-24 13:00] LABS: Hematocrit 26.1 % (41-53); Hemoglobin 9.1 g/dL (13.5-17.5)
--- NOTE | 2023-02-24 14:42 | P.PN_ITS ---
Subjective Subjective Interval history: No source of bleeding identified with CTA or nuclear scan yesterday. No melena reported today. He felt too tired to work with therapy this afternoon. Will reattempt later today. Exam Vital Signs (past 8 hours): - 02/24/23 08:29 02/24/23 07:00 02/24/23 08:00 Temperature 97.0 F L 97.0 F L Pulse Rate 71 66 66 Respiratory Rate 16 17 17 Blood Pressure 134/66 134/66 Pulse Oximetry 98 99 99 Oxygen Delivery Method Nasal Cannula Oxygen Flow Rate 2 0 0 Fraction of Inspired Oxygen 28 02/24/23 07:00 02/24/23 12:00 Temperature 97.1 F L Pulse Rate 71 Respiratory Rate 17 Blood Pressure 130/65 Pulse Oximetry 98 98 Oxygen Delivery Method Room Air Oxygen Flow Rate 0 0 Fraction of Inspired Oxygen Fraction of Inspired Oxygen 28 SaO2/FiO2 Ratio 350 Oxygen Delivery Method Nasal Cannula Oxygen Flow Rate 0 Narrative Exam Narrative: GEN: Very pleasant elderly male, Alert and oriented x 3, NAD, pale HEENT:NC, Face symmetric, edentulous, hearing impaired CHEST: Respiratory excursions symmetric, CTAB CV: RRR, no M/R/G ABD: Soft, NT/ND, BT present in all 4 quadrants, no organomegaly or masses EXTR: warm, well perfused, no significant asymmetry noted to his lower extremities. SKIN: warm and dry, no rash NEURO: Alert and oriented x 3, nonfocal Objective Labs 02/24/23 12:55 02/24/23 05:35 Labs: Laboratory Results - last 24 hr 02/23/23 02/24/23 02/24/23 19:25 05:35 05:35 WBC 7.3 RBC 2.62 L Hgb 9.1 L 8.4 L Hct 26.0 L 24.5 L MCV 93.4 MCH 32.2 MCHC 34.5 RDW 14.5 Plt Count 223 Neut % (Auto) Not Reportable Lymph % (Auto) Not Reportable [place] % (Auto) Not Reportable Eos % (Auto) Not Reportable Baso % (Auto) Not Reportable Lymph # (Auto) Not Reportable [place] # (Auto) Not Reportable Baso # (Auto) Not Reportable Total Counted 100 Seg Neutrophils % 61.0 Band Neutrophils % 2.0 L Lymphocytes % (Manual) 23.0 L Monocytes % (Manual) 8.0 Eosinophils % (Manual) 6.0 H Neutrophils # (Manual) 4599 RBC Morphology Normal morphology Sodium 134 L Potassium 4.0 Chloride 101 Carbon Dioxide 31 BUN 8 L Creatinine 0.58 L Estimated GFR > 60 BUN/Creatinine Ratio 13.8 Glucose 97 Calcium 8.4 Magnesium 1.9 02/24/23 12:55 WBC RBC Hgb 9.1 L Hct 26.1 L MCV MCH MCHC RDW Plt Count Neut % (Auto) Lymph % (Auto) [place] % (Auto) Eos % (Auto) Baso % (Auto) Lymph # (Auto) [place] # (Auto) Baso # (Auto) Total Counted Seg Neutrophils % Band Neutrophils % Lymphocytes % (Manual) Monocytes % (Manual) Eosinophils % (Manual) Neutrophils # (Manual) RBC Morphology Sodium Potassium Chloride Carbon Dioxide BUN Creatinine Estimated GFR BUN/Creatinine Ratio Glucose Calcium Magnesium [facility] Medical History Anemia Chronic back pain (Unknown) Fractures Hearing loss (Unknown) Hx of flexible sigmoidoscopy (~01/2019) Surgical History (Updated 09/28/22 @ 14:09 by Brittany Petersen RN) Anesthesia H/O vasectomy History of back surgery (~2016) History of colonoscopy History of removal of Port-a-Cath Hx of neck surgery (~2020) S/P laparoscopic colectomy (01/10/19) Family History Father Heart disease Mother Cancer Congestive heart failure Sister Hypertension Cancer Brother Heart disease Rheumatic fever Brother No problems noted. Social History household members: none occupational status: employed Smoking Status: Former smoker alcohol intake: current Assessment & Plan Assessment & Plan narrative: 1. GI bleeding, likely upper EGD findings as noted above. [place] to be an upper GI bleed, without active bleeding identified at the time of endoscopy. There was some irritation noted around the duodenal. Biopsies are pending. continue IV PPI BID He has continued to have intermittent bleeding, most recently yesterday. He has received 4 U of blood in total, will assess response to this unit today with another h/h. Initial CTA without obvious source. Recommended tagged RBC study which also showed no active bleeding. 2. Acute blood loss anemia Hemoglobin was 13.8 on admission and subsequently dropped to 11.3 on the date of admission. Has been as low as 6.9. Was 7.0 yesterday and ordered 1U PRBC. Now with 4 U PRBC this admission. Has been stable last 3 between 8 and 9. 3. Left lower extremity swelling This appears resolved today.? He does have bilateral ankle edema which is equal.? Ultrasound was negative for DVT 4. Hypoxia, resolved Unclear etiology.? Chest CT was negative.? Lungs are clear.? His O2 sats remain stable on room air. May be related to presenting anemia. 5. History of colon cancer CT of the chest, abdomen, and pelvis revealed no acute findings.? He has chronic mediastinal lymphadenopathy which appears stable. Due to the poor colonoscopy prep, patient will need follow-up with outpatient Gastroenterology for repeat colonoscopy. Code status Full, surrogate is patient's sister. Prophylaxis Chemical prophylaxis Contraindicated due to GI bleeding Surrogate decisionmaker: Nelly Edwards, sister Disposition pending therapy evaluations, h/h now likely stable. Likely discharge home tomorrow. Quality VTE Deep Vein Thrombosis/Pulmonary Embolism Present on Admission: No
--- NOTE | 2023-02-24 15:15 | PT.IPRE ---
Current Diagnoses Gastrointestinal hemorrhage, unspecified (02/18/23) Surgery Performed Operation Date: 02/19/23 14:00 Actual Procedures p Esophagogastroduodenoscopy - Isabel Shahid MD s Colonoscopy - Isabel Shahid MD Surgical History (Last Updated 09/28/22 @ 14:08 by Brittany Petersen RN) Anesthesia H/O vasectomy History of back surgery (~2016) History of colonoscopy History of removal of Port-a-Cath Hx of neck surgery (~2020) S/P laparoscopic colectomy (01/10/19) Medical History (Last Reviewed 02/18/23 @ 17:28 by Dawson Hernandez DO) Anemia Chronic back pain (Unknown) Fractures Hearing loss (Unknown) Hx of flexible sigmoidoscopy (~01/2019) Physical Therapy Inpatient Evaluation/Re-Eval M1 PT/OT-IP Prior Functional Status Start: 02/21/23 08:37 Freq: NEEDED Status: Active Protocol: Document 02/24/23 17:08 AB (Rec: 02/24/23 17:24 AB [id number]) Medical Review Prior Functional Status Medical History Reviewed Yes Communication Pt is able to make needs known . Mobility and Gait Uses a 4WW for all mobility. Endorses decreased activity level over the past few years. Pt states lately bought a motorized wc that he uses for longer distances at [facility]. Activities of Daily Living and IADL's Independent with dressing, showering, toileting. Does not drive, rather depends on sister, taxi, [employer] shuttle. Pt's sister assists with groceries. Pt has meals delivered to his room. He gets assist [facility] cleaning and laundry Prior Functional Level (Other details) Pt had recent back sx 10/06/22 and per pt still follow his precautions and use of LB dressing equipment for dressing needs. Social History Household Members none Living Arrangements Apartment/Condo Number of Floors (Floors) One Floor Number of Stairs To Enter/Railing? Level entrance. Home Environment Standard Height Toilet,Walk in Shower Home Equipment Four Wheel Walker,Power Wheelchair/Scooter,Grab Bars Near Toilet,Grab Bars In Shower Employment Status Retired Additional Social History Comment Pt has lived at [facility] for ~1 year. 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 He has a local sister who provides assist with transportation and shopping needs. M2 PT-IP Current Condition Start: 02/21/23 08:37 Freq: NEEDED Status: Active Protocol: Document 02/24/23 17:08 AB (Rec: 02/24/23 17:24 AB [id number]) Physical Therapy Current Condition Current Condition Evaluation Date 02/24/23 Treatment Diagnosis GI bleed; generalized weakness Onset Date 02/18/23 M3 PT-IP Subjective Start: 02/21/23 08:37 Freq: NEEDED Status: Active Protocol: Document 02/24/23 17:08 AB (Rec: 02/24/23 17:24 AB [id number]) Subjective Physical Therapy Visit Type Type Re-Evaluation Visit Start Time 15:15 Visit Stop Time 15:54 Total Visit Minutes 39 Physical Therapy Visit Comments Patient Comments Pt presents semi supine in bed and is agreeable to PT re- eval this afternoon, having refused x1 earlier today. He reports he is having low back pain currently. Therapy Pain Assessment Pain When Pain Assessed At Rest Pain Present Pain Present Pain Reported Location Back Pain Behaviors Facial Grimacing Pain Management Techniques Re-positioning M4 PT-IP Mobility and Gait Start: 02/21/23 08:37 Freq: NEEDED Status: Active Protocol: Document 02/24/23 17:08 AB (Rec: 02/24/23 17:24 AB [id number]) PT-Bed Mobility Assessment Rolling Level of Assist Standby Assistance Supine to Sit Supine to Sit Standby Assistance Sit to Supine Sit to Supine Standby Assistance Scooting Scooting to Edge of Bed Standby Assistance Scooting Up and Down in Bed Standby Assistance PT-Transfer Assessment Sit to and From Stand Sit to and from Stand Standby Assistance,Use of Upper Extremities Equipment Transfer Assistive Device Gait Belt,4 Wheeled Walker Transfers Transfer Destination Bed Transfer Technique Stand Step Pivot Transfer Ability Level of Assist Standby Assistance,Use of Upper Extremities Gait Assessment Gait Gait Assistance Required: Standby Assistance Distance (Feet) 20 Assistive Devices Assistive Device Gait Belt,4 Wheeled Walker Gait Deviations General Gait Pattern Decreased Stride Length, Decreased Feet Clearance, Narrow Based Gait Factors Limiting Gait Function Factors Limiting Gait Function Decreased Activity Tolerance, Decreased Strength Comments Gait Comments Pt uses his own 4WW but keeps brakes on, as he feels more steady with them on due to weakness, but removes them when he feels more steady. Stair Climbing Assessment Comments Stair Climbing Comments Not assessed due to weakness and fatigue. PT-Balance Assessment Sitting Balance and Reactions Static Sitting Balance Ability Good Dynamic Sitting Balance Ability Fair Standing Balance and Reactions Static Standing Balance Ability Poor Dynamic Standing Balance Ability Poor Device Used 4WW Comments Other Balance Tests/Deviations/Treatment Pt leans the back of his legs : on the bed to steady himself in standing. M5 PT-IP Objective Assessments Start: 02/21/23 08:37 Freq: NEEDED Status: Active Protocol: Document 02/24/23 17:08 AB (Rec: 02/24/23 17:24 AB [id number]) Orientation Orientation/Cognition Level of Alertness Alert Orientation Name,Date,Place,Situation Language Function Ability No Deficits Noted Safety Awareness Understands Safety Issues Memory Description No Deficits Noted Gross Range of Motion Upper Extremity ROM Assessment Within Functional Limits Lower Extremity ROM Assessment Within Functional Limits Strength Upper Extremity Strength Assessment Within Functional Limits Lower Extremity Strength Assessment Within Functional Limits M6 PT-IP Treatment Start: 02/21/23 08:37 Freq: NEEDED Status: Active Protocol: Document 02/24/23 17:08 AB (Rec: 02/24/23 17:24 AB [id number]) Physical Therapy Treatment Education Education Provided Safety Brace Education Patient Other Treatments Other Treatment Performed At end of session, the pt is left with OT to finish OT eval . M7 PT-IP Assessment and Plan Start: 02/21/23 08:37 Freq: NEEDED Status: Active Protocol: Document 02/24/23 17:08 AB (Rec: 02/24/23 17:24 AB [id number]) PT Summary Assessment and Plan Potential Rehabilitation Potential Good Status of Condition at Evaluation Stable Summary Impairments Strength,Balance,Bed Mobility, Transfers,Gait,Activity Tolerance Assessment Summary Talat Stevenson is a 77 year old male patient presenting with generalized weakness causing him to have difficulty performing functional mobility tasks. He currently requires SBA for all functional mobility, with the exception of stairs which were not performed today due to weakness and fatigue. The pt was able to ambulated 20ft with 4WW, demonstrating good safety awareness, including communicating when he needed to sit and rest. At the beginning of the session, the pt reported increased LBP in supine, which resolved with repositioning and movement upon ambulating. He denies any other symptoms throughout. Based on the pt's current level of function and current impairments, PT recommends discharged to home with assistance and resuming home health PT. He would benefit from continued skilled PT interventions during his hospitalization to help him improve to his highest level of function. Goals Bed Mobility Goal Independent Transfer Goal Independent,Four Wheeled Walker Gait Goal Independent,Four Wheel Walker Gait Distance 50 Other Goals Pt to perform transfers and ambulation independently with 4WW to demonstrate improved strength and endurance to safely discharge to home. Days to Meet Goals 10 Frequency of Treatment Frequency Of Treatment Once a Day Treatment Plan Physical Therapy Treatment Plan Bed Mobility Training,Transfer Training,Gait Training, Therapeutic Exercise,Balance Retraining,Discharge Planning, Hot or Cold Pack,Neuromuscular Re-ed,Coordination Retraining ,Manual Therapy Recommendations To Nursing Amount of Assist Needed Standby Assistance Discharge Recommendations PT Discharge Recommendations Home with Assistance,Home Health Transportation Needs at Discharge Private Vehicle,Wheelchair/ Cabulance
--- NOTE | 2023-02-24 16:03 | OT.IPRE ---
Current Diagnoses Gastrointestinal hemorrhage, unspecified (02/18/23) Surgery Performed Operation Date: 02/19/23 14:00 Actual Procedures p Esophagogastroduodenoscopy - Isabel Shahid MD s Colonoscopy - Isabel Shahid MD Past Medical History (Last Reviewed 02/18/23 @ 17:28 by Dawson Hernandez DO) Anemia Chronic back pain (Unknown) Fractures Hearing loss (Unknown) Hx of flexible sigmoidoscopy (~01/2019) Surgical History (Last Updated 09/28/22 @ 14:08 by Brittany Petersen RN) Anesthesia H/O vasectomy History of back surgery (~2016) History of colonoscopy History of removal of Port-a-Cath Hx of neck surgery (~2020) S/P laparoscopic colectomy (01/10/19) Occupational Therapy Inpatient Evaluation/Re-Eval M1 PT/OT-IP Prior Functional Status Start: 02/21/23 08:37 Freq: NEEDED Status: Active Protocol: Document 02/24/23 16:31 [facility] (Rec: 02/24/23 16:45 [facility] [id number]) Medical Review Prior Functional Status Medical History Reviewed Yes Communication Pt is able to make needs known . Mobility and Gait Uses a 4WW for all mobility. Endorses decreased activity level over the past few years. Pt states lately bought a motorized wc that he uses for longer distances at [employer]. Activities of Daily Living and IADL's Independent with dressing, showering, toileting. Does not drive, rather depends on sister, taxi, [employer] shuttle. Pt's sister assists with groceries. Pt has meals delivered to his room. He gets assist with cleaning and laundry Prior Functional Level (Other details) Pt had recent back sx 10/06/22 and per pt still follow his precautions and use of LB dressing equipment for dressing needs. Social History Household Members none Living Arrangements Apartment/Condo Number of Floors (Floors) One Floor Number of Stairs To Enter/Railing? Level entrance. Home Environment Standard Height Toilet,Walk in Shower Home Equipment Four Wheel Walker,Power Wheelchair/Scooter,Grab Bars Near Toilet,Grab Bars In Shower Employment Status Retired Additional Social History Comment Pt has lived at [email or web address] for ~1 year. 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 He has a local sister who provides assist with transportation and shopping needs. M2 OT-IP Current Condition Start: 02/22/23 15:48 Freq: Status: Active Protocol: Document 02/24/23 16:31 [facility] (Rec: 02/24/23 16:45 [facility] [id number]) Occupational Therapy Current Condition Current Condition Evaluation Date 02/24/23 Treatment Diagnosis GI bleed, generalized weakness Diagnosis Onset Date 02/18/23 M3 OT- IP Subjective and Pain Start: 02/22/23 15:48 Freq: Status: Active Protocol: Document 02/24/23 16:31 [facility] (Rec: 02/24/23 16:45 [facility] [id number]) OT- Subjective Occupational Therapy Visit Type Type Initial Evaluation Visit Start Time 15:26 Visit Stop Time 16:03 Total Visit Minutes 37 Occupational Therapy Visit Comments Patient Comments Pt pleasant and motivated to go home. Patient/Caregiver Goals To go home. OT Pain Assessment Pain When Pain Assessed During Mobility Pain Present Pain Present Pain Reported Location Back Pain Behaviors Facial Grimacing M4 OT- IP ADL's Start: 02/22/23 15:48 Freq: Status: Active Protocol: Document 02/24/23 16:31 [facility] (Rec: 02/24/23 16:45 [facility] [id number]) OT [id number] Comments OT Self-Feeding Comments Not at meal time, not issues anticipated. OT ADL-Grooming Comments OT Grooming Comments Not performed. OT ADL-Oral Care Comments Oral Care Comments Pt refused. OT ADL-Dressing General Eval Lower Body Dressing Ability Minimal Assistance Comments OT Dressing Comments Assist to carla the back of his heel into the shoes. Pt needing increased time to carla his pants with suspenders and heavily leans on the bed for balance while standing. OT ADL-Toileting Comments OT Toileting Comments Pt not having ot go. M5 OT- IP IADL's Start: 02/22/23 15:48 Freq: Status: Active Protocol: Document 02/22/23 14:50 [facility] (Rec: 02/22/23 16:09 [facility] [id number]) OT-Instrumental Activities of Daily Living Deficits IADL Deficits Identified Deficits Home Safety Awareness Awareness of Need for Assistance at Home Good Awareness Home Safety Comments Pt feels that he will be able to care for himself even though he knows he is not at his baseline. Pt states to get his sisters to come and assist him if needed. Medication Management Medication Management Comments Pt states was independent. Money Management Money Management Comments Pt states did prior. Meal Preparation Meal Preparation Caregiver Provides Assist Electric Meter Repairer Electric Meter Repairer Caregiver Provides Assist Driving Driving Caregiver Provides Assist M6 OT- IP Functional Cognition Start: 02/22/23 15:48 Freq: Status: Active Protocol: Document 02/24/23 16:31 [facility] (Rec: 02/24/23 16:45 [facility] [id number]) Cognitive Factors Limiting Selfcare Function Cognitive Comments Cognitive Assessment Comments Pt able to follow commands and has good insight and reasoning of him wanting to go back home versus going to a skilled rehab. Pt open to having his sister come to stay with during the day and also to be sure to call for assist if needed. OT- Vision and Hearing OT- Hearing Assessment OT- Hearing Assessment Hearing Impaired,Use of Hearing Aids OT- Vision Assessment Visual Acuity Glasses For Reading Visual Attentiveness WFL Occular Pursuits WFL M7 OT- IP Mobility and Balance Start: 02/22/23 15:48 Freq: Status: Active Protocol: Document 02/24/23 16:31 [facility] (Rec: 02/24/23 16:45 [facility] [id number]) OT- Bed Mobility Assessment Supine to Sit Supine to Sit Assist Standby Assistance Sit to Supine Sit to Supine Assist Standby Assistance OT-Transfer Assessment Sit to and From Stand Sit to and from Stand Standby Assistance Comments Mobility Comments SBA when coming up from the edge of the bed but use of the back of his legs on the bed for balance. OT- Balance Assessment Sitting Balance and Reactions Static Sitting Balance Ability Good Dynamic Sitting Balance Ability Fair Standing Balance and Reactions Static Standing Balance Ability Poor Dynamic Standing Balance Ability Poor M8 OT- IP Objective Assessments Start: 02/22/23 15:48 Freq: Status: Active Protocol: Document 02/24/23 16:31 [facility] (Rec: 02/24/23 16:45 [facility] [id number]) OT Gross Range of Motion Upper Extremity Range of Motion Assessment Within Functional Limits OT Strength Upper Extremity Strength Assessment Within Functional Limits M9 OT- IP Assessment and Plan Start: 02/22/23 15:48 Freq: Status: Active Protocol: Document 02/24/23 16:31 [facility] (Rec: 02/24/23 16:45 [facility] [id number]) OT Summary Assessment and Plan Potential Rehabilitation Potential Good Analytic Complexity at Evaluation Moderate Summary OT Impairments Pain,Strength,Balance, Functional Mobility,Dressing, Toileting,Bathing,Toilet Transfers,Shower Transfers, Activity Tolerance Progress Towards Goals Slow Progress due to Pain,Slow Progress due to Activity Tolerance Assessment Summary Hospitalist reordered OT eval due to pt did not transfer out for higher care and that his blood level are improving now. Pt main barriers are pain, unsteady on his feet, and decreased activity tolerance. Pt insistent on wanting to go home and that he will be able to get assist as needed or get his sister to stay with him during the day. Pt will benefit from increased assist at home especially for showering needs and have home health. Goals Self-Feeding Goal Independent Grooming Goal Independent Dressing Goal Independent Toileting Goal Independent Bathing Goal Independent Toilet Transfer Goal Independent Shower Transfer Goal Independent Days to Meet Goals 7 Frequency of Treatment Frequency Of Treatment Once a Day Treatment Plan OT Treatment Plan ADL Training,Functional Mobility,Patient/Family Education,Discharge Planning Discharge Recommendations OT Discharge Recommendations Home with 27/12 Assist Available but not 1:1,Home Health Transportation Needs at Discharge Private Vehicle
[2023-02-25] VITALS: BP 113/55; PULSE 63; RESP 18; TEMP 36.3; O2SAT 92
[2023-02-25 07:00] VITALS: O2SAT 92
[2023-02-25 09:00] VITALS: BP 115/68; PULSE 79; RESP 18; TEMP 36.8; O2SAT 92
[2023-02-25] MEDS: LIDOCAINE PATCH 1 EACH ADH..PATCH TOP (09:15)
[2023-02-25] MEDS: GABAPENTIN 600 MG TABLET PO (09:15)
[2023-02-25] MEDS: SODIUM CHLORIDE 0.9% FLUSH 10 ML IV (09:16)
[2023-02-25] MEDS: PANTOPRAZOLE 40 MG VIAL IV (09:16)
[2023-02-25] MEDS: HYDROCODONE/ACET 10/325 TABLET 1 TAB PO (10:48)
--- NOTE | 2023-02-25 12:18 | PT.IPTN ---
Current Diagnoses Gastrointestinal hemorrhage, unspecified (02/18/23) Surgery Performed Operation Date: 02/19/23 14:00 Actual Procedures p Esophagogastroduodenoscopy - Isabel Shahid MD s Colonoscopy - Isabel Shahid MD Physical Therapy Treatment Note M2 PT-IP Current Condition Start: 02/21/23 08:37 Freq: NEEDED Status: Active Protocol: Document 02/24/23 17:08 [facility] (Rec: 02/24/23 17:24 [facility] [id number]) Physical Therapy Current Condition Current Condition Evaluation Date 02/24/23 Treatment Diagnosis GI bleed; generalized weakness Onset Date 02/18/23 M3 PT-IP Subjective Start: 02/21/23 08:37 Freq: NEEDED Status: Active Protocol: Document 02/25/23 13:48 [facility] (Rec: 02/25/23 14:18 TS [id number]) Subjective Physical Therapy Visit Type Type Treatment Note Visit Start Time 12:18 Visit Stop Time 12:41 Total Visit Minutes 23 Number of TELEVISION PRODUCER Visits 1 Physical Therapy Visit Comments Patient Comments Pt was found resting in chair, sister in room, pt agreeable to PT. Therapy Pain Assessment Pain When Pain Assessed At Rest Pain Present Pain Present Pain Reported M4 PT-IP Mobility and Gait Start: 02/21/23 08:37 Freq: NEEDED Status: Active Protocol: Document 02/25/23 13:48 [facility] (Rec: 02/25/23 14:18 TS [id number]) PT-Transfer Assessment Sit to and From Stand Sit to and from Stand Contact Guard Assistance,Use of Upper Extremities Equipment Transfer Assistive Device Gait Belt,4 Wheeled Walker Orthotic/Prosthetic Devices or Brace: No Comments Mobility Comments BP taken in sitting 137/64 prior to mobility. Sit to stand from chair CGA w/4WW, pt is slow to stand with a posterior lean and has some difficulty transitioning hands to 4WW. He ambulated ~15' in room SBA w/4ww with brakes on. He has some tremors in LEs, pt fatigued and requested to sit down. After short rest break pt performed sit to stand again x1 CGA. He ambulated ~8' SBA, pt's tremors increased, requested to sit back in chair. Pt denied any dizziness during session. He was left in the chair with call light nearby, all needs met. Gait Assessment Gait Gait Assistance Required: Standby Assistance Distance (Feet) 23 Assistive Devices Assistive Device Gait Belt,4 Wheeled Walker Orthotic/Prosthetic Devices or Brace: No Gait Deviations General Gait Pattern Decreased Stride Length, Decreased Feet Clearance, Narrow Based Gait Factors Limiting Gait Function Factors Limiting Gait Function Decreased Activity Tolerance, Decreased Strength Comments Gait Comments See mobility comments. PT-Balance Assessment Sitting Balance and Reactions Static Sitting Balance Ability Good Dynamic Sitting Balance Ability Fair Standing Balance and Reactions Static Standing Balance Ability Fair Dynamic Standing Balance Ability Poor Device Used 4WW Comments Other Balance Tests/Deviations/Treatment See mobility comments : M5 PT-IP Objective Assessments Start: 02/21/23 08:37 Freq: NEEDED Status: Active Protocol: Document 02/24/23 17:08 [facility] (Rec: 02/24/23 17:24 AB [id number]) Orientation Orientation/Cognition Level of Alertness Alert Orientation Name,Date,Place,Situation Language Function Ability No Deficits Noted Safety Awareness Understands Safety Issues Memory Description No Deficits Noted Gross Range of Motion Upper Extremity ROM Assessment Within Functional Limits Lower Extremity ROM Assessment Within Functional Limits Strength Upper Extremity Strength Assessment Within Functional Limits Lower Extremity Strength Assessment Within Functional Limits M6 PT-IP Treatment Start: 02/21/23 08:37 Freq: NEEDED Status: Active Protocol: Document 02/25/23 13:48 TS (Rec: 02/25/23 14:18 TS [id number]) Physical Therapy Treatment Education Education Provided Safety Brace Education Patient M7 PT-IP Assessment and Plan Start: 02/21/23 08:37 Freq: NEEDED Status: Active Protocol: Document 02/25/23 13:48 TS (Rec: 02/25/23 14:18 TS [id number]) PT Summary Assessment and Plan Potential Rehabilitation Potential Good Summary Impairments Strength,Balance,Bed Mobility, Transfers,Gait,Activity Tolerance Progress Towards Goals Slow Progress due to Activity Tolerance Assessment Summary Talat is making slow progress with his mobility due to his poor activity tolerance and decreased strength. He is requiring CGA for sit to stand from chair. He has some retroleaning coming into standing requiring him to use back of LEs against chair to hold himself up. He can ambulate only short distances in the room due to decreased strength and his tremors. Pt is aware of when he needs to take rest breaks. Pt recommends pt return home w/ assist and HHPT. Goals Bed Mobility Goal Independent Transfer Goal Independent,Four Wheeled Walker Gait Goal Independent,Four Wheel Walker Gait Distance 50 Other Goals Pt to perform transfers and ambulation independently with 4WW to demonstrate improved strength and endurance to safely discharge to home. Days to Meet Goals 10 Frequency of Treatment Frequency Of Treatment Once a Day Treatment Plan Physical Therapy Treatment Plan Bed Mobility Training,Transfer Training,Gait Training, Therapeutic Exercise,Balance Retraining,Discharge Planning, Hot or Cold Pack,Neuromuscular Re-ed,Coordination Retraining ,Manual Therapy Other Recommendations and Next Treatment ambulation Focus Precautions Other Precautions monitor H&H; falls risk Recommendations To Nursing Amount of Assist Needed Standby Assistance Discharge Recommendations PT Discharge Recommendations Home with Assistance,Home Health Transportation Needs at Discharge Private Vehicle,Wheelchair/ Cabulance
--- NOTE | 2023-02-25 13:38 | CM.DPC ---
DCP Discharge Home Per MD, pt is medically stable to discharge today and no identified barriers and outpt f/u. SW met bedside with pt and he confirms he is agreeable with d/c back to his apt at [facility] and does not feel he needs SNF and would prefer to Resume his PT 2x week through the facility therapy team and declines HH. Pt states he is attempting to contact his sister or nephew to provide transport home. Pt does not anticipate any further needs. SW updated RN. Plan: Patient to d/c home today via family POV and ongoing PT at his facility and no further SW needs at this time. COREY Lee
--- NOTE | 2023-02-25 15:34 | PC.NURSE ---
Patient is A&OX4, [place],VSS, afebrile on RA. He is NSR on telemetry this a.m. He is able to tolerate breakfast and lunch well this a.m. and get up to the chair. He calls appropriately for assistance. He denies any BM this shift. He is cleared for discharge today by the hospitalist with instructions to resume taking protonix. He verbalizes understandng of new medications, and recommendations to avoid alcohol, and NSAIDS.At 1412 pm He is assisted to private vehicle for discharge home with sister via w/ch with all of his belongings with him including his FWW .
--- NOTE | 2023-02-25 22:06 | P.DS_ITS ---
History of Present Illness History of Present Illness Chief complaint: sent by for dark stool Narrative: Mr. Stevenson is a 77M with [facility] colon cancer s/p resection and chemo, with no evidence of recurrence, history of bleeding at anastamosis, smoker, alcohol use, neuropathy who presents to the hospital with black stools. He notes he has had black stools for the last day. No abdominal pain. No vomiting. He bright red blood per rectum. He has a history of colon cancer which was diagnosed after he had melena. He ultimately had a resection and chemo. He says he get scopes and CT scans regularly, perhaps as often as every 6 months. He gets his medical care here and in [place], [place], for which we do not have records. He does take aspirin, but it is not clear how regularly. He says he takes no NSAIDs. He has left leg swelling left > right, but he is not sure how long this has been occurring. He is not sure what his neuropathy is secondary to, perhaps to 5-FU which he has received in the past for his colon cancer. In the ED workup was done, vitals notable for afebrile, 100s-110s/50s-60s, heart rate 70s, O2 sats in the high 80s. Labs reviewed by me and notable for WBC 11.4, hgb 12.1 and repeat then 11.3, plts 289. Na 132, BUN 25, creatinine 0.62. In the ED he had an episode of dizziness and possible syncope. He was ordered for fluids and and protonix and admitted for further treatment. Discharge Providers Provider Date of admission: 02/18/23 16:41 Discharge Date: 02/25/23 Primary care physician: Antonia Leigh MD Consults: 02/18/23 18:03 Consult to General Surgery Routine Comment: Consulting Provider: Isabel Shahid Reason for consultation: gi bleed Has provider been notified: Yes 02/20/23 13:09 Consult to Occupational Therapy Evaluate & Treat Comment: Physician Instructions: Evaluate and treat Consult to Physical Therapy Evaluate & Treat Comment: Physician Instructions: Evaluate and Treat 02/24/23 10:17 Consult to Occupational Therapy Evaluate & Treat Comment: Physician Instructions: Evaluate and treat Consult to Physical Therapy Evaluate & Treat Comment: Physician Instructions: Evaluate and Treat Discharge provider: Gareth Rosa MD Summary Hospital Course Discharge Diagnosis: 1. GI bleeding secondary to gastritis 2. Acute blood loss anemia 3. History of colon cancer Hospital Course: Mr. Stevenson was admitted to the hospital for GI bleeding. He underwent endoscopy which showed gastritis. His colonoscopy showed old blood and no evidence of acute bleeding source. It was felt he had upper GI bleeding. He was started on protonix. He continued to have melena. He required multiple transfusions of blood over a few days. He did have tagged nuclear scan which showed no evidence of active bleeding. His hemoglobin stabilized at 9, and he had no further melena. On day of discharge he was feeling improved and was able to be discharged home and continued on pantoprazole. He should follow up with PCP as soon as able. Exam Vital Signs (past 8 hours): Fraction of Inspired Oxygen 28 SaO2/FiO2 Ratio 350 Oxygen Delivery Method Room Air Oxygen Flow Rate 0 Narrative Exam Narrative: GEN: no acute distress CV: regular rate and rhythm, no murmurs PULM: clear bilaterally ABD: soft, nontender, nondistended, no organomegaly EXT: warm and well perfuse, no edema NEURO: awake, alert, oriented Objective Labs 02/24/23 12:55 02/24/23 05:35 [facility] Medical History Anemia Chronic back pain (Unknown) Fractures Hearing loss (Unknown) Hx of flexible sigmoidoscopy (~01/2019) Surgical History (Updated 09/28/22 @ 14:09 by Brittany Petersen RN) Anesthesia H/O vasectomy History of back surgery (~2016) History of colonoscopy History of removal of Port-a-Cath Hx of neck surgery (~2020) S/P laparoscopic colectomy (01/10/19) Family History Father Heart disease Mother Cancer Congestive heart failure Sister Hypertension Cancer Brother Heart disease Rheumatic fever Brother No problems noted. Social History household members: none occupational status: employed Smoking Status: Former smoker alcohol intake: current Discharge Plan Discharge Plan Patient Disposition: Home Provider Discharge Comment: Mr. Stevenson came to the hospital with bleeding. He did get blood transfusions. He improved with medicines. He should be careful with taking extra aspirin and should always take it with food in stomach to help prevent inflammation. Discharge orders & Medications Prescriptions: New pantoprazole 40 mg tablet,delayed release (DR/EC) 40 mg PO BID Qty: 60 0RF Continued (DME) disabled parking Qty: 1 0RF Rx Instructions: I certify that patient has a condition which qualifies him for disabled parking privileges. gabapentin 300 mg capsule 600 mg PO BID Rx Instructions: Stop after 10 days --- 06/25/19 PT STATES HE TAKES 4-5 TAB PER NIGHT WITH TYLENOL. acetaminophen 325 mg Tablet 650 mg PO Q6H PRN (Reason: Fever/Mild Pain (1-3)) Qty: 240 0RF Follow up/Referrals: Antonia Leigh MD [Primary Care Provider] - Diet/Activity/Treatments Diet: Regular Visit Report/Discharge Packet Instructions: DI for Blood Transfusion, DI for Colonoscopy, DI for Upper GI Endoscopy, DI for Gastritis, Gastrointestinal Bleeding Stand Alone Forms: Patient Portal/API, Stroke Signs & Symptoms Discharge Data Primary Care Provider: Antonia Leigh Discharges patient from system. Discharge Date/Time: 02/25/23 14:12 Quality VTE Deep Vein Thrombosis/Pulmonary Embolism Present on Admission: No
== END 2023-02-25 14:12 | disposition home or self-care (01) | DRG 378 ==
LOC: ED 16:39 → AC 16:43
PROVIDERS: Family Medicine; Internal Medicine; Surgery; Admitting Provider Internal Medicine; Emergency Provider Emergency Medicine; PCP Internal Medicine; Referring Provider Emergency Medicine; Visit Provider Internal Medicine
PROC: 0DJ08ZZ Inspection of Upper Intestinal Tract, Via Natural or Artificial Opening Endoscopic (ICD-10-PCS; CPT 43235; principal; 2023-02-19 14:00)
PROC: 0DJD8ZZ Inspection of Lower Intestinal Tract, Via Natural or Artificial Opening Endoscopic (ICD-10-PCS; CPT 45378; 2023-02-19 14:00)
DX: K29.71 Gastritis, unspecified, with bleeding (principal); D62 Acute posthemorrhagic anemia; M79.89 Other specified soft tissue disorders; Z98.890 Other specified postprocedural states; Z85.038 Personal history of other malignant neoplasm of large intestine; Z87.891 Personal history of nicotine dependence; R03.0 Elevated blood-pressure reading, without diagnosis of hypertension; I44.0 Atrioventricular block, first degree
CPT/HCPCS: 36415; 36430; 43239; 45378; 71275; 74174; 74177; 78278; 80048; 80053; 81003; 82272; 83735; 85007; 85014; 85018; 85025; 85610; 85730; 86850; 86900; 86901; 93005; 93010; 93971; 94640; 94760; 96374; 97116; 97162; 97166; 97530; 99232; 99284; 99285; A9512; A9538; P9016; C9113; J2405; Q9967

== ENCOUNTER 2023-08-03 16:07 | Inpatient (IN) | payer MEDICARE, SELFPAY ==
[2023-02-18 17:22] VITALS: BMI 23.7
[2023-08-03] VITALS (30 sets, daily range): BP systolic 129–224; BP diastolic 66–157; PULSE 67–185; RESP 14–35; TEMP 36.8–37.9; O2SAT 86–100; BMI 26.9
--- NOTE | 2023-08-03 16:08 | DI.RAD.S_ITS ---
PROCEDURE: XR CHEST 1V INDICATIONS: suspected sepsis TECHNIQUE: One view of the chest was acquired. COMPARISON: [facility], CT, CT ANGIO CHEST PE PROTOCOL, 02/18/2023, 17:11. [facility], CR, XR HAND RT MIN 3V, 08/03/2023, 17:09. [facility], CR, XR HUMERUS RT 2V, 08/03/2023, 17:09. [facility], CR, XR FOREARM RT 2V, 08/03/2023, 17:09. [facility], CT, CT CERVICAL SPINE WO CON, 08/03/2023, 17:06. [facility], CT, CT HEAD/BRAIN WO CON, 08/03/2023, 17:06. [facility], CR, XR CHEST 1V, 02/06/2019, 8:50. FINDINGS: Surgical changes and devices: Cervical spine fixation hardware is partially seen. Lungs and pleura: On this semiupright portable chest examination, no large pneumothorax or large pleural effusions are seen. No focal infiltrates are seen. Generalized interstitial prominence can be seen. Low lung volumes are noted. This causes a crowded appearance to the lung markings and limits evaluation. Mediastinum: Mediastinal contours appear normal. Heart size is moderately enlarged. Bones and chest wall: No suspicious bony lesions. Age-appropriate bony degenerative changes are seen. Overlying soft tissues appear unremarkable. IMPRESSION: There is moderate cardiomegaly and generalized interstitial prominence. Please consider CHF. Low lung volumes can be seen. Postoperative and degenerative changes are seen. Dictated by: John Billings M.D. on 08/03/2023 at 16:56 Approved by: John Billings M.D. on 08/03/2023 at 16:59
--- NOTE | 2023-08-03 16:10 | DI.CT.S_ITS ---
PROCEDURE: CT CERVICAL SPINE WO CON INDICATIONS: unwit fall TECHNIQUE: Noncontrast 3 mm thick sections acquired from the skull base to the T4 level. Sagittal and coronal reformats were then constructed. For radiation dose reduction, the following was used: automated exposure control, adjustment of mA and/or kV according to patient size. COMPARISON: [facility], CR, XR HAND RT MIN 3V, 08/03/2023, 17:09. [facility], CR, XR HUMERUS RT 2V, 08/03/2023, 17:09. [facility], CR, XR CHEST 1V, 08/03/2023, 17:09. [facility], CR, XR FOREARM RT 2V, 08/03/2023, 17:09. [facility], CT, CT HEAD/BRAIN WO CON, 08/03/2023, 17:06. FINDINGS: Image quality: This examination is limited by involuntary motion artifact. This examination is somewhat limited by quantum mottle artifact. Bones: No fractures or dislocations. Visualized superior ribs are intact. Focal degenerative change is seen involving the C1-C2 interface anteriorly. Anteriorly placed fixation devices can be seen at the C3-C4 through C6-C7 levels. No findings of hardware failure or hardware loosening are seen. Soft tissues: Prevertebral soft tissues are normal in thickness. No paravertebral hematomas. No apical pneumothoraces. Atherosclerotic calcification is noted. IMPRESSION: No displaced fracture or traumatic subluxation. Multiple levels of postoperative hardware can be seen, without findings of failure or loosening. Dictated by: John Billings M.D. on 08/03/2023 at 16:54 Approved by: John Billings M.D. on 08/03/2023 at 16:56
--- NOTE | 2023-08-03 16:10 | DI.CT.S_ITS ---
PROCEDURE: CT HEAD/BRAIN WO CON INDICATIONS: unwit fall TECHNIQUE: Noncontrast 4.5 mm thick angled axial sections acquired from the foramen magnum to the vertex, with coronal and sagittal reformats. For radiation dose reduction, the following was used: automated exposure control, adjustment of mA and/or kV according to patient size. COMPARISON: [facility], CR, XR HAND RT MIN 3V, 08/03/2023, 17:09. [facility], CR, XR HUMERUS RT 2V, 08/03/2023, 17:09. [facility], CR, XR CHEST 1V, 08/03/2023, 17:09. [facility], CR, XR FOREARM RT 2V, 08/03/2023, 17:09. [facility], CT, CT CERVICAL SPINE WO CON, 08/03/2023, 17:06. FINDINGS: Image quality: This examination is limited by involuntary motion artifact. Mild streak artifact can be seen through the skull base. CSF spaces: Basal cisterns are patent. No extra-axial fluid collections. The ventricles are symmetric in size and shape. Brain: No intracranial bleeds or masses. There is cerebral volume loss for age, with resultant ventricular and sulcal prominence. There are periventricular and deep white matter chronic small vessel ischemic changes. There is intracranial internal carotid artery atherosclerosis. Skull and face: Calvarium and visualized facial bones appear intact, without suspicious lesions. Sinuses: There is moderate mucosal thickening within the visualized maxillary sinuses and within the ethmoid air cells. Milder mucosal thickening can be seen elsewhere within the paranasal sinuses. No abnormal fluid is seen within the mastoid air cells. IMPRESSION: No acute intracranial hemorrhage is seen. No acute intracranial process is seen. No displaced calvarial fracture can be seen. Additional findings: Paranasal sinus disease Dictated by: John Billings M.D. on 08/03/2023 at 16:52 Approved by: John Billings M.D. on 08/03/2023 at 16:54
[2023-08-03] MEDS: SODIUM CHLORIDE 0.9% 1,000 ML 1000 ML IV ×2 (16:30→18:57)
--- NOTE | 2023-08-03 16:31 | PC.NURSE ---
Patient was found down at home. Sister stated he was last seen two days ago and is normally lucid and able to communicate and is not confused. Today he cannot recall how long he was on the floor and also is alert to his self, situation and . His face is drooped to the right and is unable to sense touch in right leg. He is unable to respond to questions appropriately.
[2023-08-03 16:52] LABS: Add Manual Diff / Slide Review NO; Basophils Absolute Auto 100 /uL (0-100); Basophils Percent Auto 0.3 % (0-2); Eosinophils Absolute Auto 100 /uL (0-450); Eosinophils Percent Auto 0.5 % (2-4); Hematocrit 40.2 % (41-53); Hemoglobin 13.7 g/dL (13.5-17.5); Lymphocytes Absolute Auto 500 /uL (1100-4500); Lymphocytes Percent Auto 2.6 % (25-40); Mean Corpuscular Hemoglobin 33.2 PG (26-34); Mean Corpuscular Volume 97.7 fL (80-100); Monocytes Absolute Auto 1700 /uL (0-900); Monocytes Percent Auto 8.4 % (3-14); Neutrophils Absolute Auto 18000 /uL (1500-7000); Neutrophils Percent Auto 88.2 % (50-75); Platelet Count 296 X10^3/uL (150-400); Red Blood Cell Count 4.11 X10^6/uL (4.5-5.9); Red Cell Distribution Width 13.9 % (11.6-14.8); White Blood Cell Count 20.4 X10^3/uL (4.5-11.0)
[2023-08-03 17:01] LABS: INR 1.1 (0.9-1.3); Prothrombin Time 12.2 SECONDS (9.4-12.5)
[2023-08-03 17:03] LABS: PTT Partial Thromboplastin Tim 35 SECONDS (25.1-36.5)
--- NOTE | 2023-08-03 17:04 | DI.RAD.S_ITS ---
PROCEDURE: XR HUMERUS RT 2V INDICATIONS: fall, swelling TECHNIQUE: 2 views of the humerus were acquired. COMPARISON: [facility], CR, XR FOREARM RT 2V, 08/03/2023, 17:09. [facility], CR, XR CHEST 1V, 08/03/2023, 17:09. [facility], CR, XR HAND RT MIN 3V, 08/03/2023, 17:09. [facility], CT, CT CERVICAL SPINE WO CON, 08/03/2023, 17:06. [facility], CT, CT HEAD/BRAIN WO CON, 08/03/2023, 17:06. FINDINGS: Bones: No fractures or dislocations. No suspicious bony lesions. Age-appropriate bony degenerative changes are seen. Soft tissues: No suspicious soft tissue calcifications. IMPRESSION: Plain film study within normal limits for age. Dictated by: John Billings M.D. on 08/03/2023 at 17:01 Approved by: John Billings M.D. on 08/03/2023 at 17:02
--- NOTE | 2023-08-03 17:04 | DI.RAD.S_ITS ---
PROCEDURE: XR HAND RT MIN 3V INDICATIONS: fall, swelling TECHNIQUE: 3 views of the hand(s) acquired. COMPARISON: [facility], CR, XR CHEST 1V, 08/03/2023, 17:09. [facility], CR, XR HUMERUS RT 2V, 08/03/2023, 17:09. [facility], CR, XR FOREARM RT 2V, 08/03/2023, 17:09. [facility], CT, CT CERVICAL SPINE WO CON, 08/03/2023, 17:06. [facility], CT, CT HEAD/BRAIN WO CON, 08/03/2023, 17:06. FINDINGS: Bones: No fractures or dislocations. Carpal bones are normally aligned. No suspicious bony lesions. Degenerative changes are seen throughout, which are most prominent involving the 1st carpometacarpal joint. Milder degenerative changes are seen elsewhere. Soft tissues: No suspicious soft tissue calcifications. IMPRESSION: No acute bony abnormality can be seen by plain film. Dictated by: John Billings M.D. on 08/03/2023 at 17:01 Approved by: John Billings M.D. on 08/03/2023 at 17:01
--- NOTE | 2023-08-03 17:04 | DI.RAD.S_ITS ---
PROCEDURE: XR FOREARM RT 2V INDICATIONS: fall, swelling TECHNIQUE: 2 views of the forearm were acquired. COMPARISON: [facility], CR, XR CHEST 1V, 08/03/2023, 17:09. [facility], CR, XR HUMERUS RT 2V, 08/03/2023, 17:09. [facility], CR, XR HAND RT MIN 3V, 08/03/2023, 17:09. [facility], CT, CT CERVICAL SPINE WO CON, 08/03/2023, 17:06. [facility], CT, CT HEAD/BRAIN WO CON, 08/03/2023, 17:06. FINDINGS: Bones: No fractures or dislocations. No suspicious bony lesions. Age-appropriate bony degenerative changes are seen. Soft tissues: No suspicious soft tissue calcifications or masses. IMPRESSION: No acute bony abnormality can be seen on this plain film study. Dictated by: John Billings M.D. on 08/03/2023 at 16:59 Approved by: John Billings M.D. on 08/03/2023 at 17:00
[2023-08-03 17:05] LABS: Ammonia (NH3) < 9 umol/L (9-30); Lactate (Lactic Acid) 1.5 mmol/L (0.7-2.1)
[2023-08-03 17:08] LABS: Alanine Aminotransferase 49 IU/L (<50); Albumin 4.2 g/dL (3.5-5.0); Albumin Globulin Ratio 1.4 (1.0-2.8); Alkaline Phosphatase 70 U/L (38-126); Aspartate Aminotransferase 121 IU/L (17-59); BUN Creatinine Ratio 31.3 (6-22); Bilirubin Total 1.6 mg/dL (0.2-1.3); Blood Urea Nitrogen 15 mg/dL (9-20); Calcium 9.3 mg/dL (8.4-10.2); Carbon Dioxide 36 mmol/L (22-32); Chloride 91 mmol/L (98-107); Estimated Glomerular Filt Rate > 60 mL/min (>60); Glucose 113 mg/dL (80-110); HEMOLYSIS < 15 (0-50); Lipase 22 U/L (23-300); Potassium 4.3 mmol/L (3.4-5.1); Sodium 124 mmol/L (137-145); Total Protein 7.2 g/dL (6.3-8.2)
[2023-08-03 17:14] LABS: Creatine Kinase 3108 U/L (55-170)
[2023-08-03 17:18] LABS: Troponin I < 0.012 ng/mL (0.01-0.034)
[2023-08-03 17:23] LABS: Procalcitonin 0.17 ng/mL (<0.5)
[2023-08-03 17:34] LABS: Appearance Urine UA CLEAR; Bilirubin Urine UA 1+ (NEGATIVE); Color Urine UA YELLOW; Glucose Urine UA NEGATIVE (Negative); Ketones Urine UA 3+ (NEGATIVE); Leukocyte Esterase Urine UA NEGATIVE (NEGATIVE); Nitrite Urine UA NEGATIVE (Negative); Occult Blood Urine UA 1+ (Negative); Protein Urine UA 2+ (Negative); Specific Gravity Urine UA >=1.030 (1.000-1.035); UR Morphine/Opiate cutoff 300 Negative (Negative); Ur Creatinine Normal (Normal); Ur Specific Gravity Normal (Normal); Urine Amphetamines Negative (Negative); Urine Barbiturates Negative (Negative); Urine Benzodiazepines Negative (Negative); Urine Cocaine Negative (Negative); Urine MDMA Negative (Negative); Urine Methadone Negative (Negative); Urine Methamphetamines Negative (Negative); Urine Oxycodone Negative (Negative); Urine Phencyclidine Negative (Negative); Urine Tetrahydrocannabinol Negative (Negative); Urine Tricyclic Antidepressant Negative (Negative); Urine pH Normal (Normal)
[2023-08-03 17:42] LABS: RBC Urine 1-5/HPF (0-5/HPF); Urine Volume Low Vol <10mL (spun); WBC Urine 1-5/HPF (0-5/HPF)
[2023-08-03 17:43] LABS: Bacteria Urine Few (2-10); Culture Indicated Urine Cult Not Indicated; Mucus Urine 3+ (Negative); Squamous Epithelial Cell Urine None Seen (0-5/HPF)
--- NOTE | 2023-08-03 17:52 | ED_ITS ---
HPI - General Adult General Chief complaint: Altered Mental Status Stated complaint: Found Down Time Seen by Provider: 08/03/23 16:33 Source: EMS Mode of arrival: Ambulatory History of Present Illness HPI narrative: 78-year-old gentleman with a past medical history significant for colon cancer post resection and chemo no evidence of recurrence, history of bleeding at the anastomosis site, history of alcohol use, peripheral neuropathy, history of gastritis with upper GI bleed who lives independently in an adult community. His sister had not heard from him for 2 days so went to check on him and found him on the floor in his room in it appears that he had been on the floor for an extended period of time. Medics were called and he is transported to the emergency department. He is confused, tremulous, has quite a bit of stool in urine that he has been lying in. He is able to indicate that he has not in pain but not able to participate more than that in history taking. His sister notes that typically he is capable of living independently, uses a walker due to his peripheral neuropath, does continue to drink and overall physical situation has been in decline over the last year. Related Data Home Medications Medication Instructions Recorded Confirmed gabapentin 300 mg capsule 600 mg PO BID pain 08/13/21 02/18/23 Previous Rx's Medication Instructions Recorded disabled parking #1 ea 01/05/19 acetaminophen 325 mg tablet 650 mg (2 x 325 mg) PO Q6H PRN 10/08/22 Fever/Mild Pain (1-3) #240 tabs pantoprazole 40 mg tablet,delayed 40 mg PO BID #60 tabs 02/25/23 release Allergies Allergy/AdvReac Type Severity Reaction Status Date / Time Opioids - Morphine Analogues AdvReac Severe delerium Verified 02/18/23 13:46 Review of Systems Review of Systems ROS Unobtainable: Unobtainable due to medical condition Patient History Medical History Anemia Chronic back pain (Unknown) Fractures Hearing loss (Unknown) Hx of flexible sigmoidoscopy (~01/2019) Surgical History (Updated 09/28/22 @ 14:09 by Brittany Petersen RN) H/O vasectomy History of removal of Port-a-Cath History of colonoscopy Hx of neck surgery (~2020) Anesthesia S/P laparoscopic colectomy (08/07/19) History of back surgery (~2017) Family History Father Heart disease Mother Cancer Congestive heart failure Sister Hypertension Cancer Brother Heart disease Rheumatic fever Brother No problems noted. Social History household members: none occupational status: employed Smoking Status: Former smoker alcohol intake: current Smoking Status: Former smoker alcohol intake frequency: 3 or more drinks per day Substance Use Type: does not use Exam Initial Vital Signs Initial Vital Signs: Vital Signs Pulse Rate 69 08/03/23 16:13 Pulse Oximetry 86 L 08/03/23 16:13 Oxygen Delivery Method Room Air 08/03/23 16:13 General: Chronically ill-appearing frail gentleman covered in stool and feces, globally weak, coffee-ground debris around his mouth and in his hankins HEENT: Dry mucous membranes, subconjunctival hemorrhages bilaterally, pupils are equal and reactive, black debris in his hankins concerning for upper GI bleeding Neck: No JVD, no cervical adenopathy. No midline cervical spine tenderness Respiratory: Lungs are clear to auscultation, no wheezing no rales no rhonchi. Full and symmetrical air movement Cardiac: Tachycardic but otherwise Regular rate and rhythm no murmurs no bruits Abdomen: Soft, nontender, good bowel tones, no flank pain Skin: Poor overall perfusion, he has minor skin breakdown over the right side of his foot and ankle where he has been lying on the floor. No significant pressure ulcers on his hips or buttocks Neurologic: Globally weak. I suspect he has some worsening left-sided upper and lower extremity weakness but exam overall is difficult. He is significant tremor as well. Extremities: No obvious bony deformities or point tenderness. Overall poor perfusion, Psych: Confused to time and events, unable to answer questions unclear if this is confusion or a receptive or expressive aphasia Course Orders Ordered: ED Orders 08/03/23 16:08 XR chest 1V Stat EKG-12 Lead Stat RT Consult Eval and Treat NOW 08/03/23 16:10 CT cervical spine wo con Stat CT head/brain wo con Stat 08/03/23 16:32 Ictotest Urine Stat Urinalysis and Microscopic Stat Urine Drug Screen, Rapid Stat 08/03/23 16:35 Respiratory Panel (Film Array) Stat 08/03/23 16:37 Ammonia (NH3) Stat Complete Blood Count AUTO DIFF Stat Comprehensive Metabolic Panel Stat Lactate (Lactic Acid) Stat Lipase Stat PTT Partial Thromboplastin Billy Stat Procalcitonin Stat Prothrombin Time INR Stat Troponin & CK Cardiac Panel Stat 08/03/23 17:04 XR forearm RT 2V Stat XR hand RT min 3V Stat XR humerus RT 2V Stat 08/03/23 17:50 Blood Culture Stat Sodium Chloride (Normal Saline 0.9%) 1,000 mls @ 1,000 mls/hr IV BOLUS ONE Stop: 08/03/23 19:30 Ondansetron HCl (Ondansetron 4 Mg/2 Ml Inj) 4 mg IV NOW PRN PRN Reason: Nausea And Vomiting Ondansetron HCl (Ondansetron 4 Mg Odt) 4 mg SL NOW PRN PRN Reason: Nausea And Vomiting Discontinued Medications Dexamethasone (Dexamethasone 10 Mg/Ml Vial) 6 mg IV NOW ONE Stop: 08/03/23 18:35 Sodium Chloride (Normal Saline 0.9%) 1,000 mls @ 1,000 mls/hr IV BOLUS ONE Stop: 08/03/23 17:07 Last Infusion: 08/03/23 17:35 Dose: Infused Documented By: Admin: 08/03/23 16:30 Dose: 1,000 mls/hr Documented By: KATY Ceftriaxone Sodium 2,000 mg/ (Sodium Chloride) 100 mls @ 200 mls/hr IV NOW ONE Stop: 08/03/23 18:32 Vital Signs Vital signs: Vital Signs - 8 hr 08/03/23 16:13 08/03/23 16:15 08/03/23 16:17 Temperature Pulse Rate 69 185 H Respiratory Rate 22 Blood Pressure 181/104 H Pulse Oximetry 86 L Oxygen Delivery Method Room Air Oxygen Flow Rate 08/03/23 16:17 08/03/23 16:20 08/03/23 16:30 Temperature 98.2 F Pulse Rate 80 67 81 Respiratory Rate 16 20 23 Blood Pressure 181/104 H Pulse Oximetry 90 L 92 91 Oxygen Delivery Method Room Air Oxygen Flow Rate 08/03/23 16:45 08/03/23 16:46 08/03/23 16:46 Temperature Pulse Rate 106 H 96 H Respiratory Rate 24 19 Blood Pressure 177/104 H Pulse Oximetry 96 96 Oxygen Delivery Method Nasal Cannula Oxygen Flow Rate 2 Medical Decision Making Lab Data 08/03/23 16:37 08/03/23 16:37 Labs: Lab Results 08/03/23 08/03/23 08/03/23 Range/Units 16:32 16:32 16:35 WBC (4.5-11.0) X10^3/uL RBC (4.5-5.9) X10^6/uL Hgb (13.5-17.5) g/dL Hct (41-53) % MCV (80-100) fL MCH (26-34) PG MCHC (30-36) % RDW (11.6-14.8) % Plt Count (150-400) X10^3/uL Neut % (Auto) (50-75) % Lymph % (Auto) (25-40) % [place] % (Auto) (3-14) % Eos % (Auto) (2-4) % Baso % (Auto) (0-2) % Neut # (Auto) (8852-2395) /uL Lymph # (Auto) (5939-6721) /uL [place] # (Auto) (0-900) /uL Eos # (Auto) (0-450) /uL Baso # (Auto) (0-100) /uL PT (9.4-12.5) SECONDS INR (0.9-1.3) APTT (25.1-36.5) SECONDS Sodium (137-145) mmol/L Potassium (3.4-5.1) mmol/L Chloride (98-107) mmol/L Carbon Dioxide (22-32) mmol/L BUN (9-20) mg/dL Creatinine (0.66-1.25) mg/dL Estimated GFR (>60) mL/min BUN/Creatinine Ratio (6-22) Glucose (80-110) mg/dL Lactate (0.7-2.1) mmol/L Calcium (8.4-10.2) mg/dL Total Bilirubin (0.2-1.3) mg/dL AST (17-59) IU/L ALT (<50) IU/L Alkaline Phosphatase (38-126) U/L Ammonia (9-30) umol/L Total Creatine Kinase (55-170) U/L Troponin I (0.01-0.034) ng/mL Total Protein (6.3-8.2) g/dL Albumin (3.5-5.0) g/dL Globulin (1.7-4.1) g/dL Albumin/Globulin Ratio (1.0-2.8) Lipase (23-300) U/L Procalcitonin (<0.5) ng/mL Urine Color Yellow Urine Appearance Clear Urine pH 6.0 Normal (4.5-8.0) Ur Specific Far[place] >=1.030 H (1.000-1.035) Urine Protein 2+ H (Negative) Urine Glucose (UA) Negative (Negative) g/dL Urine Ketones 3+ H (NEGATIVE) Urine Occult Blood 1+ H (Negative) Urine Nitrate Negative (Negative) Urine Bilirubin 1+ H (NEGATIVE) Ur Bilirubin Confirm TNP Urine Urobilinogen 1.0 (0.2) E.U./dL Ur Leukocyte Esterase Negative (NEGATIVE) Urine RBC 1-5/hpf (0-5/HPF) Urine WBC 1-5/hpf (0-5/HPF) Ur Squamous Epith Cells None seen (0-5/HPF) Urine Bacteria Few (2-10) H (None) Urine Mucus 3+ H (Negative) Ur Culture Indicated? Cult not indicated Vol Urine Centrifuged Low vol <10ml (spun) A U Opiates 300ng/mL cut Negative (Negative) Ur Oxycodone Screen Negative (Negative) Urine Methadone Screen Negative (Negative) Ur Barbiturates Screen Negative (Negative) U Tricyclic Antidepress Negative (Negative) Ur Phencyclidine Scrn Negative (Negative) Ur Amphetamines Screen Negative (Negative) U Methamphetamines Scrn Negative (Negative) Ur MDMA Scrn (Ecstasy) Negative (Negative) U Benzodiazepines Scrn Negative (Negative) Urine Cocaine Screen Negative (Negative) U Marijuana (THC) Screen Negative (Negative) Urine Specific [place] Normal (Normal) Ur Creatinine Normal (Normal) Chlamy pneumoniae PCR Not detected (Not Detect) Adenovirus (PCR) Not detected (Not Detect) B.parapertussis DNA PCR Not detected (Not Detecte) Coronavirus OC43 (PCR) Not detected (Not Detect) Coronavirus HKU1 (PCR) Not detected (Not Detect) Coronavirus 229E (PCR) Not detected (Not Detect) SARS-CoV-2 (PCR) Detected H (Not Detecte) Coronavirus NL63 (PCR) Not detected (Not Detect) Human Metapneumovir PCR Not detected (Not Detect) Influenza Type A (PCR) Not detected (Not Detect) Influenza Type B (PCR) Not detected (Not Detect) M. pneumoniae (PCR) Not detected (Not Detect) Parainfluenza 1 (PCR) Not detected (Not Detect) Parainfluenza 2 (PCR) Not detected (Not Detect) Parainfluenza 3 (PCR) Not detected (Not Detect) Parainfluenza 4 (PCR) Not detected (Not Detect) RSV (PCR) Not detected (Not Detect) Entero/Rhino (PCR) Not detected (Not Detect) 08/03/23 Range/Units 16:37 WBC 20.4 H (4.5-11.0) X10^3/uL RBC 4.11 L (4.5-5.9) X10^6/uL Hgb 13.7 (13.5-17.5) g/dL Hct 40.2 L (41-53) % MCV 97.7 (80-100) fL MCH 33.2 (26-34) PG MCHC 34.0 (30-36) % RDW 13.9 (11.6-14.8) % Plt Count 296 (150-400) X10^3/uL Neut % (Auto) 88.2 H (50-75) % Lymph % (Auto) 2.6 L (25-40) % [place] % (Auto) 8.4 (3-14) % Eos % (Auto) 0.5 L (2-4) % Baso % (Auto) 0.3 (0-2) % Neut # (Auto) 07052 H (9992-9534) /uL Lymph # (Auto) 500 L (1437-7064) /uL [place] # (Auto) 1700 H (0-900) /uL Eos # (Auto) 100 (0-450) /uL Baso # (Auto) 100 (0-100) /uL PT 12.2 (9.4-12.5) SECONDS INR 1.1 (0.9-1.3) APTT 35 (25.1-36.5) SECONDS Sodium 124 L (137-145) mmol/L Potassium 4.3 (3.4-5.1) mmol/L Chloride 91 L (98-107) mmol/L Carbon Dioxide 36 H (22-32) mmol/L BUN 15 (9-20) mg/dL Creatinine 0.48 L (0.66-1.25) mg/dL Estimated GFR > 60 (>60) mL/min BUN/Creatinine Ratio 31.3 H (6-22) Glucose 113 H (80-110) mg/dL Lactate 1.5 (0.7-2.1) mmol/L Calcium 9.3 (8.4-10.2) mg/dL Total Bilirubin 1.6 H (0.2-1.3) mg/dL AST 121 H (17-59) IU/L ALT 49 (<50) IU/L Alkaline Phosphatase 70 (38-126) U/L Ammonia < 9 L (9-30) umol/L Total Creatine Kinase 3108 H (55-170) U/L Troponin I < 0.012 (0.01-0.034) ng/mL Total Protein 7.2 (6.3-8.2) g/dL Albumin 4.2 (3.5-5.0) g/dL Globulin 3.0 (1.7-4.1) g/dL Albumin/Globulin Ratio 1.4 (1.0-2.8) Lipase 22 L (23-300) U/L Procalcitonin 0.17 (<0.5) ng/mL Urine Color Urine Appearance Urine pH (4.5-8.0) Ur Specific [place] (1.000-1.035) Urine Protein (Negative) Urine Glucose (UA) (Negative) g/dL Urine Ketones (NEGATIVE) Urine Occult Blood (Negative) Urine Nitrate (Negative) Urine Bilirubin (NEGATIVE) Ur Bilirubin Confirm Urine Urobilinogen (0.2) E.U./dL Ur Leukocyte Esterase (NEGATIVE) Urine RBC (0-5/HPF) Urine WBC (0-5/HPF) Ur Squamous Epith Cells (0-5/HPF) Urine Bacteria (None) Urine Mucus (Negative) Ur Culture Indicated? Vol Urine Centrifuged U Opiates 300ng/mL cut (Negative) Ur Oxycodone Screen (Negative) Urine Methadone Screen (Negative) Ur Barbiturates Screen (Negative) U Tricyclic Antidepress (Negative) Ur Phencyclidine Scrn (Negative) Ur Amphetamines Screen (Negative) U Methamphetamines Scrn (Negative) Ur MDMA Scrn (Ecstasy) (Negative) U Benzodiazepines Scrn (Negative) Urine Cocaine Screen (Negative) U Marijuana (THC) Screen (Negative) Urine Specific [place] (Normal) Ur Creatinine (Normal) Chlamy pneumoniae PCR (Not Detect) Adenovirus (PCR) (Not Detect) B.parapertussis DNA PCR (Not Detecte) Coronavirus OC43 (PCR) (Not Detect) Coronavirus HKU1 (PCR) (Not Detect) Coronavirus 229E (PCR) (Not Detect) SARS-CoV-2 (PCR) (Not Detecte) Coronavirus NL63 (PCR) (Not Detect) Human Metapneumovir PCR (Not Detect) Influenza Type A (PCR) (Not Detect) Influenza Type B (PCR) (Not Detect) M. pneumoniae (PCR) (Not Detect) Parainfluenza 1 (PCR) (Not Detect) Parainfluenza 2 (PCR) (Not Detect) Parainfluenza 3 (PCR) (Not Detect) Parainfluenza 4 (PCR) (Not Detect) RSV (PCR) (Not Detect) Entero/Rhino (PCR) (Not Detect) MDM Narrative Medical decision making narrative: CC: 78-year-old gentleman lying on the floor of his home for at least 48 hours or longer. Found by his sister when he was not answering his phone Complicating co-morbidities: Does live independently, uses a walker due to peripheral neuropathy, history of colon cancer, prior GI bleed, alcohol use in the past it does not appear that he is still drinking Data collected from: Medics, sister Code status: POLST form is available in indicates full code but also indicates that it was signed in 2008. In discussion with his sister she recognizes that he has had significant medical problems, he has been struggling, would likely want to be a no code. They have a very large family with more family members dying as a reach their 80s. The family and siblings in general have wanted to be no code. She will discuss with the brother in [place] who has been a significant caregiver for Tlaat. Medical records reviewed: H&P from February 2023 hospital admission for GI bleed is reviewed Differential considered: Stroke, sepsis, severe anemia, renal failure, liver failure, heart failure, acute coronary syndrome rhabdomyolysis Exam documented above, pertinent findings include: Week all over, with significant confusion, tremor, probably weaker on his left side but global weakness makes that difficult to fully assess. Tachycardic, remarkably does not have severe skin breakdown has some minor pressure sores over the right side of his ankle and foot. No obvious abdominal tenderness Lab Test results independently reviewed as above. Pertinent findings: CBC shows leukocytosis at 20,000, no significant anemia, platelets are appropriate. He does have a significant left shift Coagulation studies are all within normal limits Chemistries are notable for hyponatremia at 1:24 a.m., kidney function remains appropriate. Bilirubin is minimally elevated at 1.6. AST is slightly elevated at 121. Ammonia level is undetectable Creatinine kinase elevated at 3108 Initial troponin is undetectable Lipase is reassuring Procalcitonin is low Urine is notable for significant concentration, ketones, blood but does not look like there is significant urinary tract infection Urine tox screen is unremarkable Respiratory panel is positive for COVID Independently reviewed EKG: Sinus rhythm with first-degree block. No acute ischemic changes Imaging studies independently reviewed: CT scan of the head does not show acute intracranial hemorrhage, obvious stroke or other trauma X-ray right upper arm shows no fractures X-ray of the right hand shows no fractures X-ray forearm right side no bony injury CT scan of the cervical spine shows no obvious injuries and postop hardware shows no surrounding injury Chest x-ray shows moderate cardiomegaly and interstitial prominence, no pleural effusions. Treatments: 2 L of fluid, IV ceftriaxone, IV ondansetron, IV dexamethasone Re-evaluations: His sister notes that he does still drink fairly heavily. Discussion: 78-year-old gentleman found lying on the floor of his apartment, down for at least 48 hours. -He remains confused and globally weak, I am concerned that he may have had a stroke with left-sided findings. CT scan is unremarkable. May benefit from MR -He is positive for COVID, he is hypoxic requiring 3 L of oxygen -There is no evidence of acute GI bleed or blood loss -Elevated CPK without acute renal injury -Significant leukocytosis with out lactic acidosis or localizing source for infection. Will begin ceftriaxone until further assessment can be done. He does not appear to have an obvious bacterial pneumonia, cellulitis, urinary tract infection -negative head CT however I am concerned that he has had a stroke based on his confusing clinical exam -hyponatremia with sodium at 124 -family discussing code status, likely leaning toward no code Reviewed with Dr. Araujo and patient will be admitted to the hospitalist service for additional evaluation and treatment. Critical Care Time Critical Care Time Critical Care Time: Yes Total Critical Care Time: 33 Attestation: Critical care time is separate from other billable procedures. There is a high probability of a significant, sudden or life-threatening deterioration that requires my full and direct attention, intervention and personal management. This critical care time includes consultation with family and other consulting doctors, review of records, and interpretation of data from labs, EKGs and imaging as well as managements of altered mental status uncertain etiology with multiple systemic issues for further evaluation Discharge Plan Departure Patient Disposition: Admitted As Inpatient Clinical Impression: COVID-19, Acute hyponatremia, Alcohol use disorder Altered mental status Qualifiers: Altered mental status type: unspecified Qualified Code(s): R41.82 - Altered mental status, unspecified Rhabdomyolysis Qualifiers: Rhabdomyolysis type: traumatic Encounter type: initial encounter Qualified Code(s): T79.6XXA - Traumatic ischemia of muscle, initial encounter Leukocytosis Qualifiers: Leukocytosis type: unspecified Qualified Code(s): D72.829 - Elevated white blood cell count, unspecified
[2023-08-03 17:59] LABS: Adenovirus Not Detected (Not Detect); B. parapertussis Not Detected (Not Detecte); Bordetella pertussis Not Detected (Not Detect); Chlamydophila pneumoniae Not Detected (Not Detect); Coronavirus 229E Not Detected (Not Detect); Coronavirus HKU1 Not Detected (Not Detect); Coronavirus NL 63 Not Detected (Not Detect); Coronavirus OC43 Not Detected (Not Detect); Human Metapneumovirus Not Detected (Not Detect); Human Rhinovirus/Enterovirus Not Detected (Not Detect); Influenza A Not Detected (Not Detect); Influenza B Not Detected (Not Detect); Mycoplasma pneumoniae Not Detected (Not Detect); Parainfluenza Virus 1 Not Detected (Not Detect); Parainfluenza Virus 2 Not Detected (Not Detect); Parainfluenza Virus 3 Not Detected (Not Detect); Parainfluenza Virus 4 Not Detected (Not Detect); Respiratory Syncytial Virus Not Detected (Not Detect)
[2023-08-03 18:07] LABS: SARS- CoV-2 Detected (Not Detecte)
[2023-08-03] MEDS: DEXAMETHASONE 10 MG/ML VIAL 6 MG IV (18:55)
[2023-08-03] MEDS: cefTRIAXone 2,000 MG in SODIUM CHLORIDE 0.9% 100 ML 200 MG IV (18:55)
[2023-08-03] MEDS: ACETAMINOPHEN 325 MG TABLET 975 MG PO (20:23)
[2023-08-03] MEDS: REMDESIVIR 200 MG in SODIUM CHLORIDE 0.9% 250 ML 250 MG IV (23:54)
[2023-08-03] MEDS: SODIUM CHLORIDE 0.9% 1,000 ML 100 ML IV (23:56)
[2023-08-04] VITALS: BP 133/69; PULSE 100; RESP 20; TEMP 37.4; O2SAT 93
--- NOTE | 2023-08-04 01:33 | PC.WOUNDPHOT ---
1) Abrasion to right hip and right side. 2) Pressure sore to right ankle. 3) Bruise to right leg. 4) Blister to right hip. 5) bruise to right arm.
[2023-08-04 04:42] VITALS: BP 140/70; PULSE 94; RESP 18; TEMP 37.1; O2SAT 93
--- NOTE | 2023-08-04 04:58 | PM.HP.1 ---
History of Present Illness History of Present Illness Date Patient Seen: 08/03/23 Time Patient Seen: 22:30 Chief complaint: Found Down Narrative: 78 years old male with a past medical history of hypertension, colon cancer status postresection and chemotherapy, alcohol use, neuropathy, gastritis with upper GI bleed was brought in to the emergency room after he was found on the floor and what appears to be over 2 days. Apparently he was feeling weak and laying on the floor for over 2 days. Eventually sister did a welfare check and squad was called and transported to the emergency room. Patient is hard of hearing and confused. Not a very good historian. Able to say that he is in the hospital and name of the hospital but unable to relate the time or the year. Difficulty in understanding the questions. Most of the history has been obtained from the chart. Reports that he is tired and feeling weak. Denies any shortness of breath or chest pain. Uses a walker but has been living in an independent facility. In the ED was noted to have skin breakdown over his right foot with abrasion but no significant pressure ulcers and had generalized weakness. X-ray of the, CT head and cervical spine shows no acute process systolic blood pressure was in the 180s and further labs revealed a sodium of 124, WBC count of 20.4. COVID was detected and noted to be hypoxic needing 3 L of oxygen. CPK levels were elevated as well. Patient was initiated on IV fluids with oxygen supplementation nebulizers and given a dose of IV Decadron. Admitted for further evaluation [facility] Medical History Anemia Chronic back pain (Unknown) Fractures Hearing loss (Unknown) Hx of flexible sigmoidoscopy (~01/2019) Surgical History (Updated 09/28/22 @ 14:09 by Brittany Petersen RN) H/O vasectomy History of removal of Port-a-Cath History of colonoscopy Hx of neck surgery (~2020) Anesthesia S/P laparoscopic colectomy (01/10/19) History of back surgery (~2016) Family History Father Heart disease Mother Cancer Congestive heart failure Sister Hypertension Cancer Brother Heart disease Rheumatic fever Brother No problems noted. Social History household members: none occupational status: employed Smoking Status: Former smoker alcohol intake: current Meds Home Medications and Allergies Home Medications Medication Instructions Recorded Confirmed Type disabled parking #1 ea 01/05/19 08/03/23 Rx gabapentin 300 mg capsule 600 mg PO BID pain 08/13/21 08/03/23 History acetaminophen 325 mg tablet 650 mg (2 x 325 mg) PO Q6H PRN 10/08/22 08/03/23 Rx Fever/Mild Pain (1-3) #240 tabs pantoprazole 40 mg tablet,delayed 40 mg PO BID #60 tabs 02/25/23 08/03/23 Rx release Allergies Allergy/AdvReac Type Severity Reaction Status Date / Time Opioids - Morphine Analogues AdvReac Severe delerium Verified 02/18/23 13:46 Review of Systems Review of Systems Narrative: Due to cognition change/altered mental status, limited 12 point review of systems negative unless otherwise stated in the history present illness Exam Vital Signs (past 8 hours): - 08/03/23 21:20 08/03/23 22:12 08/04/23 00:00 Temperature 99.9 F H 99.3 F Pulse Rate 95 H 100 H Respiratory Rate 20 Blood Pressure 133/69 Pulse Oximetry 96 93 Oxygen Delivery Method Nasal Cannula Oxygen Flow Rate 2 0 Fraction of Inspired Oxygen 28 08/04/23 04:42 Temperature 98.7 F Pulse Rate 94 H Respiratory Rate 18 Blood Pressure 140/70 Pulse Oximetry 93 Oxygen Delivery Method Oxygen Flow Rate 0 Fraction of Inspired Oxygen Fraction of Inspired Oxygen 28 SaO2/FiO2 Ratio 342 Oxygen Delivery Method Nasal Cannula Oxygen Flow Rate 0 Narrative Exam Narrative: Patient appears to be short of breath. Lungs lungs are diminished bilaterally in the mid lung region and at the base S1-S2 heard tachycardic Objective Labs 08/03/23 16:37 08/03/23 16:37 Labs: Laboratory Results - last 24 hr 08/03/23 08/03/23 08/03/23 16:32 16:32 16:35 WBC RBC Hgb Hct MCV MCH MCHC RDW Plt Count Neut % (Auto) Lymph % (Auto) [place] % (Auto) Eos % (Auto) Baso % (Auto) Neut # (Auto) Lymph # (Auto) [place] # (Auto) Eos # (Auto) Baso # (Auto) PT INR APTT Sodium Potassium Chloride Carbon Dioxide BUN Creatinine Estimated GFR BUN/Creatinine Ratio Glucose Lactate Calcium Total Bilirubin AST ALT Alkaline Phosphatase Ammonia Total Creatine Kinase Troponin I Total Protein Albumin Globulin Albumin/Globulin Ratio Lipase Procalcitonin Urine Color Yellow Urine Appearance Clear Urine pH 6.0 Normal Ur Specific [place] >=1.030 H Urine Protein 2+ H Urine Glucose (UA) Negative Urine Ketones 3+ H Urine Occult Blood 1+ H Urine Nitrate Negative Urine Bilirubin 1+ H Ur Bilirubin Confirm TNP Urine Urobilinogen 1.0 Ur Leukocyte Esterase Negative Urine RBC 1-5/hpf Urine WBC 1-5/hpf Ur Squamous Epith Cells None seen Urine Bacteria Few (2-10) H Urine Mucus 3+ H Ur Culture Indicated? Cult not indicated Vol Urine Centrifuged Low vol <10ml (spun) A U Opiates 300ng/mL cut Negative Ur Oxycodone Screen Negative Urine Methadone Screen Negative Ur Barbiturates Screen Negative U Tricyclic Antidepress Negative Ur Phencyclidine Scrn Negative Ur Amphetamines Screen Negative U Methamphetamines Scrn Negative Ur MDMA Scrn (Ecstasy) Negative U Benzodiazepines Scrn Negative Urine Cocaine Screen Negative U Marijuana (THC) Screen Negative Urine Specific [place] Normal Ur Creatinine Normal Chlamy pneumoniae PCR Not detected Adenovirus (PCR) Not detected B.parapertussis DNA PCR Not detected Coronavirus OC43 (PCR) Not detected Coronavirus HKU1 (PCR) Not detected Coronavirus 229E (PCR) Not detected SARS-CoV-2 (PCR) Detected H Coronavirus NL63 (PCR) Not detected Human Metapneumovir PCR Not detected Influenza Type A (PCR) Not detected Influenza Type B (PCR) Not detected M. pneumoniae (PCR) Not detected Parainfluenza 1 (PCR) Not detected Parainfluenza 2 (PCR) Not detected Parainfluenza 3 (PCR) Not detected Parainfluenza 4 (PCR) Not detected RSV (PCR) Not detected Entero/Rhino (PCR) Not detected 08/03/23 16:37 WBC 20.4 H RBC 4.11 L Hgb 13.7 Hct 40.2 L MCV 97.7 MCH 33.2 MCHC 34.0 RDW 13.9 Plt Count 296 Neut % (Auto) 88.2 H Lymph % (Auto) 2.6 L [place] % (Auto) 8.4 Eos % (Auto) 0.5 L Baso % (Auto) 0.3 Neut # (Auto) 44780 H Lymph # (Auto) 500 L [place] # (Auto) 1700 H Eos # (Auto) 100 Baso # (Auto) 100 PT 12.2 INR 1.1 APTT 35 Sodium 124 L Potassium 4.3 Chloride 91 L Carbon Dioxide 36 H BUN 15 Creatinine 0.48 L Estimated GFR > 60 BUN/Creatinine Ratio 31.3 H Glucose 113 H Lactate 1.5 Calcium 9.3 Total Bilirubin 1.6 H AST 121 H ALT 49 Alkaline Phosphatase 70 Ammonia < 9 L Total Creatine Kinase 3108 H Troponin I < 0.012 Total Protein 7.2 Albumin 4.2 Globulin 3.0 Albumin/Globulin Ratio 1.4 Lipase 22 L Procalcitonin 0.17 Urine Color Urine Appearance Urine pH Ur Specific [place] Urine Protein Urine Glucose (UA) Urine Ketones Urine Occult Blood Urine Nitrate Urine Bilirubin Ur Bilirubin Confirm Urine Urobilinogen Ur Leukocyte Esterase Urine RBC Urine WBC Ur Squamous Epith Cells Urine Bacteria Urine Mucus Ur Culture Indicated? Vol Urine Centrifuged U Opiates 300ng/mL cut Ur Oxycodone Screen Urine Methadone Screen Ur Barbiturates Screen U Tricyclic Antidepress Ur Phencyclidine Scrn Ur Amphetamines Screen U Methamphetamines Scrn Ur MDMA Scrn (Ecstasy) U Benzodiazepines Scrn Urine Cocaine Screen U Marijuana (THC) Screen Urine Specific [place] Ur Creatinine Chlamy pneumoniae PCR Adenovirus (PCR) B.parapertussis DNA PCR Coronavirus OC43 (PCR) Coronavirus HKU1 (PCR) Coronavirus 229E (PCR) SARS-CoV-2 (PCR) Coronavirus NL63 (PCR) Human Metapneumovir PCR Influenza Type A (PCR) Influenza Type B (PCR) M. pneumoniae (PCR) Parainfluenza 1 (PCR) Parainfluenza 2 (PCR) Parainfluenza 3 (PCR) Parainfluenza 4 (PCR) RSV (PCR) Entero/Rhino (PCR) Assessment & Plan Assessment & Plan narrative: 78 years old male with a past medical history of hypertension, colon cancer status postresection and chemotherapy, alcohol use, neuropathy, gastritis with upper GI bleed was brought in to the emergency room after he was found on the floor and what appears to be over 2 days. Apparently he was feeling weak and laying on the floor for over 2 days. Eventually sister did a welfare check and squad was called and transported to the emergency room. Patient is hard of hearing and confused. Not a very good historian. Able to say that he is in the hospital and name of the hospital but unable to relate the time or the year. Difficulty in understanding the questions. Most of the history has been obtained from the chart. Reports that he is tired and feeling weak. Denies any shortness of breath or chest pain. Uses a walker but has been living in an independent facility. In the ED was noted to have skin breakdown over his right foot with abrasion but no significant pressure ulcers and had generalized weakness. X-ray of the, CT head and cervical spine shows no acute process systolic blood pressure was in the 180s and further labs revealed a sodium of 124, WBC count of 20.4. COVID was detected and noted to be hypoxic needing 3 L of oxygen. CPK levels were elevated as well. Patient was initiated on IV fluids with oxygen supplementation nebulizers and given a dose of IV Decadron. Admitted for further evaluation COVID infection with acute hypoxemia and generalized weakness. Did receive a dose of Decadron in the emergency room which will be continued and also initiate a course of remdesivir with nebulizers and oxygen supplementation to maintain O2 saturation above 92%. Continue IV Rocephin for now Zithromax Rhabdomyolysis likely secondary to prolonged immobilization with a fall. CPK level was greater than 3000. IV fluids and trend renal function closely while watching for any fluid overload Hyponatremia suspect due to hypovolemia. Check a serum and urine osmolality. Continue IV trend renal function closely Altered mental status. CT brain is negative for acute process per primary . Check and treat for any reversible factors. Suspect an element of metabolic and. May need further neurowork-up if there is persistent cognitive decline History of GI bleed continue the home Protonix 40 mg twice daily History of colon cancer stable with ongoing pain setting Gait instability will consult physical therapy for further and ' DVT prophylaxis will be with Lovenox For now patient is a full code. Patient is admitted under inpatient status given the acute hypoxemic respiratory failure in the setting of COVID infection with hypoxemia/hyponatremia/rhabdomyolysis with expected length of stay greater than 2 midnights Patient was evaluated with help of a communication device. Provider is located remotely in [facility]. Time is 12 minutes COVID-19 COVID-19 status: Positive Quality VTE Deep Vein Thrombosis/Pulmonary Embolism Present on Admission: No
--- NOTE | 2023-08-04 05:19 | PC.ADMIT ---
1512 16th Admission Note: Patient admitted to ACU from ED at 20:40 via stretcher, transferred to bed using slideboard. Alert and oriented to self, confused. Placed on telemetry per order. Denies pain or discomfort. NS @ 100/hr. Pt on droplet precautions for COVID. Bed in low and locked position, bed alarm on and call light within reach. The patient,Talat Stevenson,78 y/o, was given written information regarding hospital policies, unit procedures and contact persons. Patient's smoking status: Former smoker. Vital Signs - 8 hr 08/03/23 21:20 08/03/23 22:12 08/04/23 00:00 Temperature 99.9 F H 99.3 F Pulse Rate 95 H 100 H Respiratory Rate 20 Blood Pressure 133/69 Pulse Oximetry 96 93 Oxygen Delivery Method Nasal Cannula Oxygen Flow Rate 2 0 Fraction of Inspired Oxygen 08/04/23 04:42 Temperature 98.7 F Pulse Rate 94 H Respiratory Rate 18 Blood Pressure 140/70 Pulse Oximetry 93 Oxygen Delivery Method Oxygen Flow Rate 0 Fraction of Inspired Oxygen
[2023-08-04 05:45] LABS: Add Manual Diff / Slide Review NO; Basophils Absolute Auto 100 /uL (0-100); Basophils Percent Auto 1.1 % (0-2); Eosinophils Absolute Auto 0 /uL (0-450); Eosinophils Percent Auto 0.2 % (2-4); Hematocrit 38.3 % (41-53); Lymphocytes Absolute Auto 600 /uL (1100-4500); Lymphocytes Percent Auto 4.3 % (25-40); Monocytes Absolute Auto 700 /uL (0-900); Monocytes Percent Auto 5.2 % (3-14); Neutrophils Absolute Auto 12700 /uL (1500-7000); Neutrophils Percent Auto 89.2 % (50-75); Platelet Count 323 X10^3/uL (150-400); Red Blood Cell Count 3.95 X10^6/uL (4.5-5.9); Red Cell Distribution Width 14.5 % (11.6-14.8); White Blood Cell Count 14.2 X10^3/uL (4.5-11.0)
[2023-08-04 05:54] LABS: INR 1.1 (0.9-1.3); Prothrombin Time 12.8 SECONDS (9.4-12.5)
[2023-08-04 06:01] LABS: BUN Creatinine Ratio 22.9 (6-22); Blood Urea Nitrogen 11 mg/dL (9-20); Calcium 8.6 mg/dL (8.4-10.2); Carbon Dioxide 24 mmol/L (22-32); Chloride 97 mmol/L (98-107); Creatine Kinase 1500 U/L (55-170); Estimated Glomerular Filt Rate > 60 mL/min (>60); Glucose 122 mg/dL (80-110); HEMOLYSIS < 15 (0-50); Magnesium 1.6 mg/dL (1.6-2.3); Phosphorous 3.1 mg/dL (2.3-3.7); Potassium 4.2 mmol/L (3.4-5.1); Sodium 127 mmol/L (137-145)
[2023-08-04 06:08] LABS: NT-proBNP (BNP-Adult 18+) 809 pg/mL (<450)
[2023-08-04 08:00] VITALS: BP 141/68; PULSE 89; RESP 16; TEMP 36.4; O2SAT 96
[2023-08-04] MEDS: GABAPENTIN 300 MG CAPSULE 600 MG PO ×2 (08:11→19:50)
[2023-08-04] MEDS: ENOXAPARIN 40 MG/0.4 ML SYRINGE SUBCUT (08:12)
[2023-08-04] MEDS: AZITHROMYCIN 250 MG TABLET PO (08:12)
[2023-08-04] MEDS: PANTOPRAZOLE DR 40 MG TABLET PO ×2 (08:12→19:50)
--- NOTE | 2023-08-04 08:12 | PC.NURSE ---
Issa catheter tubing found to be leaking between patient and bag. Tubing replaced. I/O's inaccurate due to moderate amount of urine on the floor.
--- NOTE | 2023-08-04 08:16 | P.PN_ITS ---
Subjective Subjective Interval history: Patient states he feels better today. Does not think he was on the ground at home for 2 days. Says hunger wound have woken me up. CONTENT PRODUCER working on SNF. Exam Vital Signs (past 8 hours): - 08/04/23 04:42 Temperature 98.7 F Pulse Rate 94 H Respiratory Rate 18 Blood Pressure 140/70 Pulse Oximetry 93 Oxygen Flow Rate 0 Fraction of Inspired Oxygen 28 SaO2/FiO2 Ratio 342 Oxygen Delivery Method Nasal Cannula Oxygen Flow Rate 0 Narrative Exam Narrative: GEN: no acute distress, A/Ox2, disheveled HEENT: moist mucous membranes, PERRL NECK: trachea midline, no JVD CV: regular rate and rhythm, no murmurs PULM: clear bilaterally ABD: soft, nontender, nondistended, no organomegaly EXT: warm and well perfused with no edema NEURO: awake, alert, oriented, no focal deficits Objective Labs 08/04/23 05:10 08/04/23 05:10 Labs: Laboratory Results - last 24 hr 08/03/23 08/03/23 08/03/23 16:32 16:32 16:35 WBC RBC Hgb Hct MCV MCH MCHC RDW Plt Count Neut % (Auto) Lymph % (Auto) [place] % (Auto) Eos % (Auto) Baso % (Auto) Neut # (Auto) Lymph # (Auto) [place] # (Auto) Eos # (Auto) Baso # (Auto) PT INR APTT Sodium Potassium Chloride Carbon Dioxide BUN Creatinine Estimated GFR BUN/Creatinine Ratio Glucose Lactate Calcium Phosphorus Magnesium Total Bilirubin AST ALT Alkaline Phosphatase Ammonia Total Creatine Kinase Troponin I NT-Pro-B Natriuret Pep Total Protein Albumin Globulin Albumin/Globulin Ratio Lipase Procalcitonin Urine Color Yellow Urine Appearance Clear Urine pH 6.0 Normal Ur Specific [place] >=1.030 H Urine Protein 2+ H Urine Glucose (UA) Negative Urine Ketones 3+ H Urine Occult Blood 1+ H Urine Nitrate Negative Urine Bilirubin 1+ H Ur Bilirubin Confirm TNP Urine Urobilinogen 1.0 Ur Leukocyte Esterase Negative Urine RBC 1-5/hpf Urine WBC 1-5/hpf Ur Squamous Epith Cells None seen Urine Bacteria Few (2-10) H Urine Mucus 3+ H Ur Culture Indicated? Cult not indicated Vol Urine Centrifuged Low vol <10ml (spun) A U Opiates 300ng/mL cut Negative Ur Oxycodone Screen Negative Urine Methadone Screen Negative Ur Barbiturates Screen Negative U Tricyclic Antidepress Negative Ur Phencyclidine Scrn Negative Ur Amphetamines Screen Negative U Methamphetamines Scrn Negative Ur MDMA Scrn (Ecstasy) Negative U Benzodiazepines Scrn Negative Urine Cocaine Screen Negative U Marijuana (THC) Screen Negative Urine Specific [place] Normal Ur Creatinine Normal Chlamy pneumoniae PCR Not detected Adenovirus (PCR) Not detected B.parapertussis DNA PCR Not detected Coronavirus OC43 (PCR) Not detected Coronavirus HKU1 (PCR) Not detected Coronavirus 229E (PCR) Not detected SARS-CoV-2 (PCR) Detected H Coronavirus NL63 (PCR) Not detected Human Metapneumovir PCR Not detected Influenza Type A (PCR) Not detected Influenza Type B (PCR) Not detected M. pneumoniae (PCR) Not detected Parainfluenza 1 (PCR) Not detected Parainfluenza 2 (PCR) Not detected Parainfluenza 3 (PCR) Not detected Parainfluenza 4 (PCR) Not detected RSV (PCR) Not detected Entero/Rhino (PCR) Not detected 08/03/23 08/04/23 16:37 05:10 WBC 20.4 H 14.2 H RBC 4.11 L 3.95 L Hgb 13.7 13.0 L Hct 40.2 L 38.3 L MCV 97.7 97.0 MCH 33.2 33.0 MCHC 34.0 34.0 RDW 13.9 14.5 Plt Count 296 323 Neut % (Auto) 88.2 H 89.2 H Lymph % (Auto) 2.6 L 4.3 L [place] % (Auto) 8.4 5.2 Eos % (Auto) 0.5 L 0.2 L Baso % (Auto) 0.3 1.1 Neut # (Auto) 01631 H 89608 H Lymph # (Auto) 500 L 600 L [place] # (Auto) 1700 H 700 Eos # (Auto) 100 0 Baso # (Auto) 100 100 PT 12.2 12.8 H INR 1.1 1.1 APTT 35 Sodium 124 L 127 L Potassium 4.3 4.2 Chloride 91 L 97 L Carbon Dioxide 36 H 24 BUN 15 11 Creatinine 0.48 L 0.48 L Estimated GFR > 60 > 60 BUN/Creatinine Ratio 31.3 H 22.9 H Glucose 113 H 122 H Lactate 1.5 Calcium 9.3 8.6 Phosphorus 3.1 Magnesium 1.6 Total Bilirubin 1.6 H AST 121 H ALT 49 Alkaline Phosphatase 70 Ammonia < 9 L Total Creatine Kinase 3108 H 1500 H D Troponin I < 0.012 NT-Pro-B Natriuret Pep 809 H Total Protein 7.2 Albumin 4.2 Globulin 3.0 Albumin/Globulin Ratio 1.4 Lipase 22 L Procalcitonin 0.17 Urine Color Urine Appearance Urine pH Ur Specific [place] Urine Protein Urine Glucose (UA) Urine Ketones Urine Occult Blood Urine Nitrate Urine Bilirubin Ur Bilirubin Confirm Urine Urobilinogen Ur Leukocyte Esterase Urine RBC Urine WBC Ur Squamous Epith Cells Urine Bacteria Urine Mucus Ur Culture Indicated? Vol Urine Centrifuged U Opiates 300ng/mL cut Ur Oxycodone Screen Urine Methadone Screen Ur Barbiturates Screen U Tricyclic Antidepress Ur Phencyclidine Scrn Ur Amphetamines Screen U Methamphetamines Scrn Ur MDMA Scrn (Ecstasy) U Benzodiazepines Scrn Urine Cocaine Screen U Marijuana (THC) Screen Urine Specific [place] Ur Creatinine Chlamy pneumoniae PCR Adenovirus (PCR) B.parapertussis DNA PCR Coronavirus OC43 (PCR) Coronavirus HKU1 (PCR) Coronavirus 229E (PCR) SARS-CoV-2 (PCR) Coronavirus NL63 (PCR) Human Metapneumovir PCR Influenza Type A (PCR) Influenza Type B (PCR) M. pneumoniae (PCR) Parainfluenza 1 (PCR) Parainfluenza 2 (PCR) Parainfluenza 3 (PCR) Parainfluenza 4 (PCR) RSV (PCR) Entero/Rhino (PCR) COUNT INCLUDES THE [facility] Medical History Anemia Chronic back pain (Unknown) Fractures Hearing loss (Unknown) Hx of flexible sigmoidoscopy (~01/2019) Surgical History (Updated 09/28/22 @ 14:09 by Brittany Petersen RN) H/O vasectomy History of removal of Port-a-Cath History of colonoscopy Hx of neck surgery (~2020) Anesthesia S/P laparoscopic colectomy (01/10/19) History of back surgery (~2016) Family History Father Heart disease Mother Cancer Congestive heart failure Sister Hypertension Cancer Brother Heart disease Rheumatic fever Brother No problems noted. Social History household members: none occupational status: employed Smoking Status: Former smoker alcohol intake: current Assessment & Plan Assessment & Plan narrative: # COVID infection with acute hypoxemia and generalized weakness, hypoxia resolved -Did receive a dose of Decadron in the emergency room which will be continued and also initiate a course of remdesivir with nebulizers and oxygen supplementation to maintain O2 saturation above 92%. Continue IV Rocephin for now Zithromax. -stopped dex and rem due to now on room air # Rhabdomyolysis likely secondary to prolonged immobilization with a fall. -CPK level was greater than 3000. IV fluids and trend renal function closely while watching for any fluid overload # Hyponatremia suspect due to hypovolemia. -improving with IVF # Altered mental status. -CT brain is negative for acute process. Check and treat for any reversible factors. Suspect an element of metabolic encephalopathy and cognitive impairment. # History of GI bleed -continue the home Protonix 40 mg twice daily # History of colon cancer stable # Gait instability -PT/OT eval rec SNF DVT prophylaxis will be with Lovenox Dispo: To [facility] on 08/[facility]. COVID-19 COVID-19 status: Positive Quality VTE Deep Vein Thrombosis/Pulmonary Embolism Present on Admission: No
[2023-08-04] MEDS: MAGNESIUM CHLORIDE 64 MG TABLET 128 MG PO (10:55)
[2023-08-04] MEDS: SODIUM CHLORIDE 0.9% 1,000 ML 100 ML IV ×2 (11:16→19:49)
--- NOTE | 2023-08-04 11:37 | CM.DANOTE ---
Initial DCP Assessment Note Pt is a 78 yo male, resides at [facility] in an [facility] apartment; found down in his apt by sister Nelly, amount of time down unknown. Patient w/confusion and found to be COVID+ PCP: Antonia Leigh Payer: CRISTOBAL Reviewed chart, pt COVID+ and not alert and oriented today so began initial assessment with patient's sister at bedside, Hyun P [phone]; Patient has been living at [facility] for approx 3 years, within the last year patient's mobility has changed. Patient uses a cane or walker on a typical day, sister Nelly visits regularly and will assist as needed with higher ADLs. Patient does not drive, sisters assist with transport. Patient is a known alcohol drinker, amount of daily use unknown per sister Hyun. Patient has children located in [place] that he does not stay in close contact with; patient does not have a DPOA assigned at this time. Discussed discharge plan with sister Hyun. Therapies have been ordered to assist with dispo recommendations. Sister hopeful patient can discharge to a SNF for the short term before return home w/family's continued assistance. Family plans to discuss assisted care plan with patient with an eventual move into assisted living. Sister reports patient has plenty of money to pay for assisted care. [facility] with Katt at [facility]. This NEW CLIENT BANKING SERVICES CLERK will plan to review DCP with patient once cognitively able to participate in a goal directed conversation. CM team following clinical course closely for assessment of need and coordination of discharge plan. COREY Grijalva Discharge Planning/Care Management CM Discharge Assessment Start: 08/04/23 11:30 Freq: Status: Active Protocol: Document 08/04/23 11:31 BLESSING (Rec: 08/04/23 11:37 BLESSING [id number]) Discharge Planning Assessment Assigned Moss Picker COREY Carrasquillo DPOA/Assigned Designee Name No DPOA, NOK is sister Nelly Edwards P [phone] and Contact Information sister Hyun P [phone] Advance Directives? Yes: 2019 POLST- Full code, Full treatment Advance Directives on File Yes History Provided By Family Member,Medical Record Prior Living Arrangements Shelter Facility Household Members none Type of transporation used prior to Relies on Others admit Facility Name Admitted From: [facility] Independent with ADL's Yes: has assist from sister Nelly most days Is patient alert and oriented? Yes Needs Assistance With Meal Prep,Managing Medications ,Home Chores / Shopping Comment TBD. Therapy eval pending Discharge Plan Nursing Home Facility Transportation Arrangement TBD Referrals Initiated Nursing Home Additional Comment [facility] has a COVID outbreak, considering patient now.
[2023-08-04 12:00] VITALS: BP 137/59; PULSE 90; RESP 18; TEMP 36.4; O2SAT 95
--- NOTE | 2023-08-04 15:43 | OT.IP.EVAL ---
Past Medical History (Last Reviewed 02/18/23 @ 17:28 by Dawson Hernandez DO) Anemia Chronic back pain (Unknown) Fractures Hearing loss (Unknown) Hx of flexible sigmoidoscopy (~01/2019) Surgical History (Last Updated 09/28/22 @ 14:08 by Brittany Petersen RN) Anesthesia H/O vasectomy History of back surgery (~2016) History of colonoscopy History of removal of Port-a-Cath Hx of neck surgery (~2020) S/P laparoscopic colectomy (01/10/19) Occupational Therapy Inpatient Evaluation/Re-Eval M1 PT/OT-IP Prior Functional Status Start: 08/04/23 15:42 Freq: NEEDED Status: Active Protocol: Document 08/04/23 15:43 [facility] (Rec: 08/04/23 16:05 [facility] [id number]) Medical Review Prior Functional Status Medical History Reviewed Yes Communication Independent. Mobility and Gait Pt states has been using a FWW. Pt states initially when getting out of bed has to flex forwards over his knees in order to stand up. Activities of Daily Living and IADL's Pt states able to do his ADL and cooks gluten free meals as he states he is celiac, lead pharmacy technician notified. Pt states does not drive. Social History Household Members none Living Arrangements [facility] Home Environment Standard Height Toilet,Walk in Shower Home Equipment Front Wheel Walker,Grab Bars Near Toilet Additional Social History Comment Pt a little inconsistent with his home set-up and very hard of hearing. To re-ask pt tomorrow when hopefully more alert. M2 OT-IP Current Condition Start: 08/04/23 15:42 Freq: Status: Active Protocol: Document 08/04/23 15:43 [facility] (Rec: 08/04/23 16:05 [facility] [id number]) Occupational Therapy Current Condition Current Condition Evaluation Date 08/04/23 Treatment Diagnosis COVID+, Rhabdo, decreased mobility Diagnosis Onset Date 08/03/23 M3 OT- IP Subjective and Pain Start: 08/04/23 15:42 Freq: Status: Active Protocol: Document 08/04/23 15:43 [facility] (Rec: 08/04/23 16:05 [facility] [id number]) OT- Subjective Occupational Therapy Visit Type Type Initial Evaluation Visit Start Time 14:30 Visit Stop Time 15:10 Occupational Therapy Visit Comments Patient Comments Pt agreed to try to get up. Patient/Caregiver Goals To get better. OT Pain Assessment Pain When Pain Assessed At Rest Pain Present Pain Present Pain Reported M4 OT- IP ADL's Start: 08/04/23 15:42 Freq: Status: Active Protocol: Document 08/04/23 15:43 [facility] (Rec: 08/04/23 16:05 [facility] [id number]) OT [id number] Comments OT Self-Feeding Comments Pt able to drink from the water bottle but noted delayed swallow and than coughing afterwards. 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 OT ADL-Grooming Comments OT Grooming Comments Not performed. OT ADL-Oral Care Comments Oral Care Comments NOt performed. OT ADL-Dressing General Eval Lower Body Dressing Ability Total Assistance Areas Needing Assistance Underpants/Brief,Socks Comments OT Dressing Comments Total assist at this time. OT ADL-Toileting General Evaluation Toileting Ability Total Assistance Areas Needing Assistance Manage Clothing,Perform Perineal Hygiene Comments OT Toileting Comments Foly in place. OT ADL-Bathing Comments OT Bathing Comments Sponge bath more appropriate at this time. M5 OT- IP IADL's Start: 08/04/23 15:42 Freq: Status: Active Protocol: Document 08/04/23 15:43 [facility] (Rec: 08/04/23 16:05 [facility] [id number]) OT-Instrumental Activities of Daily Living Deficits IADL Deficits Identified Deficits Home Safety Awareness Awareness of Need for Assistance at Home Decreased Awareness Ability to Problem Solve Emergency Unable to Problem Solve Situations Home Safety Comments Pt confused and mainly orientated to name and place. Medication Management Medication Management Comments Pt would require assist at this time. Money Management Money Management Comments Pt would require assist at this time. Meal Preparation Meal Preparation Comments Pt would require assist. Water Quality Specialist Water Quality Specialist Comments Pt would require assist. M6 OT- IP Functional Cognition Start: 08/04/23 15:42 Freq: Status: Active Protocol: Document 08/04/23 15:43 [facility] (Rec: 08/04/23 16:05 [facility] [id number]) Cognitive Factors Limiting Selfcare Function Cognitive Ability Level of Alertness Confusional State Patient Orientation Name,Place Attention Span Ability Capable of Focused Attention, Unable to Sustain Attention Ability to Follow Commands Able to Follow One Step Commands with Increased Time, Able to Follow One Step Commands with Repetition Cognitive Comments Cognitive Assessment Comments Pt very hard of hearing and therefore having difficulty to follow commands. In addition pt having difficulty to motor plan his BLE more than BUE at this time. Noted some neglect to use his LUE at this time. OT- Vision and Hearing OT- Hearing Assessment OT- Hearing Assessment Hearing Impaired OT- Vision Assessment Vision Assessment Comments Pt not able to read the clock accurately of follow commands for visual field at this time. Pt tends to keep his left eye semi-closed. M7 OT- IP Mobility and Balance Start: 08/04/23 15:42 Freq: Status: Active Protocol: Document 08/04/23 15:43 [facility] (Rec: 08/04/23 16:05 [facility] [id number]) OT- Bed Mobility Assessment Supine to Sit Supine to Sit Assist Maximum Assistance,2 Person Assistance Sit to Supine Sit to Supine Assist Maximum Assistance,2 Person Assistance Scooting Scooting to Edge of Bed Maximum Assistance,2 Person Assistance OT-Transfer Assessment Sit to and From Stand Sit to and from Stand Maximum Assistance,2 Person Assistance Technique Transfer Destination Bed Devices Transfer Assistive Devices Gait Belt,Front Wheeled Walker Comments Mobility Comments Pt not able to get his legs to move to the edge of the bed and having to assist and to also get his trunk upright. MAX Ax2 to stand to FWW and weak on RLE and needing assist to help keep from buckling. Pt not able to stand all the way upright with FWW. MAXA X2 to help get back into bed. OT- Balance Assessment Sitting Balance and Reactions Static Sitting Balance Ability Poor Dynamic Sitting Balance Ability Poor Standing Balance and Reactions Static Standing Balance Ability Poor Dynamic Standing Balance Ability Poor Comments Other Balance Tests/Deviations/Treatment Pt heavy lean into lateral : tilt to the right and posteriorly. Pt not able to maintain any midline sitting, and needing MODA X 1. M8 OT- IP Objective Assessments Start: 08/04/23 15:42 Freq: Status: Active Protocol: Document 08/04/23 15:43 [facility] (Rec: 08/04/23 16:05 [facility] [id number]) OT Gross Range of Motion Upper Extremity Range of Motion ROM Impairments grossly WFL OT Strength Comments Strength Comments At least 3+/5 as pt having difficulty to follow MMT. M9 OT- IP Assessment and Plan Start: 08/04/23 15:42 Freq: Status: Active Protocol: Document 08/04/23 15:43 [facility] (Rec: 08/04/23 16:05 [facility] [id number]) OT Summary Assessment and Plan Potential Rehabilitation Potential Good Analytic Complexity at Evaluation Moderate Summary OT Impairments Pain,Range of Motion,Strength, Balance,Coordination, Functional Cognition, Functional Mobility,Self- Feeding,Grooming,Dressing, Toileting,Bathing,Toilet Transfers,Shower Transfers, Activity Tolerance Progress Towards Goals Slow Progress due to Pain,Slow Progress due to Medical Issues,Slow Progress due to Activity Tolerance,Slow Progress due to Cognition Assessment Summary Pt MOD complexity and main barriers are pain, confused, decreased midline, balance, and at this time needing extensive assist for all ADL and mobility needs. Pt will benefit from skilled rehab at this time. Goals Self-Feeding Goal Independent Grooming Goal Independent Dressing Goal Independent Toileting Goal Independent Bathing Goal Independent Toilet Transfer Goal Independent Shower Transfer Goal Independent Days to Meet Goals 30 Frequency of Treatment Frequency Of Treatment Once a Day Treatment Plan OT Treatment Plan ADL Training,Functional Cognition Training,Functional Mobility,Patient/Family Education,Discharge Planning Other Treatment Recommendations and Next [place] [facility] [place] Focus with FWW. Discharge Recommendations OT Discharge Recommendations SNF Rehab Transportation Needs at Discharge Wheelchair/Cabulance
[2023-08-04 16:00] VITALS: BP 132/45; PULSE 85; RESP 18; TEMP 37; O2SAT 97
--- NOTE | 2023-08-04 16:00 | PT-IP ANOTE ---
PT reviewed chart in preparation for assessment. Spoke with OT and nsg. Pt with confusion today and decreased ability to participate with PT assessment. Will initiate assessment next date.
--- NOTE | 2023-08-04 16:44 | ST.IPCSEOM ---
Visit Care Team Role Provider Type Antonia Leigh MD Primary Care Provider Physician Specialty: Internal Medicine Address: [place] [id number] Email: Kimberley Jacobson MD Emergency Provider Physician Referring Provider Specialty: Emergency Medicine Address: [address] [place] [address], [id number] Email: Danie Araujo DO Admit Provider Physician Attending Provider Specialty: Internal Medicine Address: [address] [place] [address], [id number] Email: [email or web address] Past Medical History (Last Reviewed 02/18/23 @ 17:28 by Dawson Hernandez DO) Anemia (Medical) Chronic back pain (Medical Unknown) Fractures (Medical) Broken rib, vertebral fracture status post trauma Hearing loss (Medical Unknown) Hx of flexible sigmoidoscopy (Medical ~01/2019) w/cauterization to stop bleeding at anastomotic staple area Speech-Language Pathology 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 Danie Araujo Reason for Referral Coughing thin liquids Setting Assessment Location Acute Care Visit Type Note Type Initial evaluation Patient Information Identification Type Name,Wristband History Per H&P: 78 years old male with a past medical history of hypertension, colon cancer status postresection and chemotherapy, alcohol use, neuropathy, gastritis with upper GI bleed was brought in to the emergency room after he was found on the floor and what appears to be over 2 days . Apparently he was feeling weak and laying on the floor for over 2 days. Eventually sister did a welfare check and squad was called and transported to the emergency room. Patient is hard of hearing and confused. Not a very good historian. Able to say that he is in the hospital and name of the hospital but unable to relate the time or the year. Difficulty in understanding the questions. Most of the history has been obtained from the chart. Reports that he is tired and feeling weak. Denies any shortness of breath or chest pain. Uses a walker but has been living in an independent facility. In the ED was noted to have skin breakdown over his right foot with abrasion but no significant pressure ulcers and had generalized weakness. X-ray of the, CT head and cervical spine shows no acute process systolic blood pressure was in the 180s and further labs revealed a sodium of 124, WBC count of 20 .4. COVID was detected and noted to be hypoxic needing 3 L of oxygen. CPK levels were elevated as well. Patient was initiated on IV fluids with oxygen supplementation nebulizers and given a dose of IV Decadron. Admitted for further evaluation PMHx significant for: Anemia Chronic back pain (Unknown) Fractures Hearing loss (Unknown) Hx of flexible sigmoidoscopy ( ~01/2019) Pt referred for ST evaluation d/t Pt observed by OT coughing on thin liquids. ST to determine safest and most efficient least restrictive diet. Subjective Observations Pt tested positive for COVID and is on precautions. Pt laying in bed sleeping. Pt slightly difficult to arouse, however eventually woke up with verbal cues and adjusting bed upright 90 degrees for PO trials. He was awake and alert, however slightly confused. Oriented to self and place. Pt is [place] and required increased volume. Reported by Patient/Caregiver Other Symptoms Coughing,Difficulty swallowing liquids Current Diet Regular (IDDSI 7) The IDDSI Framework Protocol: IDDSI.1 Objective Assessment Mental Status Alert,Responsive,Cooperative, Confused,Lethargic Dentition Edentulous Comment Pt demonstrated difficulties following commands during oral motor exam, which may be d/t Pt with confusion. Pt exhibited slight right sided facial droop and generalized labial and lingual weakness and reduced ROM. Pt with edentulous. Food and Liquid Trials Position During Assessment Upright (90 degrees) Liquids Trialed Thin (IDDSI 0),Mildly Thick ( IDDSI 2) Solid Trials Soft & Bite-sized (IDDSI 6), Regular (IDDSI 7) Administration Type Cup single sip,Straw,Needs some assistance Oral Impairment Mildly impaired Oral Phase Comments Pt consumed a couple bites of a calvin cracker, 2 bites of a chewy oatmeal bar and about 4 oz of thin water via cup/ straw and nectar thick juice via cup. For calvin cracker Pt took small bites, prolonged mastication secondary to lack of dentition, poor bolus control and formation, extended ap transport. For chewy bar Pt demonstrated prolonged mastication, improved boluss control compared to regular solid. He expelled pieces of raisins from chewy bar d/t difficulties masticating. For water via straw he demonstrated adequate suction, occasional right sided spillage with water via cup, rapid ap transport. For nectar thick liquids he demonstrated adequate lip seal around cup, good oral acceptance and containment, timely ap transport. Pharyngeal Impairment Moderately impaired Pharyngeal Phase Comments For thin water via straw and cup Pt demonstrated immediate and delayed coughing reflex. Additionally, he exhibited audible swallow reflex, suspected delay in swallow, increase in wet vocal quality. He presented with wheezing prior to PO trials. For nectar thick liquids via cup he demonstrated suspected delay in swallow, however no overt s /s of aspiration. No overt s/s of aspiration with solids or reports of globus sensation. He benefited from alternating liquids/solids to assist with clearance. Fatigue/Endurance Mild fatigue The IDDSI Framework Protocol: IDDSI.1 Findings Swallowing Function Oropharyngeal phase dysphagia Severity of Swallow Impairment Mildly-moderately impaired Contributing Factors to Swallow Mastication inefficiency Impairment Prognosis Fair Based on Cognitive status Impact on Safety and Functioning Risk for aspiration Recommendations Instrumental Assessment No Swallowing Treatment Yes Frequency Daily while inpatient Recommended Solids Soft & Bite-sized (IDDSI 6) Recommended Liquids Mildly Thick (IDDSI 2) Other Recommendations ST recommends IDDSI 6 and IDDSI 2 with the below mentioned safe swallowing strategies. ST educated Pt and nurse Lindsey on recommendations . Pt verbalized understanding, however unable to determine level of comprehension. ST recommends Pt only presented with meal tray if awake and alert and sitting upright. Safety Precautions/Swallowing Feed only when alert,Upright Recommendations position at least 30 minutes after meals,Small bites and sips when eating,Slow rate; swallow between bites,No straw ,Alternate liquids and solids, Set-up assistance,Strict oral care after intake Medication Recommendations As Tolerated Education Patient/Caregiver Education Described results of evaluation,Patient expressed understanding of evaluation, Patient expressed agreement with goals & treatment plans Goals Short-term Goals STG 1: Patient will tolerate therapeutic PO trials of IDDSI 6/7 with no clinical s/s of dysphagia 100% of the time in order to consume least restrictive diet. STG 2: Patient will tolerate therapeutic PO trials of thin/ nectar thick liquids with no clinical s/s of aspiration 100 % of the time in order to consume least restrictive diet . Long-term Goals LTG: Patient will tolerate safest and most efficient diet with no clinical s/s of aspiration or dysphagia 100% of the time in order to consume least restrictive diet .
[2023-08-04 17:42] LABS: Troponin I < 0.012 ng/mL (0.01-0.034)
[2023-08-04] MEDS: cefTRIAXone 1,000 MG in SODIUM CHLORIDE 0.9% 100 ML 200 MG IV (19:50)
[2023-08-04 20:00] VITALS: BP 125/76; PULSE 86; RESP 17; TEMP 36.2; O2SAT 94
[2023-08-05] VITALS: BP 140/70; PULSE 78; RESP 17; TEMP 34.2; O2SAT 95
[2023-08-05 04:00] VITALS: BP 157/67; PULSE 61; RESP 16; TEMP 35.9; O2SAT 97
[2023-08-05 05:49] LABS: Add Manual Diff / Slide Review NO; Basophils Absolute Auto 100 /uL (0-100); Basophils Percent Auto 1.1 % (0-2); Eosinophils Absolute Auto 300 /uL (0-450); Eosinophils Percent Auto 2.2 % (2-4); Hematocrit 35.9 % (41-53); Hemoglobin 12.1 g/dL (13.5-17.5); Lymphocytes Absolute Auto 1700 /uL (1100-4500); Lymphocytes Percent Auto 13.1 % (25-40); Mean Corpuscular HGB Conc 33.7 % (30-36); Mean Corpuscular Hemoglobin 33.2 PG (26-34); Mean Corpuscular Volume 98.5 fL (80-100); Monocytes Absolute Auto 1600 /uL (0-900); Monocytes Percent Auto 12.6 % (3-14); Neutrophils Absolute Auto 9300 /uL (1500-7000); Platelet Count 293 X10^3/uL (150-400); Red Blood Cell Count 3.64 X10^6/uL (4.5-5.9); Red Cell Distribution Width 14.6 % (11.6-14.8); White Blood Cell Count 13.1 X10^3/uL (4.5-11.0)
[2023-08-05] MEDS: SODIUM CHLORIDE 0.9% 1,000 ML 100 ML IV (05:49)
[2023-08-05 05:50] LABS: BUN Creatinine Ratio 20.4 (6-22); Blood Urea Nitrogen 10 mg/dL (9-20); Calcium 8.4 mg/dL (8.4-10.2); Carbon Dioxide 23 mmol/L (22-32); Chloride 103 mmol/L (98-107); Estimated Glomerular Filt Rate > 60 mL/min (>60); Glucose 88 mg/dL (80-110); HEMOLYSIS 16 (0-50); Potassium 3.9 mmol/L (3.4-5.1); Sodium 130 mmol/L (137-145)
[2023-08-05 05:51] LABS: Magnesium 1.7 mg/dL (1.6-2.3)
[2023-08-05 08:00] VITALS: BP 153/70; PULSE 72; RESP 16; TEMP 36.1; O2SAT 92
[2023-08-05] MEDS: GABAPENTIN 300 MG CAPSULE 600 MG PO ×2 (08:40→20:11)
[2023-08-05] MEDS: ENOXAPARIN 40 MG/0.4 ML SYRINGE SUBCUT (08:41)
[2023-08-05] MEDS: MAGNESIUM CHLORIDE 64 MG TABLET 128 MG PO (08:41)
[2023-08-05] MEDS: PANTOPRAZOLE DR 40 MG TABLET PO ×2 (08:41→20:11)
[2023-08-05] MEDS: AZITHROMYCIN 250 MG TABLET PO (08:41)
[2023-08-05] MEDS: ACETAMINOPHEN 325 MG TABLET 650 MG PO (08:49)
--- NOTE | 2023-08-05 11:02 | P.PN_ITS ---
Subjective Subjective Interval history: Patient feels improved today again. Always has R leg pain, shoots up from his R foot. No chest pain or shortness of breath. Exam Vital Signs (past 8 hours): - 08/05/23 04:00 08/05/23 07:00 08/05/23 08:00 Temperature 96.6 F L 97.0 F L Pulse Rate 61 72 Respiratory Rate 16 16 Blood Pressure 157/67 H 153/70 H Pulse Oximetry 97 92 Oxygen Delivery Method Room Air Oxygen Flow Rate 0 Fraction of Inspired Oxygen 28 SaO2/FiO2 Ratio 342 Oxygen Delivery Method Room Air Oxygen Flow Rate 0 Narrative Exam Narrative: GEN: no acute distress, A/Ox2, disheveled HEENT: moist mucous membranes, PERRL NECK: trachea midline, no JVD CV: regular rate and rhythm, no murmurs PULM: clear bilaterally, upper airway wheeze with breakfast, mild ABD: soft, nontender, nondistended, no organomegaly EXT: warm and well perfused with no edema NEURO: awake, alert, oriented, no focal deficits Objective Labs 08/05/23 05:05 08/05/23 05:05 Labs: Laboratory Results - last 24 hr 08/04/23 08/05/23 05:10 05:05 WBC 13.1 H RBC 3.64 L Hgb 12.1 L Hct 35.9 L MCV 98.5 MCH 33.2 MCHC 33.7 RDW 14.6 Plt Count 293 Neut % (Auto) 71.0 Lymph % (Auto) 13.1 L Gilchrist % (Auto) 12.6 Eos % (Auto) 2.2 Baso % (Auto) 1.1 Neut # (Auto) 9300 H Lymph # (Auto) 1700 Gilchrist # (Auto) 1600 H Eos # (Auto) 300 Baso # (Auto) 100 Sodium 130 L Potassium 3.9 Chloride 103 Carbon Dioxide 23 BUN 10 Creatinine 0.49 L Estimated GFR > 60 BUN/Creatinine Ratio 20.4 Glucose 88 Calcium 8.4 Magnesium 1.7 [facility]roponin I < 0.[facility] History Anemia Chronic back pain (Unknown) Fractures Hearing loss (Unknown) Hx of flexible sigmoidoscopy (~01/2019) Surgical History (Updated 09/28/22 @ 14:09 by Brittany Petersen RN) H/O vasectomy History of removal of Port-a-Cath History of colonoscopy Hx of neck surgery (~2020) Anesthesia S/P laparoscopic colectomy (01/10/19) History of back surgery (~2016) Family History Father Heart disease Mother Cancer Congestive heart failure Sister Hypertension Cancer Brother Heart disease Rheumatic fever Brother No problems noted. Social History household members: none occupational status: employed Smoking Status: Former smoker alcohol intake: current Assessment & Plan Assessment & Plan narrative: # COVID infection with acute hypoxemia and generalized weakness, hypoxia resolved, probable superimposed bacterial pneumonia -Did receive a dose of Decadron in the emergency room which will be continued and also initiate a course of remdesivir with nebulizers and oxygen supplementation to maintain O2 saturation above 92%. Continue IV Rocephin and azithromycin as marked leukocytosis on admission cannot rule out PNA. Can transition to PO antibiotics likely tomorrow. -stopped dex and rem due to now on room air # Rhabdomyolysis likely secondary to prolonged immobilization with a fall. -CPK level was greater than 3000. Discontinue IV fluids today. Repeak CK tomorrow. # Hyponatremia suspect due to hypovolemia. -improving with IVF up to 130 today, will stop IV fluids. Repeat labs tomorrow AM. # Altered mental status. -CT brain is negative for acute process. Check and treat for any reversible factors. Suspect an element of metabolic encephalopathy and cognitive impairment. # History of GI bleed -continue the home Protonix 40 mg twice daily # History of colon cancer stable # Gait instability -PT/OT eval rec SNF DVT prophylaxis will be with Lovenox Dispo: To [facility] SNF on 08/05 likely. COVID-19 COVID-19 status: Positive Quality VTE Deep Vein Thrombosis/Pulmonary Embolism Present on Admission: No
--- NOTE | 2023-08-05 11:45 | PT.IIE ---
Surgical History (Last Updated 09/28/22 @ 14:08 by Brittany Petersen RN) Anesthesia H/O vasectomy History of back surgery (~2016) History of colonoscopy History of removal of Port-a-Cath Hx of neck surgery (~2020) S/P laparoscopic colectomy (01/10/19) Medical History (Last Reviewed 02/18/23 @ 17:28 by Dawson Hernandez DO) Anemia Chronic back pain (Unknown) Fractures Hearing loss (Unknown) Hx of flexible sigmoidoscopy (~01/2019) Physical Therapy Inpatient Evaluation/Re-Eval M1 PT/OT-IP Prior Functional Status Start: 08/04/23 10:55 Freq: NEEDED Status: Active Protocol: Document 08/05/23 11:45 AB (Rec: 08/05/23 14:27 AB [id number]) Medical Review Prior Functional Status Medical History Reviewed Yes Communication able to make needs known; soft spoken Mobility and Gait pt stated that he was modified independent with all mobilities and ambulation using his 4WW Activities of Daily Living and IADL's Per OT note: Pt states able to do his ADL and cooks gluten free meals as he states he is celiac, riddler operator notified. Pt states does not drive. Social History Household Members none Living Arrangements Skilled Nursing Facility Number of Floors (Floors) One Floor Number of Stairs To Enter/Railing? pt lives in [place] and stated that he is just here to attend to his medical needs and currently is staying at [facility] Home Environment Standard Height Toilet,Walk in Shower Home Equipment Four Wheel Walker,Shower Seat without Backrest,Hand Held Shower,Grab Bars Near Toilet, Grab Bars In Shower M1 PT/OT-IP Prior Functional Status Start: 08/04/23 15:42 Freq: NEEDED Status: Active Protocol: Document 08/04/23 15:43 [facility] (Rec: 08/04/23 16:05 [facility] [id number]) Medical Review Prior Functional Status Medical History Reviewed Yes Communication Independent. Mobility and Gait Pt states has been sing a FWW. Pt states initially when getting out of bed has to flex forwards over his knees in order to stand up. Activities of Daily Living and IADL's Pt states able to do his ADL and cooks gluten free meals as he states he is celiac, riddler operator notified. Pt states does not drive. Social History Household Members none Living Arrangements Skilled Nursing Facility Home Environment Standard Height Toilet,Walk in Shower Home Equipment Front Wheel Walker,Grab Bars Near Toilet Additional Social History Comment Pt a little inconsistent with his home set-up and very hard of hearing. To re-ask pt tomorrow when hopefull more alert. M2 PT-IP Current Condition Start: 08/04/23 10:55 Freq: NEEDED Status: Active Protocol: Document 08/05/23 11:45 AB (Rec: 08/05/23 14:27 AB [id number]) Physical Therapy Current Condition Current Condition Evaluation Date 08/05/23 Treatment Diagnosis Covid; rhabdomyolysis; difficulty in walking Onset Date 08/03/23 M3 PT-IP Subjective Start: 08/04/23 10:55 Freq: NEEDED Status: Active Protocol: Document 08/05/23 11:45 AB (Rec: 08/05/23 14:27 AB [id number]) Subjective Physical Therapy Visit Type Type Initial Evaluation Visit Start Time 11:45 Visit Stop Time 12:30 Number of PROPERTY DEVELOPER Visits 45 Physical Therapy Visit Comments Patient Comments agreeable to do PT Therapy Pain Assessment Location Right Foot Intensity 7 Scale Used Numeric (0 - 10) Pain Management Techniques Modification of Treatment,Re- positioning,Timing of Activity with Medications Right Hip Intensity 7 Scale Used Numeric (0 - 10) Pain Management Techniques Distraction,Modification of Treatment,Re-positioning, Timing of Activity with Medications M4 PT-IP Mobility and Gait Start: 08/04/23 10:55 Freq: NEEDED Status: Active Protocol: Document 08/05/23 11:45 AB (Rec: 08/05/23 14:27 AB [id number]) PT-Bed Mobility Assessment Supine to Sit Supine to Sit Maximum Assistance,1 Person Assistance,2 Person Assistance PT-Transfer Assessment Sit to and From Stand Sit to and from Stand Maximum Assistance,2 Person Assistance,Use of Upper Extremities Equipment Transfer Assistive Device Gait Belt,Front Wheeled Walker Orthotic/Prosthetic Devices or Brace: No Transfers Transfer Destination Chair Transfer Technique Stand Step Pivot Transfer Ability Level of Assist Maximum Assistance,2 Person Assistance,Use of Upper Extremities Comments Mobility Comments pt supine in bed. sister in room. obtained PLOF and home set up from pt. pt is very soft spoken and need repetitions to answer questions and follow directions. BP in supine: 125 /72, O2 sat at RA 96% and [place] 74 bpm. pt completed supine to sit max A x 1-2 and max cues. HOB elevated. presents with increase posterior trunk lean and lateral lean to the R . O2 sat sitting decreased to ~ 82-84%. nurse provided pt with O2 @ 2L/min and O2 sat increased: 94-95%. BP: 152/87 . pt completed sit to stand max A x 2 and max cues. continues to have posterior trunk lean and lateral lean to the R. completed step transfer to chair using fWW max Ax 2 and max cues with small steps and increase trunk guarding requiring assist with weight shifting. max A x 2 for controlled descent to chair. positioned pt on the chair. left pt with OT. Gait Assessment Comments Gait Comments unable at this time PT-Balance Assessment Sitting Balance and Reactions Static Sitting Balance Ability Poor Dynamic Sitting Balance Ability Poor Standing Balance and Reactions Static Standing Balance Ability Poor Dynamic Standing Balance Ability Poor Device Used FWW M5 PT-IP Objective Assessments Start: 08/04/23 10:55 Freq: NEEDED Status: Active Protocol: Document 08/05/23 11:45 AB (Rec: 08/05/23 14:27 AB [id number]) Orientation Orientation/Cognition Level of Alertness Confusional State Orientation Name,Situation Language Function Ability Hard of Hearing Safety Awareness Decreased Safety Awareness Memory Description No Deficits Noted Gross Range of Motion Lower Extremity ROM Assessment Within Functional Limits Strength Lower Extremity Strength Assessment Bilaterally Impaired Hip 2+/5 Knee 3-/5 Muscle Tone Muscle Tone WNL Yes M6 PT-IP Treatment Start: 08/04/23 10:55 Freq: NEEDED Status: Active Protocol: Document 08/05/23 11:45 AB (Rec: 08/05/23 14:27 AB [id number]) Physical Therapy Treatment Education Education Provided Safety M7 PT-IP Assessment and Plan Start: 08/04/23 10:55 Freq: NEEDED Status: Active Protocol: Document 08/05/23 11:45 AB (Rec: 08/05/23 14:27 AB [id number]) PT Summary Assessment and Plan Potential Rehabilitation Potential Fair Status of Condition at Evaluation Unstable Summary Impairments Pain,ROM,Strength,Balance, Coordination,Sensation,Tone, Cognition,Bed Mobility, Transfers,Gait,Activity Tolerance Assessment Summary pt is a 78 y/o M who was found on the floor and trasferred to the ED. pt admitted for Covid +, UTI and rhabdomyolysis. pt requiring max A x 2 with all mobilities and uanble to ambulate at this time. pt will require SNF rehab to improve overall strength and mobility. Goals Bed Mobility Goal Minimal Assistance Transfer Goal Minimal Assistance,Front Wheeled Walker Gait Goal Minimal Assistance,Front Wheel Walker Gait Distance 50 Other Goals improve bed mobility, transfers and ambulation using FWW ~ 150 ft SBA Days to Meet Goals 10 Frequency of Treatment Frequency Of Treatment Once a Day Treatment Plan Physical Therapy Treatment Plan Bed Mobility Training,Transfer Training,Gait Training, Therapeutic Exercise,Balance Retraining,Post Op Education, Discharge Planning,Hot or Cold Pack,Neuromuscular Re-ed, Coordination Retraining,Manual Therapy Precautions Other Precautions falls, Covid Recommendations To Nursing Amount of Assist Needed Mechanical Lift Discharge Recommendations PT Discharge Recommendations SNF Rehab Transportation Needs at Discharge Wheelchair/Cabulance,Stretcher /Ambulance
--- NOTE | 2023-08-05 11:45 | PT.IIE ---
Surgical History (Last Updated 09/28/22 @ 14:08 by Brittany Petersen RN) Anesthesia H/O vasectomy History of back surgery (~2016) History of colonoscopy History of removal of Port-a-Cath Hx of neck surgery (~2020) S/P laparoscopic colectomy (01/10/19) Medical History (Last Reviewed 02/18/23 @ 17:28 by Dawson Hernandez DO) Anemia Chronic back pain (Unknown) Fractures Hearing loss (Unknown) Hx of flexible sigmoidoscopy (~01/2019) Physical Therapy Inpatient Evaluation/Re-Eval M1 PT/OT-IP Prior Functional Status Start: 08/04/23 10:55 Freq: NEEDED Status: Active Protocol: Document 08/05/23 11:45 AB (Rec: 08/05/23 14:27 AB [id number]) Medical Review Prior Functional Status Medical History Reviewed Yes Communication able to make needs known; soft spoken Mobility and Gait pt stated that he was modified independent with all mobilities and ambulation using his 4WW Activities of Daily Living and IADL's Per OT note: Pt states able to do his ADL and cooks gluten free meals as he states he is celiac, radio disc jockey notified. Pt states does not drive. Social History Household Members none Living Arrangements [facility]dc Facility Number of Floors (Floors) One Floor Number of Stairs To Enter/Railing? pt lives in [place] and stated that he is just here to attend to his medical needs and currently is staying at [facility] Home Environment Standard Height Toilet,Walk in Shower Home Equipment Four Wheel Walker,Shower Seat without Backrest,Hand Held Shower,Grab Bars Near Toilet, Grab Bars In Shower M1 PT/OT-IP Prior Functional Status Start: 08/04/23 15:42 Freq: NEEDED Status: Active Protocol: Document 08/04/23 15:43 [facility] (Rec: 08/04/23 16:05 [facility] [id number]) Medical Review Prior Functional Status Medical History Reviewed Yes Communication Independent. Mobility and Gait Pt states has been sing a FWW. Pt states initially when getting out of bed has to flex forwards over his knees in order to stand up. Activities of Daily Living and IADL's Pt states able to do his ADL and cooks gluten free meals as he states he is celiac, radio disc jockey notified. Pt states does not drive. Social History Household Members none Living Arrangements [facility]dc Facility Home Environment Standard Height Toilet,Walk in Shower Home Equipment Front Wheel Walker,Grab Bars Near Toilet Additional Social History Comment Pt a little inconsistent with his home set-up and very hard of hearing. To re-ask pt tomorrow when hopefull more alert. M2 PT-IP Current Condition Start: 08/04/23 10:55 Freq: NEEDED Status: Active Protocol: Document 08/05/23 11:45 AB (Rec: 08/05/23 14:27 AB [id number]) Physical Therapy Current Condition Current Condition Evaluation Date 08/05/23 Treatment Diagnosis Covid; rhabdomyolysis; difficulty in walking Onset Date 08/03/23 M3 PT-IP Subjective Start: 08/04/23 10:55 Freq: NEEDED Status: Active Protocol: Document 08/05/23 11:45 AB (Rec: 08/05/23 14:27 AB [id number]) Subjective Physical Therapy Visit Type Type Initial Evaluation Visit Start Time 11:45 Visit Stop Time 12:30 Number of WIRE PULLER Visits 45 Physical Therapy Visit Comments Patient Comments agreeable to do PT Therapy Pain Assessment Location Right Foot Intensity 7 Scale Used Numeric (0 - 10) Pain Management Techniques Modification of Treatment,Re- positioning,Timing of Activity with Medications Right Hip Intensity 7 Scale Used Numeric (0 - 10) Pain Management Techniques Distraction,Modification of Treatment,Re-positioning, Timing of Activity with Medications M4 PT-IP Mobility and Gait Start: 08/04/23 10:55 Freq: NEEDED Status: Active Protocol: Document 08/05/23 11:45 AB (Rec: 08/05/23 14:27 AB [id number]) PT-Bed Mobility Assessment Supine to Sit Supine to Sit Maximum Assistance,1 Person Assistance,2 Person Assistance PT-Transfer Assessment Sit to and From Stand Sit to and from Stand Maximum Assistance,2 Person Assistance,Use of Upper Extremities Equipment Transfer Assistive Device Gait Belt,Front Wheeled Walker Orthotic/Prosthetic Devices or Brace: No Transfers Transfer Destination Chair Transfer Technique Stand Step Pivot Transfer Ability Level of Assist Maximum Assistance,2 Person Assistance,Use of Upper Extremities Comments Mobility Comments pt supine in bed. sister in room. obtained PLOF and home set up from pt. pt is very soft spoken and need repetitions to answer questions and follow directions. BP in supine: 125 /72, O2 sat at RA 96% and [place] 74 bpm. pt completed supine to sit max A x 1-2 and max cues. HOB elevated. presents with increase posterior trunk lean and lateral lean to the R . O2 sat sitting decreased to ~ 82-84%. nurse provided pt with O2 @ 2L/min and O2 sat increased: 94-95%. BP: 152/87 . pt completed sit to stand max A x 2 and max cues. continues to have posterior trunk lean and lateral lean to the R. completed step transfer to chair using fWW max Ax 2 and max cues with small steps and increase trunk guarding requiring assist with weight shifting. max A x 2 for controlled descent to chair. positioned pt on the chair. left pt with OT. Gait Assessment Comments Gait Comments unable at this time PT-Balance Assessment Sitting Balance and Reactions Static Sitting Balance Ability Poor Dynamic Sitting Balance Ability Poor Standing Balance and Reactions Static Standing Balance Ability Poor Dynamic Standing Balance Ability Poor Device Used FWW M5 PT-IP Objective Assessments Start: 08/04/23 10:55 Freq: NEEDED Status: Active Protocol: Document 08/05/23 11:45 AB (Rec: 08/05/23 14:27 AB [id number]) Orientation Orientation/Cognition Level of Alertness Confusional State Orientation Name,Situation Language Function Ability Hard of Hearing Safety Awareness Decreased Safety Awareness Memory Description No Deficits Noted Gross Range of Motion Lower Extremity ROM Assessment Within Functional Limits Strength Lower Extremity Strength Assessment Bilaterally Impaired Hip 2+/5 Knee 3-/5 Muscle Tone Muscle Tone WNL Yes M6 PT-IP Treatment Start: 08/04/23 10:55 Freq: NEEDED Status: Active Protocol: Document 08/05/23 11:45 AB (Rec: 08/05/23 14:27 AB [id number]) Physical Therapy Treatment Education Education Provided Safety M7 PT-IP Assessment and Plan Start: 08/04/23 10:55 Freq: NEEDED Status: Active Protocol: Document 08/05/23 11:45 AB (Rec: 08/05/23 14:27 AB [id number]) PT Summary Assessment and Plan Potential Rehabilitation Potential Fair Status of Condition at Evaluation Unstable Summary Impairments Pain,ROM,Strength,Balance, Coordination,Sensation,Tone, Cognition,Bed Mobility, Transfers,Gait,Activity Tolerance Assessment Summary pt is a 78 y/o M who was found on the floor and trasferred to the ED. pt admitted for Covid +, acute hyponatremia and rhabdomyolysis. pt requiring max A x 2 with all mobilities and uanble to ambulate at this time. pt will require SNF rehab to improve overall strength and mobility. Goals Bed Mobility Goal Minimal Assistance Transfer Goal Minimal Assistance,Front Wheeled Walker Gait Goal Minimal Assistance,Front Wheel Walker Gait Distance 50 Other Goals improve bed mobility, transfers and ambulation using FWW ~ 150 ft SBA Days to Meet Goals 10 Frequency of Treatment Frequency Of Treatment Once a Day Treatment Plan Physical Therapy Treatment Plan Bed Mobility Training,Transfer Training,Gait Training, Therapeutic Exercise,Balance Retraining,Post Op Education, Discharge Planning,Hot or Cold Pack,Neuromuscular Re-ed, Coordination Retraining,Manual Therapy Precautions Other Precautions falls, Covid Recommendations To Nursing Amount of Assist Needed Mechanical Lift Discharge Recommendations PT Discharge Recommendations SNF Rehab Transportation Needs at Discharge Wheelchair/Cabulance,Stretcher /Ambulance
[2023-08-05 12:00] VITALS: BP 151/80; PULSE 98; RESP 16; TEMP 36.1; O2SAT 97
--- NOTE | 2023-08-05 12:37 | OT.IP.TRT ---
Occupational Therapy Treatment Note M2 OT-IP Current Condition Start: 08/04/23 15:42 Freq: Status: Active Protocol: Document 08/04/23 15:43 [facility] (Rec: 08/04/23 16:05 [facility] [id number]) Occupational Therapy Current Condition Current Condition Evaluation Date 08/04/23 Treatment Diagnosis COVID+, Rhabdo, decreased mobility Diagnosis Onset Date 08/03/23 M3 OT- IP Subjective and Pain Start: 08/04/23 15:42 Freq: Status: Active Protocol: Document 08/05/23 12:05 [facility] (Rec: 08/05/23 12:56 [facility] [id number]) OT- Subjective Occupational Therapy Visit Type Type Treatment Note Visit Start Time 12:05 Visit Stop Time 12:37 Occupational Therapy Visit Comments Patient Comments PT doing PT eval when OT came in to see the pt. Patient/Caregiver Goals TO get better. OT Pain Assessment Pain When Pain Assessed At Rest Pain Present Pain Present Pain Reported M4 OT- IP ADL's Start: 08/04/23 15:42 Freq: Status: Active Protocol: Document 08/05/23 12:05 [facility] (Rec: 08/05/23 12:56 [facility] [id number]) OT [id number] Comments OT Self-Feeding Comments Pt able to drink thickened liquid without coughing. Noted pt having difficulty to eat the rice and noted coughing afterwards, nursing notified and suggested to have a softer diet especially since his does not have his lower dentures.Pt able to drink thickened liquid without difficulty. OT ADL-Grooming Comments OT Grooming Comments Pt able to was his hands after set-up of wash cloth. OT ADL-Oral Care Comments Oral Care Comments NOt performed. OT ADL-Dressing Comments OT Dressing Comments At this time pt is dependent for LB dressing needs due to decreased balance, coordination , and strength. OT ADL-Toileting Comments OT Toileting Comments Issa OT ADL-Bathing Comments OT Bathing Comments Sponge bath more appropriate at this time. M5 OT- IP IADL's Start: 08/04/23 15:42 Freq: Status: Active Protocol: Document 08/04/23 15:43 [facility] (Rec: 08/04/23 16:05 [facility] [id number]) OT-Instrumental Activities of Daily Living Deficits IADL Deficits Identified Deficits Home Safety Awareness Awareness of Need for Assistance at Home Decreased Awareness Ability to Problem Solve Emergency Unable to Problem Solve Situations Home Safety Comments Pt confused and mainly orientated to name and place. Medication Management Medication Management Comments Pt would require assist at this time. Money Management Money Management Comments Pt would require assist at this time. Meal Preparation Meal Preparation Comments Pt would require assist. Gyro Mechanic Gyro Mechanic Comments Pt would require assist. M6 OT- IP Functional Cognition Start: 08/04/23 15:42 Freq: Status: Active Protocol: Document 08/05/23 12:05 [facility] (Rec: 08/05/23 12:56 [facility] [id number]) Cognitive Factors Limiting Selfcare Function Cognitive Ability Level of Alertness Confusional State Patient Orientation Name Attention Span Ability Capable of Focused Attention, Unable to Sustain Attention Ability to Follow Commands Able to Follow One Step Commands with Increased Time, Able to Follow One Step Commands with Repetition Cognitive Comments Cognitive Assessment Comments Pt thinking he is in [place] and initially did not recall where he lives and then able to state he lives at [facility]. Pt still having difficulty with processing, motor planning at times and initiation of movements. Today pt more apt to use his LUE for needs during eating though. OT- Vision and Hearing OT- Vision Assessment Vision Assessment Comments Pt not able to accurately read the clock. Pt states the time is 12:40 versus 12:20. M7 OT- IP Mobility and Balance Start: 08/04/23 15:42 Freq: Status: Active Protocol: Document 08/05/23 12:05 [facility] (Rec: 08/05/23 12:56 [facility] [id number]) OT- Bed Mobility Assessment Supine to Sit Supine to Sit Assist Maximum Assistance,2 Person Assistance Sit to Supine Sit to Supine Assist Maximum Assistance,2 Person Assistance Scooting Scooting to Edge of Bed Maximum Assistance,2 Person Assistance OT-Transfer Assessment Sit to and From Stand Sit to and from Stand Maximum Assistance,2 Person Assistance Transfers Transfer Ability Maximum Assistance,2 Person Assistance Technique Transfer Destination Bed,Chair Transfer Technique Stand Step Pivot Devices Transfer Assistive Devices Gait Belt,Front Wheeled Walker Comments Mobility Comments Today pt able to initate movement of his legs to the edge of the bed after cues but still needing MAX AX 2 to complete and especially to assist to get his trunk upright. MAX AX2 to stand and assist to help with balance and more the FWW. At this time best for nursing to use Damaso lift. Pt heavily leans to the right. OT- Balance Assessment Sitting Balance and Reactions Static Sitting Balance Ability Poor Dynamic Sitting Balance Ability Poor Standing Balance and Reactions Static Standing Balance Ability Poor Dynamic Standing Balance Ability Poor Comments Other Balance Tests/Deviations/Treatment Pt still heavily leans to the : right and having to stretch to the left so able to sit to midline better. Pt still needing CGA to MODA for sitting balance. M8 OT- IP Objective Assessments Start: 08/04/23 15:42 Freq: Status: Active Protocol: Document 08/04/23 15:43 [facility] (Rec: 08/04/23 16:05 [facility] [id number]) OT Gross Range of Motion Upper Extremity Range of Motion ROM Impairments grossly WFL OT Strength Comments Strength Comments At least 3+/5 as pt having difficulty to follow MMT. M9 OT- IP Assessment and Plan Start: 08/04/23 15:42 Freq: Status: Active Protocol: Document 08/05/23 12:05 [facility] (Rec: 08/05/23 12:56 [facility] [id number]) OT Summary Assessment and Plan Potential Rehabilitation Potential Good Analytic Complexity at Evaluation Moderate Summary OT Impairments Pain,Range of Motion,Strength, Balance,Coordination, Functional Cognition, Functional Mobility,Self- Feeding,Grooming,Dressing, Toileting,Bathing,Toilet Transfers,Shower Transfers, Activity Tolerance Progress Towards Goals Progressing Toward Goals,Slow Progress due to Pain,Slow Progress due to Medical Issues ,Slow Progress due to Activity Tolerance,Slow Progress due to Cognition Assessment Summary Pt able to participate in transfer with MAXA X 2 with FWW however having difficulty to control and initiate his movements. Pt also having difficulty to get his hand s to use the utensil initially but then able to do so to be able to cut his food. Noted pt coughing on his rice and suggested to nursing his food may need to be softer- especially as pt only has his top denture here. Pt still confused and mainly orientated to his name. Pt will benefit from skilled rehab. Goals Self-Feeding Goal Independent Grooming Goal Independent Dressing Goal Independent Toileting Goal Independent Bathing Goal Independent Toilet Transfer Goal Independent Shower Transfer Goal Independent Days to Meet Goals 30 Frequency of Treatment Frequency Of Treatment Once a Day Treatment Plan OT Treatment Plan ADL Training,Functional Cognition Training,Functional Mobility,Patient/Family Education,Discharge Planning Other Treatment Recommendations and Next Transfer to [facility] with MAXAX2 Treatment Focus with FWW. Discharge Recommendations OT Discharge Recommendations SNF Rehab Transportation Needs at Discharge Wheelchair/Cabulance
--- NOTE | 2023-08-05 12:52 | DI.MRI.S_ITS ---
PROCEDURE: MR HEAD/BRAIN WO CON INDICATIONS: possible CVA, L sided imbalance, decreased swallow. TECHNIQUE: Non-contrast axial T1 spin echo, axial T2 fast spin echo, sagittal and axial FLAIR, coronal T2 fast spin echo, axial gradient echo, axial diffusion and ADC through the brain. COMPARISON: [facility], CT, CT HEAD/BRAIN WO CON, 08/03/2023, 17:06. FINDINGS: Image quality: Excellent. CSF spaces: Ventricles appear symmetric in size and shape. Basal cisterns are patent. No extra-axial fluid collections. Brain: No intracranial bleeds or mass effects. There is cerebral volume loss for age. There are periventricular and deep white matter chronic small vessel ischemic changes. Brainstem appears normal. Diffusion-weighted images show no acute infarct. No chronic ischemic insults. Normal intravascular flow voids are present. Skull and face: Calvarial bone marrow is normal in signal. Orbits are normal. Sinuses: Mastoids are clear but there has been interval worsening of sinus disease within the right maxillary sinus which now is almost completely opacified versus is only 2/3 opacified 08/03/23. No significant change in the left maxillary sinus mild opacification.. IMPRESSION: No brain abnormality seen. Worsening right maxillary sinusitis now with almost complete opacification of the right sinus cavity. Left mild maxillary sinus mucosal thickening is stable. Dictated by: Al Echols M.D. on 08/05/2023 at 15:55 Approved by: Al Echols M.D. on 08/05/2023 at 15:58
[2023-08-05 13:27] LABS: Osmolality, Serum 273 mOsmol/kg (280-301)
[2023-08-05 15:00] VITALS: BP 142/66; PULSE 77; RESP 16; TEMP 36.6; O2SAT 95
[2023-08-05] MEDS: ACETAMINOPHEN 325 MG TABLET 975 MG PO (15:23)
[2023-08-05] MEDS: cefTRIAXone 1,000 MG in SODIUM CHLORIDE 0.9% 100 ML 200 MG IV (20:11)
[2023-08-05 21:03] VITALS: BP 126/88; PULSE 70; RESP 17; TEMP 36; O2SAT 94
[2023-08-06] VITALS (8 sets, daily range): BP systolic 136–184; BP diastolic 61–96; PULSE 64–86; RESP 16–18; TEMP 36–36.8; O2SAT 92–97
[2023-08-06] MEDS: ACETAMINOPHEN 325 MG TABLET 975 MG PO ×2 (00:19→09:43)
[2023-08-06 05:07] LABS: BUN Creatinine Ratio 21.1 (6-22); Blood Urea Nitrogen 12 mg/dL (9-20); Calcium 8.6 mg/dL (8.4-10.2); Carbon Dioxide 27 mmol/L (22-32); Chloride 103 mmol/L (98-107); Estimated Glomerular Filt Rate > 60 mL/min (>60); Glucose 100 mg/dL (80-110); HEMOLYSIS < 15 (0-50); Magnesium 1.6 mg/dL (1.6-2.3); Potassium 3.8 mmol/L (3.4-5.1); Sodium 134 mmol/L (137-145)
[2023-08-06 05:12] LABS: Add Manual Diff / Slide Review NO; Basophils Absolute Auto 100 /uL (0-100); Basophils Percent Auto 1.1 % (0-2); Eosinophils Absolute Auto 800 /uL (0-450); Eosinophils Percent Auto 9.4 % (2-4); Hematocrit 36.8 % (41-53); Hemoglobin 12.4 g/dL (13.5-17.5); Lymphocytes Absolute Auto 1300 /uL (1100-4500); Mean Corpuscular HGB Conc 33.6 % (30-36); Mean Corpuscular Hemoglobin 33.3 PG (26-34); Mean Corpuscular Volume 99.2 fL (80-100); Monocytes Absolute Auto 1000 /uL (0-900); Monocytes Percent Auto 11.3 % (3-14); Neutrophils Absolute Auto 5800 /uL (1500-7000); Neutrophils Percent Auto 64.2 % (50-75); Platelet Count 314 X10^3/uL (150-400); Red Blood Cell Count 3.71 X10^6/uL (4.5-5.9); Red Cell Distribution Width 14.3 % (11.6-14.8)
[2023-08-06] MEDS: AZITHROMYCIN 250 MG TABLET PO (09:43)
[2023-08-06] MEDS: GABAPENTIN 300 MG CAPSULE 600 MG PO ×2 (09:43→21:16)
[2023-08-06] MEDS: MAGNESIUM CHLORIDE 64 MG TABLET 128 MG PO (09:43)
[2023-08-06] MEDS: ENOXAPARIN 40 MG/0.4 ML SYRINGE SUBCUT (09:43)
[2023-08-06] MEDS: PANTOPRAZOLE DR 40 MG TABLET PO ×2 (09:44→21:16)
--- NOTE | 2023-08-06 11:00 | CM.DPNOTE ---
Addendum entered by Marla Mahanniewski, DAY GUARD 08/06/23 13:29: [facility] patient for admission Tuesday, which is 5 days after COVID+ test w/o resp sx. Patient will admit to an iso room Tuesday. Likely via BLS due to COVID+ PASRR done. Addendum entered by Marla Thomas, DAY GUARD 08/06/23 12:21: Update, SNF referrals: - [facility]; Samaria in admissions is on vacation this week and there is no one to replace her. Review of referrals may begin next Tuesday according to Julieth, who was answering the admin phone today -[facility]; spoke w/Diana who says they will not consider COVID+ patients. Madeline reviews referrals M-F -LM with [facility] P [phone] -Spoke w/[facility], she will review now. They have beds and may have an iso bed vs taking patient Tuesday or Tuesday if no resp symptoms JW Original Note: [facility] cannot admit this patient; no staff available to admit new patients for multiple days related to their COVID outbreak - staff and residents. Referrals started to other facilities; [facility], [facility], [facility] and [facility]. Asked if these facilities would consider patient for an iso bed or when he reaches the 10 day carolyn of isolation at . CM team following closely. BLESSING
[2023-08-06] MEDS: OXYCODONE/ACETAMINOPHEN 5/325 TABLET 1 TAB PO ×2 (12:17→21:55)
--- NOTE | 2023-08-06 13:11 | PM.PN.1 ---
Subjective Subjective Interval history: Patient feels improved today again. Always has R leg pain, shoots up from his R foot. No chest pain or shortness of breath. Exam Vital Signs (past 8 hours): - 08/06/23 08:00 08/06/23 12:09 Temperature 97.3 F L 98.2 F Pulse Rate 72 75 Respiratory Rate 16 16 Blood Pressure 165/77 H 155/77 H Pulse Oximetry 93 97 Oxygen Flow Rate 0 0 Fraction of Inspired Oxygen 28 SaO2/FiO2 Ratio 342 Oxygen Delivery Method Room Air Oxygen Flow Rate 0 Narrative Exam Narrative: GEN: no acute distress, A/Ox2, disheveled HEENT: moist mucous membranes, PERRL NECK: trachea midline, no JVD CV: regular rate and rhythm, no murmurs PULM: clear bilaterally, upper airway wheeze with breakfast, mild ABD: soft, nontender, nondistended, no organomegaly EXT: warm and well perfused with no edema NEURO: awake, alert, oriented, no focal deficits Objective Labs 08/06/23 04:44 08/06/23 04:44 Labs: Laboratory Results - last 24 hr 08/04/23 08/06/23 05:10 04:44 WBC 9.0 RBC 3.71 L Hgb 12.4 L Hct 36.8 L MCV 99.2 MCH 33.3 MCHC 33.6 RDW 14.3 Plt Count 314 Neut % (Auto) 64.2 Lymph % (Auto) 14.0 L Dickinson % (Auto) 11.3 Eos % (Auto) 9.4 H Baso % (Auto) 1.1 Neut # (Auto) 5800 Lymph # (Auto) 1300 Dickinson # (Auto) 1000 H Eos # (Auto) 800 H Baso # (Auto) 100 Sodium 134 L Potassium 3.8 Chloride 103 Carbon Dioxide 27 BUN 12 Creatinine 0.57 L Estimated GFR > 60 BUN/Creatinine Ratio 21.1 Glucose 100 Serum Osmolality 273 L Calcium 8.6 Magnesium 1.6 PFSH Medical History Anemia Chronic back pain (Unknown) Fractures Hearing loss (Unknown) Hx of flexible sigmoidoscopy (~01/2019) Surgical History (Updated 09/28/22 @ 14:09 by Brittany Petersen RN) H/O vasectomy History of removal of Port-a-Cath History of colonoscopy Hx of neck surgery (~2020) Anesthesia S/P laparoscopic colectomy (01/10/19) History of back surgery (~2017) Family History Father Heart disease Mother Cancer Congestive heart failure Sister Hypertension Cancer Brother Heart disease Rheumatic fever Brother No problems noted. Social History household members: none occupational status: employed Smoking Status: Former smoker alcohol intake: current Assessment & Plan Assessment & Plan narrative: # COVID infection with acute hypoxemia and generalized weakness, hypoxia resolved, probable superimposed bacterial pneumonia -Did receive a dose of Decadron in the emergency room which will be continued and also initiate a course of remdesivir with nebulizers and oxygen supplementation to maintain O2 saturation above 92%. Continue IV Rocephin and azithromycin as marked leukocytosis on admission cannot rule out PNA. Can transition to oral augmentin today. -stopped dex and rem due to now on room air # Rhabdomyolysis likely secondary to prolonged immobilization with a fall. -CPK level was greater than 3000. Discontinued IV fluids 08/04. Repeak CK ordered for tomorrow. # Hyponatremia suspect due to hypovolemia. -improving with IVF up to 14 today, after IV fluids stopped. # Altered mental status. -CT brain is negative for acute process. Check and treat for any reversible factors. Suspect an element of metabolic encephalopathy and cognitive impairment. # History of GI bleed -continue the home Protonix 40 mg twice daily # History of colon cancer stable # Gait instability -PT/OT eval rec SNF DVT prophylaxis will be with Lovenox Dispo: Pending SNF. COVID-19 COVID-19 status: Positive Quality VTE Deep Vein Thrombosis/Pulmonary Embolism Present on Admission: No
--- NOTE | 2023-08-06 13:57 | CM.DPC ---
DCP Cont Need to review DCP with patient by phone once cognitively improved- to confirm agreeability with discharge plan. Updated patient's sister Nelly P [phone] that [facility] can admit patient earliest Tuesday. Provided brochure for [facility]. Sister Nelly says that if patient progresses enough to return home before Tuesday, she can continue to assist patient as needed at his indp apt at [facility], requests referral to (no agency preference) if patient is discharged home. In addition, learned that patient's daughter Janina Gooden ([place]) has made herself available if needed to assist with discharge planning P [phone]. Patient and daughter reportedly not close although daughter aware that patient does not have a DPOA and that she is NOK/decision maker if patient is deemed non-decisional. BLESSING
--- NOTE | 2023-08-06 14:05 | PT.IPTN ---
Physical Therapy Treatment Note M2 PT-IP Current Condition Start: 08/04/23 10:55 Freq: NEEDED Status: Active Protocol: Document 08/05/23 11:45 AB (Rec: 08/05/23 14:27 AB [id number]) Physical Therapy Current Condition Current Condition Evaluation Date 08/05/23 Treatment Diagnosis Covid; rhabdomyolysis; difficulty in walking Onset Date 08/03/23 M3 PT-IP Subjective Start: 08/04/23 10:55 Freq: NEEDED Status: Active Protocol: Document 08/06/23 14:51 TS (Rec: 08/06/23 15:00 TS [id number]) Subjective Physical Therapy Visit Type Type Treatment Note Visit Start Time 14:05 Visit Stop Time 14:48 Number of CD TECHNICIAN Visits 1 Physical Therapy Visit Comments Patient Comments Pt agreeable to Pt. M4 PT-IP Mobility and Gait Start: 08/04/23 10:55 Freq: NEEDED Status: Active Protocol: Document 08/06/23 14:51 TS (Rec: 08/06/23 15:00 TS [id number]) PT-Bed Mobility Assessment Supine to Sit Supine to Sit Minimal Assistance,1 Person Assistance Sit to Supine Sit to Supine Contact Guard Assistance Scooting Scooting to Edge of Bed Moderate Assistance Scooting Up and Down in Bed Standby Assistance PT-Transfer Assessment Sit to and From Stand Sit to and from Stand Maximum Assistance,1 Person Assistance,Use of Upper Extremities Equipment Transfer Assistive Device Gait Belt,Front Wheeled Walker Orthotic/Prosthetic Devices or Brace: No Comments Mobility Comments Supine to sit Trina with HOB elevated 55D. Pt scooted to EOB ModA with use of transfer pad. STS x5 from bed MaxA x1 with FWW. Pt has a heavy retrolean in standing and LLE tends to slip from underneath him. pt attempted stand pivot to chair but did not complete due to poor balance. Sit to supine into bed CGA, pt scooted to HOB SBA with bed flat. Pt was left in bed, all needs met. Gait Assessment Comments Gait Comments unable at this time PT-Balance Assessment Sitting Balance and Reactions Static Sitting Balance Ability Fair Dynamic Sitting Balance Ability Poor Standing Balance and Reactions Static Standing Balance Ability Poor Dynamic Standing Balance Ability Poor Device Used FWW M5 PT-IP Objective Assessments Start: 08/04/23 10:55 Freq: NEEDED Status: Active Protocol: Document 08/05/23 11:45 AB (Rec: 08/05/23 14:27 AB [id number]) Orientation Orientation/Cognition Level of Alertness Confusional State Orientation Name,Situation Language Function Ability Hard of Hearing Safety Awareness Decreased Safety Awareness Memory Description No Deficits Noted Gross Range of Motion Lower Extremity ROM Assessment Within Functional Limits Strength Lower Extremity Strength Assessment Bilaterally Impaired Hip 2+/5 Knee 3-/5 Muscle Tone Muscle Tone WNL Yes M6 PT-IP Treatment Start: 08/04/23 10:55 Freq: NEEDED Status: Active Protocol: Document 08/06/23 14:51 TS (Rec: 08/06/23 15:00 TS [id number]) Physical Therapy Treatment Education Education Provided Safety M7 PT-IP Assessment and Plan Start: 08/04/23 10:55 Freq: NEEDED Status: Active Protocol: Document 08/06/23 14:51 TS (Rec: 08/06/23 15:00 TS [id number]) PT Summary Assessment and Plan Potential Rehabilitation Potential Fair Summary Impairments Pain,ROM,Strength,Balance, Coordination,Sensation,Tone, Cognition,Bed Mobility, Transfers,Gait,Activity Tolerance Progress Towards Goals Slow Progress due to Medical Issues,Slow Progress due to Activity Tolerance Assessment Summary Talat is making slow progress with his mobility. He required decreased for bed mobility this session. He performed supine to sit Trina with HOB elevated 55D. He performed STS x5 MaxA with FWW. He continues to have a posterior lean and LLE tends to slip from under him. He did not progress to gait this session, he is not safe to do so. PT continues to recommend SNF at this time. Goals Bed Mobility Goal Minimal Assistance Transfer Goal Minimal Assistance,Front Wheeled Walker Gait Goal Minimal Assistance,Front Wheel Walker Gait Distance 50 Other Goals improve bed mobility, transfers and ambulation using FWW ~ 150 ft SBA Days to Meet Goals 10 Frequency of Treatment Frequency Of Treatment Once a Day Treatment Plan Physical Therapy Treatment Plan Bed Mobility Training,Transfer Training,Gait Training, Therapeutic Exercise,Balance Retraining,Post Op Education, Discharge Planning,Hot or Cold Pack,Neuromuscular Re-ed, Coordination Retraining,Manual Therapy Other Recommendations and Next Treatment ambulation Focus Precautions Other Precautions falls, Covid Recommendations To Nursing Amount of Assist Needed 2 Person Assist Discharge Recommendations PT Discharge Recommendations SNF Rehab Transportation Needs at Discharge Wheelchair/Cabulance
--- NOTE | 2023-08-06 14:56 | CM.DPC ---
DCP Cont According to RAUL Cates, patient is not alert and oriented. Patient may be able to participate in discharge planning over the next 24 hrs (?) Updated patient's sister Nelly P [phone] that [facility] can admit patient earliest Tuesday. Provided brochure for [facility]. Sister Nelly says that if patient progresses enough to return home before Tuesday, she can continue to assist patient as needed at his indp apt at [facility], requests referral to (no agency preference) if patient is discharged home. In addition, learned that patient's daughter Janina Gooden ([place]) has made herself available if needed to assist with discharge planning P [phone]. Patient and daughter reportedly not close although daughter aware that patient does not have a DPOA and that she is NOK/decision maker if patient is deemed non-decisional. BLESSING
[2023-08-06] MEDS: AMOXICILLIN/CLAV 875/125 MG 1 TAB PO (21:16)
[2023-08-06] MEDS: SODIUM CHLORIDE 0.9% FLUSH 10 ML IV (21:16)
[2023-08-06] MEDS: HYDRALAZINE 20 MG/ML VIAL 10 MG IV (23:11)
[2023-08-07] VITALS (7 sets, daily range): BP systolic 134–179; BP diastolic 50–82; PULSE 66–85; RESP 16–20; TEMP 36–37.1; O2SAT 92–97
--- NOTE | 2023-08-07 02:32 | PC.NURSE ---
Patient alert and mostly oriented (did not know day of week) and had to correct his response to place and needed prompting to recall situation. Breath sounds with inspiratory wheezing and RA sat of 92%; improved to 97% on recheck. HRR but has elevated BP of 160/88 and increased to 184/96 but down to 153/69 after receiving hydralazine. Denied nausea. BT present and able to tell staff he needed to have a BM and continent with use of bedpan. Voided with assistance to use urinal but was also incontinent of urine. Is able to turn himself somewhat but needs assistance for purposeful turning. Has not been out of bed except with assist of PT but unable to walk as yet. Did complain of pain in legs/feet and was medicated with Percocet at 2155 and now asleep. Allevyn dressings to pressure areas on right elbow and foot being CDI. Has dressing to right lower leg that is CDI but noted to be edematous with some erythema distal to dressing. Remains on covid precautions but not noting any respirator symptoms at present. Calf SCD applied to left LE at time of assessment but later requested it be removed as he was unable to sleep. Fall risk score is high and bed alarm is activated.
[2023-08-07 05:50] LABS: Add Manual Diff / Slide Review NO; Basophils Absolute Auto 100 /uL (0-100); Basophils Percent Auto 1.2 % (0-2); Eosinophils Absolute Auto 1100 /uL (0-450); Eosinophils Percent Auto 13.3 % (2-4); Hematocrit 36.7 % (41-53); Hemoglobin 12.5 g/dL (13.5-17.5); Lymphocytes Absolute Auto 1500 /uL (1100-4500); Lymphocytes Percent Auto 18.2 % (25-40); Mean Corpuscular Hemoglobin 33.5 PG (26-34); Mean Corpuscular Volume 98.5 fL (80-100); Monocytes Absolute Auto 900 /uL (0-900); Neutrophils Absolute Auto 4500 /uL (1500-7000); Neutrophils Percent Auto 56.3 % (50-75); Platelet Count 329 X10^3/uL (150-400); Red Blood Cell Count 3.72 X10^6/uL (4.5-5.9); Red Cell Distribution Width 13.9 % (11.6-14.8); White Blood Cell Count 8.1 X10^3/uL (4.5-11.0)
[2023-08-07 06:05] LABS: Creatine Kinase 184 U/L (55-170)
[2023-08-07 06:06] LABS: BUN Creatinine Ratio 21.8 (6-22); Blood Urea Nitrogen 12 mg/dL (9-20); Calcium 8.6 mg/dL (8.4-10.2); Carbon Dioxide 30 mmol/L (22-32); Chloride 100 mmol/L (98-107); Estimated Glomerular Filt Rate > 60 mL/min (>60); Glucose 94 mg/dL (80-110); HEMOLYSIS < 15 (0-50); Sodium 133 mmol/L (137-145)
[2023-08-07] MEDS: ENOXAPARIN 40 MG/0.4 ML SYRINGE SUBCUT (09:32)
[2023-08-07] MEDS: GABAPENTIN 300 MG CAPSULE 600 MG PO ×2 (09:32→19:55)
[2023-08-07] MEDS: SODIUM CHLORIDE 0.9% FLUSH 10 ML IV (09:32)
[2023-08-07] MEDS: PANTOPRAZOLE DR 40 MG TABLET PO ×2 (09:33→19:55)
[2023-08-07] MEDS: AMOXICILLIN/CLAV 875/125 MG 1 TAB PO ×2 (09:33→19:55)
--- NOTE | 2023-08-07 12:04 | PT.IPTN ---
Physical Therapy Treatment Note M2 PT-IP Current Condition Start: 08/04/23 10:55 Freq: NEEDED Status: Active Protocol: Document 08/05/23 11:45 AB (Rec: 08/05/23 14:27 AB [id number]) Physical Therapy Current Condition Current Condition Evaluation Date 08/05/23 Treatment Diagnosis Covid; rhabdomyolysis; difficulty in walking Onset Date 08/03/23 M3 PT-IP Subjective Start: 08/04/23 10:55 Freq: NEEDED Status: Active Protocol: Document 08/07/23 11:30 MB (Rec: 08/07/23 12:04 MB [id number]) Subjective Physical Therapy Visit Type Type Treatment Note Visit Start Time 11:30 Visit Stop Time 11:23 Notes Sister arrives and states pt goes by Seferino Number of CORE COMPOSER MACHINE TENDER Visits 0 Physical Therapy Visit Comments Patient Comments Pt is agreeable to PT/states he needs to use urinal. Therapy Pain Assessment Pain When Pain Assessed During Mobility Pain Present Pain Present Pain Reported Location Right leg Intensity 5 Scale Used [place] (Faces) M4 PT-IP Mobility and Gait Start: 08/04/23 10:55 Freq: NEEDED Status: Active Protocol: Document 08/07/23 11:30 MB (Rec: 08/07/23 12:04 MB [id number]) PT-Bed Mobility Assessment Supine to Sit Supine to Sit Contact Guard Assistance,1 Person Assistance,Head of Bed Elevated,Bedrails Scooting Scooting to Edge of Bed Contact Guard Assistance PT-Transfer Assessment Sit to and From Stand Sit to and from Stand Maximum Assistance,1 Person Assistance,Use of Upper Extremities Equipment Transfer Assistive Device Gait Belt,Front Wheeled Walker Orthotic/Prosthetic Devices or Brace: No Transfers Transfer Destination Chair Transfer Technique Side step with RW Transfer Ability Level of Assist Minimal Assistance,1 Person Assistance,Use of Upper Extremities Comments Mobility Comments FOOD AND BEVERAGE CASHIER arrives and is nearby with PT for treatment. HOB increased and cues to use right rail and then pt is able to grab rail and scoot to EOB with increased time, cues and CGA. He has wide JOVITA and puts hands on the walker and is able to stand up with min A. Wide JOVITA and decreased step- length and foot clearance to side step to the right from bed to chair with RW with PT assist and FOOD AND BEVERAGE CASHIER nearby. Pt can doff socks and is dependent to don clean ones. Max A to change gown and left with FOOD AND BEVERAGE CASHIER to address briefs. Pt stood for about 2' at RW with CGA and max A to hold urinal to try to urinate and was unsuccessful. Gait Assessment Gait Gait Assistance Required: Minimum Assistance,1 Person Assist Distance (Feet) 2 Able to Maintain Weight Bearing Status Yes During Gait Assistive Devices Assistive Device Gait Belt,Front Wheeled Walker Orthotic/Prosthetic Devices or Brace: No Gait Deviations General Gait Pattern Decreased Stride Length, Decreased Feet Clearance, Flexed Trunk,Wide Based Gait Factors Limiting Gait Function Factors Limiting Gait Function Decreased Activity Tolerance, Difficulty Following Directions,Incoordination,Pain ,Poor Balance,Poor Safety Awareness Comments Gait Comments See mobility comments above PT-Balance Assessment Sitting Balance and Reactions Static Sitting Balance Ability Fair Dynamic Sitting Balance Ability Fair Standing Balance and Reactions Static Standing Balance Ability Fair Dynamic Standing Balance Ability Fair Device Used FWW M5 PT-IP Objective Assessments Start: 08/04/23 10:55 Freq: NEEDED Status: Active Protocol: Document 08/05/23 11:45 AB (Rec: 08/05/23 14:27 AB [id number]) Orientation Orientation/Cognition Level of Alertness Confusional State Orientation Name,Situation Language Function Ability Hard of Hearing Safety Awareness Decreased Safety Awareness Memory Description No Deficits Noted Gross Range of Motion Lower Extremity ROM Assessment Within Functional Limits Strength Lower Extremity Strength Assessment Bilaterally Impaired Hip 2+/5 Knee 3-/5 Muscle Tone Muscle Tone WNL Yes M6 PT-IP Treatment Start: 08/04/23 10:55 Freq: NEEDED Status: Active Protocol: Document 08/06/23 14:51 TS (Rec: 08/06/23 15:00 TS [id number]) Physical Therapy Treatment Education Education Provided Safety M7 PT-IP Assessment and Plan Start: 08/04/23 10:55 Freq: NEEDED Status: Active Protocol: Document 08/07/23 11:30 MB (Rec: 08/07/23 12:04 MB [id number]) PT Summary Assessment and Plan Potential Rehabilitation Potential Fair Summary Impairments Pain,ROM,Strength,Balance, Coordination,Cognition,Bed Mobility,Transfers,Gait, Activity Tolerance Progress Towards Goals Slow Progress due to Medical Issues,Slow Progress due to Activity Tolerance Assessment Summary Seferino makes small progress with mobility today. He has some raspy sounding breathing with mobility and is not very MONSON. He does have some ongoing confusion, skin abrasions on his right arm and his right leg is dressed and he describes his right leg bothering him with mobility. B distal LEs have erythema. FOOD AND BEVERAGE CASHIER arrives to assist with urinal and pt is unsuccessful and she reports frequent urinary incontinence and that pt pulled off condom catheter. Con't PT efforts. Goals Bed Mobility Goal Independent Transfer Goal Independent,Front Wheeled Walker Gait Goal Standby Assistance,Front Wheel Walker Gait Distance 100 Days to Meet Goals 5 Frequency of Treatment Frequency Of Treatment Once a Day Treatment Plan Physical Therapy Treatment Plan Bed Mobility Training,Transfer Training,Gait Training, Therapeutic Exercise,Balance Retraining,Post Op Education, Discharge Planning,Hot or Cold Pack,Neuromuscular Re-ed, Coordination Retraining,Manual Therapy Other Recommendations and Next Treatment ambulation Focus Precautions Other Precautions falls, Covid Recommendations To Nursing Amount of Assist Needed 2 Person Assist Discharge Recommendations PT Discharge Recommendations SNF Rehab Transportation Needs at Discharge Wheelchair/Cabulance
--- NOTE | 2023-08-07 13:16 | CM.DPNOTE ---
Addendum entered by COREY Hoffmann 08/07/23 14:47: [facility] - [facility] to take pt Tuesday. From [facility], will need BLS transport due to none of the cabulance agencies willing to take COVID pos patient's at this time. Ideally would like Tuesday 11am dc time from here. ENGINEERING OPERATIONS LEADER emailed [facility] pt's SSN. ENGINEERING OPERATIONS LEADER will arrange BLS/alternative transport tomorrow. ENGINEERING OPERATIONS LEADER will confirm with cabulance agencies that they cannot accept covid pt's. Per sister in in previous conversation she reports she cannot drive pt to [facility] on Tuesday. SL Original Note: DCP Note ENGINEERING OPERATIONS LEADER reviewed EMR. From CM notes, pt to dc to [facility] Tuesday due to COVID pos diagnosis/being 5 days out from pos test. Per provider in morning rounds, pt stable to dc today. PT still rec SNF. ENGINEERING OPERATIONS LEADER met with pt's sister Hyun in torres/room doorway. ENGINEERING OPERATIONS LEADER did not enter due to COVID pos diagnosis but was able to communicate with pt while he was in room from hallway. ENGINEERING OPERATIONS LEADER updated pt and sister on plan to dc to [facility] Tuesday. Pt reports being agreeable to plan. Sister was hopeful for [facility]- ENGINEERING OPERATIONS LEADER communicated that [facility] has a current COVID outbreak and is not accepting new pt's. Sister expressed understanding. ENGINEERING OPERATIONS LEADER emailed [facility] at updated PT note. PASRR previously completed. Plan: dc Tuesday with facility transport to anticipated. CM team will follow closely for coordination of dcp details. COREY Hoffmann
--- NOTE | 2023-08-07 13:40 | PM.PN.1 ---
Subjective Subjective Interval history: Patient feels improved today again. Always has R leg pain, shoots up from his R foot. No chest pain or shortness of breath. Exam Vital Signs (past 8 hours): - 08/07/23 08:00 08/07/23 11:57 Temperature 98.8 F 97.9 F Pulse Rate 85 72 Respiratory Rate 18 20 Blood Pressure 159/76 H 179/78 H Pulse Oximetry 93 95 Oxygen Flow Rate 0 0 Fraction of Inspired Oxygen 28 SaO2/FiO2 Ratio 342 Oxygen Delivery Method Room Air Oxygen Flow Rate 0 Narrative Exam Narrative: GEN: no acute distress, A/Ox2, disheveled HEENT: moist mucous membranes, PERRL NECK: trachea midline, no JVD CV: regular rate and rhythm, no murmurs PULM: clear bilaterally, upper airway wheeze with breakfast, mild ABD: soft, nontender, nondistended, no organomegaly EXT: warm and well perfused with no edema NEURO: awake, alert, oriented, no focal deficits Objective Labs 08/07/23 04:20 08/07/23 04:20 Labs: Laboratory Results - last 24 hr 08/07/23 04:20 WBC 8.1 RBC 3.72 L Hgb 12.5 L Hct 36.7 L MCV 98.5 MCH 33.5 MCHC 34.0 RDW 13.9 Plt Count 329 Neut % (Auto) 56.3 Lymph % (Auto) 18.2 L Forrest % (Auto) 11.0 Eos % (Auto) 13.3 H Baso % (Auto) 1.2 Neut # (Auto) 4500 Lymph # (Auto) 1500 Forrest # (Auto) 900 Eos # (Auto) 1100 H Baso # (Auto) 100 Sodium 133 L Potassium 4.0 Chloride 100 Carbon Dioxide 30 BUN 12 Creatinine 0.55 L Estimated GFR > 60 BUN/Creatinine Ratio 21.8 Glucose 94 Calcium 8.6 Total Creatine Kinase 184 H D [facility] Medical History Anemia Chronic back pain (Unknown) Fractures Hearing loss (Unknown) Hx of flexible sigmoidoscopy (~01/2019) Surgical History (Updated 09/28/22 @ 14:09 by Brittany Petersen RN) H/O vasectomy History of removal of Port-a-Cath History of colonoscopy Hx of neck surgery (~2020) Anesthesia S/P laparoscopic colectomy (01/10/19) History of back surgery (~2017) Family History Father Heart disease Mother Cancer Congestive heart failure Sister Hypertension Cancer Brother Heart disease Rheumatic fever Brother No problems noted. Social History household members: none occupational status: employed Smoking Status: Former smoker alcohol intake: current Assessment & Plan Assessment & Plan narrative: # COVID infection with acute hypoxemia and generalized weakness, hypoxia resolved, probable superimposed bacterial pneumonia -Did receive a dose of Decadron in the emergency room which will be continued and also initiate a course of remdesivir with nebulizers and oxygen supplementation to maintain O2 saturation above 92%. Continue IV Rocephin and azithromycin as marked leukocytosis on admission cannot rule out PNA. Can transition to oral augmentin today. -stopped dex and rem due to now on room air # Rhabdomyolysis likely secondary to prolonged immobilization with a fall. -CPK level was greater than 3000. Discontinued IV fluids 08/04. Repeak CK ordered for tomorrow. # Hyponatremia suspect due to hypovolemia. -improved.. # Altered mental status. -CT brain is negative for acute process. Check and treat for any reversible factors. Suspect an element of metabolic encephalopathy and cognitive impairment. # History of GI bleed -continue the home Protonix 40 mg twice daily # History of colon cancer stable # Gait instability -PT/OT eval rec SNF DVT prophylaxis will be with Lovenox Dispo: Pending SNF. COVID-19 COVID-19 status: Positive Quality VTE Deep Vein Thrombosis/Pulmonary Embolism Present on Admission: No
--- NOTE | 2023-08-07 15:26 | PC.NURSE ---
Day Shift: All wound dressings changed; MD power with open wounds being covered with xeroform. Right lower extremity wound has minimal sersosanguineous drainage. No signs and symptoms of infection.
[2023-08-08] MEDS: OXYCODONE/ACETAMINOPHEN 5/325 TABLET 1 TAB PO (00:28)
[2023-08-08 02:00] VITALS: BP 134/60; PULSE 67; RESP 19; TEMP 37.1; O2SAT 94
[2023-08-08 06:45] VITALS: BP 142/79; PULSE 76; RESP 19; TEMP 36.2; O2SAT 92
[2023-08-08] MEDS: ENOXAPARIN 40 MG/0.4 ML SYRINGE SUBCUT (08:39)
[2023-08-08] MEDS: PANTOPRAZOLE DR 40 MG TABLET PO ×2 (08:40→21:35)
[2023-08-08] MEDS: ACETAMINOPHEN 325 MG TABLET 650 MG PO (08:40)
[2023-08-08] MEDS: GABAPENTIN 300 MG CAPSULE 600 MG PO ×2 (08:40→21:35)
[2023-08-08] MEDS: AMOXICILLIN/CLAV 875/125 MG 1 TAB PO (08:40)
--- NOTE | 2023-08-08 09:40 | ST.IPDYTX ---
Visit Care Team Role Provider Type Antonia Leigh MD Primary Care Provider Physician Specialty: Internal Medicine Address: [place] [address] Email: Kimberley Jacobson MD Emergency Provider Physician Referring Provider Specialty: Emergency Medicine Address: [address] [place] [address], [id number] Email: Danie Araujo DO Admit Provider Physician Attending Provider Specialty: Internal Medicine Address: [address] [place] [address], [address] Email: [email or web address] [email or web address] ESCORT Dysphagia Treatment WIDE LOAD ESCORT Dysphagia Treatment Start: 08/08/23 09:32 Freq: Status: Active Protocol: Document 08/08/23 09:32 MA (Rec: 08/08/23 09:40 MA [id number]) Dysphagia Treatment Session Time Visit Start Time 09:00 Visit Stop Time 09:20 Total Visit Minutes 20 Visit Information Visit Number 2 Setting Assessment Location Acute Care Patient Information Subjective Observations Pt is on COVID precautions. Pt awake, alert, responsive, sitting upright post breakfast meal. He presents with improved alertness compared to last visit. He reports no difficulties chewing/ swallowing solids and states he just needs to take it slow. Treatment Liquids Trialed Thin (IDDSI 0),Mildly Thick ( IDDSI 2) Administration Type Straw,Self-Feeding Oral Strategies Upright at 90 degrees Pharyngeal Strategies Chin Tuck Treatment Activities Therapeutic PO trials The IDDSI Framework Protocol: IDDSI.1 Assessment Assessment of Improvement Pt consumed about 4 oz of thin water via straw. Oral phase characterized by adequate suction, good oral acceptance and containment, suspected loss of bolus resulting in premature spillage, suspected delay in swallow, 2x throat clear. ST educated Pt on safe swallowing strategies such as remaining upright, taking small bites/sips, alternating liquids/solids and remaining upright for at least [address] educated Pt on aspiration and possible aspiration PNA and the associated causes/symptoms . Pt verbalized understanding. ST educated Pt on chin tuck swallow method in order to possibly prevent aspiration. ST provided a visual model. Pt performed chin tuck x5 with thin liquids demonstrating no overt s/s of aspiration. ST also educated Pt on importance of strict oral care after meals. ST recommends diet upgrade to IDDSI [address] recommends downgrade to nectar thick liquids if changes in medical status/respiratory status. Recommendations Recommendations Upgrade Liquid Order Liquids Order Thin (IDDSI 0) Diet Order Soft & Bite-sized (IDDSI 6) Medication Recommendations As Tolerated Aspiration Precautions Recommended Precautions Upright at 90 Degrees, Alternate Liquids/Solids,Small Bites/Sips,Chin Tuck
[2023-08-08 09:55] VITALS: BP 159/65; PULSE 77; RESP 18; TEMP 36.6; O2SAT 92
--- NOTE | 2023-08-08 11:32 | PT.IPTN ---
Physical Therapy Treatment Note M2 PT-IP Current Condition Start: 08/04/23 10:55 Freq: NEEDED Status: Active Protocol: Document 08/05/23 11:45 AB (Rec: 08/05/23 14:27 AB [id number]) Physical Therapy Current Condition Current Condition Evaluation Date 08/05/23 Treatment Diagnosis Covid; rhabdomyolysis; difficulty in walking Onset Date 08/03/23 M3 PT-IP Subjective Start: 08/04/23 10:55 Freq: NEEDED Status: Active Protocol: Document 08/08/23 11:41 ZF (Rec: 08/08/23 11:59 ZF [id number]) Subjective Physical Therapy Visit Type Type Treatment Note Visit Start Time 11:00 Visit Stop Time 11:32 Number of CONTENT DEVELOPMENT MANAGER Visits 1 Physical Therapy Visit Comments Patient Comments Pt pleasant and motivated for therapy. Therapy Pain Assessment Pain When Pain Assessed During Mobility Pain Present Pain Present Pain Reported M4 PT-IP Mobility and Gait Start: 08/04/23 10:55 Freq: NEEDED Status: Active Protocol: Document 08/08/23 11:41 ZF (Rec: 08/08/23 11:59 ZF [id number]) PT-Bed Mobility Assessment Supine to Sit Supine to Sit Minimal Assistance,1 Person Assistance,Head of Bed Elevated,Bedrails Scooting Scooting to Edge of Bed Contact Guard Assistance PT-Transfer Assessment Sit to and From Stand Sit to and from Stand Moderate Assistance,1 Person Assistance,Use of Upper Extremities Equipment Transfer Assistive Device Gait Belt,Front Wheeled Walker Orthotic/Prosthetic Devices or Brace: No Transfers Transfer Destination Chair Transfer Technique Stand Pivot Transfer Ability Level of Assist Minimal Assistance,1 Person Assistance,Use of Upper Extremities Comments Mobility Comments Pt in bed when approached for therapy. Log rolls w/use of side rail, SBA. Requires Trina to push up into sitting. Pt requires lengthy sitting RB at EOB. Vitals monitored: 92% O2sat, 82BPM, 161/82mmHg. STS from EOB, recliner x3 requies ModA using 2ww. SPT EOB> Recliner CGA. Pt requires lengthy RB due to fatigue, pain in feet, RLE. Pt agreeable to gait trial, but once in standing reports that R LE pain and weakness, requests sitting back down. Pt motivated for seated LE therEx to include: ankle pumps , LAQ, hip add w/pillow, 2x10. Seated arm chair push ups, x10. Pt cued for controlled eccentric movements, and improved quad engagement with LAQ. Vitals monitored post tx: 95% O2sat, 73BPM, 146/77mmHg. Pt Gait Assessment Assistive Devices Assistive Device Gait Belt,Front Wheeled Walker Orthotic/Prosthetic Devices or Brace: No PT-Balance Assessment Sitting Balance and Reactions Static Sitting Balance Ability Fair Dynamic Sitting Balance Ability Fair Standing Balance and Reactions Static Standing Balance Ability Fair Dynamic Standing Balance Ability Fair Device Used FWW M5 PT-IP Objective Assessments Start: 08/04/23 10:55 Freq: NEEDED Status: Active Protocol: Document 08/05/23 11:45 AB (Rec: 08/05/23 14:27 AB [id number]) Orientation Orientation/Cognition Level of Alertness Confusional State Orientation Name,Situation Language Function Ability Hard of Hearing Safety Awareness Decreased Safety Awareness Memory Description No Deficits Noted Gross Range of Motion Lower Extremity ROM Assessment Within Functional Limits Strength Lower Extremity Strength Assessment Bilaterally Impaired Hip 2+/5 Knee 3-/5 Muscle Tone Muscle Tone WNL Yes M6 PT-IP Treatment Start: 08/04/23 10:55 Freq: NEEDED Status: Active Protocol: Document 08/06/23 14:51 TS (Rec: 08/06/23 15:00 TS [id number]) Physical Therapy Treatment Education Education Provided Safety M7 PT-IP Assessment and Plan Start: 08/04/23 10:55 Freq: NEEDED Status: Active Protocol: Document 08/08/23 11:41 ZF (Rec: 08/08/23 11:59 ZF [id number]) PT Summary Assessment and Plan Potential Rehabilitation Potential Fair Summary Impairments Pain,ROM,Strength,Balance, Coordination,Cognition,Bed Mobility,Transfers,Gait, Activity Tolerance Progress Towards Goals Slow Progress due to Medical Issues,Slow Progress due to Activity Tolerance Assessment Summary Pt requires reduced level of assist for transfers, but continues to have reduced activity tolerance, requiring lengthy seated RB throughout session. Goals Bed Mobility Goal Independent Transfer Goal Independent,Front Wheeled Walker Gait Goal Standby Assistance,Front Wheel Walker Gait Distance 100 Days to Meet Goals 5 Frequency of Treatment Frequency Of Treatment Once a Day Treatment Plan Physical Therapy Treatment Plan Bed Mobility Training,Transfer Training,Gait Training, Therapeutic Exercise,Balance Retraining,Post Op Education, Discharge Planning,Hot or Cold Pack,Neuromuscular Re-ed, Coordination Retraining,Manual Therapy Other Recommendations and Next Treatment ambulation Focus Precautions Other Precautions falls, Covid Recommendations To Nursing Amount of Assist Needed 2 Person Assist Discharge Recommendations PT Discharge Recommendations SNF Rehab Transportation Needs at Discharge Wheelchair/Cabulance
--- NOTE | 2023-08-08 13:01 | OT.IP.TRT ---
Occupational Therapy Treatment Note M2 OT-IP Current Condition Start: 08/04/23 15:42 Freq: Status: Active Protocol: Document 08/04/23 15:43 [facility] (Rec: 08/04/23 16:05 [facility] [id number]) Occupational Therapy Current Condition Current Condition Evaluation Date 08/04/23 Treatment Diagnosis COVID+, Rhabdo, decreased mobility Diagnosis Onset Date 08/03/23 M3 OT- IP Subjective and Pain Start: 08/04/23 15:42 Freq: Status: Active Protocol: Document 08/08/23 12:54 DEO (Rec: 08/08/23 13:01 [facility] [id number][facility] OT- Subjective Occupational Therapy Visit Type Type Treatment Note Visit Start Time 11:50 Visit Stop Time 12:10 Occupational Therapy Visit Comments Patient Comments Pt sitting up in chair on entrance. Patient/Caregiver Goals TO get better. OT Pain Assessment Pain When Pain Assessed At Rest Pain Present Pain Present Pain Reported Location Left Foot Intensity 8 Scale Used Numeric (0 - 10) Description Tingling Right leg Intensity 0 Right Foot Intensity 8 Scale Used Numeric (0 - 10) Description Tingling M4 OT- IP ADL's Start: 08/04/23 15:42 Freq: Status: Active Protocol: Document 08/05/23 12:05 [facility] (Rec: 08/05/23 12:56 [facility] [id number]) OT GVM-Wzxf-Mwhxcoi Comments OT Self-Feeding Comments Pt able to drink thicked liquid without coughing. Noted pt having difficulty to eat the rice and noted coughing afterwards, nursing notified and suggested to have a softer diet especiallly since his does not have his lower dentures. OT ADL-Grooming Comments OT Grooming Comments Pt able to was his hands after set-up of wash cloth. OT ADL-Oral Care Comments Oral Care Comments NOt performed. OT ADL-Dressing Comments OT Dressing Comments At this time pt is dependent for LB dressing needs due to decreased balance, coordination , and strength. OT ADL-Toileting Comments OT Toileting Comments Issa OT ADL-Bathing Comments OT Bathing Comments Sponge bath more appropriate at this time. M5 OT- IP IADL's Start: 08/04/23 15:42 Freq: Status: Active Protocol: Document 08/04/23 15:43 [facility] (Rec: 08/04/23 16:05 [facility] [id number]) OT-Instrumental Activities of Daily Living Deficits IADL Deficits Identified Deficits Home Safety Awareness Awareness of Need for Assistance at Home Decreased Awareness Ability to Problem Solve Emergency Unable to Problem Solve Situations Home Safety Comments Pt confused and mainly orienated to name and place. Medication Management Medication Management Comments Pt would require assist at this time. Money Management Money Management Comments Pt would require assist at this time. Meal Preparation Meal Preparation Comments Pt would require assist. Creative Services Writer Creative Services Writer Comments Pt would require assist. M6 OT- IP Functional Cognition Start: 08/04/23 15:42 Freq: Status: Active Protocol: Document 08/05/23 12:05 [facility] (Rec: 08/05/23 12:56 [facility] [id number]) Cognitive Factors Limiting Selfcare Function Cognitive Ability Level of Alertness Confusional State Patient Orientation Name Attention Span Ability Capable of Focused Attention, Unable to Sustain Attention Ability to Follow Commands Able to Follow One Step Commands with Increased Time, Able to Follow One Step Commands with Repetition Cognitive Comments Cognitive Assessment Comments [place] recall where he lives and then able to state he lives at [facility]. Pt still havign difficulty with processing, motor plannign at time and initiation of movements. Today pt more apt to use his LUE for needs during eating. OT- Vision and Hearing OT- Vision Assessment Vision Assessment Comments Pt not able to acurately read the clock. Pt states the time is 12:40 versus 12:20. M7 OT- IP Mobility and Balance Start: 08/04/23 15:42 Freq: Status: Active Protocol: Document 08/05/23 12:05 [facility] (Rec: 08/05/23 12:56 [facility] [id number]) OT- Bed Mobility Assessment Supine to Sit Supine to Sit Assist Maximum Assistance,2 Person Assistance Sit to Supine Sit to Supine Assist Maximum Assistance,2 Person Assistance Scooting Scooting to Edge of Bed Maximum Assistance,2 Person Assistance OT-Transfer Assessment Sit to and From Stand Sit to and from Stand Maximum Assistance,2 Person Assistance Transfers Transfer Ability Maximum Assistance,2 Person Assistance Technique Transfer Destination Bed,Chair Transfer Technique Stand Step Pivot Devices Transfer Assistive Devices Gait Belt,Front Wheeled Walker Comments Mobility Comments Today pt able to initate movement of his legs to the edge of the bed after cues but stilll needing MAX AX 2 to complete and especially to assist to get his trunk upright. MAX AX2 to stand and assist to help with balance and move the FWW. At this time best for nursing to use Damaso lift. Pt heavily leans to the right. OT- Balance Assessment Sitting Balance and Reactions Static Sitting Balance Ability Poor Dynamic Sitting Balance Ability Poor Standing Balance and Reactions Static Standing Balance Ability Poor Dynamic Standing Balance Ability Poor Comments Other Balance Tests/Deviations/Treatment Pt still heavily leans to the : right and having to stretch to the left so able to sit to midline better. Pt still needing CGA to MODA for sitting balance. M8 OT- IP Objective Assessments Start: 08/04/23 15:42 Freq: Status: Active Protocol: Document 08/04/23 15:43 [facility] (Rec: 08/04/23 16:05 [facility] [id number]) OT Gross Range of Motion Upper Extremity Range of Motion ROM Impairments grossly WFL OT Strength Comments Strength Comments At least 3+/5 as pt having difficulty to follow MMT. M9 OT- IP Assessment and Plan Start: 08/04/23 15:42 Freq: Status: Active Protocol: Document 08/08/23 12:54 [facility] (Rec: 08/08/23 13:01 [facility] [id number][facility] OT Summary Assessment and Plan Potential Rehabilitation Potential Good Analytic Complexity at Evaluation Moderate Summary OT Impairments Pain,Range of Motion,Strength, Balance,Coordination, Functional Cognition, Functional Mobility,Self- Feeding,Grooming,Dressing, Toileting,Bathing,Toilet Transfers,Shower Transfers, Activity Tolerance Progress Towards Goals Progressing Toward Goals,Slow Progress due to Pain,Slow Progress due to Medical Issues ,Slow Progress due to Activity Tolerance,Slow Progress due to Cognition Assessment Summary Pt sitting up in chair on entrance of OT. Pt c/o B foot pain. Because of pain, pt refused any standing, functional t/fs, or ADLs. Pt was agreeable to performing UE exercise for improved activity tolerance and general strength. Pt required occasional vcs and demonstration for each exercise. Pt performed body weight: overhead reach, UE jumping juvenal, and IR/ER x10 each. Pt completed isometric tricep x10 in chair, cash applications analyst towel squeeze x10 and chair push ups x10. Pt requires rbs between exercises and reports feeling like I've used my arms at end of tx. Pt left up in chair with all needs met and in reach, pt's meal placed before him. Cont per established POC. Goals Self-Feeding Goal Independent Grooming Goal Independent Dressing Goal Independent Toileting Goal Independent Bathing Goal Independent Toilet Transfer Goal Independent Shower Transfer Goal Independent Days to Meet Goals 20 Frequency of Treatment Frequency Of Treatment Once a Day Treatment Plan OT Treatment Plan ADL Training,Functional Cognition Training,Functional Mobility,Patient/Family Education,Discharge Planning Discharge Recommendations OT Discharge Recommendations SNF Rehab Transportation Needs at Discharge Wheelchair/Cabulance
--- NOTE | 2023-08-08 13:42 | CM.DPNOTE ---
Spoke to Nelly at [facility]ulance for BLS transport on 08/08/23 at 1100 per Makenzie. Nelly confirmed they can pick pt. up at 1100. Judy Arguello CM Recruiting Assistant.
[2023-08-08 14:00] VITALS: BP 126/65; PULSE 74; RESP 18; TEMP 36.5; O2SAT 94
--- NOTE | 2023-08-08 14:30 | CM.DPNOTE ---
DCP Note WRAPPER OPERATOR reviewed EMR. Pt stable to dc to SNF- pending 5 days after pos COVID test. [facility] can accept pt but not today- WRAPPER OPERATOR canceled ref due to new accepting facility. WRAPPER OPERATOR coordinated with [facility] at - able to accept tomorrow. Request 11am transport time. Cabluance not available due to pt's covid diagnosis. CC Judy coordinated BLS transport- see her note. arranged for 11am. WRAPPER OPERATOR met with pt in room. Pt sitting in bed. Agreeable to MV tomorrow. Agreeable to BLS transport- report no one else can drive him. Verbally agree to potential payment with BLS. WRAPPER OPERATOR gave pt copy of POA ppwk upon request. WRAPPER OPERATOR spoke with sister Hyun on phone. Agreeable to dc tomorrow at 11am to . Confirm no one can transport. Acknowledge potential BLS cost and report verbally okay with it. WRAPPER OPERATOR completed BLS form, behind facesheet. PASRR behind facesheet. Plan: BLS to transport tomorrow to [facility] at 11am. CM team will continue to follow closely. COREY Hoffmann
--- NOTE | 2023-08-08 17:33 | P.PN_ITS ---
Subjective Subjective Interval history: Patient awaiting SNF. Sister at bedside and questions were answered. He has no complaints. Exam Vital Signs (past 8 hours): - 08/08/23 09:55 08/08/23 14:00 Temperature 97.9 F 97.7 F Pulse Rate 77 74 Respiratory Rate 18 18 Blood Pressure 159/65 H 126/65 Pulse Oximetry 92 94 Oxygen Flow Rate 0 0 Fraction of Inspired Oxygen 28 SaO2/FiO2 Ratio 342 Oxygen Delivery Method Room Air Oxygen Flow Rate 0 Narrative Exam Narrative: GEN: no acute distress, A/Ox2 HEENT: moist mucous membranes, PERRL NECK: trachea midline, no JVD CV: regular rate and rhythm, no murmurs PULM: clear bilaterally, upper airway wheeze with breakfast, mild ABD: soft, nontender, nondistended, no organomegaly EXT: warm and well perfused with no edema NEURO: awake, alert, oriented, no focal deficits Objective Labs 08/07/23 04:20 08/07/23 04:20 [facility] Medical History Anemia Chronic back pain (Unknown) Fractures Hearing loss (Unknown) Hx of flexible sigmoidoscopy (~01/2019) Surgical History (Updated 09/28/22 @ 14:09 by Brittany Petersen RN) H/O vasectomy History of removal of Port-a-Cath History of colonoscopy Hx of neck surgery (~2020) Anesthesia S/P laparoscopic colectomy (01/10/19) History of back surgery (~2016) Family History Father Heart disease Mother Cancer Congestive heart failure Sister Hypertension Cancer Brother Heart disease Rheumatic fever Brother No problems noted. Social History household members: none occupational status: employed Smoking Status: Former smoker alcohol intake: current Assessment & Plan Assessment & Plan narrative: # COVID infection with acute hypoxemia and generalized weakness, hypoxia resolved, probable superimposed bacterial pneumonia -Did receive a dose of Decadron in the emergency room which will be continued and also initiate a course of remdesivir with nebulizers and oxygen supplementation to maintain O2 saturation above 92%. Continue IV Rocephin and azithromycin as marked leukocytosis on admission cannot rule out PNA. Can transition to oral augmentin. -stopped dex and rem due to now on room air # Rhabdomyolysis likely secondary to prolonged immobilization with a fall. -CPK level was greater than 3000. Discontinued IV fluids 08/04. Repeak CK now 184. # Hyponatremia suspect due to hypovolemia. -improved.. # Altered mental status. -CT brain is negative for acute process. Check and treat for any reversible factors. Suspect an element of metabolic encephalopathy and cognitive impairment. # History of GI bleed -continue the home Protonix 40 mg twice daily # History of colon cancer stable # Gait instability -PT/OT eval rec SNF DVT prophylaxis will be with Lovenox Dispo: SNF on 08/08. COVID-19 COVID-19 status: Positive Quality VTE Deep Vein Thrombosis/Pulmonary Embolism Present on Admission: No
[2023-08-08 18:00] VITALS: BP 141/71; PULSE 87; RESP 16; TEMP 36.3; O2SAT 97
[2023-08-08 19:43] LABS: Osmolality Urine 577 mOsmol/kg (.)
[2023-08-08 20:50] VITALS: BP 184/75; PULSE 69; RESP 17; TEMP 36.4; O2SAT 94
[2023-08-09 05:30] VITALS: BP 170/88; PULSE 81; RESP 18; TEMP 35.9; O2SAT 92
[2023-08-09 08:00] VITALS: BP 135/68; PULSE 83; RESP 18; TEMP 36.3; O2SAT 96
--- NOTE | 2023-08-09 08:16 | PM.DS.1 ---
History of Present Illness History of Present Illness Chief complaint: Found Down Narrative: 78 years old male with a past medical history of hypertension, colon cancer status postresection and chemotherapy, alcohol use, neuropathy, gastritis with upper GI bleed was brought in to the emergency room after he was found on the floor and what appears to be over 2 days. Apparently he was feeling weak and laying on the floor for over 2 days. Eventually sister did a welfare check and squad was called and transported to the emergency room. Patient is hard of hearing and confused. Not a very good historian. Able to say that he is in the hospital and name of the hospital but unable to relate the time or the year. Difficulty in understanding the questions. Most of the history has been obtained from the chart. Reports that he is tired and feeling weak. Denies any shortness of breath or chest pain. Uses a walker but has been living in an independent facility. In the ED was noted to have skin breakdown over his right foot with abrasion but no significant pressure ulcers and had generalized weakness. X-ray of the, CT head and cervical spine shows no acute process systolic blood pressure was in the 180s and further labs revealed a sodium of 124, WBC count of 20.4. COVID was detected and noted to be hypoxic needing 3 L of oxygen. CPK levels were elevated as well. Patient was initiated on IV fluids with oxygen supplementation nebulizers and given a dose of IV Decadron. Admitted for further evaluation Discharge Providers Provider Date of admission: 08/03/23 18:46 Discharge Date: 08/09/23 Primary care physician: Antonia Leigh MD Consults: 08/03/23 22:12 Consult to Occupational Therapy Evaluate & Treat Comment: Physician Instructions: Evaluate and treat Consult to Physical Therapy Evaluate & Treat Comment: Physician Instructions: Evaluate and Treat 08/04/23 15:11 Consult to Speech Therapy Evaluate & Treat Comment: trouble swallowing H2O, also do cog eval please Physician Instructions: Evaluate and treat Discharge provider: Danie Araujo DO Summary Hospital Course Discharge Diagnosis: # COVID infection with acute hypoxemia and generalized weakness, hypoxia resolved, probable superimposed bacterial pneumonia -Did receive a dose of Decadron in the emergency room which will be continued and also initiate a course of remdesivir with nebulizers and oxygen supplementation to maintain O2 saturation above 92%. Continue IV Rocephin and azithromycin as marked leukocytosis on admission cannot rule out PNA. Can transition to oral augmentin. -stopped dex and rem due to now on room air # Rhabdomyolysis likely secondary to prolonged immobilization with a fall. -CPK level was greater than 3000. Discontinued IV fluids 08/04. Repeak CK now 184. # Hyponatremia suspect due to hypovolemia. -improved. # acute metabolic encephalopathy, in setting of mild cog impairment -CT brain is negative for acute process. Check and treat for any reversible factors. Suspect an element of metabolic encephalopathy and cognitive impairment. # History of GI bleed -continue the home Protonix 40 mg twice daily # History of colon cancer stable # Gait instability -PT/OT eval [facility] Hospital Course: Admitted after being found down at home for over a day. Had rhabdo which resolved with IV fluids. Also found to be COVID positive and hypoxic so this was treated and he was weaned to room air. PT and OT evaluations recommended senescent patient discharge to [facility] 08/08. Exam Vital Signs (past 8 hours): - 08/09/23 05:30 Temperature 96.7 F L Pulse Rate 81 Respiratory Rate 18 Blood Pressure 170/88 H Pulse Oximetry 92 Oxygen Flow Rate 0 Fraction of Inspired Oxygen 28 SaO2/FiO2 Ratio 342 Oxygen Delivery Method Room Air Oxygen Flow Rate 0 Narrative Exam Narrative: GEN: no acute distress, A/Ox2 HEENT: moist mucous membranes, PERRL NECK: trachea midline, no JVD CV: regular rate and rhythm, no murmurs PULM: clear bilaterally, upper airway wheeze with breakfast, mild ABD: soft, nontender, nondistended, no organomegaly EXT: warm and well perfused with no edema NEURO: awake, alert, oriented, no focal deficits Objective Labs 08/07/23 04:20 08/07/23 04:20 Labs: Laboratory Results - last 24 hr 08/06/23 21:11 Urine Osmolality 577 PFSH Medical History Anemia Chronic back pain (Unknown) Fractures Hearing loss (Unknown) Hx of flexible sigmoidoscopy (~01/2019) Surgical History (Updated 09/28/22 @ 14:09 by Brittany Petersen RN) H/O vasectomy History of removal of Port-a-Cath History of colonoscopy Hx of neck surgery (~2020) Anesthesia S/P laparoscopic colectomy (01/10/19) History of back surgery (~2017) Family History Father Heart disease Mother Cancer Congestive heart failure Sister Hypertension Cancer Brother Heart disease Rheumatic fever Brother No problems noted. Social History household members: none occupational status: employed Smoking Status: Former smoker alcohol intake: current Discharge Plan Discharge Plan Patient Disposition: SNF Discharge orders & Medications Prescriptions: New oxycodone-acetaminophen 5-325 mg Tablet 1 tab PO Q6HR PRN (Reason: Pain, Moderate (4-6)) Qty: 30 0RF Continued (DME) disabled parking Qty: 1 0RF Rx Instructions: I certify that patient has a condition which qualifies him for disabled parking privileges. pantoprazole 40 mg tablet,delayed release (DR/EC) 40 mg PO BID Qty: 60 0RF gabapentin 300 mg capsule 600 mg PO BID acetaminophen 325 mg Tablet 650 mg PO Q6H PRN (Reason: Fever/Mild Pain (1-3)) Qty: 240 0RF Follow up/Referrals: Antonia Leigh MD [Primary Care Provider] - Diet/Activity/Treatments Diet: Regular Liquid consistency: Normal/Thin Food texture: Soft [facility] Rehab type: Physical therapy and Occupational therapy Visit Report/Discharge Packet Instructions: Rhabdomyolysis, DI for Hyponatremia Stand Alone Forms: Patient Portal/API Discharge Data Primary Care Provider: Antonia Leigh Quality VTE Deep Vein Thrombosis/Pulmonary Embolism Present on Admission: No
[2023-08-09] MEDS: ENOXAPARIN 40 MG/0.4 ML SYRINGE SUBCUT (08:30)
[2023-08-09] MEDS: ACETAMINOPHEN 325 MG TABLET 650 MG PO (08:30)
[2023-08-09] MEDS: GABAPENTIN 300 MG CAPSULE 600 MG PO (08:31)
[2023-08-09] MEDS: PANTOPRAZOLE DR 40 MG TABLET PO (08:31)
--- NOTE | 2023-08-09 08:56 | ST.IPDYTX ---
Visit Care Team Role Provider Type Antonia Leigh MD Primary Care Provider Physician Specialty: Internal Medicine Address: [place] [address] Email: Kimberley Jacobson MD Emergency Provider Physician Referring Provider Specialty: Emergency Medicine Address: [address] [place] [address] Email: Danie Araujo DO Admit Provider Physician Attending Provider Specialty: Internal Medicine Address: [address] [place], [place] [id number] Email: [email or web address] Dysphagia Treatment [employer] Dysphagia Treatment Start: 08/08/23 09:32 Freq: Status: Active Protocol: Document 08/09/23 08:53 MA (Rec: 08/09/23 08:56 MA [id number]) Dysphagia Treatment Session Time Visit Start Time 08:30 Visit Stop Time 08:50 Total Visit Minutes 20 Visit Information Visit Number 3 Setting Assessment Location Acute Care Patient Information Subjective Observations Pt awake, alert, responsive, sitting upright with breakfast meal on tray table. He reports no difficulties chewing/swallowing solids and states he just needs to take it slow. Treatment Liquids Trialed Thin (IDDSI 0),Mildly Thick ( IDDSI 2) Administration Type Straw,Self-Feeding Oral Strategies Upright at 90 degrees Pharyngeal Strategies Chin Tuck Treatment Activities Therapeutic PO trials The IDDSI Framework Protocol: IDDSI.1 Assessment Assessment of Improvement Pt consumed about 4 oz of thin water via straw and 1 oz of milk via cup with oatmeal and yogurt. For water via straw oral phase characterized by adequate suction, good oral acceptance and containment, suspected loss of bolus resulting in premature spillage, suspected delay in swallow, double swallows, no throat clearing or coughing. Pt exhibited no difficulties consuming oatmeal, yogurt or milk via cup. ST educated Pt on safe swallowing strategies such as remaining upright, taking small bites/sips, alternating liquids/solids and remaining upright for at least [address] educated Pt on aspiration and possible aspiration PNA and the associated causes/ symptoms. Pt verbalized understanding. ST educated Pt on chin tuck swallow method in order to possibly prevent aspiration. ST provided a visual model. Pt performed chin tuck x5 with thin liquids demonstrating no overt s/s of aspiration. ST also educated Pt on importance of strict oral care after meals. ST recommends continuation of IDDSI 6 and thin liquids. Recommendations Recommendations Continue Current Diet Liquids Order Thin (IDDSI 0) Diet Order Soft & Bite-sized (IDDSI 6) Medication Recommendations As Tolerated Aspiration Precautions Recommended Precautions Upright at 90 Degrees, Alternate Liquids/Solids,Small Bites/Sips,Chin Tuck
--- NOTE | 2023-08-09 10:30 | CM.DPC ---
DCP Cont. Reviewed EMR and team rounds for status updates. Plan is for pt to be transported by BLS at 11:00am today to [facility]. Clinicals and PASSAR have been faxed. No further DCP needs identified at this time.
--- NOTE | 2023-08-09 11:13 | PC.NURSE ---
Transfer: Pt feels ready for transfer. His sister is here and will go over with him in her car. Report called to admitting nurse Adry at [facility]. Reviewed hospital course. Told of pt's significant skin issues. His current mobility and self care. He got some tylenol prior to going over for general aches. Acetaminophen seems to work the best for him. If she has further questions she can call this nurse again until 1900 jerel.
== END 2023-08-09 11:17 | DRG 177 ==
LOC: ED 18:31 → AC 18:46
PROVIDERS: Internal Medicine; Admitting Provider Student in an Organized Health Care Education/Training Program; Emergency Provider Emergency Medicine; PCP Internal Medicine; Referring Provider Emergency Medicine; Visit Provider Student in an Organized Health Care Education/Training Program
DX: U07.1 COVID-19 (principal); G93.41 Metabolic encephalopathy; J15.9 Unspecified bacterial pneumonia; E87.1 Hypo-osmolality and hyponatremia; R26.89 Other abnormalities of gait and mobility; T79.6XXA Traumatic ischemia of muscle, initial encounter; W18.30XA Fall on same level, unspecified, initial encounter; R09.02 Hypoxemia; G31.84 Mild cognitive impairment of uncertain or unknown etiology; Z87.891 Personal history of nicotine dependence; Z87.19 Personal history of other diseases of the digestive system
CPT/HCPCS: 36415; 70450; 70551; 71045; 72125; 73060; 73090; 73130; 80048; 80053; 80305; 81001; 82140; 82550; 83605; 83690; 83735; 83880; 83930; 83935; 84100; 84145; 84484; 85025; 85610; 85730; 87040; 87633; 92526; 92610; 93005; 94762; 96365; 96375; 97110; 97163; 97166; 97530; 97535; 99285; 99291; J0360; J0696; J1100; J1650

== ENCOUNTER 2023-08-31 15:22 | Emergency (ER) | payer MEDICARE, SELFPAY ==
[2023-08-03 20:59] VITALS: BMI 26.9
[2023-08-31] VITALS (13 sets, daily range): BP systolic 163–202; BP diastolic 76–131; PULSE 68–81; RESP 13–23; TEMP 36.2; O2SAT 89–99; BMI 23.7
--- NOTE | 2023-08-31 15:47 | DI.RAD.S_ITS ---
PROCEDURE: XR CHEST 1V INDICATIONS: altered mental status TECHNIQUE: One view of the chest was acquired. COMPARISON: [facility], CT, CT ANGIO ABDOMEN PELVIS, 02/23/2023, 9:09. [facility], CR, XR CHEST 1V, 08/03/2023, 17:09. FINDINGS: Surgical changes and devices: Lower cervical spine discectomy and fusion noted, similar prior Lungs and pleura: Lungs are clear. No pleural effusions or pneumothorax. Mediastinum: Mediastinal contours appear normal. Heart size is enlarged. No pulmonary vascular congestion. Bones and chest wall: No suspicious bony lesions. Overlying soft tissues appear unremarkable. 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 Less likely differential would include pneumoperitoneum. If there is clinical concern, consider follow-up CT abdomen pelvis Approved by: Davis Crao M.D. on 08/31/2023 at 16:08
[2023-08-31 16:23] LABS: Add Manual Diff / Slide Review NO; Basophils Absolute Auto 100 /uL (0-100); Basophils Percent Auto 1.3 % (0-2); Eosinophils Absolute Auto 1100 /uL (0-450); Eosinophils Percent Auto 13.2 % (2-4); Hematocrit 40.4 % (41-53); Hemoglobin 13.7 g/dL (13.5-17.5); Lymphocytes Absolute Auto 1300 /uL (1100-4500); Lymphocytes Percent Auto 15.7 % (25-40); Mean Corpuscular HGB Conc 33.9 % (30-36); Mean Corpuscular Hemoglobin 32.9 PG (26-34); Mean Corpuscular Volume 97.1 fL (80-100); Monocytes Absolute Auto 800 /uL (0-900); Monocytes Percent Auto 9.6 % (3-14); Neutrophils Absolute Auto 4900 /uL (1500-7000); Neutrophils Percent Auto 60.2 % (50-75); Platelet Count 311 X10^3/uL (150-400); Red Blood Cell Count 4.16 X10^6/uL (4.5-5.9); Red Cell Distribution Width 12.7 % (11.6-14.8); White Blood Cell Count 8.2 X10^3/uL (4.5-11.0)
[2023-08-31 16:42] LABS: Alanine Aminotransferase 31 IU/L (<50); Albumin 4.4 g/dL (3.5-5.0); Albumin Globulin Ratio 1.4 (1.0-2.8); Alkaline Phosphatase 84 U/L (38-126); Aspartate Aminotransferase 28 IU/L (17-59); BUN Creatinine Ratio 11.9 (6-22); Bilirubin Total 0.9 mg/dL (0.2-1.3); Blood Urea Nitrogen 8 mg/dL (9-20); Calcium 9.3 mg/dL (8.4-10.2); Carbon Dioxide 26 mmol/L (22-32); Chloride 100 mmol/L (98-107); Estimated Glomerular Filt Rate > 60 mL/min (>60); Globulin 3.1 g/dL (1.7-4.1); Glucose 85 mg/dL (80-110); HEMOLYSIS < 15 (0-50); Potassium 4.3 mmol/L (3.4-5.1); Sodium 134 mmol/L (137-145); Total Protein 7.5 g/dL (6.3-8.2)
--- NOTE | 2023-08-31 16:52 | DI.CT.S_ITS ---
PROCEDURE: CT HEAD/BRAIN WO CON INDICATIONS: AMS/CONFUSION TECHNIQUE: Noncontrast 4.5 mm thick angled axial sections acquired from the foramen magnum to the vertex, with coronal and sagittal reformats. For radiation dose reduction, the following was used: automated exposure control, adjustment of mA and/or kV according to patient size. COMPARISON: [facility], CT, CT HEAD/BRAIN WO CON, 08/03/2023, 17:06. FINDINGS: Image quality: Diagnostic. CSF spaces: Basal cisterns are patent. No extra-axial fluid collections. The ventricles are symmetric in size and shape. Brain: No intracranial bleeds or masses. There is cerebral volume loss for age, with resultant ventricular and sulcal prominence. There are periventricular and deep white matter chronic small vessel ischemic changes. There is intracranial internal carotid artery atherosclerosis. Skull and face: Calvarium and visualized facial bones appear intact, without suspicious lesions. Sinuses: Mild mucosal thickening in bilateral ethmoid sinuses is seen. Bilateral mastoid air cells are well aerated. IMPRESSION: 1. No acute intracranial abnormalities. 2. Mild bilateral ethmoid sinusitis improved compared to previous study. 3. Chronic findings intracranially, not significantly changed from previous studies. Dictated by: Joey Lowe M.D. on 08/31/2023 at 17:16 Approved by: Joey Lowe M.D. on 08/31/2023 at 17:17
--- NOTE | 2023-08-31 16:52 | ED.WEAKNESS ---
HPI - Weakness <Darling Samaniego MD - Last Filed: 09/01/23 17:20> General Chief complaint: Weakness Stated complaint: lightheadedness Time Seen by Provider: 08/31/23 15:56 Source: patient Mode of arrival: EMS History of Present Illness HPI Narrative: 78-year-old male with history of hypertension, colon cancer status post resection and chemotherapy, alcohol use, neuropathy presents by private vehicle from home for generalized weakness and ?I just do not feel right?. Family at bedside states ?he looks like he has lost his spark?. Patient states he went to bed in more or less his usual state of health and woke up feeling poorly. Denies recent medication changes, falls. Denies nausea, vomiting, chest pain, shortness of breath, any other symptoms. Related Data Home Medications Medication Instructions Recorded Confirmed gabapentin 300 mg capsule 600 mg PO BID pain 08/13/21 08/03/23 Previous Rx's Medication Instructions Recorded disabled parking #1 ea 01/05/19 acetaminophen 325 mg tablet 650 mg (2 x 325 mg) PO Q6H PRN 10/08/22 Fever/Mild Pain (1-3) #240 tabs pantoprazole 40 mg tablet,delayed 40 mg PO BID #60 tabs 02/25/23 release oxycodone-acetaminophen 5 mg-325 1 tab PO Q6HR PRN Pain, Moderate 08/09/23 mg tablet (4-6) #30 tabs Allergies Allergy/AdvReac Type Severity Reaction Status Date / Time Opioids - Morphine Analogues AdvReac Severe delerium Verified 02/18/23 13:46 Review of Systems <Darling Samaniego MD - Last Filed: 09/01/23 17:20> Review of Systems Narrative: Negative except as noted above Patient History <Darling Samaniego MD - Last Filed: 09/01/23 17:20> Medical History Fractures Anemia Hx of flexible sigmoidoscopy (~01/2019) Hearing loss (Unknown) Chronic back pain (Unknown) Surgical History H/O vasectomy History of removal of Port-a-Cath History of colonoscopy Hx of neck surgery (~2020) Anesthesia S/P laparoscopic colectomy (01/10/19) History of back surgery (~2017) Family History Father Heart disease Mother Cancer Congestive heart failure Sister Hypertension Cancer Brother Heart disease Rheumatic fever Brother No problems noted. Social History household members: none occupational status: employed Smoking Status: Former smoker alcohol intake: current Smoking Status: Former smoker alcohol intake frequency: 3 or more drinks per day Substance Use Type: does not use Exam <Darling Samaniego MD - Last Filed: 09/01/23 17:20> Initial Vital Signs Initial Vital Signs: Vital Signs Temperature 97.2 F L 08/31/23 15:28 Pulse Rate 73 08/31/23 15:28 Respiratory Rate 18 08/31/23 15:28 Blood Pressure 181/89 H 08/31/23 15:28 Pulse Oximetry 99 08/31/23 15:28 Oxygen Delivery Method Room Air 08/31/23 15:28 Const: Awake, alert, no acute distress, nontoxic appearing Cardiac: Irregularly irregular rhythm RESP: unlabored, clear bilaterally, no wheezing GI: Soft, nontender, nondistended, no rebound, no guarding MSK: Atraumatic, full range of motion, pulses equal Skin: Warm, Dry, intact, no rashes Neuro: AO x3, CN II-XII grossly intact, moves all extremities <Dawson Hernandez DO - Last Filed: 08/31/23 23:34> Initial Vital Signs Initial Vital Signs: Vital Signs Temperature 97.2 F L 08/31/23 15:28 Pulse Rate 73 08/31/23 15:28 Respiratory Rate 18 08/31/23 15:28 Blood Pressure 181/89 H 08/31/23 15:28 Pulse Oximetry 99 08/31/23 15:28 Oxygen Delivery Method Room Air 08/31/23 15:28 Procedures <Darling Samaniego MD - Last Filed: 09/01/23 17:20> Procedural Sedation Complications: none Course <Darling Samaniego MD - Last Filed: 09/01/23 17:20> Orders Ordered: Discontinued Medications Folic Acid (Folic Acid 1 Mg Tablet) 1 mg PO NOW ONE Stop: 08/31/23 16:55 Last Admin: 08/31/23 17:10 Dose: 1 mg Documented By: SUNNY Sodium Chloride (Normal Saline 0.9%) 1,000 mls @ 1,000 mls/hr IV BOLUS ONE Stop: 08/31/23 17:53 Last Infusion: 08/31/23 18:30 Dose: Infused Documented By: Admin: 08/31/23 17:11 Dose: 1,000 mls/hr Documented By: SUNNY Thiamine HCl 200 mg/ Sodium (Chloride) 102 mls @ 408 mls/hr IV NOW ONE Stop: 08/31/23 16:55 Last Infusion: 08/31/23 17:43 Dose: Infused Documented By: Admin: 08/31/23 17:10 Dose: 408 mls/hr Documented By: SUNNY Vital Signs Vital signs: Vital Signs - 8 hr 08/31/23 16:27 08/31/23 16:30 08/31/23 16:31 Pulse Rate 68 69 68 Respiratory Rate 13 18 18 Blood Pressure Pulse Oximetry 97 98 98 Oxygen Delivery Method 08/31/23 16:31 08/31/23 17:00 08/31/23 17:01 Pulse Rate 75 Respiratory Rate 21 Blood Pressure 193/86 H 175/103 H Pulse Oximetry 97 Oxygen Delivery Method 08/31/23 17:01 08/31/23 17:30 08/31/23 18:00 Pulse Rate 71 76 80 Respiratory Rate 17 21 23 Blood Pressure Pulse Oximetry 97 99 98 Oxygen Delivery Method Room Air 08/31/23 18:30 08/31/23 18:34 08/31/23 18:34 Pulse Rate 78 81 Respiratory Rate 19 21 Blood Pressure 187/131 H Pulse Oximetry 98 98 Oxygen Delivery Method 08/31/23 18:35 08/31/23 18:35 08/31/23 19:13 Pulse Rate 81 Respiratory Rate 17 Blood Pressure 202/91 H Pulse Oximetry 98 89 L Oxygen Delivery Method 08/31/23 19:14 08/31/23 19:14 Pulse Rate 81 Respiratory Rate Blood Pressure 163/76 H Pulse Oximetry 94 Oxygen Delivery Method <Dawson Hernandez DO - Last Filed: 08/31/23 23:34> Orders Ordered: Discontinued Medications Folic Acid (Folic Acid 1 Mg Tablet) 1 mg PO NOW ONE Stop: 08/31/23 16:55 Last Admin: 08/31/23 17:10 Dose: 1 mg Documented By: SUNNY Sodium Chloride (Normal Saline 0.9%) 1,000 mls @ 1,000 mls/hr IV BOLUS ONE Stop: 08/31/23 17:53 Last Infusion: 08/31/23 18:30 Dose: Infused Documented By: Admin: 08/31/23 17:11 Dose: 1,000 mls/hr Documented By: SUNNY Thiamine HCl 200 mg/ Sodium (Chloride) 102 mls @ 408 mls/hr IV NOW ONE Stop: 08/31/23 16:55 Last Infusion: 08/31/23 17:43 Dose: Infused Documented By: Admin: 08/31/23 17:10 Dose: 408 mls/hr Documented By: SUNNY Vital Signs Vital signs: Vital Signs - 8 hr 08/31/23 16:27 08/31/23 16:30 08/31/23 16:31 Pulse Rate 68 69 68 Respiratory Rate 13 18 18 Blood Pressure Pulse Oximetry 97 98 98 Oxygen Delivery Method 08/31/23 16:31 08/31/23 17:00 08/31/23 17:01 Pulse Rate 75 Respiratory Rate 21 Blood Pressure 193/86 H 175/103 H Pulse Oximetry 97 Oxygen Delivery Method 08/31/23 17:01 08/31/23 17:30 08/31/23 18:00 Pulse Rate 71 76 80 Respiratory Rate 17 21 23 Blood Pressure Pulse Oximetry 97 99 98 Oxygen Delivery Method Room Air 08/31/23 18:30 08/31/23 18:34 08/31/23 18:34 Pulse Rate 78 81 Respiratory Rate 19 21 Blood Pressure 187/131 H Pulse Oximetry 98 98 Oxygen Delivery Method 08/31/23 18:35 08/31/23 18:35 08/31/23 19:13 Pulse Rate 81 Respiratory Rate 17 Blood Pressure 202/91 H Pulse Oximetry 98 89 L Oxygen Delivery Method 08/31/23 19:14 08/31/23 19:14 Pulse Rate 81 Respiratory Rate Blood Pressure 163/76 H Pulse Oximetry 94 Oxygen Delivery Method MDM - Weakness <Darling Samaniego MD - Last Filed: 09/01/23 17:20> Differential Diagnosis Differential diagnosis: Likely acute myocardial infarction, anemia and hypoglycemia Lab Data 08/31/23 16:15 08/31/23 16:15 Labs: Lab Results 08/31/23 08/31/23 Range/Units 16:15 18:41 WBC 8.2 (4.5-11.0) X10^3/uL RBC 4.16 L (4.5-5.9) X10^6/uL Hgb 13.7 (13.5-17.5) g/dL Hct 40.4 L (41-53) % MCV 97.1 (80-100) fL MCH 32.9 (26-34) PG MCHC 33.9 (30-36) % RDW 12.7 (11.6-14.8) % Plt Count 311 (150-400) X10^3/uL Neut % (Auto) 60.2 (50-75) % Lymph % (Auto) 15.7 L (25-40) % [place] % (Auto) 9.6 (3-14) % Eos % (Auto) 13.2 H (2-4) % Baso % (Auto) 1.3 (0-2) % Neut # (Auto) 4900 (8846-1873) /uL Lymph # (Auto) 1300 (5224-0230) /uL [place] # (Auto) 800 (0-900) /uL Eos # (Auto) 1100 H (0-450) /uL Baso # (Auto) 100 (0-100) /uL Sodium 134 L (137-145) mmol/L Potassium 4.3 (3.4-5.1) mmol/L Chloride 100 (98-107) mmol/L Carbon Dioxide 26 (22-32) mmol/L BUN 8 L (9-20) mg/dL Creatinine 0.67 (0.66-1.25) mg/dL Estimated GFR > 60 (>60) mL/min BUN/Creatinine Ratio 11.9 (6-22) Glucose 85 (80-110) mg/dL Calcium 9.3 (8.4-10.2) mg/dL Total Bilirubin 0.9 (0.2-1.3) mg/dL AST 28 (17-59) IU/L ALT 31 (<50) IU/L Alkaline Phosphatase 84 (38-126) U/L Ammonia 18 (9-30) umol/L Total Protein 7.5 (6.3-8.2) g/dL Albumin 4.4 (3.5-5.0) g/dL Globulin 3.1 (1.7-4.1) g/dL Albumin/Globulin Ratio 1.4 (1.0-2.8) U Opiates 300ng/mL cut Negative (Negative) Ur Oxycodone Screen Negative (Negative) Urine Methadone Screen Negative (Negative) Ur Barbiturates Screen Negative (Negative) U Tricyclic Antidepress Negative (Negative) Ur Phencyclidine Scrn Negative (Negative) Ur Amphetamines Screen Negative (Negative) U Methamphetamines Scrn Negative (Negative) Ur MDMA Scrn (Ecstasy) Negative (Negative) U Benzodiazepines Scrn Negative (Negative) Urine Cocaine Screen Negative (Negative) U Marijuana (THC) Screen Negative (Negative) Urine pH Normal (Normal) Urine Specific [place] Normal (Normal) Ethyl Alcohol 16 H ( - 10) mg/dL Ur Creatinine Normal (Normal) Urine Dip Bedside Urine Glucose Negative Bedside Urine Bilirubin - Negative Bedside Urine Ketone - Negative Urine Specific [place] 1.020 Bedside Urine Occult Blood - Negative Bedside Urine pH 7.0 Bedside Urine Protein - Negative Bedside Urine Urobilinogen - Negative Bedside Urine Nitrite - Negative Bedside Urine Leukocytes - Negative Esterase MDM Narrative Medical decision making narrative: Patient presenting for generalized feeling of unwellness. Denies any specific symptoms. Physical exam is unremarkable, no obvious acute abnormalities. Patient has history of alcohol abuse and while he does report that he has ceased alcohol a dose of thiamine and folic acid will be given in the emergency department as well as a L of IV fluids. Laboratory work and imaging pending, care of patient is signed out to Dr. Hernandez at 1800 Dr hernandez: Received turned over. Review patient's history and physical and workup up to this point. Workup here in the emergency department is very reassuring. No focal findings found. There was no indication for admission to the hospital. Apparently he was just recently at a nursing facility. Per her sister who is at bedside they recommended that he not go home but he decided that he would rather return home than stay longer. He does have home health already scheduled in his had the initial visit but he can not remember exactly when they are going to start. He has a walker at home. He was a motorized wheelchair at home. He does live alone. Unfortunately there is not much more that we can do here in the emergency department. I did discuss this with him in his sister who is at bedside. Will discharge patient home and he will have to contact his primary doctor and also follow-through with home health. He was given return precautions. He expressed understanding. <Dawson Hernandez, DO - Last Filed: 08/31/23 23:34> Lab Data Labs: Lab Results 08/31/23 08/31/23 Range/Units 16:15 18:41 WBC 8.2 (4.5-11.0) X10^3/uL RBC 4.16 L (4.5-5.9) X10^6/uL Hgb 13.7 (13.5-17.5) g/dL Hct 40.4 L (41-53) % MCV 97.1 (80-100) fL MCH 32.9 (26-34) PG MCHC 33.9 (30-36) % RDW 12.7 (11.6-14.8) % Plt Count 311 (150-400) X10^3/uL Neut % (Auto) 60.2 (50-75) % Lymph % (Auto) 15.7 L (25-40) % [place] % (Auto) 9.6 (3-14) % Eos % (Auto) 13.2 H (2-4) % Baso % (Auto) 1.3 (0-2) % Neut # (Auto) 4900 (1970-7989) /uL Lymph # (Auto) 1300 (5844-0104) /uL [place] # (Auto) 800 (0-900) /uL Eos # (Auto) 1100 H (0-450) /uL Baso # (Auto) 100 (0-100) /uL Sodium 134 L (137-145) mmol/L Potassium 4.3 (3.4-5.1) mmol/L Chloride 100 (98-107) mmol/L Carbon Dioxide 26 (22-32) mmol/L BUN 8 L (9-20) mg/dL Creatinine 0.67 (0.66-1.25) mg/dL Estimated GFR > 60 (>60) mL/min BUN/Creatinine Ratio 11.9 (6-22) Glucose 85 (80-110) mg/dL Calcium 9.3 (8.4-10.2) mg/dL Total Bilirubin 0.9 (0.2-1.3) mg/dL AST 28 (17-59) IU/L ALT 31 (<50) IU/L Alkaline Phosphatase 84 (38-126) U/L Ammonia 18 (9-30) umol/L Total Protein 7.5 (6.3-8.2) g/dL Albumin 4.4 (3.5-5.0) g/dL Globulin 3.1 (1.7-4.1) g/dL Albumin/Globulin Ratio 1.4 (1.0-2.8) U Opiates 300ng/mL cut Negative (Negative) Ur Oxycodone Screen Negative (Negative) Urine Methadone Screen Negative (Negative) Ur Barbiturates Screen Negative (Negative) U Tricyclic Antidepress Negative (Negative) Ur Phencyclidine Scrn Negative (Negative) Ur Amphetamines Screen Negative (Negative) U Methamphetamines Scrn Negative (Negative) Ur MDMA Scrn (Ecstasy) Negative (Negative) U Benzodiazepines Scrn Negative (Negative) Urine Cocaine Screen Negative (Negative) U Marijuana (THC) Screen Negative (Negative) Urine pH Normal (Normal) Urine Specific [place] Normal (Normal) Ethyl Alcohol 16 H ( - 10) mg/dL Ur Creatinine Normal (Normal) Urine Dip Bedside Urine Glucose Negative Bedside Urine Bilirubin - Negative Bedside Urine Ketone - Negative Urine Specific [place] 1.020 Bedside Urine Occult Blood - Negative Bedside Urine pH 7.0 Bedside Urine Protein - Negative Bedside Urine Urobilinogen - Negative Bedside Urine Nitrite - Negative Bedside Urine Leukocytes - Negative Esterase MDM Narrative Medical decision making narrative: Dr hernandez: Received turned over. Review patient's history and physical and workup up to this point. Workup here in the emergency department is very reassuring. No focal findings found. There was no indication for admission to the hospital. Apparently he was just recently at a nursing facility. Per her sister who is at bedside they recommended that he not go home but he decided that he would rather return home than stay longer. He does have home health already scheduled in his had the initial visit but he can not remember exactly when they are going to start. He has a walker at home. He was a motorized wheelchair at home. He does live alone. Unfortunately there is not much more that we can do here in the emergency department. I did discuss this with him in his sister who is at bedside. Will discharge patient home and he will have to contact his primary doctor and also follow-through with home health. He was given return precautions. He expressed understanding. Discharge Plan Departure Patient Disposition: Home Clinical Impression: Light headedness Activity Restrictions/Additional Instructions: Recommend that you continue to take all of your medications as directed. No driving for the next 24 hours or in the future if you drink alcohol. Return to the emergency department for new symptoms. Prescriptions: No Action (DME) disabled parking Qty: 1 0RF Rx Instructions: I certify that patient has a condition which qualifies him for disabled parking privileges. pantoprazole 40 mg tablet,delayed release (DR/EC) 40 mg PO BID Qty: 60 0RF gabapentin 300 mg capsule 600 mg PO BID acetaminophen 325 mg Tablet 650 mg PO Q6H PRN (Reason: Fever/Mild Pain (1-3)) Qty: 240 0RF oxycodone-acetaminophen 5-325 mg Tablet 1 tab PO Q6HR PRN (Reason: Pain, Moderate (4-6)) Qty: 30 0RF Referrals: Antonia Leigh MD [Primary Care Provider] - Stand Alone Forms: Patient Portal/API
[2023-08-31] MEDS: THIAMINE 200 MG in SODIUM CHLORIDE 0.9% 100 ML 408 MG IV (17:10)
[2023-08-31] MEDS: FOLIC ACID 1 MG TABLET PO (17:10)
[2023-08-31] MEDS: SODIUM CHLORIDE 0.9% 1,000 ML 1000 ML IV (17:11)
[2023-08-31 18:29] LABS: Ammonia (NH3) 18 umol/L (9-30); Ethanol (ETOH) 16 mg/dL
[2023-08-31 19:02] LABS: UR Morphine/Opiate cutoff 300 Negative (Negative); Ur Creatinine Normal (Normal); Ur Specific Gravity Normal (Normal); Urine Amphetamines Negative (Negative); Urine Barbiturates Negative (Negative); Urine Benzodiazepines Negative (Negative); Urine Cocaine Negative (Negative); Urine MDMA Negative (Negative); Urine Methadone Negative (Negative); Urine Methamphetamines Negative (Negative); Urine Oxycodone Negative (Negative); Urine Phencyclidine Negative (Negative); Urine Tetrahydrocannabinol Negative (Negative); Urine Tricyclic Antidepressant Negative (Negative); Urine pH Normal (Normal)
== END 2023-08-31 19:19 | disposition home or self-care (01) ==
PROVIDERS: Emergency Medicine; Emergency Provider Emergency Medicine; PCP Internal Medicine
DX: R53.1 Weakness (principal); R42 Dizziness and giddiness
CPT/HCPCS: 36415; 70450; 71045; 80053; 80305; 80320; 81003; 82140; 85025; 93005; 96365; 99284

== ENCOUNTER 2023-09-11 14:55 | Emergency (ER) | payer MEDICARE, SELFPAY ==
[2023-08-03 20:59] VITALS: BMI 26.9
[2023-09-11] VITALS (15 sets, daily range): BP systolic 135–197; BP diastolic 70–97; PULSE 63–80; RESP 12–18; TEMP 36.9; O2SAT 95–98; BMI 24.4
--- NOTE | 2023-09-11 15:02 | DI.RAD.S_ITS ---
PROCEDURE: XR CHEST 1V INDICATIONS: confusion TECHNIQUE: One view of the chest was acquired. COMPARISON: [facility], CR, XR CHEST 1V, 08/31/2023, 15:54. FINDINGS: Surgical changes and devices: None. Lungs and pleura: Lungs are clear. No pleural effusions or pneumothorax. Mediastinum: Mediastinal contours appear normal. Heart size is enlarged. Bones and chest wall: No suspicious bony lesions. Overlying soft tissues appear unremarkable. Generalized decreased osseous mineralization noted. IMPRESSION: Cardiomegaly Approved by: Davis Caro M.D. on 09/11/2023 at 15:35
--- NOTE | 2023-09-11 15:02 | DI.CT.S_ITS ---
PROCEDURE: CT HEAD/BRAIN WO CON INDICATIONS: confusion TECHNIQUE: Noncontrast 4.5 mm thick angled axial sections acquired from the foramen magnum to the vertex, with coronal and sagittal reformats. For radiation dose reduction, the following was used: automated exposure control, adjustment of mA and/or kV according to patient size. COMPARISON: [facility], CT, CT HEAD/BRAIN WO CON, 08/31/2023, 16:56. FINDINGS: Image quality: Diagnostic. CSF spaces: Basal cisterns are patent. No extra-axial fluid collections. Ventricles are normal in size and shape. Brain: No midline shift. No intracranial masses or hemorrhage. Dobbins-white matter interface is normal. Skull and face: Calvarium and visualized facial bones are intact, without suspicious lesions. Sinuses: Visualized sinuses and mastoids are clear. IMPRESSION: Atrophy and chronic ischemic change without intracranial hemorrhage or mass effect Dictated by: Davis Caro M.D. on 09/11/2023 at 14:44 Approved by: Davis Caro M.D. on 09/11/2023 at 14:49
[2023-09-11 16:00] LABS: INR 1.1 (0.9-1.3)
[2023-09-11 16:02] LABS: PTT Partial Thromboplastin Tim 37 SECONDS (25.1-36.5)
[2023-09-11 16:03] LABS: Add Manual Diff / Slide Review NO; Basophils Absolute Auto 100 /uL (0-100); Eosinophils Absolute Auto 1000 /uL (0-450); Eosinophils Percent Auto 10.2 % (2-4); Hematocrit 37.7 % (41-53); Hemoglobin 12.7 g/dL (13.5-17.5); Lymphocytes Absolute Auto 1500 /uL (1100-4500); Lymphocytes Percent Auto 15.1 % (25-40); Mean Corpuscular HGB Conc 33.8 % (30-36); Mean Corpuscular Hemoglobin 32.5 PG (26-34); Mean Corpuscular Volume 96.3 fL (80-100); Monocytes Absolute Auto 900 /uL (0-900); Monocytes Percent Auto 8.7 % (3-14); Neutrophils Absolute Auto 6500 /uL (1500-7000); Platelet Count 318 X10^3/uL (150-400); Red Blood Cell Count 3.91 X10^6/uL (4.5-5.9); Red Cell Distribution Width 12.7 % (11.6-14.8)
[2023-09-11 16:04] LABS: Alanine Aminotransferase 21 IU/L (<50); Albumin 3.7 g/dL (3.5-5.0); Albumin Globulin Ratio 1.3 (1.0-2.8); Alkaline Phosphatase 68 U/L (38-126); Aspartate Aminotransferase 28 IU/L (17-59); BUN Creatinine Ratio 14.5 (6-22); Bilirubin Total 0.6 mg/dL (0.2-1.3); Blood Urea Nitrogen 10 mg/dL (9-20); Calcium 8.8 mg/dL (8.4-10.2); Carbon Dioxide 26 mmol/L (22-32); Chloride 99 mmol/L (98-107); Estimated Glomerular Filt Rate > 60 mL/min (>60); Globulin 2.8 g/dL (1.7-4.1); Glucose 95 mg/dL (80-110); HEMOLYSIS < 15 (0-50); Lipase 115 U/L (23-300); Potassium 3.9 mmol/L (3.4-5.1); Sodium 131 mmol/L (137-145); Total Protein 6.5 g/dL (6.3-8.2)
[2023-09-11] MEDS: SODIUM CHLORIDE 0.9% 1,000 ML 1000 ML IV (16:13)
[2023-09-11 17:02] LABS: Appearance Urine UA CLEAR; Bilirubin Urine UA NEGATIVE (NEGATIVE); Color Urine UA YELLOW; Glucose Urine UA NEGATIVE (Negative); Ketones Urine UA TRACE (NEGATIVE); Leukocyte Esterase Urine UA NEGATIVE (NEGATIVE); Nitrite Urine UA NEGATIVE (Negative); Occult Blood Urine UA NEGATIVE (Negative); Protein Urine UA NEGATIVE (Negative); Specific Gravity Urine UA 1.015 (1.000-1.035); Urobilinogen Urine UA 0.2 E.U./dL (0.2); pH Urine UA 7.5 (4.5-8.0)
--- NOTE | 2023-09-11 17:04 | PC.NURSE ---
family- 2 sisters are reporting that they are not going to take him home. social work and aware.
[2023-09-11 17:23] LABS: Bacteria Urine None Seen; RBC Urine None Seen (0-5/HPF); Squamous Epithelial Cell Urine None Seen (0-5/HPF); Urine Volume 10mL (spun); WBC Urine None Seen (0-5/HPF)
[2023-09-11 17:24] LABS: Culture Indicated Urine Cult Not Indicated
--- NOTE | 2023-09-11 18:04 | ED.AMS ---
HPI - Altered Mental Status General Chief Complaint: Altered Mental Status Stated Complaint: AMS, increased confusion Time Seen by Provider: 09/11/23 15:02 History of Present Illness HPI narrative: 78-year-old male with history of dementia presents via EMS from his independent living facility for confusion. History is obtained from nursing report as well as triage notes, there was no family currently available in the room. Per report patient has become slightly more confused recently and attempts to leave the residents at inappropriate hours. On my assessment patient is wear that he was in the hospital, but does not know why he was here. He does not know the date or able to provide meaningful health history. Related Data Home Medications Medication Instructions Recorded Confirmed gabapentin 300 mg capsule 600 mg PO BID pain 08/13/21 08/03/23 Previous Rx's Medication Instructions Recorded disabled parking #1 ea 01/05/19 acetaminophen 325 mg tablet 650 mg (2 x 325 mg) PO Q6H PRN 10/08/22 Fever/Mild Pain (1-3) #240 tabs pantoprazole 40 mg tablet,delayed 40 mg PO BID #60 tabs 02/25/23 release oxycodone-acetaminophen 5 mg-325 1 tab PO Q6HR PRN Pain, Moderate 08/09/23 mg tablet (4-6) #30 tabs Allergies Allergy/AdvReac Type Severity Reaction Status Date / Time Opioids - Morphine Analogues AdvReac Severe delerium Verified 09/11/23 17:00 Review of Systems Review of Systems Narrative: Limited due to condition Patient History Medical History Fractures Anemia Hx of flexible sigmoidoscopy (~01/2019) Hearing loss (Unknown) Chronic back pain (Unknown) Surgical History H/O vasectomy History of removal of Port-a-Cath History of colonoscopy Hx of neck surgery (~2020) Anesthesia S/P laparoscopic colectomy (01/10/19) History of back surgery (~2016) Family History Father Heart disease Mother Cancer Congestive heart failure Sister Hypertension Cancer Brother Heart disease Rheumatic fever Brother No problems noted. Social History household members: none occupational status: employed Smoking Status: Former smoker alcohol intake: current Smoking Status: Former smoker alcohol intake frequency: 3 or more drinks per day Substance Use Type: does not use Exam Initial Vital Signs Initial Vital Signs: Vital Signs Pulse Rate 76 09/11/23 14:58 Respiratory Rate 12 09/11/23 14:58 Pulse Oximetry 98 09/11/23 14:58 Oxygen Delivery Method Room Air 09/11/23 14:58 Const: Awake, alert, no acute distress, nontoxic appearing, pleasant Cardiac: regular rate, regular rhythm RESP: unlabored, clear bilaterally, no wheezing GI: Soft, nontender, nondistended, no rebound, no guarding Skin: Warm, Dry, intact, no rashes Neuro: AO x2, CN II-XII grossly intact, moves all extremities, memory poor Course Orders Ordered: ED Orders 09/11/23 15:46 CBC Auto Diff [Complete Blood Count AUTO DIFF] Stat CMP [Comprehensive Metabolic Panel] Stat Lipase Stat PTT Partial Thromboplastin Billy Stat Prothrombin Time INR Stat 09/11/23 16:33 Urinalysis and Microscopic Stat Discontinued Medications Sodium Chloride (Normal Saline 0.9%) 1,000 mls @ 1,000 mls/hr IV BOLUS ONE Stop: 09/11/23 16:01 Last Infusion: 09/11/23 17:10 Dose: Infused Documented By: Admin: 09/11/23 16:13 Dose: 1,000 mls/hr Documented By: CHRISTOPHER Vital Signs Vital signs: Vital Signs - 8 hr 09/11/23 16:30 09/11/23 16:31 09/11/23 16:31 Pulse Rate 77 76 Respiratory Rate 18 Blood Pressure 183/86 H Pulse Oximetry 97 95 Oxygen Delivery Method Room Air 09/11/23 17:00 09/11/23 17:00 09/11/23 17:01 Pulse Rate 69 69 Respiratory Rate Blood Pressure 197/91 H Pulse Oximetry 98 97 Oxygen Delivery Method 09/11/23 17:01 09/11/23 17:30 09/11/23 17:31 Pulse Rate 70 70 Respiratory Rate Blood Pressure 184/87 H Pulse Oximetry 98 97 Oxygen Delivery Method 09/11/23 17:31 09/11/23 18:00 09/11/23 18:00 Pulse Rate 63 Respiratory Rate Blood Pressure 166/88 H 184/84 H Pulse Oximetry 98 Oxygen Delivery Method Room Air 09/11/23 19:22 Pulse Rate 73 Respiratory Rate 18 Blood Pressure 135/97 H Pulse Oximetry 95 Oxygen Delivery Method Room Air MDM - Altered Mental Status Differential Diagnosis Differential diagnosis: Likely alcoholic intoxication, altered mental status and delirium Lab Data 09/11/23 15:46 09/11/23 15:46 Labs: Lab Results 09/11/23 09/11/23 Range/Units 15:46 16:33 WBC 10.0 (4.5-11.0) X10^3/uL RBC 3.91 L (4.5-5.9) X10^6/uL Hgb 12.7 L (13.5-17.5) g/dL Hct 37.7 L (41-53) % MCV 96.3 (80-100) fL MCH 32.5 (26-34) PG MCHC 33.8 (30-36) % RDW 12.7 (11.6-14.8) % Plt Count 318 (150-400) X10^3/uL Neut % (Auto) 65.0 (50-75) % Lymph % (Auto) 15.1 L (25-40) % Guthrie % (Auto) 8.7 (3-14) % Eos % (Auto) 10.2 H (2-4) % Baso % (Auto) 1.0 (0-2) % Neut # (Auto) 6500 (2695-1883) /uL Lymph # (Auto) 1500 (7847-6879) /uL Guthrie # (Auto) 900 (0-900) /uL Eos # (Auto) 1000 H (0-450) /uL Baso # (Auto) 100 (0-100) /uL PT 13.0 H (9.4-12.5) SECONDS INR 1.1 (0.9-1.3) APTT 37 H (25.1-36.5) SECONDS Sodium 131 L (137-145) mmol/L Potassium 3.9 (3.4-5.1) mmol/L Chloride 99 (98-107) mmol/L Carbon Dioxide 26 (22-32) mmol/L BUN 10 (9-20) mg/dL Creatinine 0.69 (0.66-1.25) mg/dL Estimated GFR > 60 (>60) mL/min BUN/Creatinine Ratio 14.5 (6-22) Glucose 95 (80-110) mg/dL Calcium 8.8 (8.4-10.2) mg/dL Total Bilirubin 0.6 (0.2-1.3) mg/dL AST 28 (17-59) IU/L ALT 21 (<50) IU/L Alkaline Phosphatase 68 (38-126) U/L Total Protein 6.5 (6.3-8.2) g/dL Albumin 3.7 (3.5-5.0) g/dL Globulin 2.8 (1.7-4.1) g/dL Albumin/Globulin Ratio 1.3 (1.0-2.8) Lipase 115 (23-300) U/L Urine Color Yellow Urine Appearance Clear Urine pH 7.5 (4.5-8.0) Ur Specific [place] 1.015 (1.000-1.035) Urine Protein Negative (Negative) Urine Glucose (UA) Negative (Negative) g/dL Urine Ketones Trace H (NEGATIVE) Urine Occult Blood Negative (Negative) Urine Nitrate Negative (Negative) Urine Bilirubin Negative (NEGATIVE) Urine Urobilinogen 0.2 (0.2) E.U./dL Ur Leukocyte Esterase Negative (NEGATIVE) Urine RBC None seen (0-5/HPF) Urine WBC None seen (0-5/HPF) Ur Squamous Epith Cells None seen (0-5/HPF) Urine Bacteria None seen (None) Ur Culture Indicated? Cult not indicated Vol Urine Centrifuged 10ml (spun) Imaging Data Chest x-ray: Radiologist's Impression: PROCEDURE: XR CHEST 1V INDICATIONS: confusion TECHNIQUE: One view of the chest was acquired. COMPARISON: [facility], , XR CHEST 1V, 08/31/2023, 15:54. FINDINGS: Surgical changes and devices: None. Lungs and pleura: Lungs are clear. No pleural effusions or pneumothorax. Mediastinum: Mediastinal contours appear normal. Heart size is enlarged. Bones and chest wall: No suspicious bony lesions. Overlying soft tissues appear unremarkable. Generalized decreased osseous mineralization noted. IMPRESSION: Cardiomegaly Approved by: Davis Caro M.D. on 09/11/2023 at 15:35 CT scan - head: Radiologist's Impression: PROCEDURE: CT HEAD/BRAIN WO CON INDICATIONS: confusion TECHNIQUE: Noncontrast 4.5 mm thick angled axial sections acquired from the foramen magnum to the vertex, with coronal and sagittal reformats. For radiation dose reduction, the following was used: automated exposure control, adjustment of mA and/or kV according to patient size. COMPARISON: [facility], CT, CT HEAD/BRAIN WO CON, 08/31/2023, 16:56. FINDINGS: Image quality: Diagnostic. CSF spaces: Basal cisterns are patent. No extra-axial fluid collections. Ventricles are normal in size and shape. Brain: No midline shift. No intracranial masses or hemorrhage. Dobbins-white matter interface is normal. Skull and face: Calvarium and visualized facial bones are intact, without suspicious lesions. Sinuses: Visualized sinuses and mastoids are clear. IMPRESSION: Atrophy and chronic ischemic change without intracranial hemorrhage or mass effect Dictated by: Davis Caro M.D. on 09/11/2023 at 14:44 Approved by: Davis Caro M.D. on 09/11/2023 at 14:49 MDM Narrative Medical decision making narrative: Nontoxic patient presenting for possible worsening of chronic confusion. Patient was pleasant, calm, cooperative, but he was obviously confused and does suffer from dementia. Laboratory work is reviewed, no significant abnormalities identified. Patient has no leukocytosis, he has baseline anemia with hemoglobin 12.7, chronic hyponatremia sodium 131, potassium 3.9, creatinine 0.69, urinalysis is negative for any signs of infection. Chest x-ray reviewed, unremarkable. Head CT shows chronic findings without any acute changes. Patient's sister has now arrived in his requesting that patient stay overnight in the hospital. I explained that there are no indications for admission at this time and patient needs to go back to his living facility. Sister states that can not go back to [facility] because someone needs to be with him at night, and she can not be with him because she is 81 years old and has high blood pressure. Case management spoke with family at bedside. They were able to arrange resources and care for the patient at his assisted living facility until he can be moved to assisted care Discharge Plan Departure Patient Disposition: Home Clinical Impression: Dementia Instructions: DI for Altered Mental Status Activity Restrictions/Additional Instructions: Follow up with your primary care doctor Prescriptions: No Action (DME) disabled parking Qty: 1 0RF Rx Instructions: I certify that patient has a condition which qualifies him for disabled parking privileges. pantoprazole 40 mg tablet,delayed release (DR/EC) 40 mg PO BID Qty: 60 0RF gabapentin 300 mg capsule 600 mg PO BID acetaminophen 325 mg Tablet 650 mg PO Q6H PRN (Reason: Fever/Mild Pain (1-3)) Qty: 240 0RF oxycodone-acetaminophen 5-325 mg Tablet 1 tab PO Q6HR PRN (Reason: Pain, Moderate (4-6)) Qty: 30 0RF Referrals: Antonia Leigh MD [Primary Care Provider] - Stand Alone Forms: Patient Portal/API
--- NOTE | 2023-09-11 18:23 | CM.SWNOTE ---
ED FILLING MIXER Note Pt is a 78 y/o male who lives independently at [facility]. Pt present to the ED to to increased confusion. When asked what brought pt to the ED he responded Oh.. well I don't know, my sister brought me and made things happen. Pt has a hx of GLF's that have been increasing. Per EMR pt was recently at SNF in [place]. Pt reports he does not have much support at home but reports his sister has been helping him for awhile. Pt's PCP is Antonia Leigh and pt reports having a visit w/ her a couple months ago but does not remember details of the visit. Pt uses a walker and cane at baseline. Pt reports he gave up driving a couple years ago. I quit driving.. it was too hectic. Pt reports using taxi and rides from family to get around. Pt reports being independent at baseline w/ his ADL's. Pt reports that he is not familiar w/ the senior center and other resources in the area. Pt plans to attend the senior center in the future. FILLING MIXER to provide pt w/ senior resource guide. According to ED Provider Dr. Samaniego pt is A/Ox2 but there is not a current medical reason to keep him. Pt declined further information on caregivers. Plan: Pt to d/c home w/ resources upon medical clearance. Arsenio Abraham MSW, [facility]
--- NOTE | 2023-09-11 19:22 | CM.SWNOTE ---
ED POWER PROJECT MANAGER Note POWER PROJECT MANAGER spoke w/ pt and pt's sister. POWER PROJECT MANAGER was informed [facility] would not allow him to return w/ out someone to be there w/ him. POWER PROJECT MANAGER called [facility] to confirm. POWER PROJECT MANAGER was refereed to solutions executive security Latosha for further discussion. POWER PROJECT MANAGER was informed that the pt could return if someone stays w/ him until he is asleep. POWER PROJECT MANAGER was informed that if the family feels safe at that point leaving him until the morning that would be fine. POWER PROJECT MANAGER discussed this w/ pt and family who agreed to this plan. Pt's sister was frustrated by the situation but calmed down after further dialogue. POWER PROJECT MANAGER discussed the option of caregivers and she agreed that that could be a possibility. POWER PROJECT MANAGER provided family w/ a list of local caregivers. POWER PROJECT MANAGER called [facility] home health and was able to request that a POWER PROJECT MANAGER be added to his services. They informed POWER PROJECT MANAGER that they would make a note of it. Plan: Pt to d/c home w/ caregiver resources and senior resource guide. Pt sister to stay w/ him until bedtime. Pt's niece will help transport. Linda Abraham MSW, [facility]
--- NOTE | 2023-09-11 19:31 | PC.NURSE ---
1800 Family refused to take pt to [facility]. requested he stay overnight in the hospital. I spoke with Dr. Samaniego. She went in and spoke extensively to the daughter. COREY Cesar also spoke in length with the family and called [facility]. transfer of care to RAUL Rao
== END 2023-09-11 19:31 | disposition home or self-care (01) ==
PROVIDERS: Emergency Medicine; Emergency Provider Emergency Medicine; PCP Internal Medicine
DX: F03.90 Unspecified dementia, unspecified severity, without behavioral disturbance, psychotic disturbance, mood disturbance, and anxiety (principal)
CPT/HCPCS: 36415; 51798; 70450; 71045; 80053; 81001; 83690; 85025; 85610; 85730; 99284

== ENCOUNTER → 2024-04-25 14:15 | Outpatient (CLI) | payer MEDICARE, SELFPAY ==
[2023-08-03 20:59] VITALS: BMI 26.9
--- NOTE | 2024-04-25 14:18 | DI.RAD.S_ITS ---
PROCEDURE: XR LUMBAR SPINE 2-3V INDICATIONS: Lumbago with sciatica, right side TECHNIQUE: 3 views of the lumbar spine were acquired. COMPARISON: [facility], CR, XR LUMBAR SPINE 2-3V, 10/06/2022, 15:41. FINDINGS: Lumbar spine curvature and alignment: Normal. Bones: Moderate L1 compression fracture features 50% loss of vertebral height anteriorly. Disc spaces: Anterior/posterior fusion changes L3-4 L4-5 and L5-S1 provided by interbody spacers pedicle screws and interbody struts. Soft tissues: No soft tissue swelling, calcification or mass. IMPRESSION: Moderate L1 compression fracture-age indeterminate L3 through S1 anterior/posterior fusion anatomic alignment. no complication Dictated by: César Keyes M.D. on 04/26/2024 at 11:56 Approved by: César Keyes M.D. on 04/26/2024 at 11:58
--- NOTE | 2024-04-25 14:18 | DI.RAD.S_ITS ---
PROCEDURE: XR HIP W PEL IF DONE VIKTOR MIN 4V INDICATIONS: RIGHT HIP PAIN TECHNIQUE: AP pelvis with lateral view(s) of the both hip(s). COMPARISON: None. FINDINGS: Bones: There are no osseous abnormalities. SI and hip joints: Mild degeneration both SI and hip joints. Soft tissues: No soft tissue swelling, calcification or mass. IMPRESSION: Mild degeneration. Dictated by: César Keyes M.D. on 04/26/2024 at 12:07 Approved by: César Keyes M.D. on 04/26/2024 at 12:08
== END ==
LOC: RAD 14:17
PROVIDERS: PCP Internal Medicine; Referring Provider Internal Medicine; Visit Provider Internal Medicine
DX: M54.41 Lumbago with sciatica, right side (principal); M16.0 Bilateral primary osteoarthritis of hip; M47.818 Spondylosis without myelopathy or radiculopathy, sacral and sacrococcygeal region; M48.56XA Collapsed vertebra, not elsewhere classified, lumbar region, initial encounter for fracture; M25.551 Pain in right hip; M25.552 Pain in left hip; G89.29 Other chronic pain; Z98.1 Arthrodesis status
CPT/HCPCS: 72100; 73522

== ENCOUNTER 2024-05-17 02:53 | Emergency (ER) | payer MEDICARE, SELFPAY ==
[2023-08-03 20:59] VITALS: BMI 26.9
[2024-05-17] VITALS (10 sets, daily range): BP systolic 148–182; BP diastolic 68–91; PULSE 63–74; RESP 16–17; TEMP 36.2–36.4; O2SAT 93–99; BMI 23.7
--- NOTE | 2024-05-17 02:58 | ED_ITS ---
HPI - Extremity Injury (Lower) General Chief Complaint: Fall Stated Complaint: fall, foot px Time Seen by Provider: 05/17/24 02:57 History of Present Illness HPI Narrative: 79-year-old male caught his left foot and ankle in leads board chair, twisting, pain in left ankle and foreleg. Some swelling noted. No other injuries recalled. Denies hitting head, no neck pain, no chest abdomen and pelvis pain. No pain to upper extremities. No pain to right lower extremity. Arrival by EMS. Related Data Home Medications Medication Instructions Recorded Confirmed gabapentin 300 mg capsule 600 mg PO BID pain 08/13/21 08/03/23 Previous Rx's Medication Instructions Recorded disabled parking #1 ea 01/05/19 acetaminophen 325 mg tablet 650 mg (2 x 325 mg) PO Q6H PRN 10/08/22 Fever/Mild Pain (1-3) #240 tabs pantoprazole 40 mg tablet,delayed 40 mg PO BID #60 tabs 02/25/23 release oxycodone-acetaminophen 5 mg-325 1 tab PO Q6HR PRN Pain, Moderate 08/09/23 mg tablet (4-6) #30 tabs Allergies Allergy/AdvReac Type Severity Reaction Status Date / Time gluten Allergy Diarrhea Verified 05/17/24 03:14 Opioids - Morphine Analogues AdvReac Severe delerium Verified 09/11/23 17:00 Review of Systems Review of Systems Narrative: See HPI Patient History Medical History Fractures Anemia Hx of flexible sigmoidoscopy (~01/2019) Hearing loss (Unknown) Chronic back pain (Unknown) Surgical History H/O vasectomy History of removal of Port-a-Cath History of colonoscopy Hx of neck surgery (~2020) Anesthesia S/P laparoscopic colectomy (01/10/19) History of back surgery (~2016) Family History Father Heart disease Mother Cancer Congestive heart failure Sister Hypertension Cancer Brother Heart disease Rheumatic fever Brother No problems noted. Social History household members: none occupational status: employed Smoking Status: Former smoker alcohol intake: current Smoking Status: Former smoker alcohol intake frequency: 3 or more drinks per day Exam Narrative Exam Narrative: GENERAL: Well-developed patient, in mild distress. HEAD: Atraumatic. Normocephalic. EYES: Pupils equal round and reactive. Extraocular motions intact. No scleral icterus. No injection or drainage. ENT: Nose without bleeding, purulent drainage. Throat without erythema, tonsillar hypertrophy or exudate. Airway patent. NECK: Trachea midline. Non tender CARDIOVASCULAR: Regular rate and rhythm without murmurs, gallops, or rubs. RESPIRATORY: Clear to auscultation. Breath sounds equal bilaterally. No wheezes, rales, or rhonchi. GASTROINTESTINAL: Abdomen soft, non-tender, nondistended. EXTREMITIES: Left lower extremity with no gross deformity. Some tenderness to medial and lateral joint line left ankle, no skin changes or erythema or swelling along tib-fib. No knee tenderness or gross effusion, no tenderness along medial or lateral knee joint line. BACK: Nontender without deformity or crepitance. No flank tenderness. NEURO: AOx3. Motor functions grossly nonfocal SKIN: No rash or erythema of visible areas Initial Vital Signs Initial Vital Signs: Vital Signs Pulse Oximetry 97 05/17/24 02:56 Course Orders Ordered: ED Orders 05/17/24 03:05 XR tibia fibula LT 2V Stat 05/17/24 03:36 XR ankle LT min 3V Stat Vital Signs Vital signs: Vital Signs - 8 hr 05/17/24 02:56 05/17/24 02:57 05/17/24 02:57 Temperature Pulse Rate 68 Respiratory Rate Blood Pressure 182/88 H Pulse Oximetry 97 97 Oxygen Delivery Method 05/17/24 03:00 05/17/24 03:00 05/17/24 03:07 Temperature 97.2 F L Pulse Rate 63 67 Respiratory Rate 16 Blood Pressure 177/82 H 182/88 H Pulse Oximetry 99 96 Oxygen Delivery Method Room Air 05/17/24 03:30 05/17/24 03:31 05/17/24 03:31 Temperature Pulse Rate 69 65 Respiratory Rate Blood Pressure 165/70 H Pulse Oximetry 97 97 Oxygen Delivery Method 05/17/24 04:00 05/17/24 04:01 05/17/24 04:01 Temperature Pulse Rate 64 65 Respiratory Rate Blood Pressure 148/68 H Pulse Oximetry 95 93 Oxygen Delivery Method 05/17/24 04:30 05/17/24 04:30 Temperature Pulse Rate 68 Respiratory Rate Blood Pressure 159/91 H Pulse Oximetry 96 Oxygen Delivery Method MDM - Extremity Injury (Lower) MDM Narrative Medical decision making narrative: 79-year-old male with ankle twist injury at home, no gross deformity but ten derness medial and lateral aspect of left ankle. X-rays requested by triage of foreleg, will add ankle views. X-ray left tibia and fibula. Impressions: ?soft tissue swelling of the ankle without fracture. ? See tele radiology report X-ray left ankle series. Impressions: ?Soft tissue swelling of the ankle without fracture. ? See tele radiology report Continue use of walker, left walking boot to placed in support brace. Discharged home, follow up with PCP 2 days, rest, ice, elevation, continue chronic pain medications, return precautions discussed Discharge Plan Departure Patient Disposition: Home Clinical Impression: Left ankle strain Activity Restrictions/Additional Instructions: Left ankle twist injury, x-rays of the foreleg in the ankle negative. Trial of a immobilization in splint with nonweightbearing, use crutches and/or walker as needed. Take your chronic pain medications as prescribed. Try to keep left ankle elevated, consider use of cold packs/ice as needed. Follow up recheck in 2-3 days with the regular doctor with local orthopedic surgery. Contact information provided for local orthopedic surgery. Return earlier to this/nearest emergency department for any change worsening symptoms or any concerns prior Prescriptions: No Action (DME) disabled parking Qty: 1 0RF Rx Instructions: I certify that patient has a condition which qualifies him for disabled parking privileges. pantoprazole 40 mg tablet,delayed release (DR/EC) 40 mg PO BID Qty: 60 0RF gabapentin 300 mg capsule 600 mg PO BID acetaminophen 325 mg Tablet 650 mg PO Q6H PRN (Reason: Fever/Mild Pain (1-3)) Qty: 240 0RF oxycodone-acetaminophen 5-325 mg Tablet 1 tab PO Q6HR PRN (Reason: Pain, Moderate (4-6)) Qty: 30 0RF Referrals: Zora Hightower MD [Physician] - Antonia Leigh MD [Primary Care Provider] - Stand Alone Forms: Patient Portal/API/Survey
--- NOTE | 2024-05-17 02:58 | ED_ITS ---
HPI - URI/Sore Throat General Stated Complaint: fall, foot px Time Seen by Provider: 05/17/24 02:57 Related Data Home Medications Medication Instructions Recorded Confirmed gabapentin 300 mg capsule 600 mg PO BID pain 08/13/21 08/03/23 Previous Rx's Medication Instructions Recorded disabled parking #1 ea 01/05/19 acetaminophen 325 mg tablet 650 mg (2 x 325 mg) PO Q6H PRN 10/08/22 Fever/Mild Pain (1-3) #240 tabs pantoprazole 40 mg tablet,delayed 40 mg PO BID #60 tabs 02/25/23 release oxycodone-acetaminophen 5 mg-325 1 tab PO Q6HR PRN Pain, Moderate 08/09/23 mg tablet (4-6) #30 tabs Allergies Allergy/AdvReac Type Severity Reaction Status Date / Time Opioids - Morphine Analogues AdvReac Severe delerium Verified 09/11/23 17:00 Patient History Medical History Fractures Anemia Hx of flexible sigmoidoscopy (~01/2019) Hearing loss (Unknown) Chronic back pain (Unknown) Surgical History H/O vasectomy History of removal of Port-a-Cath History of colonoscopy Hx of neck surgery (~2020) Anesthesia S/P laparoscopic colectomy (01/10/19) History of back surgery (~2016) Family History Father Heart disease Mother Cancer Congestive heart failure Sister Hypertension Cancer Brother Heart disease Rheumatic fever Brother No problems noted. Social History household members: none occupational status: employed Smoking Status: Former smoker alcohol intake: current Smoking Status: Former smoker alcohol intake frequency: 3 or more drinks per day Discharge Plan Departure Prescriptions: No Action (DME) disabled parking Qty: 1 0RF Rx Instructions: I certify that patient has a condition which qualifies him for disabled parking privileges. pantoprazole 40 mg tablet,delayed release (DR/EC) 40 mg PO BID Qty: 60 0RF gabapentin 300 mg capsule 600 mg PO BID acetaminophen 325 mg Tablet 650 mg PO Q6H PRN (Reason: Fever/Mild Pain (1-3)) Qty: 240 0RF oxycodone-acetaminophen 5-325 mg Tablet 1 tab PO Q6HR PRN (Reason: Pain, Moderate (4-6)) Qty: 30 0RF Referrals: Antonia Leigh MD [Primary Care Provider] -
--- NOTE | 2024-05-17 03:05 | DI.RAD.S_ITS ---
PROCEDURE: XR TIBIA FIBULA LT 2V INDICATIONS: fall with pain to left naidu TECHNIQUE: 2 views of the tibia and fibula were acquired. COMPARISON: None. FINDINGS: Bones: No fractures or dislocations. No suspicious bony lesions. Soft tissues: No suspicious soft tissue calcifications or masses. IMPRESSION: No acute bony abnormality. Dictated by: Graham Nowak M.D. on 05/17/2024 at 8:23 Approved by: Graham Nowak M.D. on 05/17/2024 at 8:24
--- NOTE | 2024-05-17 03:36 | DI.RAD.S_ITS ---
PROCEDURE: XR ANKLE LT MIN 3V INDICATIONS: TWIST INJURY TECHNIQUE: 3 views of the ankle were acquired. COMPARISON: None. FINDINGS: Bones: No fractures or dislocations. Ankle mortise is normally aligned. No suspicious bony lesions. Soft tissues: No tibiotalar joint effusion. Achilles tendon appears normal. IMPRESSION: No acute bony abnormality or significant effusion. Dictated by: Graham Nowak M.D. on 05/17/2024 at 8:24 Approved by: Graham Nowak M.D. on 05/17/2024 at 8:25
--- NOTE | 2024-05-17 04:56 | PC.NURSE ---
Pt was able to stand and ambulate out of room with walking boot and walker. Agreeable to go home.
[2024-05-17] MEDS: ACETAMINOPHEN 325 MG TABLET 650 MG PO (05:17)
== END 2024-05-17 06:15 | disposition home or self-care (01) ==
PROVIDERS: Emergency Provider Emergency Medicine; PCP Internal Medicine
DX: S96.912A Strain of unspecified muscle and tendon at ankle and foot level, left foot, initial encounter (principal); X58.XXXA Exposure to other specified factors, initial encounter
CPT/HCPCS: 29580; 73590; 73610; 99283

== ENCOUNTER 2024-10-03 11:57 | Emergency (ER) | payer MEDICARE, SELFPAY ==
[2023-08-03 20:59] VITALS: BMI 26.9
[2024-10-03] VITALS (21 sets, daily range): BP systolic 160–228; BP diastolic 70–105; PULSE 65–136; RESP 13–26; TEMP 35.9–36.7; O2SAT 56–99
--- NOTE | 2024-10-03 | DI.RAD.S_ITS ---
PROCEDURE: XR CHEST 1V INDICATIONS: SOB. AMS TECHNIQUE: One view of the chest was acquired. COMPARISON: [facility], CR, XR CHEST 1V, 09/11/2023, 15:05. [facility], CR, XR CHEST 1V, 08/31/2023, 15:54. FINDINGS: Surgical changes and devices: None. Lungs and pleura: Lungs are clear. No pleural effusions or pneumothorax. Mediastinum: Mediastinal contours appear normal. Heart size is enlarged, stable. Bones and chest wall: No suspicious bony lesions. Overlying soft tissues appear unremarkable. IMPRESSION: No acute cardiopulmonary abnormality is seen. Dictated by: Mario Pandya M.D. on 10/03/2024 at 13:43 Approved by: Mario Pandya M.D. on 10/03/2024 at 13:44
--- NOTE | 2024-10-03 12:14 | DI.CT.S_ITS ---
PROCEDURE: CT CERVICAL SPINE WO CON INDICATIONS: Fall/trauma TECHNIQUE: Noncontrast 3 mm thick sections acquired from the skull base to the T4 level. Sagittal and coronal reformats were then constructed. For radiation dose reduction, the following was used: automated exposure control, adjustment of mA and/or kV according to patient size. COMPARISON: [facility], CT, CT CERVICAL SPINE WO CON, 08/03/2023, 17:06. FINDINGS: Image quality: Excellent. Bones: No fractures or dislocations. C3 through C7 ACDF hardware. Multilevel degenerative changes of the cervical spine. Visualized superior ribs are intact. Soft tissues: Prevertebral soft tissues are normal in thickness. No paravertebral hematomas. No apical pneumothoraces. IMPRESSION: No displaced fracture or traumatic subluxation. Dictated by: Mario Pandya M.D. on 10/03/2024 at 13:48 Approved by: Mario Pandya M.D. on 10/03/2024 at 13:52
--- NOTE | 2024-10-03 12:14 | DI.CT.S_ITS ---
PROCEDURE: CT HEAD/BRAIN WO CON INDICATIONS: Fall/trauma TECHNIQUE: Noncontrast 4.5 mm thick angled axial sections acquired from the foramen magnum to the vertex, with coronal and sagittal reformats. For radiation dose reduction, the following was used: automated exposure control, adjustment of mA and/or kV according to patient size. COMPARISON: [facility], CT, CT HEAD/BRAIN WO CON, 09/11/2023, 15:32. FINDINGS: Image quality: Diagnostic. CSF spaces: Basal cisterns are patent. No extra-axial fluid collections. The ventricles are symmetric in size and shape. Brain: No intracranial bleeds or mass effect. There is cerebral volume loss, with resultant ventricular and sulcal prominence. There are periventricular and deep white matter chronic small vessel ischemic changes. There is intracranial internal carotid artery atherosclerosis. Skull and face: Calvarium and visualized facial bones appear intact, without suspicious lesions. Sinuses: Scattered paranasal sinus disease throughout. Wall thickening of the maxillary sinuses consistent with chronic sinusitis. The mastoids are clear. IMPRESSION: No acute intracranial pathology. Dictated by: Mario Pandya M.D. on 10/03/2024 at 13:06 Approved by: Mario Pandya M.D. on 10/03/2024 at 13:08
--- NOTE | 2024-10-03 12:21 | PC.NURSE ---
Pt tremulous, working to obtain a readable EKG.
[2024-10-03 12:28] LABS: Add Manual Diff / Slide Review NO; Basophils Absolute Auto 200 /uL (0-100); Eosinophils Absolute Auto 100 /uL (0-450); Eosinophils Percent Auto 0.3 % (2-4); Hematocrit 36.1 % (41-53); Hemoglobin 12.5 g/dL (13.5-17.5); Lymphocytes Absolute Auto 1200 /uL (1100-4500); Lymphocytes Percent Auto 5.8 % (25-40); Mean Corpuscular HGB Conc 34.5 % (30-36); Mean Corpuscular Hemoglobin 31.4 PG (26-34); Monocytes Absolute Auto 1300 /uL (0-900); Monocytes Percent Auto 6.4 % (3-14); Neutrophils Absolute Auto 17900 /uL (1500-7000); Neutrophils Percent Auto 86.5 % (50-75); Platelet Count 270 X10^3/uL (150-400); Red Blood Cell Count 3.97 X10^6/uL (4.5-5.9); Red Cell Distribution Width 13.1 % (11.6-14.8); White Blood Cell Count 20.7 X10^3/uL (4.5-11.0)
--- NOTE | 2024-10-03 12:28 | DI.CT.S_ITS ---
PROCEDURE: CT ANGIO CHEST ABDOMEN PELVIS INDICATIONS: Fall/trauma TECHNIQUE: Precontrast 5 mm thick sections acquired from the lung apices to the iliac crests. After the administration of intravenous contrast, 2.5 mm thick sections again acquired from the lung apices to the iliac crests. Maximum intensity projection (MIP) oblique sagittal and coronal reformats were then acquired. For radiation dose reduction, the following was used: automated exposure control. COMPARISON: [facility], CT, CT ANGIO CHEST PE PROTOCOL, 02/18/2023, 17:11. [facility], CT, CT ANGIO ABDOMEN PELVIS, 02/23/2023, 9:09. FINDINGS: Image quality: Diagnostic. AORTA: No aortic aneurysm. No acute aortic syndrome. Atherosclerotic vascular calcifications. CHEST: Lower Neck: No enlarged lymph nodes. Thyroid: No thyroid nodules which require sonographic evaluation. Axillae: No enlarged lymph nodes. Chest Wall: Unremarkable. Lungs and Pleura: Small left and trace right pleural effusions. Mild interlobular septal thickening is noted. Mild emphysematous changes. Heart: Heart size is prominent. Moderate coronary calcifications. Small pericardial effusion. Thoracic Vessels: Pulmonary arteries demonstrate normal size. Mediastinum and Wilma: Prominent and enlarged mediastinal and hilar lymph nodes. For example a precarinal lymph node measuring 1.5 cm in short axis (). This is stable compared to 2022 exam. Esophagus: No wall thickening. No hiatal hernia. ABDOMEN: Liver: No solid mass. Gallbladder: No radiopaque gallstones or wall thickening. Biliary ducts: No biliary dilation. Pancreas: No ductal dilation. Spleen: Size is within normal limits. Adrenal Glands: No adrenal nodules. Kidneys and Ureters: No hydronephrosis. No solid mass. No complex renal cystic lesion which requires follow up. Stomach and Bowel: Normal colonic caliber, without significant wall thickening. Anastomotic sutures within the sigmoid colon. Moderate stool burden. Peritoneum: No abnormal intraperitoneal fluid. No free air. Ventral Wall: No hernia. Abdominal Nodes: No retroperitoneal or mesenteric adenopathy by size criteria. Vessels: Inferior vena cava is normal in size. PELVIS: Pelvic Organs: Unremarkable. Bladder: Unremarkable. Pelvic Nodes: No enlarged lymph nodes. Miscellaneous: No inguinal hernias are seen. Bones: Partially visualized ACDF hardware. L3 through S1 posterior spinal fixation hardware. Stable moderate L1 compression deformity. Decreased osseous mineralization. Degenerative changes of the spine. IMPRESSION: 1. No evidence of acute aortic syndrome. 2. Findings consistent with pulmonary edema with small left and trace right pleural effusions. 3. Please see above for additional findings. Dictated by: Mario Pandya M.D. on 10/03/2024 at 13:52 Approved by: Mario Pandya M.D. on 10/03/2024 at 14:02
--- NOTE | 2024-10-03 12:32 | EKG_ITS ---
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 Sinus tachycardia with premature supraventricular complexes and premature ventricular complexes or fusion complexes Septal infarct , age undetermined Inferior injury pattern Prolonged QT Consider right ventricular involvement in acute inferior infarct Electronically Signed On 10-03-2024 17:40:57 PDT by Jona Fisher
[2024-10-03 12:37] LABS: INR 1.2 (0.9-1.3); Prothrombin Time 13.3 SECONDS (9.4-12.5)
[2024-10-03 12:40] LABS: PTT Partial Thromboplastin Tim 36 SECONDS (25.1-36.5)
[2024-10-03 12:41] LABS: Alanine Aminotransferase 40 IU/L (<50); Albumin 4.3 g/dL (3.5-5.0); Albumin Globulin Ratio 1.5 (1.0-2.8); Alkaline Phosphatase 64 U/L (38-126); Aspartate Aminotransferase 98 IU/L (17-59); Bilirubin Total 1.4 mg/dL (0.2-1.3); Blood Urea Nitrogen 16 mg/dL (9-20); Calcium 8.9 mg/dL (8.4-10.2); Carbon Dioxide 28 mmol/L (22-32); Chloride 92 mmol/L (98-107); Estimated Glomerular Filt Rate > 60 mL/min (>60); Globulin 2.9 g/dL (1.7-4.1); Glucose 109 mg/dL (70-99); Potassium 4.7 mmol/L (3.4-5.1); Sodium 127 mmol/L (137-145); Total Protein 7.2 g/dL (6.3-8.2)
--- NOTE | 2024-10-03 12:47 | ED_ITS ---
HPI - Fall General Chief Complaint: Abdominal Pain Stated Complaint: fell, down for 12hrs Time Seen by Provider: 10/03/24 12:02 History of Present Illness HPI Narrative: Patient brought here by ambulance from home. He lives in independent living at a facility. Sometime last night the side of his bed collapsed and he fell onto the floor. Denies hitting his head. Patient is not on any blood thinners. No prior cardiac history. He denies any headache chest pain back pain abdominal pain prior to the fall. He is dependent on wheelchair and walker for movement. He states if he is on the floor he can not get himself up. He struggled to get to the phone all night or call for help. The staff found him this morning on the floor. He is awake alert oriented x4 at this time. Patient denies any chest pain but does complain of interscapular pain does unusual for his chronic back pain. During course of stay on engine monitor ST elevation noted. EKG completed and concern for STEMI. Related Data Home Medications Medication Instructions Recorded Confirmed gabapentin 300 mg capsule 600 mg PO BID pain 08/13/21 08/03/23 Previous Rx's Medication Instructions Recorded disabled parking #1 ea 01/05/19 acetaminophen 325 mg tablet 650 mg (2 x 325 mg) PO Q6H PRN 10/08/22 Fever/Mild Pain (1-3) #240 tabs pantoprazole 40 mg tablet,delayed 40 mg PO BID #60 tabs 02/25/23 release oxycodone-acetaminophen 5 mg-325 1 tab PO Q6HR PRN Pain, Moderate 08/09/23 mg tablet (4-6) #30 tabs Allergies Allergy/AdvReac Type Severity Reaction Status Date / Time gluten Allergy Diarrhea Verified 05/17/24 03:14 Opioids - Morphine Analogues AdvReac Severe delerium Verified 09/11/23 17:00 Review of Systems Review of Systems Narrative: GENERAL: Negative chills, fatigue, malaise, fever, sweats. HEENT: Negative sinus pain, ear pain, sore throat RESPIRATORY: Negative dyspnea, cough CARDIOVASCULAR: Negative chest pain, palpitations GASTROINTESTINAL: Negative vomiting, nausea, abdominal pain : Negative dysuria, frequency, hematuria MUSCULOSKELETAL: Positive back pain, muscle or bony pain SKIN: Negative rash, skin lesions NEUROLOGIC: Negative weakness, numbness ROS Unobtainable: All systems reviewed & are unremarkable except as noted in HPI and below Patient History Medical History Fractures Anemia Hx of flexible sigmoidoscopy (~01/2019) Hearing loss (Unknown) Chronic back pain (Unknown) Surgical History H/O vasectomy History of removal of Port-a-Cath History of colonoscopy Hx of neck surgery (~2020) Anesthesia S/P laparoscopic colectomy (01/10/19) History of back surgery (~2016) Family History Father Heart disease Mother Cancer Congestive heart failure Sister Hypertension Cancer Brother Heart disease Rheumatic fever Brother No problems noted. Social History household members: none occupational status: employed alcohol intake: current alcohol intake frequency: 3 or more drinks per day Exam Narrative Exam Narrative: GENERAL: in no distress, not toxic not dyspneic HEAD: Normocephalic. Atraumatic nontender face scalp and skull EYES: Pupils equal round ENT: Mucous membranes moist. NECK: Trachea midline. No midline tenderness or step-off the cervical thoracic or lumbar spine. No skin injury see on the back. CARDIOVASCULAR: Regular rate and rhythm RESPIRATORY: Clear to auscultation. Breath sounds equal bilaterally. No wheezes, rales, or rhonchi. GASTROINTESTINAL: Abdomen soft, non-tender EXTREMITIES: No gross deformities. BACK: No flank tenderness. NEURO: AOx4. Clear speech SKIN: Warm and dry PSYCH: Not anxious, is cooperative Initial Vital Signs Initial Vital Signs: Vital Signs Pulse Rate 72 10/03/24 12:07 Respiratory Rate 21 10/03/24 12:07 Course Orders Ordered: Discontinued Medications Aspirin (Aspirin 81 Mg Chew Tab) 324 mg PO NOW ONE Stop: 10/03/24 13:03 Last Admin: 10/03/24 13:10 Dose: 324 mg Documented By: [facility] Clopidogrel Bisulfate (Clopidogrel 75 Mg Tablet) 300 mg PO NOW ONE Stop: 10/03/24 13:03 Last Admin: 10/03/24 13:10 Dose: 300 mg Documented By: [facility] Heparin Sodium (Porcine) (Heparin 5,000 Unit/Ml Vial) 5,000 unit IV NOW ONE Stop: 10/03/24 13:03 Last Admin: 10/03/24 13:10 Dose: 5,000 unit Documented By: EDGAR Heparin Sodium/Dextrose (Heparin Drip) 25,000 unit in 500 mls @ 23.712 mls/hr IV CONT GATO; Protocol Last Titration: 10/03/24 13:20 Dose: 11.99 units/kg/hr, 23.7 mls/hr Documented By: EDGAR Co-signed By: KATY Admin: 10/03/24 13:11 Dose: 12 units/kg/hr, 23.712 mls/hr Documented By: EDGAR Co-signed By: KATY Metoclopramide HCl (Metoclopramide 10 Mg/2 Ml Inj) 10 mg IV NOW ONE Stop: 10/03/24 12:49 Last Admin: 10/03/24 12:54 Dose: 10 mg Documented By: GABRIEL Morphine Sulfate (Morphine 4 Mg/Ml Inj) 4 mg IV NOW ONE Stop: 10/03/24 13:03 Last Admin: 10/03/24 13:10 Dose: 4 mg Documented By: EDGAR Vital Signs Vital signs: Vital Signs - 8 hr 10/03/24 12:07 10/03/24 12:10 10/03/24 12:15 Temperature Pulse Rate 72 73 80 Respiratory Rate 21 20 26 H Blood Pressure Pulse Oximetry 86 L 86 L Oxygen Delivery Method Oxygen Flow Rate 10/03/24 12:20 10/03/24 12:21 10/03/24 12:25 Temperature 96.7 F L Pulse Rate 68 71 Respiratory Rate 15 16 Blood Pressure Pulse Oximetry 89 L 92 92 Oxygen Delivery Method Room Air Oxygen Flow Rate 10/03/24 12:30 10/03/24 12:35 10/03/24 12:36 Temperature Pulse Rate 65 110 H Respiratory Rate 13 23 Blood Pressure 183/72 H Pulse Oximetry 91 91 Oxygen Delivery Method Oxygen Flow Rate 10/03/24 12:36 10/03/24 12:40 10/03/24 12:45 Temperature Pulse Rate 92 H 71 75 Respiratory Rate 18 20 19 Blood Pressure Pulse Oximetry 93 Oxygen Delivery Method Nasal Cannula Oxygen Flow Rate 2 10/03/24 12:49 10/03/24 12:49 10/03/24 12:50 Temperature Pulse Rate 91 H 107 H Respiratory Rate Blood Pressure 177/105 H Pulse Oximetry 95 92 Oxygen Delivery Method Oxygen Flow Rate 10/03/24 12:54 10/03/24 12:54 10/03/24 12:55 Temperature Pulse Rate 80 75 Respiratory Rate Blood Pressure 171/76 H Pulse Oximetry 56 L Oxygen Delivery Method Oxygen Flow Rate 10/03/24 13:00 10/03/24 13:04 10/03/24 13:04 Temperature Pulse Rate 79 98 H Respiratory Rate 21 Blood Pressure 186/97 H Pulse Oximetry 62 L 98 Oxygen Delivery Method Non -Rebreather Oxygen Flow Rate 10 10/03/24 13:05 10/03/24 13:05 10/03/24 13:10 Temperature Pulse Rate 113 H Respiratory Rate 20 Blood Pressure 228/92 H 160/70 H Pulse Oximetry 99 Oxygen Delivery Method Oxygen Flow Rate 10/03/24 13:10 10/03/24 13:15 10/03/24 13:21 Temperature 98.0 F Pulse Rate 76 136 H Respiratory Rate 16 19 Blood Pressure Pulse Oximetry Oxygen Delivery Method Oxygen Flow Rate MDM - Fall Lab Data 10/03/24 12:18 10/03/24 12:18 Labs: Lab Results 10/03/24 Range/Units 12:18 WBC 20.7 H (4.5-11.0) X10^3/uL RBC 3.97 L (4.5-5.9) X10^6/uL Hgb 12.5 L (13.5-17.5) g/dL Hct 36.1 L (41-53) % MCV 91.0 (80-100) fL MCH 31.4 (26-34) PG MCHC 34.5 (30-36) % RDW 13.1 (11.6-14.8) % Plt Count 270 (150-400) X10^3/uL Neut % (Auto) 86.5 H (50-75) % Lymph % (Auto) 5.8 L (25-40) % Marshall % (Auto) 6.4 (3-14) % Eos % (Auto) 0.3 L (2-4) % Baso % (Auto) 1.0 (0-2) % Neut # (Auto) 32706 H (3477-9141) /uL Lymph # (Auto) 1200 (4175-1020) /uL Marshall # (Auto) 1300 H (0-900) /uL Eos # (Auto) 100 (0-450) /uL Baso # (Auto) 200 H (0-100) /uL PT 13.3 H (9.4-12.5) SECONDS INR 1.2 (0.9-1.3) APTT 36 (25.1-36.5) SECONDS Sodium 127 L (137-145) mmol/L Potassium 4.7 (3.4-5.1) mmol/L Chloride 92 L (98-107) mmol/L Carbon Dioxide 28 (22-32) mmol/L BUN 16 (9-20) mg/dL Creatinine 0.64 L (0.66-1.25) mg/dL Estimated GFR > 60 (>60) mL/min BUN/Creatinine Ratio 25.0 H (6-22) Glucose 109 H (70-99) mg/dL Calcium 8.9 (8.4-10.2) mg/dL Total Bilirubin 1.4 H (0.2-1.3) mg/dL AST 98 H (17-59) IU/L ALT 40 (<50) IU/L Alkaline Phosphatase 64 (38-126) U/L Total Creatine Kinase 3108 H (55-170) U/L Troponin I < 0.012 (0.01-0.034) ng/mL Total Protein 7.2 (6.3-8.2) g/dL Albumin 4.3 (3.5-5.0) g/dL Globulin 2.9 (1.7-4.1) g/dL Albumin/Globulin Ratio 1.5 (1.0-2.8) MDM Narrative Medical decision making narrative: Patient brought here by ambulance from home. He lives in independent living at a facility. Sometime last night the side of his bed collapsed and he fell onto the floor. Denies hitting his head. Patient is not on any blood thinners. No prior cardiac history. He denies any headache chest pain back pain abdominal pain prior to the fall. He is dependent on wheelchair and walker for movement. He states if he is on the floor he can not get himself up. He struggled to get to the phone all night or call for help. The staff found him this morning on the floor. He is awake alert oriented x4 at this time. Patient denies any chest pain but does complain of interscapular pain does unusual for his chronic back pain. During course of stay on engine monitor ST elevation noted. EKG completed and concern for STEMI. After history and exam, [facility] Medical records reviewed: No recent visit for this complaint Differential considered: Includes but not limited to Lab Test results independently reviewed as above. Pertinent findings: WBC 20.7 hemoglobin 12.5 INR 1.2 sodium 127 BUN 16 creatinine 0.64 GFR greater than 60 troponin less than 0.012 total CK [address]-elevation of the inferior leads as well as lateral leads. Imaging studies independently reviewed: CT chest abdomen pelvis angiogram no dissection Consultations: 12:45 p.m.. Spoke with [facility] Cardiology, dr mcgrath, will accept patient to heart catheterization if angiogram of the aorta is negative, do not start nitroglycerin. Give Plavix aspirin and heparin. 12:54 p.m.. Spoke with [facility] emergency Department Dr. Rico, who will accept patient Re-evaluations: 1:00 p.m.. Updated patient results and concerning for heart attack. He needs to be transferred immediately to [facility]. He agrees. He is awake alert oriented x4. Discussion: Appropriate for immediate transfer to [facility] for heart catheterization Diagnosis: STEMI Critical Care Time Critical Care Time Attestation: Critical Care Time 35 minutes: Critical care time is separate from other billable procedures. This critical care time includes consultation with family and other consulting doctors, review of records, and interpretation of data from labs, EKGs, imaging, etc. Discharge Plan Departure Patient Disposition: [facility] Clinical Impression: ST elevation (STEMI) myocardial infarction Qualifiers: Involved coronary artery: unspecified coronary artery Qualified Code(s): I21.3 - ST elevation (STEMI) myocardial infarction of unspecified site Prescriptions: No Action (DME) disabled parking Qty: 1 0RF Rx Instructions: I certify that patient has a condition which qualifies him for disabled parking privileges. pantoprazole 40 mg tablet,delayed release (DR/EC) 40 mg PO BID Qty: 60 0RF gabapentin 300 mg capsule 600 mg PO BID acetaminophen 325 mg Tablet 650 mg PO Q6H PRN (Reason: Fever/Mild Pain (1-3)) Qty: 240 0RF oxycodone-acetaminophen 5-325 mg Tablet 1 tab PO Q6HR PRN (Reason: Pain, Moderate (4-6)) Qty: 30 0RF Referrals: Antonia Leigh MD [Primary Care Provider] -
[2024-10-03 12:52] LABS: Troponin I < 0.012 ng/mL (0.01-0.034)
[2024-10-03 12:54] LABS: Creatine Kinase 3108 U/L (55-170); HEMOLYSIS 24 (0-50)
[2024-10-03] MEDS: METOCLOPRAMIDE 10 MG/2 ML INJ IV (12:54)
--- NOTE | 2024-10-03 13:05 | PC.NURSE ---
delay in transfer for primary PCI to have CT to r/u aortic dissection
[2024-10-03] MEDS: HEPARIN 5,000 UNIT/ML VIAL 5000 UNIT IV (13:10)
[2024-10-03] MEDS: ASPIRIN 81 MG CHEW TAB 324 MG PO (13:10)
[2024-10-03] MEDS: MORPHINE 4 MG/ML INJ IV (13:10)
[2024-10-03] MEDS: CLOPIDOGREL 75 MG TABLET 300 MG PO (13:10)
[2024-10-03] MEDS: HEPARIN DRIP 25,000 UNIT/500 ML IV.SOLN 23.712 UNIT IV (13:11)
--- NOTE | 2024-10-03 13:34 | PC.NURSE ---
Summary of care: Pt to ED via EMS. Alert and oriented, very tremulous. While getting patient settled and working to obtain EKG, RN witnessed variability on monitoring specialist. Transition to STEMI on T wave witness, captured on EKG and provider notified immediately and presented to bedside. 1L NS bolus completed, from medic transfer. Pt with nausea, 10mg reglan provided. Pt transferred to CT on monitor with three RN. Tolerated well. Hypoxia observed and increased 02 to NRB 10lpm. Pt denied SOB, and chest pain. Lower back pain persisted and worsened to 10/10. MD notified. Radiologist and MD to Radiology to review scans. Pt returned to ED, reports nausea improved. Pt received mg morphine aspirin, plavix, heparin bolus and gtt started-- all per AUG. Bedside report given to Bravo [id number]. Pt reports continued 10/ pain, medic reports he will manage pain following protocols. Pt STAT transferred to [facility]. Wallet and phone with post acute care registered nurse.
== END 2024-10-03 13:31 | disposition short-term general hospital (02) ==
PROVIDERS: Emergency Provider Emergency Medicine; PCP Internal Medicine
DX: I21.3 ST elevation (STEMI) myocardial infarction of unspecified site (principal); M54.89 Other dorsalgia; W06.XXXA Fall from bed, initial encounter; F17.210 Nicotine dependence, cigarettes, uncomplicated
CPT/HCPCS: 36415; 70450; 71045; 71275; 72125; 74174; 80053; 82550; 84484; 85025; 85610; 85730; 93005; 96374; 96375; 99285; 99291; J1644; J2270; J2765; Q9967

== ENCOUNTER 2024-10-29 12:44 | Emergency (ER) | payer MEDICARE, SELFPAY ==
[2023-08-03 20:59] VITALS: BMI 26.9
[2024-10-29] VITALS (42 sets, daily range): BP systolic 93–150; BP diastolic 57–114; PULSE 93–144; RESP 19–49; TEMP 36.4; O2SAT 88–99; BMI 23.0
--- NOTE | 2024-10-29 12:52 | EKG_ITS ---
[place] [id number] [place] [id number] Test Date: 2024-10-29 Pat Name: Talat Stevenson Department: [facility] Room: Gender: Male Paedodontist: : 1945 Requested By: Order Number: [id number] Reading MD: Naun Jain Measurements Intervals [place] Rate: 129 P: RI: QRS: -12 QRSD: 78 T: 54 QT: 290 QTc: 424 Interpretive Statements Undetermined rhythm Low voltage QRS Cannot rule out Inferior infarct , age undetermined Electronically Signed On 10-29-2024 15:32:11 PDT by Naun Jain
--- NOTE | 2024-10-29 12:52 | DI.RAD.S_ITS ---
PROCEDURE: XR CHEST 1V INDICATIONS: Shortness of breath TECHNIQUE: One view of the chest was acquired. COMPARISON: [facility], CT, CT CHEST ABDOMEN PELVIS WITH CONTRAST, 10/05/2024, 18:24. [facility], CR, XR CHEST 1 VIEW, 10/04/2024, 7:33. [facility], CR, XR CHEST 1V, 10/03/2024, 12:31. [facility], CR, XR CHEST 1V, 09/11/2023, 15:05. FINDINGS: Surgical changes and devices: Cervical spinal fusion hardware is present. Lungs and pleura: Mild to moderate left pleural effusion with left basilar atelectasis or consolidation. Mediastinum: Cardiac silhouette is enlarged. Bones and chest wall: No suspicious bony lesions. Overlying soft tissues appear unremarkable. IMPRESSION: 1. Small to moderate left pleural effusion with basilar atelectasis or consolidation. 2. Cardiac silhouette is enlarged. Approved by: Rodney Funes M.D. on 10/29/2024 at 12:31
[2024-10-29 13:01] LABS: Add Manual Diff / Slide Review NO; Basophils Absolute Auto 0 /uL (0-100); Basophils Percent Auto 0.3 % (0-2); Eosinophils Absolute Auto 100 /uL (0-450); Eosinophils Percent Auto 0.5 % (2-4); Hematocrit 35.9 % (41-53); Hemoglobin 11.8 g/dL (13.5-17.5); Lymphocytes Absolute Auto 1000 /uL (1100-4500); Lymphocytes Percent Auto 6.6 % (25-40); Mean Corpuscular HGB Conc 32.8 % (30-36); Mean Corpuscular Hemoglobin 29.9 PG (26-34); Mean Corpuscular Volume 91.2 fL (80-100); Monocytes Absolute Auto 1300 /uL (0-900); Monocytes Percent Auto 8.3 % (3-14); Neutrophils Absolute Auto 13300 /uL (1500-7000); Neutrophils Percent Auto 84.3 % (50-75); Platelet Count 386 X10^3/uL (150-400); Red Blood Cell Count 3.94 X10^6/uL (4.5-5.9); Red Cell Distribution Width 13.3 % (11.6-14.8); White Blood Cell Count 15.8 X10^3/uL (4.5-11.0)
[2024-10-29 13:05] LABS: INR 1.8 (0.9-1.3); Prothrombin Time 20.2 SECONDS (9.4-12.5)
[2024-10-29 13:09] LABS: Lactate (Lactic Acid) 1.4 mmol/L (0.7-2.1)
[2024-10-29 13:10] LABS: Alanine Aminotransferase 30 IU/L (<50); Albumin 3.5 g/dL (3.5-5.0); Albumin Globulin Ratio 1.1 (1.0-2.8); Alkaline Phosphatase 91 U/L (38-126); Aspartate Aminotransferase 26 IU/L (17-59); BUN Creatinine Ratio 21.5 (6-22); Bilirubin Total 0.8 mg/dL (0.2-1.3); Blood Urea Nitrogen 14 mg/dL (9-20); Calcium 8.6 mg/dL (8.4-10.2); Carbon Dioxide 28 mmol/L (22-32); Chloride 95 mmol/L (98-107); Estimated Glomerular Filt Rate > 60 mL/min (>60); Globulin 3.3 g/dL (1.7-4.1); Glucose 116 mg/dL (70-99); HEMOLYSIS < 15 (0-50); Potassium 4.7 mmol/L (3.4-5.1); Sodium 132 mmol/L (137-145); Total Protein 6.8 g/dL (6.3-8.2)
[2024-10-29 13:22] LABS: NT-proBNP (BNP-Adult 18+) 3580 pg/mL (<450)
[2024-10-29 13:27] LABS: Troponin I 0.344 ng/mL (0.01-0.034)
[2024-10-29] MEDS: LORazepam 0.5 MG TABLET PO (14:01)
--- NOTE | 2024-10-29 14:08 | ED.ARRPALP ---
HPI - Arrhythmia/Palpitations General Chief Complaint: Arrhythmia/Palpitations Stated Complaint: Weakness Time Seen by Provider: 10/29/24 13:38 History of Present Illness HPI narrative: 79yo male with history of alcohol use, recent single vessel coronary stent placed [facility] about 3 weeks ago, recalls DC to rehab facility, at home alone the last 2 days, complains of generalized fatigue. Denies chest pain, denies pain to arm jaw neck back, no diaphoresis, no nausea, some shortness of breath when directly asked. No pain swelling to legs or single leg. He cannot recall the names of his discharge medications. He does not think he is taking blood thinners, denies Plavix/clopidogrel medication when directly asked. He cannot recall prior atrial fibrillation diagnosis. Denies fevers chills, diarrhea, black red stools, vomiting. Related Data Home Medications Medication Instructions Recorded Confirmed gabapentin 300 mg capsule 600 mg PO BID pain 08/13/21 08/03/23 Previous Rx's Medication Instructions Recorded disabled parking #1 ea 01/05/19 acetaminophen 325 mg tablet 650 mg (2 x 325 mg) PO Q6H PRN 10/08/22 Fever/Mild Pain (1-3) #240 tabs pantoprazole 40 mg tablet,delayed 40 mg PO BID #60 tabs 02/25/23 release oxycodone-acetaminophen 5 mg-325 1 tab PO Q6HR PRN Pain, Moderate 08/09/23 mg tablet (4-6) #30 tabs Allergies Allergy/AdvReac Type Severity Reaction Status Date / Time gluten Allergy Diarrhea Verified 05/17/24 03:14 Opioids - Morphine Analogues AdvReac Severe delerium Verified 09/11/23 17:00 Patient History Medical History Fractures Anemia Hx of flexible sigmoidoscopy (~01/2019) Hearing loss (Unknown) Chronic back pain (Unknown) Surgical History H/O vasectomy History of removal of Port-a-Cath History of colonoscopy Hx of neck surgery (~2020) Anesthesia S/P laparoscopic colectomy (01/10/19) History of back surgery (~2016) Family History Father Heart disease Mother Cancer Congestive heart failure Sister Hypertension Cancer Brother Heart disease Rheumatic fever Brother No problems noted. Social History household members: none occupational status: employed Smoking Status: Former smoker alcohol intake: current Smoking Status: Former smoker alcohol intake frequency: 3 or more drinks per day Exam Narrative Exam Narrative: GENERAL: Well-developed patient, in mild distress. HEAD: Atraumatic. Normocephalic. EYES: Pupils equal round and reactive. Extraocular motions intact. No scleral icterus. No injection or drainage. ENT: Nose without bleeding, purulent drainage. Throat without erythema, tonsillar hypertrophy or exudate. Airway patent. NECK: Trachea midline. Non tender CARDIOVASCULAR: Regular rate and rhythm without murmurs, gallops, or rubs. RESPIRATORY: Clear to auscultation. Breath sounds equal bilaterally. No wheezes, rales, or rhonchi. GASTROINTESTINAL: Abdomen soft, non-tender, nondistended. EXTREMITIES: No edema or joint tenderness. BACK: Nontender without deformity or crepitance. No flank tenderness. NEURO: AOx3. Motor functions grossly nonfocal. SKIN: No rash or erythema of visible areas Initial Vital Signs Initial Vital Signs: Vital Signs Temperature 97.6 F 10/29/24 12:55 Pulse Rate 134 H 10/29/24 12:55 Respiratory Rate 24 10/29/24 12:55 Blood Pressure 122/89 10/29/24 12:55 Pulse Oximetry 96 10/29/24 12:55 Oxygen Delivery Method Room Air 10/29/24 12:55 Course Orders Ordered: Discontinued Medications Digoxin (Digoxin 500 Mcg/2 Ml Ampul) 500 mcg IV NOW ONE Stop: 10/29/24 16:40 Last Admin: 10/29/24 17:51 Dose: 500 mcg Documented By: JESSICA Diltiazem HCl (Diltiazem 25 Mg/5 Ml Sdv) 10 mg IV NOW ONE Stop: 10/29/24 14:03 Last Admin: 10/29/24 14:18 Dose: 10 mg Documented By: JESSICA Diltiazem HCl (Diltiazem 25 Mg/5 Ml Sdv) 10 mg IV NOW ONE Stop: 10/29/24 15:11 Last Admin: 10/29/24 15:16 Dose: 10 mg Documented By: JESSICA Diltiazem HCl (Diltiazem 25 Mg/5 Ml Sdv) 10 mg IV NOW ONE Stop: 10/29/24 16:02 Last Admin: 10/29/24 16:17 Dose: Not Given Documented By: JESSICA Diltiazem HCl 125 mg/ Sodium (Chloride) 125 mls @ 5 mls/hr IV TITRATE GATO; Protocol Last Titration: 10/29/24 18:25 Dose: 15 mg/hr, 15 mls/hr Documented By: Titration: 10/29/24 16:10 Dose: 10 mg/hr, 10 mls/hr Documented By: Titration: 10/29/24 14:50 Dose: 7.5 mg/hr, 7.5 mls/hr Documented By: Admin: 10/29/24 14:19 Dose: 5 mg/hr, 5 mls/hr Documented By: JESSICA Sodium Chloride (Normal Saline 0.9%) 1,000 mls @ 1,000 mls/hr IV BOLUS ONE Stop: 10/29/24 17:26 Last Infusion: 10/29/24 19:03 Dose: Infused Documented By: Admin: 10/29/24 17:52 Dose: 1,000 mls/hr Documented By: JESSICA Lorazepam (Lorazepam 0.5 Mg Tablet) 0.5 mg PO NOW ONE Stop: 10/29/24 13:39 Last Admin: 10/29/24 14:01 Dose: 0.5 mg Documented By: JESSICA Vital Signs Vital signs: Vital Signs - 8 hr 10/29/24 12:55 10/29/24 13:59 10/29/24 14:00 Temperature 97.6 F Pulse Rate 134 H 137 H Respiratory Rate 24 Blood Pressure 122/89 114/70 Pulse Oximetry 96 95 Oxygen Delivery Method Room Air Oxygen Flow Rate 10/29/24 14:00 10/29/24 14:15 10/29/24 14:15 Temperature Pulse Rate 144 H 124 H Respiratory Rate 30 H 27 H Blood Pressure 107/71 Pulse Oximetry 93 91 Oxygen Delivery Method Room Air Oxygen Flow Rate 10/29/24 14:18 10/29/24 14:19 10/29/24 14:20 Temperature Pulse Rate 129 H 128 H Respiratory Rate Blood Pressure 107/71 112/74 112/74 Pulse Oximetry Oxygen Delivery Method Oxygen Flow Rate 10/29/24 14:20 10/29/24 14:25 10/29/24 14:25 Temperature Pulse Rate 122 H 125 H Respiratory Rate 26 H 23 Blood Pressure 99/63 Pulse Oximetry 91 98 Oxygen Delivery Method Oxygen Flow Rate 10/29/24 14:30 10/29/24 14:30 10/29/24 14:35 Temperature Pulse Rate 125 H Respiratory Rate 24 Blood Pressure 113/83 112/67 Pulse Oximetry 98 Oxygen Delivery Method Oxygen Flow Rate 10/29/24 14:35 10/29/24 14:40 10/29/24 14:40 Temperature Pulse Rate 127 H 123 H Respiratory Rate 22 19 Blood Pressure 98/72 Pulse Oximetry 99 98 Oxygen Delivery Method Oxygen Flow Rate 10/29/24 14:45 10/29/24 14:45 10/29/24 14:50 Temperature Pulse Rate 126 H Respiratory Rate 25 H Blood Pressure 107/71 93/67 Pulse Oximetry 98 Oxygen Delivery Method Oxygen Flow Rate 10/29/24 14:50 10/29/24 14:55 10/29/24 14:55 Temperature Pulse Rate 122 H 126 H Respiratory Rate 24 26 H Blood Pressure 105/65 Pulse Oximetry 98 98 Oxygen Delivery Method Nasal Cannula Oxygen Flow Rate 2 10/29/24 15:00 10/29/24 15:00 10/29/24 15:06 Temperature Pulse Rate 126 H Respiratory Rate 30 H Blood Pressure 128/57 L 120/98 H Pulse Oximetry 97 Oxygen Delivery Method Oxygen Flow Rate 10/29/24 15:06 10/29/24 15:10 10/29/24 15:10 Temperature Pulse Rate 129 H 125 H Respiratory Rate 25 H Blood Pressure 133/114 H Pulse Oximetry 94 97 Oxygen Delivery Method Oxygen Flow Rate 10/29/24 15:16 10/29/24 15:16 10/29/24 15:16 Temperature Pulse Rate 126 H 123 H Respiratory Rate 47 H Blood Pressure 116/75 116/75 Pulse Oximetry 95 Oxygen Delivery Method Oxygen Flow Rate 10/29/24 15:20 10/29/24 15:20 10/29/24 15:25 Temperature Pulse Rate 118 H Respiratory Rate 48 H Blood Pressure 101/58 L 94/57 L Pulse Oximetry 94 Oxygen Delivery Method Nasal Cannula Oxygen Flow Rate 2 10/29/24 15:25 10/29/24 15:30 10/29/24 15:30 Temperature Pulse Rate 106 H 117 H Respiratory Rate 29 H 28 H Blood Pressure 102/66 Pulse Oximetry 93 94 Oxygen Delivery Method Oxygen Flow Rate 10/29/24 15:35 10/29/24 15:35 10/29/24 16:00 Temperature Pulse Rate 107 H 110 H Respiratory Rate 26 H 30 H Blood Pressure 103/68 Pulse Oximetry 98 Oxygen Delivery Method Nasal Cannula Oxygen Flow Rate 2 10/29/24 16:06 10/29/24 16:06 10/29/24 16:10 Temperature Pulse Rate 111 H 114 H Respiratory Rate 28 H 27 H Blood Pressure 103/66 Pulse Oximetry 88 L 91 Oxygen Delivery Method Oxygen Flow Rate 10/29/24 16:10 Temperature Pulse Rate Respiratory Rate Blood Pressure 115/72 Pulse Oximetry Oxygen Delivery Method Oxygen Flow Rate MDM - Arrhythmia/Palpitations Lab Data Attestation: I reviewed the patient's lab results. Lab results narrative: White blood cell count 75176, hemoglobin 11.8, platelets adequate. Glucose 116. Renal function normal. Sodium 132 mildly low, normal potassium, normal carbon dioxide. Liver functions unremarkable. Troponin 0.34 elevated. BNP 3580. 10/29/24 12:50 10/29/24 12:50 Labs: Lab Results 10/29/24 10/29/24 10/29/24 Range/Units 12:50 15:37 17:40 WBC 15.8 H (4.5-11.0) X10^3/uL RBC 3.94 L (4.5-5.9) X10^6/uL Hgb 11.8 L (13.5-17.5) g/dL Hct 35.9 L (41-53) % MCV 91.2 (80-100) fL MCH 29.9 (26-34) PG MCHC 32.8 (30-36) % RDW 13.3 (11.6-14.8) % Plt Count 386 (150-400) X10^3/uL Neut % (Auto) 84.3 H (50-75) % Lymph % (Auto) 6.6 L (25-40) % Brooke % (Auto) 8.3 (3-14) % Eos % (Auto) 0.5 L (2-4) % Baso % (Auto) 0.3 (0-2) % Neut # (Auto) 06461 H (1010-2938) /uL Lymph # (Auto) 1000 L (9023-8191) /uL Brooke # (Auto) 1300 H (0-900) /uL Eos # (Auto) 100 (0-450) /uL Baso # (Auto) 0 (0-100) /uL PT 20.2 H (9.4-12.5) SECONDS INR 1.8 H (0.9-1.3) APTT 41 H (25.1-36.5) SECONDS Sodium 132 L (137-145) mmol/L Potassium 4.7 (3.4-5.1) mmol/L Chloride 95 L (98-107) mmol/L Carbon Dioxide 28 (22-32) mmol/L BUN 14 (9-20) mg/dL Creatinine 0.65 L (0.66-1.25) mg/dL Estimated GFR > 60 (>60) mL/min BUN/Creatinine Ratio 21.5 (6-22) Glucose 116 H (70-99) mg/dL Lactate 1.4 (0.7-2.1) mmol/L Calcium 8.6 (8.4-10.2) mg/dL Total Bilirubin 0.8 (0.2-1.3) mg/dL AST 26 (17-59) IU/L ALT 30 (<50) IU/L Alkaline Phosphatase 91 (38-126) U/L Troponin I 0.344 H* 0.291 H* (0.01-0.034) ng/mL NT-Pro-B Natriuret Pep 3580 H (<450) pg/mL Total Protein 6.8 (6.3-8.2) g/dL Albumin 3.5 (3.5-5.0) g/dL Globulin 3.3 (1.7-4.1) g/dL Albumin/Globulin Ratio 1.1 (1.0-2.8) Imaging Data Chest x-ray: Radiologist's Impresson: [address] [address] XRay Report Signed Patient: Talat Stevenson MR#: [id number] : 1945 Acct:[id number] Age/Sex: 79 / M Date of Service: 10/29/24 Loc: ED Accession Number: [id number] Procedure: XR chest 1V Ordering Provider: Ventura Parra MD PROCEDURE: XR CHEST 1V INDICATIONS: Shortness of breath TECHNIQUE: One view of the chest was acquired. COMPARISON: [facility], CT, CT CHEST ABDOMEN PELVIS WITH CONTRAST, 10/05/2024, 18:24. [facility], CR, XR CHEST 1 VIEW, 10/04/2024, 7:33. [facility], CR, XR CHEST 1V, 10/03/2024, 12:31. [facility], CR, XR CHEST 1V, 09/11/2023, 15:05. FINDINGS: Surgical changes and devices: Cervical spinal fusion hardware is present. Lungs and pleura: Mild to moderate left pleural effusion with left basilar atelectasis or consolidation. Mediastinum: Cardiac silhouette is enlarged. Bones and chest wall: No suspicious bony lesions. Overlying soft tissues appear unremarkable. IMPRESSION: 1. Small to moderate left pleural effusion with basilar atelectasis or consolidation. 2. Cardiac silhouette is enlarged. Approved by: Rodney Funes M.D. on 10/29/2024 at 12:31 CT angio chest: Radiologist's Impresson: [place] [address] CT Scan Report Signed Patient: Talat Stevenson MR#: [id number] : 1945 Acct:[id number] Age/Sex: 79 / M Date of Service: 10/29/24 Loc: ED Accession Number: [id number] Procedure: CT angio chest PE protocol Ordering Provider: Ventura Parra MD PROCEDURE: CT ANGIO CHEST PE PROTOCOL INDICATIONS: new afib, positive trop TECHNIQUE: After the administration of intravenous contrast, 2 mm thick sections acquired from the pulmonary apices to the posterior costophrenic angles. 3-dimensional maximum intensity projection (MIP) coronal and sagittal reformats were then acquired through the thorax. For radiation dose reduction, the following was used: automated exposure control, adjustment of mA and/or kV according to patient size. COMPARISON: [facility], CT, CT CHEST ABDOMEN PELVIS WITH CONTRAST, 10/05/2024, 18:24. [facility], CT, CT ANGIO CHEST PE PROTOCOL, 02/18/2023, 17:11. FINDINGS: Image quality: Diagnostic. Pulmonary arteries: Pulmonary arteries are normal in size, and demonstrate no intraluminal filling defects to suggest central pulmonary embolism. Lower Neck: Mild enlarged supraclavicular lymph nodes are likely present as seen on the prior exam, but are partially obscured by streak artifact and motion on this exam. Thyroid: No thyroid nodules which require sonographic follow up, per consensus guidelines. Axillae: No enlarged lymph nodes. Chest Wall: Unremarkable. Bones: Unchanged moderate L1 compression fracture. Lungs and Pleura: Moderate left and small right pleural effusions. Atelectasis of the adjacent portions of the lungs. [id number] centrilobular emphysema. Heart: Heart is enlarged. Moderate pericardial effusion. Moderate to severe coronary artery calcifications. Thoracic Vessels: No aortic aneurysm. Mediastinum and Wilma: Multiple enlarged mediastinal and hilar lymph nodes, which have mildly increased in size when compared to the CT from 10/05/2024. For example, a right precarinal lymph node measures 1.5 cm in short axis diameter (4/54), compared to 1.3 cm previously. Esophagus: No wall thickening. No hiatal hernia. Upper Abdomen: Visualized upper abdomen solid organs and bowel loops appear normal. IMPRESSION: 1. No acute pulmonary embolus. 2. Moderate left and small right pleural effusions with bibasilar atelectasis, increased when compared to the CT from 10/05/2024. 3. Moderate pericardial effusion. Cardiomegaly. Moderate to severe coronary artery calcifications. 4. Mildly increased mediastinal, hilar, and likely supraclavicular lymphadenopathy. Approved by: Rodney Funes M.D. on 10/29/2024 at 15:18 CT abdomen and pelvis: Radiologist's Impresson: [address] [address] [address] Scan Report Signed Patient: Talat Stevenson MR#: [id number] : 1945 Acct:[id number] Age/Sex: 79 / M Date of Service: 10/29/24 Loc: ED Accession Number: [id number] Procedure: CT abdomen pelvis w con Ordering Provider: Ventura Parra MD PROCEDURE: CT ABDOMEN PELVIS W CON INDICATIONS: abd pain TECHNIQUE: After the administration of intravenous contrast, axial sections acquired from the lung bases to the pubic symphysis. Coronal and sagittal reformats were performed. For radiation dose reduction, the following was used: automated exposure control, adjustment of mA and/or kV according to patient size. COMPARISON: [facility], CT, CT CHEST ABDOMEN PELVIS WITH CONTRAST, 10/05/2024, 18:24. [facility], CT, CT ABDOMEN PELVIS W CON, 02/18/2023, 17:11. [facility], CT, CT ABDOMEN PELVIS W CON, 12/19/2018, 21:13. FINDINGS: Image quality: Diagnostic. Lower Chest: Dictated separately. ABDOMEN: Liver: No solid mass. Gallbladder: No radiopaque gallstones or wall thickening. Biliary ducts: No biliary dilation. Pancreas: No ductal dilation. Spleen: Size is within normal limits. Adrenal Glands: No adrenal nodules. Kidneys and Ureters: No hydronephrosis. No solid mass. No complex renal cystic lesion which requires follow up. Stomach and Bowel: Nondilated fluid-filled loops of small bowel throughout the mid to lower abdomen. Colon is nondistended. Surgical anastomosis is seen at the rectosigmoid junction. Peritoneum: Trace free fluid along the left pericolic gutter. No free air. Ventral Wall: No significant ventral hernia. Abdominal Nodes: No retroperitoneal or mesenteric adenopathy by size criteria. Vessels: Aorta and inferior vena cava are normal in size. PELVIS: Pelvic Organs: Unremarkable. Bladder: No bladder wall thickening, accounting for underdistention. Pelvic Nodes: No enlarged lymph nodes. Miscellaneous: No inguinal hernias are seen. Bones: No aggressive osseous abnormality. Postsurgical changes are seen in the included spine. Unchanged chronic compression fracture of the L1 vertebral body. IMPRESSION: Nondilated fluid-filled loops of small bowel are nonspecific, but can be seen in setting of a mild enteritis. Otherwise, no acute abnormality identified in the abdomen or pelvis. Approved by: Rodney Funes M.D. on 10/29/2024 at 15:23 ECG Data Attestation: I personally reviewed and interpreted this ECG as follows: Interpretation: Undetermined rhythm, ventricular rate 129, no P waves definite, possible atrial fibrillation with RVR. QRS 78, QTC 424. MDM Narrative Medical decision making narrative: 79-year-old male with history of recent coronary stent placed about 3 weeks ago at [facility], discharged to nursing facility, now at home living alone, having generalized weakness. Found to be in atrial fibrillation with rapid ventricular response. IV diltiazem 10 mg given, low blood pressure, IV fluids given. Still having atrial fibrillation with rapid ventricular rate response, blood pressure improved. IV diltiazem infusion being titrated. Unclear if he has had atrial fibrillation before, he does not seem to recognize that diagnosis. Await [facility] records. Will query his pharmacy for med list. Query [facility] for med list: Carvedilol 3.125 mg, amiodarone 200 mg strength, Eliquis 5 mg strength, atorvastatin 40 mg strength, lisinopril 5 mg strength, clopidogrel 75 mg strength, Lasix 20 mg strength, gabapentin 100 mg strength. Patient seemed to be on amiodarone and Eliquis, seems doubtful that atrial fibrillation is new today. No records yet from [facility]. Screening labs include troponin 0.34. Currently without chest pain or nausea, though he seems to have some slight labored breathing. Chest x-ray screening study shows no obvious infiltrate or gross fluid overload. See radiology report. Interval repeat troponin 0.29, decreased some. GFR favorable, CTA chest ordered, with CT abdomen and pelvis, as he seemed to say that he had abdominal discomfort. No black or red stools. No injury or trauma. No nausea or vomiting. Anticipate consultation with [facility] once CTA results available. CTA chest. Impressions: ?1. No acute pulmonary embolus. 2. Moderate left and small right pleural effusions with bibasilar atelectasis, increased when compared to the CT from 10/05/2024. 3. Moderate pericardial effusion. Cardiomegaly. Moderate to severe coronary artery calcifications.4. Mildly increased mediastinal, hilar, and likely supraclavicular lymphadenopathy. See radiology report. Pleural effusions noted, no mention infiltrate changes, moderate pericardial effusion. Query Radiology Department, no echocardiogram available here now at this hour. We will contact [facility], possible transfer. No chief nuclear medicine technologist available here this Tuesday holiday, at least not at this hour. CT Abdomen Pelvis. Impressions: ?Nondilated fluid-filled loops of small bowel are nonspecific, but can be seen in setting of a mild enteritis. Otherwise, no acute abnormality identified in the abdomen or pelvis. See radiology report. Case discussed with cardiology [facility] Dr. Lowe, can add IV digoxin, ordered, transfer here versus admit here. Does not feel heparin needed at this time. Will query hospitalist here. Case discussed with hospitalist Dr. Jain here, who advises transfer/admission at [facility]. Will contact [facility] regarding transfer. Case discussed with [facility] hospitalist who accepts patient for transfer [facility] transport to [facility]. Critical Care Time Critical Care Time Critical Care Time: Yes Total Critical Care Time: 35 Attestation: The high probability of a clinically significant, sudden or life threatening deterioration of the [cardiopulmonary, GI] system(s) required my full and direct attention, intervention and personal management. The aggregate critical care time was [35] minutes. This time is in addition to time spent performing reported procedures but includes the following: [x] Data Review and interpretation [x] Patient assessment and monitoring of vital signs [x] Documentation [x] Medication orders and management Discharge Plan Departure Patient Disposition: [facility] Clinical Impression: Atrial fibrillation with rapid ventricular response, Elevated troponin, Pericardial effusion Prescriptions: No Action (DME) disabled parking Qty: 1 0RF Rx Instructions: I certify that patient has a condition which qualifies him for disabled parking privileges. pantoprazole 40 mg tablet,delayed release (DR/EC) 40 mg PO BID Qty: 60 0RF gabapentin 300 mg capsule 600 mg PO BID acetaminophen 325 mg Tablet 650 mg PO Q6H PRN (Reason: Fever/Mild Pain (1-3)) Qty: 240 0RF oxycodone-acetaminophen 5-325 mg Tablet 1 tab PO Q6HR PRN (Reason: Pain, Moderate (4-6)) Qty: 30 0RF Referrals: Antonia Leigh MD [Primary Care Provider] -
[2024-10-29] MEDS: dilTIAZem 25 MG/5 ML SDV 10 MG IV ×2 (14:18→15:16)
[2024-10-29] MEDS: dilTIAZem 125 MG in SODIUM CHLORIDE 0.9% 100 ML IV (14:19)
--- NOTE | 2024-10-29 15:29 | DI.CT.S_ITS ---
PROCEDURE: CT ANGIO CHEST PE PROTOCOL INDICATIONS: new afib, positive trop TECHNIQUE: After the administration of intravenous contrast, 2 mm thick sections acquired from the pulmonary apices to the posterior costophrenic angles. 3-dimensional maximum intensity projection (MIP) coronal and sagittal reformats were then acquired through the thorax. For radiation dose reduction, the following was used: automated exposure control, adjustment of mA and/or kV according to patient size. COMPARISON: [facility], CT, CT CHEST ABDOMEN PELVIS WITH CONTRAST, 10/05/2024, 18:24. [facility], CT, CT ANGIO CHEST PE PROTOCOL, 02/18/2023, 17:11. FINDINGS: Image quality: Diagnostic. Pulmonary arteries: Pulmonary arteries are normal in size, and demonstrate no intraluminal filling defects to suggest central pulmonary embolism. Lower Neck: Mild enlarged supraclavicular lymph nodes are likely present as seen on the prior exam, but are partially obscured by streak artifact and motion on this exam. Thyroid: No thyroid nodules which require sonographic follow up, per consensus guidelines. Axillae: No enlarged lymph nodes. Chest Wall: Unremarkable. Bones: Unchanged moderate L1 compression fracture. Lungs and Pleura: Moderate left and small right pleural effusions. Atelectasis of the adjacent portions of the lungs. [id number] centrilobular emphysema. Heart: Heart is enlarged. Moderate pericardial effusion. Moderate to severe coronary artery calcifications. Thoracic Vessels: No aortic aneurysm. Mediastinum and Wilma: Multiple enlarged mediastinal and hilar lymph nodes, which have mildly increased in size when compared to the CT from 10/05/2024. For example, a right precarinal lymph node measures 1.5 cm in short axis diameter (4/54), compared to 1.3 cm previously. Esophagus: No wall thickening. No hiatal hernia. Upper Abdomen: Visualized upper abdomen solid organs and bowel loops appear normal. IMPRESSION: 1. No acute pulmonary embolus. 2. Moderate left and small right pleural effusions with bibasilar atelectasis, increased when compared to the CT from 10/05/2024. 3. Moderate pericardial effusion. Cardiomegaly. Moderate to severe coronary artery calcifications. 4. Mildly increased mediastinal, hilar, and likely supraclavicular lymphadenopathy. Approved by: Rodney Funes M.D. on 10/29/2024 at 15:18
--- NOTE | 2024-10-29 15:37 | DI.CT.S_ITS ---
PROCEDURE: CT ABDOMEN PELVIS W CON INDICATIONS: abd pain TECHNIQUE: After the administration of intravenous contrast, axial sections acquired from the lung bases to the pubic symphysis. Coronal and sagittal reformats were performed. For radiation dose reduction, the following was used: automated exposure control, adjustment of mA and/or kV according to patient size. COMPARISON: [facility], CT, CT CHEST ABDOMEN PELVIS WITH CONTRAST, 10/05/2024, 18:24. [facility], CT, CT ABDOMEN PELVIS W CON, 02/18/2023, 17:11. [facility], CT, CT ABDOMEN PELVIS W CON, 12/19/2018, 21:13. FINDINGS: Image quality: Diagnostic. Lower Chest: Dictated separately. ABDOMEN: Liver: No solid mass. Gallbladder: No radiopaque gallstones or wall thickening. Biliary ducts: No biliary dilation. Pancreas: No ductal dilation. Spleen: Size is within normal limits. Adrenal Glands: No adrenal nodules. Kidneys and Ureters: No hydronephrosis. No solid mass. No complex renal cystic lesion which requires follow up. Stomach and Bowel: Nondilated fluid-filled loops of small bowel throughout the mid to lower abdomen. Colon is nondistended. Surgical anastomosis is seen at the rectosigmoid junction. Peritoneum: Trace free fluid along the left pericolic gutter. No free air. Ventral Wall: No significant ventral hernia. Abdominal Nodes: No retroperitoneal or mesenteric adenopathy by size criteria. Vessels: Aorta and inferior vena cava are normal in size. PELVIS: Pelvic Organs: Unremarkable. Bladder: No bladder wall thickening, accounting for underdistention. Pelvic Nodes: No enlarged lymph nodes. Miscellaneous: No inguinal hernias are seen. Bones: No aggressive osseous abnormality. Postsurgical changes are seen in the included spine. Unchanged chronic compression fracture of the L1 vertebral body. IMPRESSION: Nondilated fluid-filled loops of small bowel are nonspecific, but can be seen in setting of a mild enteritis. Otherwise, no acute abnormality identified in the abdomen or pelvis. Approved by: Rodney Funes M.D. on 10/29/2024 at 15:23
[2024-10-29 16:09] LABS: Troponin I 0.291 ng/mL (0.01-0.034)
[2024-10-29] MEDS: DIGOXIN 500 MCG/2 ML AMPUL IV (17:51)
[2024-10-29] MEDS: SODIUM CHLORIDE 0.9% 1,000 ML 1000 ML IV (17:52)
[2024-10-29 17:55] LABS: PTT Partial Thromboplastin Tim 41 SECONDS (25.1-36.5)
== END 2024-10-29 19:35 | disposition short-term general hospital (02) ==
PROVIDERS: Emergency Provider Emergency Medicine; PCP Internal Medicine
DX: I48.20 Chronic atrial fibrillation, unspecified (principal); R79.89 Other specified abnormal findings of blood chemistry; I31.39 Other pericardial effusion (noninflammatory); R06.02 Shortness of breath
CPT/HCPCS: 36415; 71045; 71275; 74177; 80053; 83605; 83880; 84484; 85025; 85610; 85730; 93005; 96365; 96366; 96375; 96376; 99285; 99291; J1160; Q9967

== ENCOUNTER 2024-12-03 08:08 | Emergency (ER) | payer MEDICARE, SELFPAY ==
[2023-08-03 20:59] VITALS: BMI 26.9
[2024-12-03] VITALS (31 sets, daily range): BP systolic 128–168; BP diastolic 61–96; PULSE 42–65; RESP 12–23; TEMP 36.1; O2SAT 91–100; BMI 25.1
--- NOTE | 2024-12-03 08:14 | ED_ITS ---
HPI - General Adult General Chief complaint: Anxiety Stated complaint: anxiety Time Seen by Provider: 12/03/24 08:10 History of Present Illness HPI narrative: 79-year-old gentleman who lives at [facility] called 911 himself this morning saying that he woke up having ?anxiety attack? in the middle of the night any has not been able to sleep. He says he is shaky all over, his mind is foggy and this is worse than it has been in the past. Does not recall what medications he is on, states that he has not had any medications for at least a week. He has no localizing symptoms no signs of fever, no evidence of falls. We were able to find his sister's phone number through his phone, apparently called her this morning. She reportedly picks up his medications. He is not sure which pharmacy he uses. No nausea, vomiting, localizing neurologic symptoms, he is hard of hearing otherwise seems slightly cognitively inclined but cooperative and otherwise appropriate Related Data Home Medications ?Medication ?Instructions ?Recorded ?Confirmed gabapentin 300 mg capsule 600 mg PO BID pain 08/13/21 08/03/23 Previous Rx's ?Medication ?Instructions ?Recorded disabled parking #1 ea 01/05/19 acetaminophen 325 mg tablet 650 mg (2 x 325 mg) PO Q6H PRN 10/08/22 Fever/Mild Pain (1-3) #240 tabs pantoprazole 40 mg tablet,delayed 40 mg PO BID #60 tab s 02/25/23 release oxycodone-acetaminophen 5 mg-325 1 tab PO Q6HR PRN Herson n, Moderate 08/09/23 mg tablet (4-6) #30 tabs Allergies Allergy/AdvReac Type Severity Reaction Status Date / Time gluten Allergy Diarrhea Verified 05/17/24 03:14 Opioids - Morphine Analogues AdvReac Severe delerium Verified 09/11/23 17:00 Review of Systems Review of Systems Narrative: Pertinent positive and negative findings as per HPI Patient History Medical History Fractures Anemia Hx of flexible sigmoidoscopy (~01/2019) Hearing loss (Unknown) Chronic back pain (Unknown) Surgical History H/O vasectomy History of removal of Port-a-Cath History of colonoscopy Hx of neck surgery (~2020) Anesthesia S/P laparoscopic colectomy (01/10/19) History of back surgery (~2016) Family History Father Heart disease Mother Cancer Congestive heart failure Sister Hypertension Cancer Brother Heart disease Rheumatic fever Brother No problems noted. Social History household members: none occupational status: employed Smoking Status: Former smoker alcohol intake: current alcohol intake frequency: 3 or more drinks per day Exam Initial Vital Signs Initial Vital Signs: Vital Signs Temperature 96.9 F L 12/03/24 08:14 Pulse Rate 48 L 12/03/24 08:14 Respiratory Rate 15 12/03/24 08:14 Blood Pressure 163/71 H 12/03/24 08:14 Pulse Oximetry 98 12/03/24 08:14 Oxygen Delivery Method Room Air 12/03/24 08:14 General: Frail-appearing, hard of hearing, speaking in complete sentences, he is not in acute distress HEENT: Moist mucous membranes, normal sclera with reactive pupils, Respiratory: Lungs are clear to auscultation, no wheezing no rales no rhonchi. Full and symmetrical air movement Cardiac: Bradycardic but otherwise Regular rate and rhythm no murmurs no bruits Abdomen: Soft, nontender, no rebound or guarding, no flank pain Skin: Warm and dry, no rashes Neurologic: Grossly neurologically intact with no obvious asymmetries or abnormalities Extremities: No trauma, 1+ bilateral lower extremity edema left greater than right Psych: Cooperative, a slightly confused Course Orders Ordered: ED Orders 12/03/24 15:37 Urinalysis and Microscopic Stat Discontinued Medications Acetaminophen (Acetaminophen 325 Mg Tablet) 975 mg PO NOW ONE Stop: 12/03/24 09:59 Last Admin: 12/03/24 10:02 Dose: 975 mg Documented By: ES Acetaminophen (Acetaminophen 325 Mg Tablet) 650 mg PO Q6H PRN PRN Reason: Fever/Mild Pain (1-3) Last Admin: 12/03/24 17:10 Dose: 650 mg Documented By: ES Gabapentin (Gabapentin 100 Mg Capsule) 100 mg PO NOW ONE Stop: 12/03/24 09:59 Last Admin: 12/03/24 10:02 Dose: 100 mg Documented By: EMMETT Gabapentin (Gabapentin 100 Mg Capsule) 100 mg PO TID GATO Last Admin: 12/03/24 17:10 Dose: 100 mg Documented By: EMMETT Sodium Chloride (Normal Saline 0.9%) 1,000 mls @ 1,000 mls/hr IV BOLUS ONE Stop: 12/03/24 10:47 Last Infusion: 12/03/24 14:22 Dose: Infused Documented By: Admin: 12/03/24 10:03 Dose: 1,000 mls/hr Documented By: EMMETT Vital Signs Vital signs: Vital Signs - 8 hr 12/03/24 11:00 12/03/24 11:01 12/03/24 11:01 Pulse Rate 43 L 43 L Respiratory Rate Blood Pressure 146/66 H Pulse Oximetry 97 95 12/03/24 11:30 12/03/24 11:31 12/03/24 11:31 Pulse Rate 50 L 48 L Respiratory Rate 23 15 Blood Pressure 161/72 H Pulse Oximetry 96 12/03/24 12:00 12/03/24 12:01 12/03/24 12:01 Pulse Rate 47 L 47 L Respiratory Rate 20 19 Blood Pressure 153/70 H Pulse Oximetry 96 96 12/03/24 12:30 12/03/24 12:30 12/03/24 13:00 Pulse Rate 48 L 46 L Respiratory Rate 19 18 Blood Pressure 157/72 H Pulse Oximetry 97 95 12/03/24 13:00 12/03/24 13:30 12/03/24 13:35 Pulse Rate 49 L Respiratory Rate 21 Blood Pressure 146/67 H 163/73 H Pulse Oximetry 93 12/03/24 13:35 12/03/24 14:00 12/03/24 14:00 Pulse Rate 48 L 47 L Respiratory Rate 20 19 Blood Pressure 152/70 H Pulse Oximetry 95 95 12/03/24 14:30 12/03/24 14:31 12/03/24 14:31 Pulse Rate 54 L 54 L Respiratory Rate 17 18 Blood Pressure 168/77 H Pulse Oximetry 12/03/24 15:00 12/03/24 15:01 12/03/24 15:01 Pulse Rate 52 L 53 L Respiratory Rate 21 Blood Pressure 143/96 H Pulse Oximetry 12/03/24 15:30 12/03/24 16:00 12/03/24 16:01 Pulse Rate 59 L 51 L 64 Respiratory Rate 18 Blood Pressure Pulse Oximetry 95 96 12/03/24 16:01 12/03/24 16:30 12/03/24 16:31 Pulse Rate 43 L Respiratory Rate 21 Blood Pressure 138/63 128/61 Pulse Oximetry 96 12/03/24 16:31 12/03/24 17:00 12/03/24 17:01 Pulse Rate 42 L 53 L Respiratory Rate 18 19 Blood Pressure 134/63 Pulse Oximetry 94 98 12/03/24 17:01 12/03/24 17:30 12/03/24 17:30 Pulse Rate 65 46 L Respiratory Rate 16 21 Blood Pressure 141/64 H Pulse Oximetry 98 100 Medical Decision Making Lab Data 12/03/24 08:50 12/03/24 08:50 Labs: Lab Results 12/03/24 12/03/24 Range/Units 08:50 15:37 WBC 9.4 (4.5-11.0) X10^3/uL RBC 3.08 L (4.5-5.9) X10^6/uL Hgb 9.2 L (13.5-17.5) g/dL Hct 27.0 L (41-53) % MCV 87.7 (80-100) fL MCH 29.7 (26-34) PG MCHC 33.9 (30-36) % RDW 16.7 H (11.6-14.8) % Plt Count 298 (150-400) X10^3/uL Neut % (Auto) 81.5 H (50-75) % Lymph % (Auto) 7.3 L (25-40) % [place] % (Auto) 5.1 (3-14) % Eos % (Auto) 4.0 (2-4) % Baso % (Auto) 2.1 H (0-2) % Neut # (Auto) 7700 H (0131-2236) /uL Lymph # (Auto) 700 L (6582-9661) /uL [place] # (Auto) 500 (0-900) /uL Eos # (Auto) 400 (0-450) /uL Baso # (Auto) 200 H (0-100) /uL Sodium 123 L (137-145) mmol/L Potassium 4.9 (3.4-5.1) mmol/L Chloride 91 L (98-107) mmol/L Carbon Dioxide 24 (22-32) mmol/L BUN 8 L (9-20) mg/dL Creatinine 0.56 L (0.66-1.25) mg/dL Estimated GFR > 60 (>60) mL/min BUN/Creatinine Ratio 14.3 (6-22) Glucose 94 (70-99) mg/dL Calcium 8.4 (8.4-10.2) mg/dL Magnesium 1.7 (1.6-2.3) mg/dL Total Bilirubin 0.8 (0.2-1.3) mg/dL AST 46 (17-59) IU/L ALT 17 (<50) IU/L Alkaline Phosphatase 44 (38-126) U/L Troponin I 0.014 (0.01-0.034) ng/mL NT-Pro-B Natriuret Pep 1950 H (<450) pg/mL Total Protein 6.7 (6.3-8.2) g/dL Albumin 3.6 (3.5-5.0) g/dL Globulin 3.1 (1.7-4.1) g/dL Albumin/Globulin Ratio 1.2 (1.0-2.8) Urine Color Yellow Urine Appearance Clear Urine pH 6.5 (4.5-8.0) Ur Specific [place] 1.020 (1.000-1.035) Urine Protein Negative (Negative) Urine Glucose (UA) Negative (Negative) g/dL Urine Ketones Negative (NEGATIVE) Urine Occult Blood Negative (Negative) Urine Nitrate Negative (Negative) Urine Bilirubin Negative (NEGATIVE) Urine Urobilinogen 0.2 (0.2) E.U./dL Ur Leukocyte Esterase Negative (NEGATIVE) Urine RBC 0-1/hpf (0-5/HPF) Urine WBC 0-1/hpf (0-5/HPF) Ur Squamous Epith Cells 0-1 /hpf (0-5/HPF) Urine Bacteria None seen (None) Ur Culture Indicated? Cult not indicated Vol Urine Centrifuged 10ml (spun) Ethyl Alcohol < 10 (<10) mg/dL MDM Narrative Medical decision making narrative: CC: ?anxiety attack? brought in by medics Complicating co-morbidities: Lives at [facility] unclear if it is assisted living or independent living. Sure which medication he takes or what medical issues he has. Does not think he has had his medications for at least a week. Medical records indicate cardiac disease prior STEMI prior atrial fibrillation and dementia Data collected from: patient, medics, home health, sister and records attempted to be obtained from [facility]. Social determinants of health that may influence the patients condition: Patient was discharged home from [facility] presumably with concerns for GI bleeding post colonoscopy approximately 5 days ago. He had home health follow up however he declined their help. There was a misstep and communication between home health in his sister, who typically helps with all of his medications, and patient has not had any medications since returned to home. Medical records reviewed: Notes from ER visit 10/29 indicate history of alcohol use, coronary stent placed in early October of this year. Apparently recent hospitalization at [facility] with discharge on the after concern for GI bleeding and colonoscopy done. Med list from [facility] listed in the after visit summary from November 28 [facility] discharge include: Furosemide 10 mg daily Apixaban 5 mg b.i.d. Atorvastatin 40 mg daily Carvedilol 3.12 mg b.i.d. Clopidogrel 75 mg daily Gabapentin 100 mg at HS Pantoprazole 40 mg daily Amiodarone 200 mg daily As needed medications include 2.5 mg oxycodone at bedtime as needed Tylenol, Docusate, senna, police enema, milk of magnesia Admitted [facility] August of 2023 for hyponatremia acute metabolic encephalopathy, GI bleed and rhabdomyolysis Differential considered: Acute coronary syndrome, electrolyte abnormalities, sepsis, dementia with sleep disturbance, disturbances secondary to no home medications for at least 5 days, Exam documented above, pertinent findings include: Slightly confused rather slow heart rate but no murmurs appreciated Lab Test results independently reviewed as above. Pertinent findings: CBC shows no leukocytosis. H and H is 9.2 and 27.0 (have requested records from [facility] for comparison H&H) Chemistries show sodium of 123, appropriate renal function, undetectable troponin Independently reviewed EKG: EKG shows rate of 44, it is unclear whether this is a sinus Tad you are a junctional bradycardia. Rhythm strip is ordered Rhythm strip is more suggestive of a junctional rhythm in the low 40s Imaging studies independently reviewed: Suggestive of congestive heart failure, no obvious pneumothorax Consultations: Discussion with hospitalist at [facility]. Due to the fact that pacemaker may be required with a junctional rhythm recommends looking for hospital bed with inpatient cardiology consultation immediately available [address] Hoffman, cardiology at [facility]. Agrees that higher level of care than [facility] is going to be appropriate. We will see if beds were available at [facility]. Treatments: L of normal saline, oral gabapentin and Tylenol at his request for neuropathy pain Re-evaluations: Discussion: 79-year-old gentleman presents with complaints of an anxiety attack generally feeling like he is fuzzy headed. Sodium is 123 which may explain part of that. He is also noted to be in a junctional bradycardia in the 40s. He was discharged from [facility] approximately 5 days ago having an upper GI bleed. Medications were supposed to be managed by home health however he declined home health when they showed up. His sister, who had been helping with medications prior to that was not aware of you are helping declined. There were other caregivers to help with activities of daily living that were there but were not responsible for medications. He has not had any of his medications including his amlodipine, metoprolol or apixaban for his chronic atrial fibrillation. Care is reviewed with Cardiology, given his need for admission for his hyponatremia and altered none mental status we will recommend admission to hospital with Cardiology inpatient consultation available should his rhythm change or slow and he require pacemaker. He is accepted in transfer to [facility] for further evaluation. Discharge Plan Departure Patient Disposition: [facility] Clinical Impression: Acute hyponatremia, Junctional bradycardia Prescriptions: No Action (DME) disabled parking Qty: 1 0RF Rx Instructions: I certify that patient has a condition which qualifies him for disabled parking privileges. pantoprazole 40 mg tablet,delayed release (DR/EC) 40 mg PO BID Qty: 60 0RF gabapentin 300 mg capsule 600 mg PO BID acetaminophen 325 mg Tablet 650 mg PO Q6H PRN (Reason: Fever/Mild Pain (1-3)) Qty: 240 0RF oxycodone-acetaminophen 5-325 mg Tablet 1 tab PO Q6HR PRN (Reason: Pain, Moderate (4-6)) Qty: 30 0RF Referrals: Antonia Leigh MD [Primary Care Provider, Internal Medicine]
--- NOTE | 2024-12-03 08:19 | DI.RAD.S_ITS ---
PROCEDURE: XR CHEST 1V INDICATIONS: confusion TECHNIQUE: One view of the chest was acquired. COMPARISON: [facility], CR, XR CHEST 1V, 10/29/2024, 12:47. FINDINGS: Surgical changes and devices: Postsurgical changes are seen in cervical spine. Lungs and pleura: Mild pulmonary vascular congestion. There is blunting of bilateral costophrenic angle with bibasilar atelectasis/small infiltrates. No pneumothorax. Mediastinum: Mediastinal contours appear normal. Heart size is enlarged. Bones and chest wall: No suspicious bony lesions. Overlying soft tissues appear unremarkable. IMPRESSION: Finding is suggestive of CHF. Underlying bibasilar small infiltrates cannot be excluded. No pneumothorax. Dictated by: Joey Lowe M.D. on 12/03/2024 at 8:48 Approved by: Joey Lowe M.D. on 12/03/2024 at 8:49
--- NOTE | 2024-12-03 08:49 | EKG_ITS ---
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
[2024-12-03 09:00] LABS: Add Manual Diff / Slide Review NO; Basophils Absolute Auto 200 /uL (0-100); Basophils Percent Auto 2.1 % (0-2); Eosinophils Absolute Auto 400 /uL (0-450); Hemoglobin 9.2 g/dL (13.5-17.5); Lymphocytes Absolute Auto 700 /uL (1100-4500); Lymphocytes Percent Auto 7.3 % (25-40); Mean Corpuscular HGB Conc 33.9 % (30-36); Mean Corpuscular Hemoglobin 29.7 PG (26-34); Mean Corpuscular Volume 87.7 fL (80-100); Monocytes Absolute Auto 500 /uL (0-900); Monocytes Percent Auto 5.1 % (3-14); Neutrophils Absolute Auto 7700 /uL (1500-7000); Neutrophils Percent Auto 81.5 % (50-75); Platelet Count 298 X10^3/uL (150-400); Red Blood Cell Count 3.08 X10^6/uL (4.5-5.9); Red Cell Distribution Width 16.7 % (11.6-14.8); White Blood Cell Count 9.4 X10^3/uL (4.5-11.0)
[2024-12-03 09:20] LABS: Albumin Globulin Ratio 1.2 (1.0-2.8); Alkaline Phosphatase 44 U/L (38-126); BUN Creatinine Ratio 14.3 (6-22); Bilirubin Total 0.8 mg/dL (0.2-1.3); Blood Urea Nitrogen 8 mg/dL (9-20); Calcium 8.4 mg/dL (8.4-10.2); Carbon Dioxide 24 mmol/L (22-32); Chloride 91 mmol/L (98-107); Estimated Glomerular Filt Rate > 60 mL/min (>60); Globulin 3.1 g/dL (1.7-4.1); Glucose 94 mg/dL (70-99); Sodium 123 mmol/L (137-145)
[2024-12-03 09:21] LABS: HEMOLYSIS 132 (0-50)
[2024-12-03 09:23] LABS: Albumin 3.6 g/dL (3.5-5.0); Potassium 4.9 mmol/L (3.4-5.1)
[2024-12-03 09:24] LABS: Alanine Aminotransferase 17 IU/L (<50); Aspartate Aminotransferase 46 IU/L (17-59); Total Protein 6.7 g/dL (6.3-8.2)
[2024-12-03 09:25] LABS: Magnesium 1.7 mg/dL (1.6-2.3)
[2024-12-03 09:33] LABS: Troponin I 0.014 ng/mL (0.01-0.034)
[2024-12-03] MEDS: ACETAMINOPHEN 325 MG TABLET 975 MG PO (10:02)
[2024-12-03] MEDS: GABAPENTIN 100 MG CAPSULE PO ×2 (10:02→17:10)
[2024-12-03] MEDS: SODIUM CHLORIDE 0.9% 1,000 ML 1000 ML IV (10:03)
--- NOTE | 2024-12-03 10:14 | EKG_ITS ---
[address] [address] Test Date: 2024-12-03 Pat Name: Talat Stevenson Department: Room: Gender: Male Rv Technician: LS : 1945 Requested By: Order Number: [id number] Reading MD: César Landers MD Measurements Intervals [place] Rate: 47 P: -22 SD: 200 QRS: -19 QRSD: 90 T: 57 QT: 514 QTc: 454 Interpretive Statements Sinus bradycardia with premature atrial complexes Low voltage QRS Nonspecific T wave abnormality Electronically Signed On 12-04-2024 7:09:22 PDT by César Landers MD
[2024-12-03 10:18] LABS: NT-proBNP (BNP-Adult 18+) 1950 pg/mL (<450)
[2024-12-03 10:40] LABS: Ethanol (ETOH) < 10 mg/dL (<10)
--- NOTE | 2024-12-03 10:40 | EKG_ITS ---
[address] [address] [address] [address] Test Date: 2024-12-03 Pat Name: Talat Stevenson Department: Room: Gender: Male Regional Facilities Specialist: LS : 1945 Requested By: Order Number: [id number] Reading MD: César Landers MD Measurements Intervals [place] Rate: 47 P: IA: QRS: -17 QRSD: 94 T: 59 QT: 524 QTc: 463 Interpretive Statements Junctional rhythm Low voltage QRS Nonspecific T wave abnormality Prolonged QT Electronically Signed On 12-04-2024 7:09:29 PDT by César Landers MD
--- NOTE | 2024-12-03 15:43 | PC.NURSE ---
QUILL WORKER note: pt. was assisted on bedpan by this QUILL WORKER and produced a soft brown stool, enrrique care was done, and a new brief put on the pt. call light within reach, pt. encouraged to use call light for needs.
[2024-12-03 15:48] LABS: Appearance Urine UA CLEAR; Bilirubin Urine UA NEGATIVE (NEGATIVE); Color Urine UA YELLOW; Glucose Urine UA NEGATIVE (Negative); Ketones Urine UA NEGATIVE (NEGATIVE); Leukocyte Esterase Urine UA NEGATIVE (NEGATIVE); Nitrite Urine UA NEGATIVE (Negative); Occult Blood Urine UA NEGATIVE (Negative); Protein Urine UA NEGATIVE (Negative); Urobilinogen Urine UA 0.2 E.U./dL (0.2); pH Urine UA 6.5 (4.5-8.0)
[2024-12-03 16:01] LABS: Bacteria Urine None Seen; Culture Indicated Urine Cult Not Indicated; RBC Urine 0-1/HPF (0-5/HPF); Squamous Epithelial Cell Urine 0-1 /HPF (0-5/HPF); Urine Volume 10mL (spun); WBC Urine 0-1/HPF (0-5/HPF)
[2024-12-03] MEDS: ACETAMINOPHEN 325 MG TABLET 650 MG PO (17:10)
--- NOTE | 2024-12-03 17:22 | PC.NURSE ---
Informed pt's sister of transfer to [facility] after verbal consent from pt.
== END 2024-12-03 17:55 | disposition short-term general hospital (02) ==
PROVIDERS: Emergency Provider Emergency Medicine; PCP Internal Medicine
DX: E87.1 Hypo-osmolality and hyponatremia (principal); R00.1 Bradycardia, unspecified
CPT/HCPCS: 36415; 71045; 80053; 80320; 81001; 83735; 83880; 84484; 85025; 93005; 93010; 96360; 96361; 99284